=== PATIENT | female | born 1945 | race Caucasian/White ===

== ENCOUNTER 2016-12-21 03:45 | Emergency (ER) | payer MEDICARE, OTHER ==
[2016-12-21 03:53] VITALS: TEMP 97.8
[2016-12-21] MEDS ORDERED: methylPREDNISolone SOD SUCCI 125 MG/2 ML VIAL IM ONE (04:45)
[2016-12-21] MEDS ORDERED: MORPHINE SULFATE 4 MG/ML SYRINGE IM STA (04:45)
--- NOTE | 2016-12-21 05:41 | XR ---
EXAMINATION TYPE: XR lumbar spine 2 or 3V DATE OF EXAM: 12/21/2016 5:08 AM COMPARISON: 11/23/2015 HISTORY: Back pain Technique 3 views. Findings There is a slight levoscoliosis. There is degenerative disc space narrowing at L3-4. Abdomin al aorta is atheromatous. Posterior elements are intact. Sacroiliac joints are intact. Conclusion: Spondylotic changes and mild levoscoliosis. No fracture. No change.
--- NOTE | 2016-12-21 05:47 | ED ---
General Adult HPI - General Chief complaint: Extremity Injury, Lower Stated complaint: Hip/Leg Pain/Numbness Time Seen by Provider: 12/21/16 04:03 Source: patient, RN notes reviewed Mode of arrival: ambulatory Limitations: no limitations - History of Present Illness Initial comments: This patient is a 71-year-old woman who presents to be evaluated for low back pain that does go to her right leg, and has been getting worse over the past few days. The patient states that she was told she has sciatic back pain. She has had multiple flareups of the past year. She has an appointment upcoming with the [facility]. the patient indicates pain from the low back to the right buttock to the back of the thigh, and down to the toes. She denies weakness. She denies change in bladder or bowel function. She has not had saddle anesthesia. She states that last night the pain had been severe. It is difficult to characterize. She states it is better if she walks, and worse if she is sitting for a period of time. Her physician had given her muscle relaxant which she states did not give much relief. -: days(s) Location: back - Related Data Home Medications Medication Instructions Recorded Confirmed Calcium Carbonate/Vitamin D3 1 each PO QMONTH 10/30/14 12/21/16 [Calcium 600 + Vit D Tablet] Atenolol 25 mg PO DAILY 12/21/16 12/21/16 B12/Levomefolate Calcium/B-6 1 each PO DAILY 12/21/16 12/21/16 [Foltx Tablet] Calcium Carbonate [Calcium] 1,250 mg PO DAILY 12/21/16 12/21/16 Cyclobenzaprine [Flexeril] 10 mg PO HS 12/21/16 12/21/16 Ferrous Sulfate [Feosol] 325 mg PO DAILY 12/21/16 12/21/16 Ubidecarenone [Co Q-10] 200 mg PO DAILY 12/21/16 12/21/16 amLODIPine BESYLATE/BENAZEPRIL 1 cap PO DAILY 12/21/16 12/21/16 [amLODIPine BESYLATE/BENAZEPRIL 10-40 mg] Previous Rx's Medication Instructions Recorded Methocarbamol [Robaxin-750] 750 mg PO TID PRN #30 tablet 12/21/16 predniSONE 60 mg PO DAILY #30 tab 12/21/16 Allergies Allergy/AdvReac Type Severity Reaction Status Date / Time metronidazole [From Flagyl] AdvReac Unknown Verified 10/30/14 17:32 Review of Systems ROS Statement: Those systems with pertinent positive or pertinent negative responses have been documented in the HPI. ROS Other: All systems not noted in ROS Statement are negative. Constitutional: Denies: fever, chills, weakness Respiratory: Denies: cough, dyspnea Cardiovascular: Denies: chest pain, edema Gastrointestinal: Denies: abdominal pain, nausea, vomiting, diarrhea, constipation Genitourinary: Denies: dysuria, hematuria Musculoskeletal: Reports: as per HPI, back pain Skin: Denies: rash Neurological: Reports: paresthesias. Denies: headache, weakness, numbness Past Medical History Past Medical History: Hyperlipidemia, Hypertension History of Any Multi-Drug Resistant Organisms: None Reported Past Surgical History: Tubal Ligation Past Psychological History: No Psychological Hx Reported Smoking Status: Current every day smoker Past Alcohol Use History: None Reported Past Drug Use History: None Reported General Exam Limitations: no limitations General appearance: alert, in no apparent distress Head exam: Present: atraumatic, normocephalic GI/Abdominal exam: Present: soft. Absent: distended, tenderness, guarding, rebound, mass, pulsatile mass, hernia Extremities exam: Present: normal inspection, normal capillary refill. Absent: pedal edema, calf tenderness Back exam: Present: normal inspection. Absent: CVA tenderness (R), CVA tenderness (L), vertebral tenderness Neurological exam: Present: alert, reflexes normal. Absent: motor sensory deficit Skin exam: Present: warm, dry, intact, normal color. Absent: rash Course Vital Signs 12/21/16 12/21/16 03:50 06:00 Temperature 97.8 F Pulse Rate 86 66 Respiratory 18 16 Rate Blood Pressure 152/67 143/68 O2 Sat by Pulse 98 97 Oximetry Medical Decision Making - Medical Decision Making Given the patient's age lumbar spine films were obtained to rule out pathologic fracture. The patient did have some relief with medications here. Discussed appropriate further care and follow-up, as well as return parameters. Disposition Clinical Impression: Sciatic nerve pain Disposition: HOME SELF-CARE Condition: Fair Instructions: Lumbar Radiculopathy (ED) Prescriptions: Methocarbamol [Robaxin-750] 750 mg PO TID PRN #30 tablet PRN Reason: pain predniSONE 60 mg PO DAILY #30 tab Referrals: Lola Nieto MD [Primary Care Provider] - 1-2 days
[2016-12-21 06:01] VITALS: BP 143/68; PULSE 66; RESP 16
== END 2016-12-21 06:00 | disposition home or self-care (01) ==
LOC: EC 03:45
DX: M54.16 Radiculopathy, lumbar region (principal); M25.551 Pain in right hip; I10 Essential (primary) hypertension; F17.200 Nicotine dependence, unspecified, uncomplicated; Z79.899 Other long term (current) drug therapy; Z88.1 Allergy status to other antibiotic agents
CPT/HCPCS: 99283; 96372 ×2; 72100; J2270; J2930

== ENCOUNTER → 2017-01-09 | Outpatient (CLI) | payer MEDICARE, OTHER ==
--- NOTE | 2017-01-09 13:41 | MR ---
EXAMINATION TYPE: MR lumbar spine wo con DATE OF EXAM: 01/09/2017 11:52 AM COMPARISON: Plain film 21 December 2016 HISTORY: Low back pain TECHNIQUE: Multiplanar, multisequence images of the lumbar spine were acquired. L1-L2: Posterior broad-based disc bulge causes mild anterior mass effect on the thecal sac. There is some facet arthropathy which is mild. No significant central stenosis. L2-L3: Broad-based posterior disc bulge causes mild anterior mass effect on the thecal sac. No signif icant central stenosis or foraminal encroachment. L3-L4: There is a right posterior paracentral disc herniation causing anterolateral mass effect on th e thecal sac. Lateral extension encroaches on the right neural foramen. There is mild to moderate tootie tral stenosis. Facet arthropathy causes posterior lateral mass effect on the thecal sac due to hypert rophy of ligamentum flavum. L4-L5: Broad-based disc bulge is somewhat eccentric towards the left causing anterolateral mass effec t on the thecal sac. There is facet arthropathy causing lateral recess encroachment, trefoil appearan ce of the thecal sac is present. Circumferential extension of endplate disc complex encroaches somewh at on the neural foramina right greater than left. L5-S1: There is facet arthropathy with hypertrophy of ligamentum flavum causing lateral recess encroa chment, narrowing the transverse diameter of the thecal sac. Posterior extension of endplate disc com plex extension circumferentially and encroaches on the bilateral neural foraminal. There may be some mass effect on the anterior aspect of the thecal sac, proximal S1 nerve roots. Lumbar segments are intact. No paraspinal masses are identified. Conus medullaris has a normal appe arance. Levoscoliosis centered at L3 is again noted. There is retrolisthesis grade 1 L3-4. Loss of di sc height and signal is greatest at L5-S1, L3-4, L2-3, there is associated spondylosis and endplate d iscogenic marrow signal change. Lumbar vertebral bodies show preserved height. Vacuum phenomenon pres ent at L3-4, L5-S1. Infrarenal abdominal aorta measures 2.7 cm. Partially imaged left adrenal mass me asures 2.9 cm. IMPRESSION: Degenerative disc disease, facet arthropathy, scoliosis, multilevel foraminal encroachment and spinal stenosis also present. Limited evaluation, some mildly prominent portions of the infrarenal abdomina l aorta. Left adrenal mass.
== END | disposition home or self-care (01) ==
LOC: RADMRIMAIN 10:50
PROVIDERS: ATTEND Internal Medicine
DX: M48.06 Spinal stenosis, lumbar region (principal); M51.36 Other intervertebral disc degeneration, lumbar region; M46.86 Other specified inflammatory spondylopathies, lumbar region; M41.9 Scoliosis, unspecified
CPT/HCPCS: 72148

== ENCOUNTER 2017-01-13 20:24 | Emergency (ER) | payer MEDICARE, OTHER ==
[2017-01-13 20:34] VITALS: BP 146/64; PULSE 100; RESP 20; TEMP 98.9
[2017-01-13] MEDS ORDERED: ONDANSETRON ODT 4 MG TAB PO STA (21:12)
[2017-01-13] MEDS ORDERED: HYDROmorphone 1 MG/ML 1 ML SYRINGE IM STA (21:13)
--- NOTE | 2017-01-13 21:20 | ED ---
General Adult HPI - General Chief complaint: Nausea/Vomiting/Diarrhea Stated complaint: poss drug reaction Time Seen by Provider: 01/13/17 20:39 Source: patient, RN notes reviewed Mode of arrival: ambulatory Limitations: no limitations - History of Present Illness Initial comments: Patient is a 71-year-old female presents emergency room for evaluation of nausea and vomiting. Patient states she's been dealing with low back pain for the past month. Patient states she recently had an MRI at the end of last month which showed she had a pinched nerve in her right sciatic area. Patient states she was recently placed on Percocet. Patient states she was told that she is having increased pain to take 2 Percocet. Patient states she took 2 Percocet last night and began violently vomiting. Patient states she's been feeling sick to her stomach all day today. Patient states she hasn't been taking any of her Percocet because she's afraid she's going to sick again. Patient states she is having 10 out of 10 constant pain. Patient states she has previously been on tramadol, Valium, Robaxin and steroids with little relief of symptoms. Patient states she can't get a hold of her physician until Sunday. Patient states she is still feeling very nauseous. Patient denies any recent fall or trauma to her back since her MRI. Patient states the pain is similar to pain she is been having for the past month. Patient states the pain starts on her right buttocks and radiates down her right leg. Patient states she can't get comfortable from pain. Patient denies urinary or fecal incontinence. Patient denies numbness or tingling in her legs. Patient denies saddle anesthesia. Patient also states she noticed a rash forming on the right side of her face after vomiting. Patient denies new facial lotions, shampoos, detergents. Patient denies itching. Patient denies any pain from the rash area. - Related Data Home Medications Medication Instructions Recorded Confirmed Calcium Carbonate/Vitamin D3 1 each PO QMONTH 10/30/14 01/13/17 [Calcium 600 + Vit D Tablet] Atenolol 25 mg PO DAILY 12/21/16 01/13/17 B12/Levomefolate Calcium/B-6 1 each PO DAILY 12/21/16 01/13/17 [Foltx Tablet] Calcium Carbonate [Calcium] 1,250 mg PO DAILY 12/21/16 01/13/17 Cyclobenzaprine [Flexeril] 10 mg PO HS 12/21/16 01/13/17 Ferrous Sulfate [Feosol] 325 mg PO DAILY 12/21/16 01/13/17 Ubidecarenone [Co Q-10] 200 mg PO DAILY 12/21/16 01/13/17 amLODIPine BESYLATE/BENAZEPRIL 1 cap PO DAILY 12/21/16 01/13/17 [amLODIPine BESYLATE/BENAZEPRIL 10-40 mg] Ciprofloxacin HCl [Cipro] 500 mg PO Q12HR 01/13/17 01/13/17 Gabapentin [Neurontin] 300 mg PO HS 01/13/17 01/13/17 oxyCODONE-APAP 5-325MG [Percocet 1 tab PO Q6HR PRN 01/13/17 01/13/17 5-325 mg] Previous Rx's Medication Instructions Recorded Methocarbamol [Robaxin-750] 750 mg PO TID PRN #30 tablet 12/21/16 predniSONE 60 mg PO DAILY #30 tab 12/21/16 HYDROcodone/APAP 5-325MG [[place] 1 tab PO Q6HR PRN #12 tab 01/13/17 5-325] Ondansetron Odt [Zofran Odt] 4 mg PO Q8HR PRN #12 tab 01/13/17 predniSONE 50 mg PO DAILY #5 tab 01/13/17 Allergies Allergy/AdvReac Type Severity Reaction Status Date / Time metronidazole [From Flagyl] AdvReac Unknown Verified 01/13/17 20:34 Review of Systems ROS Statement: Those systems with pertinent positive or pertinent negative responses have been documented in the HPI. ROS Other: All systems not noted in ROS Statement are negative. Past Medical History Past Medical History: Hyperlipidemia, Hypertension History of Any Multi-Drug Resistant Organisms: None Reported Past Surgical History: Tubal Ligation Past Psychological History: No Psychological Hx Reported Smoking Status: Current every day smoker Past Alcohol Use History: None Reported Past Drug Use History: None Reported General Exam - General Exam Comments Initial Comments: Pacing around in exam room, uncomfortable secondary to pain. Limitations: no limitations General appearance: alert, in no apparent distress Head exam: Present: atraumatic, normocephalic, normal inspection Eye exam: Present: normal appearance ENT exam: Present: normal exam Neck exam: Present: normal inspection Respiratory exam: Absent: respiratory distress Extremities exam: Present: normal inspection Back exam: Present: normal inspection, tenderness (Tenderness on palpating over right sciatic notch) Neurological exam: Present: alert, oriented X3, CN II-XII intact, normal gait Psychiatric exam: Present: normal affect, normal mood Skin exam: Present: warm, dry, intact, normal color, petechiae (Petechia on the right side of face) Course Vital Signs 01/13/17 20:30 Temperature 98.9 F Pulse Rate 100 Respiratory 20 Rate Blood Pressure 146/64 O2 Sat by Pulse 97 Oximetry Medical Decision Making - Medical Decision Making Patient is a 71-year-old female presents to emergency room for evaluation of nausea, vomiting and back pain. Patient given Zofran feeling better. Will switch patient from Percocet to [place]. Will also place patient on prednisone. Rash on patient's face consistent with petechiae. Petechiae most likely from forceful vomiting from reaction from taking Percocet. Advised patient to follow -up with her physician on Sunday. Patient states she understands everything that was discussed with her. Return parameters discussed. Case discussed with Dr. Orozco. Disposition Clinical Impression: Low back pain, Nausea Disposition: HOME SELF-CARE Condition: Good Instructions: Acute Low Back Pain (ED) Additional Instructions: Continue icing. Discontinue taking Percocet. Take [place] every 4-6 hours for severe pain. Take prednisone once a day as directed. Take Zofran every 8 hours as needed for nausea. Please follow up with primary care provider in 1-2 days. If any new symptom arises or symptoms worsen, return to ER as soon as possible. Prescriptions: HYDROcodone/APAP 5-325MG [[place] 5-325] 1 tab PO Q6HR PRN #12 tab PRN Reason: Pain Ondansetron Odt [Zofran Odt] 4 mg PO Q8HR PRN #12 tab PRN Reason: Nausea predniSONE 50 mg PO DAILY #5 tab Referrals: Lola Nieto MD [Primary Care Provider] - 1-2 days Time of Disposition: 21:29
== END 2017-01-13 21:50 | disposition home or self-care (01) ==
LOC: EC 20:24
DX: M54.5 Low back pain (principal); R11.0 Nausea; R21 Rash and other nonspecific skin eruption; I10 Essential (primary) hypertension; E78.5 Hyperlipidemia, unspecified; F17.200 Nicotine dependence, unspecified, uncomplicated; Z79.899 Other long term (current) drug therapy
CPT/HCPCS: 99283; 96372; J1170

== ENCOUNTER 2017-01-25 12:07 | Emergency (ER) | payer MEDICARE, OTHER ==
--- NOTE | 2017-01-25 12:58 | ED ---
General Adult HPI - General Chief complaint: Urogenital Stated complaint: lt upper leg pain Time Seen by Provider: 01/25/17 12:28 Source: patient, RN notes reviewed Mode of arrival: ambulatory Limitations: no limitations - History of Present Illness Initial comments: 71-year-old female presenting for left groin and hip pain. States this is been present for several years but has been worsening over the past 3 days. She [facility] for her right low back pain and sciatica. She states she has been getting routine injections to help this pain. She denies any fall or injury. She denies any urinary or bowel incontinence. She denies any gait disturbance. She denies any fevers or chills. - Related Data Home Medications Medication Instructions Recorded Confirmed Atenolol 25 mg PO DAILY 12/21/16 01/25/17 B12/Levomefolate Calcium/B-6 1 each PO DAILY 12/21/16 01/25/17 [Foltx Tablet] Calcium Carbonate [Calcium] 1,250 mg PO DAILY 12/21/16 01/25/17 Ferrous Sulfate [Feosol] 325 mg PO DAILY 12/21/16 01/25/17 Ubidecarenone [Co Q-10] 200 mg PO DAILY 12/21/16 01/25/17 amLODIPine BESYLATE/BENAZEPRIL 1 cap PO DAILY 12/21/16 01/25/17 [amLODIPine BESYLATE/BENAZEPRIL 10-40 mg] Atorvastatin [Lipitor] 80 mg PO DIRECTED 01/25/17 01/25/17 Ergocalciferol (Vitamin D2) 50,000 unit PO Q28D 01/25/17 01/25/17 [Vitamin D2] HYDROcodone/APAP 7.5-325MG [[place] 1 tab PO TID PRN 01/25/17 01/25/17 7.5-325] Allergies Allergy/AdvReac Type Severity Reaction Status Date / Time oxycodone [From Percocet] Allergy Nausea & Verified 01/25/17 12:36 Vomiting metronidazole [From Flagyl] AdvReac Unknown Verified 01/25/17 12:36 Review of Systems ROS Statement: Those systems with pertinent positive or pertinent negative responses have been documented in the HPI. ROS Other: All systems not noted in ROS Statement are negative. Past Medical History Past Medical History: Hyperlipidemia, Hypertension, Renal Disease Additional Past Medical History / Comment(s): chronic back pain diverticulitis History of Any Multi-Drug Resistant Organisms: None Reported Past Surgical History: Tonsillectomy, Tubal Ligation Past Psychological History: No Psychological Hx Reported Smoking Status: Current every day smoker Past Alcohol Use History: None Reported Past Drug Use History: None Reported General Exam - General Exam Comments Initial Comments: General: Awake and Alert. No acute distress. Does not appear acutely ill. Eyes: LUKE, EOM intact. No nystagmus. No scleral icterus. HENT: Atraumatic, normocephalic. Mucous membranes moist. Trachea midline. Neck: The neck is supple, there is no tenderness or JVD. Cardiovascular: Regular rate and rhythm. No murmur, rub, or gallop is appreciated. Distal pulses intact. Respiratory: Lungs are clear to auscultation bilaterally. No wheezes, rales, rhonchi. No respiratory distress. Gastrointestinal: Soft, Nontender. No rebound or guarding. Non-distended. No masses or organomegaly noted. No CVA tenderness. Musculoskeletal: Tenderness over the left hip overlying the left groin. No left lateral hip tenderness There is no adenopathy or hernia in this area. There is mild right lower back tenderness which is chronic for the patient. Neurological: A&Ox3. CN II-XII grossly intact, There are no obvious motor or sensory deficits. Coordination appears grossly intact. Speech is normal. Normal gait. No saddle paresthesias. Skin: Skin is warm and dry and no rashes or lesions are noted. Psychiatric: Cooperative, appropriate mood & affect, normal judgment. Limitations: no limitations Course Vital Signs 01/25/17 01/25/17 12:13 13:38 Temperature 98.1 F 97.5 F L Pulse Rate 91 70 Respiratory 16 20 Rate Blood Pressure 155/72 157/70 O2 Sat by Pulse 98 95 Oximetry Medical Decision Making - Medical Decision Making 71-year-old female presenting for left hip pain. Denies any new injury or trauma to the area. No urinary symptoms. No history of renal stones. On examination there is no adenopathy or swelling in this area. Patient is able to ambulate without issue. She has no saddle paresthesias. There is low suspicion for cauda equina or acute cord compression at this time. Symptoms likely consistent with chronic osteoarthritic pain. Vital signs are stable. She declines any pain medications at this time. States she does follow-up with [facility] and is recommended to continue to do this and discuss her acute on chronic left hip pain. Left hip x-rays with mild degenerative changes but no acute process. Patient states pain is improved during course in ED without medications. Discussed close follow-up with PCP and orthopedic. Discussed concerning signs symptoms. Return to the ED. Patient is agreeable with plan and discharge home. Disposition Clinical Impression: Left hip pain, Chronic low back pain with right-sided sciatica Disposition: HOME SELF-CARE Condition: Stable Instructions: Chronic Back Pain (ED), Hip Pain (ED) Referrals: Lola Nieto MD [Primary Care Provider] - 1-2 days Yinka Jones DO [Doctor of Osteopathic Medicine] - 1-2 days Time of Disposition: 14:00
[2017-01-25 13:41] VITALS: BP 157/70; PULSE 70; RESP 20; TEMP 97.5
--- NOTE | 2017-01-25 13:44 | XR ---
EXAMINATION TYPE: XR Hip LT and AP Pelvis DATE OF EXAM: 01/25/2017 1:38 PM COMPARISON: CT abdomen and pelvis October 30, 2014. HISTORY: Pelvic and left hip pain. TECHNIQUE: A single AP view of the pelvis is obtained. Two views of the left hip are obtained. FINDINGS: There is no acute fracture/dislocation evident in the pelvis. The hip and sacroiliac join ts appear symmetric and unremarkable. Mild bilateral acetabular spurring is noted. The overlying soft tissue appears unremarkable. Two views of left hip show no acute fracture or dislocation. No focal lytic or sclerotic lesion seen in the proximal left femur. Some vascular calcification overlying soft tissue left groin region is s een. IMPRESSION: There is no acute fracture or dislocation in the pelvis or left hip.
== END 2017-01-25 14:09 | disposition home or self-care (01) ==
LOC: EC 12:07
DX: M25.552 Pain in left hip (principal); G89.29 Other chronic pain; M54.41 Lumbago with sciatica, right side; Z79.899 Other long term (current) drug therapy; Z88.5 Allergy status to narcotic agent; I10 Essential (primary) hypertension; E78.5 Hyperlipidemia, unspecified; F17.200 Nicotine dependence, unspecified, uncomplicated
CPT/HCPCS: 73502; 99283

== ENCOUNTER 2017-03-31 21:03 | Emergency (ER) | payer MEDICARE, OTHER ==
[2017-03-31 21:14] VITALS: RESP 18
--- NOTE | 2017-04-01 00:35 | ED ---
General Adult HPI - General Source: patient, RN notes reviewed, old records reviewed Mode of arrival: ambulatory Limitations: no limitations <Quentin Orozco - Last Filed: 04/01/17 01:06> <John Gregory - Last Filed: 04/01/17 02:00> - General Chief complaint: Abdominal Pain Stated complaint: Constapation/left flank pain Time Seen by Provider: 03/31/17 23:08 - History of Present Illness Initial comments: If complaint and history of present illness a 71-year-old female with complaint of constipation. States she has not had a bowel movement for 6 days. Patient reports that on previous occasions she had pain that was diagnosed by CAT scan as diverticulitis. The symptoms returned her family physician placed her on Cipro which she's been on for 6 days. She also reports that she's not had a bowel movement since starting the Cipro. But she is also taking Tipton for chronic back pain. The patient's tried several different ways to have bowel movements none of which were very effective. (Quentin Orozco) - Related Data Home Medications Medication Instructions Recorded Confirmed Atenolol 25 mg PO DAILY 12/21/16 01/25/17 B12/Levomefolate Calcium/B-6 1 each PO DAILY 12/21/16 01/25/17 [Foltx Tablet] Calcium Carbonate [Calcium] 1,250 mg PO DAILY 12/21/16 01/25/17 Ferrous Sulfate [Feosol] 325 mg PO DAILY 12/21/16 01/25/17 Ubidecarenone [Co Q-10] 200 mg PO DAILY 12/21/16 01/25/17 amLODIPine BESYLATE/BENAZEPRIL 1 cap PO DAILY 12/21/16 01/25/17 [amLODIPine BESYLATE/BENAZEPRIL 10-40 mg] Atorvastatin [Lipitor] 80 mg PO DIRECTED 01/25/17 01/25/17 Ergocalciferol (Vitamin D2) 50,000 unit PO Q28D 01/25/17 01/25/17 [Vitamin D2] HYDROcodone/APAP 7.5-325MG [Tipton 1 tab PO TID PRN 01/25/17 01/25/17 7.5-325] Allergies Allergy/AdvReac Type Severity Reaction Status Date / Time oxycodone [From Percocet] Allergy Nausea & Verified 03/31/17 21:13 Vomiting metronidazole [From Flagyl] AdvReac Unknown Verified 03/31/17 21:13 Review of Systems ROS Other: All systems not noted in ROS Statement are negative. <Quentin Orozco - Last Filed: 04/01/17 01:06> ROS Other: All systems not noted in ROS Statement are negative. <John Gregory - Last Filed: 04/01/17 02:00> ROS Statement: Those systems with pertinent positive or pertinent negative responses have been documented in the HPI. Review of systems no headache or visual acuity changes no chest pain or shortness of breath. Patient has chronic low back pain which is been treated with steroid shots and narcotics. Patient was advised that the Tipton will cause constipation. She is also advised to use stool softeners increase fluid intake. And use medications to help her bowel movements every other day. All systems reviewed. Past medical problems significant hyperlipidemia, hypertension, renal disease stage III of unknown cause per patient. Chronic back pain for which she takes pain medications. Surgeries include tonsillectomy and tubal ligation. Patient reports that she smokes, strongly encouraged to stop. Denies alcohol use. Family history noncontributory. Patient has ALLERGIES to metronidazole and oxycodone. (Quentin Orozco) Past Medical History Past Medical History: Hyperlipidemia, Hypertension, Renal Disease Additional Past Medical History / Comment(s): chronic back pain' diverticulitis History of Any Multi-Drug Resistant Organisms: None Reported Past Surgical History: Tonsillectomy, Tubal Ligation Past Psychological History: No Psychological Hx Reported Smoking Status: Current every day smoker Past Alcohol Use History: None Reported Past Drug Use History: None Reported <Quentin Orozco - Last Filed: 04/01/17 01:06> General Exam Limitations: no limitations <Quentin Orozco - Last Filed: 04/01/17 01:06> <John Gregory - Last Filed: 04/01/17 02:00> - General Exam Comments Initial Comments: General: The patient is awake and alert, planes constipation for 6 days. And mild left lower quadrant pain for which she's taken Cipro for diagnosis of diverticulitis. The patient's vital signs are temperature 98.0 pulse 79 respiratory rate 18 pulse ox 90% room air blood pressure 157/74 Neck: The neck is supple, there is no tenderness Cardiovascular: There is a regular rate and rhythm. No murmur, rub or gallop is appreciated. Respiratory: Lungs are clear to auscultation, respirations are non-labored, breath sounds are equal. No wheezes, stridor, rales, or rhonchi. Gastrointestinal: Soft, non-distended, non-tender abdomen without masses or organomegaly noted. There is no rebound or guarding present. No CVA tenderness. Bowel sounds are unremarkable. Patient states no bowel movement for 6 days. Back: Chronic back pain Musculoskeletal: No foot drop. Neurological: No focal or lateralizing findings. She has chronic back pain. Skin: No rashes. (Quentin Orozco) Medical Decision Making <Quentin Orozco - Last Filed: 04/01/17 01:06> <John Gregory - Last Filed: 04/01/17 02:00> - Medical Decision Making She of the abdomen shows abundant stool burden. No evidence of any free air. The patient will have an enema. She was told to complete her antibiotics for the diverticulitis that was diagnosed by her family doctor. And follow-up with family doctor. Again advised against taking so many narcotics caused constipation problems (Quentin Orozco) Disposition <Quentin Orozco - Last Filed: 04/01/17 01:06> <John Gregory - Last Filed: 04/01/17 02:00> Clinical Impression: Constipation due to pain medication, Diverticulitis Disposition: HOME SELF-CARE Condition: Fair Instructions: Constipation (ED) Referrals: Lola Nieto MD [Primary Care Provider] - 1-2 days
--- NOTE | 2017-04-01 01:16 | XR ---
EXAM: 3 views of the abdomen INDICATION: 71-year-old female with history of diverticulitis, constipated. COMPARISON: 10/30/2014. FINDINGS: Single frontal view of the abdomen demonstrates a nonobstructive, nonspecific bowel gas pattern. Moderate colonic stool burden No evidence of organomegaly, abnormal calcifications or obvious soft tissue masses. Scoliotic curvature and degenerative changes of the spine. Arterial Stations. IMPRESSION: Nonobstructive bowel gas pattern. Moderate to large stool burden.
[2017-04-01 02:12] VITALS: BP 138/75; PULSE 89; TEMP 98.2
== END 2017-04-01 02:11 | disposition home or self-care (01) ==
LOC: EC 21:03
DX: K59.09 Other constipation (principal); T40.605A Adverse effect of unspecified narcotics, initial encounter; K57.32 Diverticulitis of large intestine without perforation or abscess without bleeding; M54.5 Low back pain; G89.29 Other chronic pain; E78.5 Hyperlipidemia, unspecified; I12.9 Hypertensive chronic kidney disease with stage 1 through stage 4 chronic kidney disease, or unspecified chronic kidney disease; N18.3 Chronic kidney disease, stage 3 (moderate); F17.200 Nicotine dependence, unspecified, uncomplicated; Z88.1 Allergy status to other antibiotic agents; Z88.5 Allergy status to narcotic agent; Z79.899 Other long term (current) drug therapy
CPT/HCPCS: 74020; 99284

== ENCOUNTER → 2017-04-23 | Outpatient (CLI) | payer MEDICARE, OTHER ==
--- NOTE | 2017-04-23 14:04 | CT ---
EXAMINATION TYPE: CT abdomen wo con DATE OF EXAM: 04/23/2017 COMPARISON: 10/30/2014 INDICATION: LUQ pain DLP: 142.1 mGycm, Automated exposure control for dose reduction was used. CONTRAST: None TECHNIQUE: Axial images were obtained from above the diaphragm to the pubic rami in the axial plane a t 5 mm thick sections. Reconstructed images are reviewed on the computer in the coronal plane. FINDINGS: Limited CT sections are obtained the lung bases. The lung bases are clear. CT ABDOMEN: Liver: Normal Spleen: Normal Pancreas: Normal Adrenal glands: The left adrenal gland is enlarged measuring -3 Hounsfield units and 2.8 cm in diamet er. Angiomyolipoma could be considered. Gallbladder: Normal there may be a small calcification within the common duct or distal cystic duct. This is visualized image 23 sequence 3 and series 6 image 36. Kidneys: No masses are evident. No hydronephrosis is present. No cysts are present. Delayed images were obtained through the kidneys, which remain unremarkable. Aorta: Vascular calcification is within the aorta. Aorta does not taper as typically expected. Aneur ysmal dilatation or is not evident. Greatest AP diameter within the mid distal abdominal aorta is 2.7 cm. Inferior vena cava: Normal. Loops of bowel within the abdomen are normal. Lack of oral contrast limits evaluation of bowel lo ops. The appendix may be partially visualized. This is incompletely visualized as could be mistaken f or diverticulum. IMPRESSIONS: 1. Possible common bile duct or cystic duct stone. Dilatation is not identified. Consider additional evaluation with ultrasound. 2. Enlarged low density adrenal gland. Angiomyolipoma could be considered. Follow-up is recommended.
== END | disposition home or self-care (01) ==
LOC: RADCTMAIN 12:07
PROVIDERS: ATTEND Internal Medicine
DX: E27.8 Other specified disorders of adrenal gland (principal); R10.84 Generalized abdominal pain
CPT/HCPCS: 74150

== ENCOUNTER → 2017-05-02 | Outpatient (CLI) | payer MEDICARE, OTHER ==
--- NOTE | 2017-05-02 15:34 | US ---
EXAMINATION TYPE: US abdomen complete DATE OF EXAM: 05/02/2017 COMPARISON: CT abdomen 04/23/2017 CLINICAL HISTORY: Gallstones K81.9. LUQ pain under rib, abnormal CT showed possible cbd stone EXAM MEASUREMENTS: Liver Length: 15.2 cm Gallbladder Wall: 0.1 cm CBD: 0.3 cm Spleen: 9.9 cm Right Kidney: 7.4 x 3.9 x 4.2 cm Left Kidney: 10.1 x 4.6 x 5.5 cm Pancreas: wnl Liver: wnl Gallbladder: wnl Evidence for sonographic Ignacio's sign: no CBD: no obvious stone seen Spleen: wnl Right Kidney: smaller in size with cortical thinning Left Kidney: wnl Upper IVC: wnl Abd Aorta: increase in size at distal portion = 2.4cm LUQ area of pain appears wnl, bowel loops and gas was within pocket of concern IMPRESSION: 1. Distal abdominal aorta 2.4 cm. Slightly dilated fusiform prominence. 2. Common bile duct on the ultrasound is 0.3 cm which is normal.
== END | disposition home or self-care (01) ==
LOC: RADUSWWP 10:14
PROVIDERS: ATTEND Internal Medicine
DX: K81.9 Cholecystitis, unspecified (principal)
CPT/HCPCS: 76700

== ENCOUNTER → 2017-05-18 | Outpatient (CLI) | payer MEDICARE, OTHER ==
--- NOTE | 2017-05-21 06:27 | XR ---
EXAMINATION TYPE: XR chest 2V DATE OF EXAM: 05/18/2017 COMPARISON: Chest x-ray August 30, 2016. HISTORY: Left-sided chest pain. Chronic kidney disease stage III. TECHNIQUE: Frontal and lateral views of the chest are obtained. FINDINGS: There is no focal air space opacity, pleural effusion, or pneumothorax seen. The cardiac silhouette size is within normal limits. Atherosclerotic change is seen in aortic knob. The osseous structures are intact. IMPRESSION: No acute cardiopulmonary process. No significant change from prior.
== END | disposition home or self-care (01) ==
LOC: RADXRYALE 09:47
PROVIDERS: ATTEND Nurse Practitioner Family
DX: N18.3 Chronic kidney disease, stage 3 (moderate) (principal)
CPT/HCPCS: 71020

== ENCOUNTER → 2017-06-25 | Outpatient (CLI) | payer MEDICARE, OTHER ==
--- NOTE | 2017-06-25 15:09 | FL ---
EXAMINATION TYPE: FL barium enema w air contrast DATE OF EXAM: 06/25/2017 COMPARISON: NONE HISTORY: Change in bowel habits. TECHNIQUE: Barium and air were instilled into the colon from the rectum to the cecum. Multiple spot and overhead images are obtained. FINDINGS: Preliminary film of the abdomen demonstrates lumbar scoliosis convex to the left. Degenerative change s noted. Atheromatous change of the abdominal aorta. The colon is tortuous. I do not see evidence for annular constricting lesion or fungating mass. No p olypoid lesions are identified. Mucosal fold pattern has a normal appearance. No evidence for infla mmatory bowel disease. Moderate sigmoid diverticulosis without diverticulitis. IMPRESSION: 1. Sigmoid diverticulosis without diverticulitis.
== END | disposition home or self-care (01) ==
LOC: RADFLMAIN 11:12
PROVIDERS: ATTEND Surgery
DX: K57.30 Diverticulosis of large intestine without perforation or abscess without bleeding (principal)
CPT/HCPCS: 74280

== ENCOUNTER 2021-06-05 13:07 | Emergency (ER) | payer MEDICARE, OTHER ==
[2021-06-05 13:11] VITALS: RESP 16
[2021-06-05] MEDS ORDERED: SODIUM CHLORIDE 0.9% 1,000 ML IV STA (13:23)
--- NOTE | 2021-06-05 13:33 | ED ---
Abdominal Pain HPI - General Chief Complaint: Abdominal Pain Stated Complaint: lt sided abd pain Time Seen by Provider: 06/05/21 13:13 Source: patient Mode of arrival: ambulatory Limitations: no limitations - History of Present Illness Initial Comments: Patient is a 75-year-old female presenting to the emergency Department with complaints of left flank pain that started early this morning at approximate 5 AM. She states the pain has been intermittent, starts at the left flank and wraps around to the left side. She states right now it is a 4/10. She did not take anything for pain yet. She admits to some mild nausea earlier but none right now, no vomiting, no other abdominal pain. She does have history of chronic back pain but this feels different. She denies any fevers or chills, no hematuria or dysuria, no history of kidney stones. She has no further complaints. On arrival to the ER, her vitals are stable. - Related Data Home Medications Medication Instructions Recorded Confirmed Ferrous Sulfate [Feosol] 325 mg PO DAILY 12/21/16 06/05/21 Ubidecarenone [Co Q-10] 200 mg PO HS 12/21/16 06/05/21 amLODIPine BESYLATE/BENAZEPRIL 1 cap PO HS 12/21/16 06/05/21 [amLODIPine BESYLATE/BENAZEPRIL 10-40 mg] atenoloL [Atenolol] 25 mg PO HS 12/21/16 06/05/21 Ergocalciferol (Vitamin D2) 50,000 unit PO Q14D 01/25/17 06/05/21 [Vitamin D2] Aspirin EC [Ecotrin Low Dose] 81 mg PO DAILY 06/05/21 06/05/21 Atorvastatin Calcium [Lipitor] 40 mg PO HS 06/05/21 06/05/21 Cyanocobalamin (Vitamin B-12) 1,000 mcg PO DAILY 06/05/21 06/05/21 [Vitamin B-12] hydroCHLOROthiazide [Hydrodiuril] 25 mg PO DAILY 06/05/21 06/05/21 Previous Rx's Medication Instructions Recorded Amoxicillin/Potassium Clav 1 tab PO BID 7 Days #14 tab 06/05/21 [Augmentin 875-125 Tablet] Allergies Allergy/AdvReac Type Severity Reaction Status Date / Time oxycodone [From Percocet] Allergy Nausea & Verified 06/05/21 14:42 Vomiting metronidazole [From Flagyl] AdvReac Unknown Verified 06/05/21 14:42 Review of Systems ROS Statement: Those systems with pertinent positive or pertinent negative responses have been documented in the HPI. ROS Other: All systems not noted in ROS Statement are negative. Past Medical History Past Medical History: Hyperlipidemia, Hypertension, Renal Disease Additional Past Medical History / Comment(s): chronic back pain' diverticulitis History of Any Multi-Drug Resistant Organisms: None Reported Past Surgical History: Tonsillectomy, Tubal Ligation Past Psychological History: No Psychological Hx Reported Smoking Status: Current every day smoker Past Alcohol Use History: None Reported Past Drug Use History: None Reported General Exam - General Exam Comments Initial Comments: GENERAL: Patient is well-developed and well-nourished. Patient is nontoxic and in no acute distress. HEAD: Atraumatic, normocephalic. EYES: Pupils equal round and reactive to light, extraocular movements intact, sclera anicteric, conjunctiva are normal. Eyelids were unremarkable. ENT: Nares patent, oropharynx clear without exudates. Moist mucous membranes. NECK: Normal range of motion, supple without lymphadenopathy or JVD. LUNGS: Unlabored respirations. Breath sounds clear to auscultation bilaterally and equal. No wheezes rales or rhonchi. HEART: Regular rate and rhythm without murmurs, rubs or gallops. ABDOMEN: Soft, tenderness of the left flank, left side of the abdomen, no other areas of tenderness., normoactive bowel sounds. No guarding, no rebound. No masses appreciated. : Deferred MUSCULOSKELETAL: Normal extremities with adequate strength and normal range of motion, no pitting or edema. No clubbing or cyanosis. NEUROLOGICAL: Patient is alert and oriented x 3. SKIN: Warm, Dry, normal turgor, no rashes or lesions noted. Limitations: no limitations Course Vital Signs 06/05/21 13:09 Temperature 98.6 F Pulse Rate 63 Respiratory 16 Rate Blood Pressure 146/70 O2 Sat by Pulse 96 Oximetry Medical Decision Making - Medical Decision Making Patient is a 75-year-old female here with complaints of left flank pain that started early this morning. Her vitals are stable. Labs show a slightly, 10.5, creatinine function is stable. Urine shows no evidence of infection or hematuria. CT of the abdomen and pelvis shows some mild diverticulitis involving the mid descending colon. Patient received a liter fluids, she refuses any pain medication. I discussed these findings with her. She'll be started on Augmentin for mild acute diverticulitis. She can follow up with her primary care physician. First dose given here in the ER. She is agreeable to this plan of care. Return parameters were discussed with her and she verbalized understanding. Case discussed with Dr. Johnston. - Lab Data Result diagrams: 06/05/21 13:35 06/05/21 13:35 Lab Results 06/05/21 06/05/21 06/05/21 Range/Units 13:35 13:35 14:45 WBC 10.9 H (3.8-10.6) k/uL RBC 4.46 (3.80-5.40) m/uL Hgb 13.1 (11.4-16.0) gm/dL Hct 39.4 (34.0-46.0) % MCV 88.3 (80.0-100.0) fL MCH 29.3 (25.0-35.0) pg MCHC 33.1 (31.0-37.0) g/dL RDW 14.2 (11.5-15.5) % Plt Count 151 (150-450) k/uL MPV 9.8 Neutrophils % 75 % Lymphocytes % 16 % Monocytes % 6 % Eosinophils % 1 % Basophils % 0 % Neutrophils # 8.2 H (1.3-7.7) k/uL Lymphocytes # 1.7 (1.0-4.8) k/uL Monocytes # 0.7 (0-1.0) k/uL Eosinophils # 0.2 (0-0.7) k/uL Basophils # 0.0 (0-0.2) k/uL Sodium 141 (137-145) mmol/L Potassium 4.0 (3.5-5.1) mmol/L Chloride 105 (98-107) mmol/L Carbon Dioxide 27 (22-30) mmol/L Anion Gap 9 mmol/L BUN 21 H (7-17) mg/dL Creatinine 1.43 H (0.52-1.04) mg/dL Est GFR (CKD-EPI)AfAm 42 (>60 ml/min/1.73 sqM) Est GFR (CKD-EPI)NonAf 36 (>60 ml/min/1.73 sqM) Glucose 117 H (74-99) mg/dL Calcium 9.7 (8.4-10.2) mg/dL Total Bilirubin 0.4 (0.2-1.3) mg/dL AST 25 (14-36) U/L ALT 16 (4-34) U/L Alkaline Phosphatase 81 (38-126) U/L Total Protein 7.0 (6.3-8.2) g/dL Albumin 4.4 (3.5-5.0) g/dL Lipase 179 (23-300) U/L Urine Color Light Yellow Urine Appearance Clear (Clear) Urine pH 6.5 (5.0-8.0) Ur Specific [place] 1.008 (1.001-1.035) Urine Protein Negative (Negative) Urine Glucose (UA) Negative (Negative) Urine Ketones Negative (Negative) Urine Blood Trace H (Negative) Urine Nitrite Negative (Negative) Urine Bilirubin Negative (Negative) Urine Urobilinogen <2.0 (<2.0) mg/dL Ur Leukocyte Esterase Negative (Negative) Urine RBC 1 (0-5) /hpf Urine WBC <1 (0-5) /hpf Ur Squamous Epith Cells 1 (0-4) /hpf Disposition Clinical Impression: Diverticulitis Disposition: HOME SELF-CARE Condition: Stable Instructions (If sedation given, give patient instructions): Diverticulitis (ED) Additional Instructions: Please return to the Emergency Department if symptoms worsen or any other concerns. Take antibiotics as prescribed, finish entire course. Please follow-up with your primary care physician. Prescriptions: Amoxicillin/Potassium Clav [Augmentin 875-125 Tablet] 1 tab PO BID 7 Days #14 tab Is patient prescribed a controlled substance at d/c from ED?: No Referrals: Lola Nieto MD [Primary Care Provider] - 1-2 days Time of Disposition: 15:05
[2021-06-05 13:58] LABS: Basophils % (A) 0 %; Eosinophils # (A) 0.2 k/uL (0-0.7); Eosinophils % (A) 1 %; HCT 39.4 % (34.0-46.0); HGB 13.1 gm/dL (11.4-16.0); Lymphocytes # (A) 1.7 k/uL (1.0-4.8); Lymphocytes % (A) 16 %; MCH 29.3 pg (25.0-35.0); MCHC 33.1 g/dL (31.0-37.0); MCV 88.3 fL (80.0-100.0); Mean Platelet Volume 9.8; Monocytes # (A) 0.7 k/uL (0-1.0); Monocytes % (A) 6 %; Neutrophils # (A) 8.2 k/uL (1.3-7.7); Neutrophils % (A) 75 %; Platelet Count 151 k/uL (150-450); RBC 4.46 m/uL (3.80-5.40); RDW 14.2 % (11.5-15.5); WBC 10.9 k/uL (3.8-10.6)
[2021-06-05 14:12] LABS: Albumin 4.4 g/dL (3.5-5.0); Calcium 9.7 mg/dL (8.4-10.2); Total Bilirubin 0.4 mg/dL (0.2-1.3)
--- NOTE | 2021-06-05 14:31 | CT ---
EXAMINATION TYPE: CT abdomen pelvis wo con DATE OF EXAM: 06/05/2021 COMPARISON: 04/23/2017 and 10/30/2014. HISTORY: Lt flank pain CT DLP: 387.7 mGycm Automated exposure control for dose reduction was used. Images obtained from the diaphragm to the floor the pelvis with no contrast. Lung bases are clear. There is no pleural effusion. Heart size is normal. There is no pericardial eff usion. Liver spleen pancreas gallbladder stomach appear intact. The bile ducts are not dilated. There is no adrenal mass. Right kidney is small. This could relate to hypoplasia. No evidence of any significant hydronephrosis. Appendix is normal. Ureters are not dilated. Bladder distends smoothly. T here are some varicose superficial veins around the anterior left hip. There are multiple sigmoid diverticula. There is no diverticulitis. Uterus is anteverted. There are s mall uterine fundal calcified 1 cm fibroid. There is no free fluid in the pelvis. There is some fat stranding around the descending colon with mild wall thickening. There is no ascite s or free air. There is no bowel obstruction. Abdominal aorta is atheromatous. There is lumbar levosc oliosis. There are spondylotic changes in the mid lumbar spine. There is no compression fracture. The bony pelvis is intact. IMPRESSION: There is evidence of some diverticulitis involving the mid descending colon. This appears new compare d to old exam. No drainable fluid collection. Varicose veins at the left anterior hip region raises the possibility of chronic deep vein thrombosis in the thigh. This appears unchanged compared to old CT scan of 10/30/2014.
[2021-06-05 14:53] LABS: Appearance,Urine Clear (Clear); Bilirubin,Urine Negative (Negative); Color,Urine Light Yellow; Glucose,Urine (UA) Negative (Negative); Ketones,Urine Negative (Negative); PH, Urine 6.5 (5.0-8.0); Protein,Urine Negative (Negative); Specific Gravity,Urine 1.008 (1.001-1.035)
[2021-06-05 14:54] LABS: Blood,Urine Trace (Negative); Leukocyte Esterase,Urine Negative (Negative); Nitrite,Urine Negative (Negative); RBC,Urine 1 /hpf (0-5); Squamous Epithelial Cell,Urine 1 /hpf (0-4); Urobilinogen,Urine <2.0 mg/dL (<2.0); WBC,Urine <1 /hpf (0-5)
[2021-06-05] MEDS ORDERED: AMOXIC-POT CLAV 875-125MG 1 EACH TAB PO STA (15:02)
[2021-06-05 15:33] VITALS: BP 140/69; PULSE 66; TEMP 98
== END 2021-06-05 15:33 | disposition home or self-care (01) ==
LOC: EC 13:07
DX: K57.30 Diverticulosis of large intestine without perforation or abscess without bleeding (principal); I10 Essential (primary) hypertension; F17.200 Nicotine dependence, unspecified, uncomplicated; E78.5 Hyperlipidemia, unspecified; Z88.8 Allergy status to other drugs, medicaments and biological substances; Z88.5 Allergy status to narcotic agent; Z79.899 Other long term (current) drug therapy
CPT/HCPCS: 36415; 74176; 80053; 81001; 83690; 85025; 96360; 96361; 99284

== ENCOUNTER → 2021-07-26 | Outpatient (CLI) | payer MEDICARE, OTHER ==
--- NOTE | 2021-07-26 19:54 | US ---
EXAMINATION TYPE: US kidneys/renal and bladder DATE OF EXAM: 07/26/2021 COMPARISON: CT 06/05/2021 and 10/30/2014 CLINICAL HISTORY: 75-year-old female N18.3 Chronic kidney disease. TECHNIQUE: Multiple sonographic images of the kidneys and bladder are obtained. EXAM MEASUREMENTS: Right Kidney: 7.1 x 3.2 x 3.4 cm Left Kidney: 10.7 x 5.1 x 4.6 cm Right Kidney: Appeared atrophic Left Kidney: Appeared wnl No hydronephrosis on either side. Bladder: Underdistention of the bladder limits its evaluation. Mild bladder wall thickening. Bilateral Jets seen: Only left jet visualized Probable left adrenal gland visualized, ?mass as visualized on prior CT= 2.6 x 1.6 x 2.6 cm IMPRESSION: 1. No hydronephrosis. Atrophic right kidney. 2. Bladder wall thickening may be chronic for the patient. Correlate to exclude cystitis. 3. A 2.6 cm left adrenal gland mass. 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
== END | disposition home or self-care (01) ==
LOC: RADUSWWP 14:38
PROVIDERS: ATTEND Internal Medicine Nephrology
DX: N18.30 Chronic kidney disease, stage 3 unspecified (principal); E27.9 Disorder of adrenal gland, unspecified
CPT/HCPCS: 76770

== ENCOUNTER 2022-04-10 15:21 | Emergency (ER) | payer MEDICARE, OTHER ==
[2022-04-10 18:13] LABS: Basophils # (A) 0.1 k/uL (0-0.2); Basophils % (A) 1 %; Eosinophils # (A) 0.2 k/uL (0-0.7); Eosinophils % (A) 1 %; HCT 39.1 % (34.0-46.0); HGB 12.4 gm/dL (11.4-16.0); Lymphocytes # (A) 2.1 k/uL (1.0-4.8); Lymphocytes % (A) 18 %; MCH 28.3 pg (25.0-35.0); MCHC 31.7 g/dL (31.0-37.0); MCV 89.1 fL (80.0-100.0); Mean Platelet Volume 9.5; Monocytes # (A) 0.7 k/uL (0-1.0); Monocytes % (A) 6 %; Neutrophils # (A) 8.6 k/uL (1.3-7.7); Neutrophils % (A) 74 %; Platelet Count 139 k/uL (150-450); RBC 4.39 m/uL (3.80-5.40); RDW 14.1 % (11.5-15.5); WBC 11.6 k/uL (3.8-10.6)
[2022-04-10 18:26] LABS: Albumin 4.2 g/dL (3.5-5.0); Calcium 9.3 mg/dL (8.4-10.2); Potassium 4.3 mmol/L (3.5-5.1); Total Bilirubin 0.5 mg/dL (0.2-1.3); Total Protein 6.8 g/dL (6.3-8.2)
--- NOTE | 2022-04-10 19:33 | CT ---
EXAMINATION TYPE: CT abdomen pelvis w con DATE OF EXAM: 04/10/2022 COMPARISON: 06/05/2021 HISTORY: LLQ abdominal pain, suspect diverticulitis. Pt hx stage 3 renal disease. Labs GFR 40, C-1.[address] , [address] Dhillon still wanted CT, had physician sign contrast consent. Also gave pt 50 ml. saline with [address] DLP: 676.3 mGycm Automated exposure control for dose reduction was used. CONTRAST: Performed with IV Contrast, patient injected with 80 mL of Isovue 300. The lung bases are clear of infiltrate. Heart size is normal. No pericardial effusion. Liver spleen a nd stomach pancreas appear intact. There is mixed density left adrenal mass that measures 2.8 cm in d iameter. Right kidney is small. Left kidney shows some compensatory hypertrophy. There is normal excr etion on the delayed images. There are small cortical cysts in the lower pole right kidney. Abdominal aorta is atheromatous. There is no retroperitoneal adenopathy. Gallbladder is intact. The bile ducts are not dilated. There is small calcification in the dependent gallbladder. The bladder distends smoothly. There are small calcified uterine fibroid. Uterus is anteverted. No fr ee fluid in the pelvis. There are sigmoid multiple diverticula. There is some fat stranding and fluid in the left paracolic gutter. There are some small bowel loops with mild wall thickening in the pelv is. No evidence of a bowel obstruction. The lumbar vertebra show disc space narrowing at L3-4 and L5-S1 with vacuum disc and sclerosis. No co mpression fracture. The bony pelvis is intact. Hip joints are intact. There is a slight lumbar levosc oliosis. IMPRESSION: There is some focal diverticulitis in the proximal sigmoid colon that is not significantly different than the old CT scan. There is some wall thickening of the small bowel loops in the pelvis that could relate to some enteri tis and is a change compared to old exams Small calcified gallstone. Left adrenal mass without significant change.
--- NOTE | 2022-04-10 19:46 | ED ---
Abdominal Pain HPI - General Chief Complaint: Abdominal Pain Stated Complaint: GI/Left side Abd pain Time Seen by Provider: 04/10/22 17:30 Source: patient Mode of arrival: ambulatory Limitations: no limitations - History of Present Illness Initial Comments: This 76-year-old female presents with a complaint of abdominal pain. She relates that it is primarily in her left lateral and lower abdomen radiating into her left flank. She denies any nausea, vomiting, or fever. She denies any constipation. She has had occasional loose stool. She states that she has a history of diverticulitis and this is somewhat similar to prior episodes. She saw her primary care physician a couple of weeks ago and was diagnosed with diverticulitis. She was placed on Augmentin. She states that the symptoms seemed to improve while she is on the medicine. She stopped this a few days ago and the symptoms returned a couple of days ago. She denies any other complaints or modifying factors. - Related Data Home Medications Medication Instructions Recorded Confirmed Ferrous Sulfate [Feosol] 325 mg PO DAILY 12/21/16 04/10/22 Ubidecarenone [Co Q-10] 200 mg PO DAILY 12/21/16 04/10/22 amLODIPine BESYLATE/BENAZEPRIL 1 cap PO DAILY 12/21/16 04/10/22 [amLODIPine BESYLATE/BENAZEPRIL 10-40 mg] atenoloL 25 mg PO HS 12/21/16 04/10/22 Ergocalciferol (Vitamin D2) 50,000 unit PO Q14D 01/25/17 04/10/22 [Vitamin D2] Aspirin EC [Ecotrin Low Dose] 81 mg PO DAILY 06/05/21 04/10/22 Atorvastatin Calcium [Lipitor] 40 mg PO HS 06/05/21 04/10/22 Cyanocobalamin (Vitamin B-12) 1,000 mcg PO DAILY 06/05/21 04/10/22 [Vitamin B-12] hydroCHLOROthiazide [Hydrodiuril] 25 mg PO MOTH@2100 06/05/21 04/10/22 Allergies Allergy/AdvReac Type Severity Reaction Status Date / Time oxycodone [From Percocet] Allergy Nausea & Verified 04/10/22 18:31 Vomiting metronidazole [From Flagyl] AdvReac Unknown Verified 04/10/22 18:31 Review of Systems ROS Statement: Those systems with pertinent positive or pertinent negative responses have been documented in the HPI. ROS Other: All systems not noted in ROS Statement are negative. Past Medical History Past Medical History: Hyperlipidemia, Hypertension, Renal Disease Additional Past Medical History / Comment(s): chronic back pain' diverticulitis History of Any Multi-Drug Resistant Organisms: None Reported Past Surgical History: Tonsillectomy, Tubal Ligation Past Psychological History: No Psychological Hx Reported Smoking Status: Current every day smoker Past Alcohol Use History: None Reported Past Drug Use History: None Reported General Exam - General Exam Comments Initial Comments: GENERAL: The patient is well nourished and well hydrated. VITAL SIGNS: Heart rate, blood pressure, respiratory rate reviewed as recorded in nurse's notes. EYES: Pupils are round and reactive. Extraocular movements are intact. No conjunctival / lid redness or swelling. ENT: No external evidence of injury, swelling, or ecchymosis. Airway is patent. Throat is clear. NECK: Nontender. No swelling or evidence of injury. No subcutaneous emphysema. Trachea is midline. No thyroid mass. HEART: Regular rate and rhythm. Good peripheral pulses. LUNGS/CHEST: Breath sounds clear and equal bilaterally. No rales, rhonchi, or wheezes. No ecchymosis, subcutaneous emphysema, or tenderness. ABDOMEN: Abdomen is soft and there is some tenderness noted in the left lower quadrant and lateral abdomen and slightly to the left flank. No palpable masses or organomegaly. No peritoneal signs. No abdominal wall swelling or ecchymosis. EXTREMITIES: No extremity tenderness. Normal muscle tone and function. No thoracolumbar tenderness. NEUROLOGIC: Sensation is grossly intact. Cranial nerve exam reveals face is symmetrical, tongue is midline, speech is clear. SKIN: No abrasions or ecchymosis is noted. No induration or masses noted. PSYCHIATRIC: Alert and oriented. Appropriate behavior and judgment. Limitations: no limitations Course Vital Signs 04/10/22 17:27 Temperature 98.1 F Pulse Rate 86 Respiratory 16 Rate Blood Pressure 135/76 O2 Sat by Pulse 98 Oximetry Medical Decision Making - Medical Decision Making The patient was seen and examined. All diagnostics are reviewed. IV is established and laboratory shows a slight leukocytosis. There is mild renal insufficiency and this is consistent with patient's history of stage III kidney disease. She states that she does follow up with a tax analyst in this regard. She had a computed tomography scan of the abdomen and pelvis and this shows evidence of diverticulitis which is uncomplicated. It is felt as though she stable for outpatient treatment. She relates that she has a when necessary prescription filled of Augmentin for 10 days at home in case this recurs as pres cribed by her primary care. She is instructed to start taking this medication. It is felt as though she should have close follow-up with her primary care as well and return if any problems occur. Her pain is minimal overall she relates that she would be fine taking Tylenol if needed. - Lab Data Result diagrams: 04/10/22 18:03 04/10/22 18:03 Lab Results 04/10/22 04/10/22 Range/Units 18:03 18:03 WBC 11.6 H (3.8-10.6) k/uL RBC 4.39 (3.80-5.40) m/uL Hgb 12.4 (11.4-16.0) gm/dL Hct 39.1 (34.0-46.0) % MCV 89.1 (80.0-100.0) fL MCH 28.3 (25.0-35.0) pg MCHC 31.7 (31.0-37.0) g/dL RDW 14.1 (11.5-15.5) % Plt Count 139 L (150-450) k/uL MPV 9.5 Neutrophils % 74 % Lymphocytes % 18 % Monocytes % 6 % Eosinophils % 1 % Basophils % 1 % Neutrophils # 8.6 H (1.3-7.7) k/uL Lymphocytes # 2.1 (1.0-4.8) k/uL Monocytes # 0.7 (0-1.0) k/uL Eosinophils # 0.2 (0-0.7) k/uL Basophils # 0.1 (0-0.2) k/uL Sodium 137 (137-145) mmol/L Potassium 4.3 (3.5-5.1) mmol/L Chloride 104 (98-107) mmol/L Carbon Dioxide 27 (22-30) mmol/L Anion Gap 6 mmol/L BUN 20 H (7-17) mg/dL Creatinine 1.31 H (0.52-1.04) mg/dL Est GFR (CKD-EPI)AfAm 46 (>60 ml/min/1.73 sqM) Est GFR (CKD-EPI)NonAf 40 (>60 ml/min/1.73 sqM) Glucose 104 H (74-99) mg/dL Calcium 9.3 (8.4-10.2) mg/dL Total Bilirubin 0.5 (0.2-1.3) mg/dL AST 24 (14-36) U/L ALT 26 (4-34) U/L Alkaline Phosphatase 90 (38-126) U/L Total Protein 6.8 (6.3-8.2) g/dL Albumin 4.2 (3.5-5.0) g/dL Lipase 147 (23-300) U/L Disposition Clinical Impression: Diverticulitis, Abdominal pain Disposition: HOME SELF-CARE Condition: Good Instructions (If sedation given, give patient instructions): Abdominal Pain (ED), Diverticulitis (ED) Is patient prescribed a controlled substance at d/c from ED?: No Referrals: Lola Nieto MD [Primary Care Provider] - 04/14/22 Time of Disposition: 19:46
[2022-04-10 20:32] VITALS: BP 127/63; PULSE 66; RESP 18; TEMP 99
== END 2022-04-10 20:32 | disposition home or self-care (01) ==
LOC: EC 15:21
DX: K57.32 Diverticulitis of large intestine without perforation or abscess without bleeding (principal); I12.9 Hypertensive chronic kidney disease with stage 1 through stage 4 chronic kidney disease, or unspecified chronic kidney disease; N18.30 Chronic kidney disease, stage 3 unspecified; E78.5 Hyperlipidemia, unspecified; D72.829 Elevated white blood cell count, unspecified; F17.200 Nicotine dependence, unspecified, uncomplicated; Z79.82 Long term (current) use of aspirin; Z79.899 Other long term (current) drug therapy; Z88.1 Allergy status to other antibiotic agents; Z88.5 Allergy status to narcotic agent
CPT/HCPCS: 36415; 74177; 80053; 83690; 85025; 99284

== ENCOUNTER → 2022-05-23 | Outpatient (CLI) | payer MEDICARE, OTHER ==
--- NOTE | 2022-05-23 12:51 | US ---
EXAMINATION TYPE: US transvaginal DATE OF EXAM: 05/23/2022 COMPARISON: CT CLINICAL HISTORY: N93.9 abn uterine and vaginal bleeding. Pt states vaginal bleeding x 1 month TECHNIQUE: Transvaginal (TV). Transvaginal sonographic images of the pelvis were acquired. Date of LMP: 20+ years ago EXAM MEASUREMENTS: Uterus: 6.7 x 3.6 x 4.6 cm Endometrial Stripe: 0.5, but thickened with debris cm Right Ovary: 1.7 x 1.1 x 1.7 cm Left Ovary: 2.0 x 1.3 x 1.6 cm 1. Uterus: Anteverted Two probable fibroids 1)-anterior fundus= 1.6 x 1.2 x 2.0 cm 2)- posterior fundus and calcified= 0.8 x 0.8 x 0.8 cm 2. Endometrium: 0.5 cm thickness with debris within canal= 2.1 x 1.4 x 2.3 cm 3. Right Ovary: wnl 4. Left Ovary: wnl 5. Bilateral Adnexa: wnl 6. Posterior cul-de-sac: wnl IMPRESSION: 1. Leiomyomatous change of the uterus. 2. Thickening and debris endometrium.
== END | disposition home or self-care (01) ==
LOC: RADUSWWP 11:59
PROVIDERS: ATTEND Internal Medicine
DX: N93.9 Abnormal uterine and vaginal bleeding, unspecified (principal)
CPT/HCPCS: 76830

== ENCOUNTER → 2022-09-21 | Outpatient (CLI) | payer MEDICARE, OTHER ==
[2022-09-21 18:21] LABS: Basophils # (A) 0.04 X 10*3/uL (0.00-0.10); Basophils % (A) 0.5 %; Eosinophils # (A) 0.07 X 10*3/uL (0.04-0.35); Eosinophils % (A) 0.9 %; HCT 40.5 % (37.2-46.3); HGB 12.5 g/dL (12.0-15.0); Immature Grans, Automated 0.6 %; Lymphocytes # (A) 1.34 X 10*3/uL (0.90-5.00); Lymphocytes % (A) 17.4 %; MCH 27.4 pg (27.0-32.0); MCHC 30.9 g/dL (32.0-37.0); MCV 88.6 fL (80.0-97.0); Mean Platelet Volume 12.7 fL (9.5-12.2); Monocytes # (A) 0.51 X 10*3/uL (0.20-1.00); Monocytes % (A) 6.6 %; NRBC Per 100 WBC 0 /100 WBCS (0.0-0.0); Neutrophils # (A) 5.71 X 10*3/uL (1.80-7.70); Platelet Count 146 X 10*3/uL (140-440); RBC 4.57 X 10*6/uL (4.10-5.20); RDW 14.1 % (11.5-14.5); WBC 7.72 X 10*3/uL (4.50-10.00)
== END | disposition home or self-care (01) ==
LOC: LABPAT 09:51
PROVIDERS: ATTEND Obstetrics & Gynecology
DX: Z01.812 Encounter for preprocedural laboratory examination (principal); Z01.818 Encounter for other preprocedural examination; N95.0 Postmenopausal bleeding
CPT/HCPCS: 85025; 93005

== ENCOUNTER 2022-09-26 06:09 | Day surgery (SDC) | payer MEDICARE, OTHER ==
[2022-09-22 11:10] VITALS: BMI 21.9
[~2022-09-26 06:09] MED LIST: DEXAMETHASONE SOD PHOSPHATE 4 MG/ML 1 ML VIAL IV ONE; LACTATED RINGERS 1,000 ML IV SCH; LIDOCAINE 1% (10MG/ML) FOR IV START INTRADERMA PRN; MIDAZOLAM 2 MG/2 ML VIAL IV PRN; ONDANSETRON 4 MG/2 ML VIAL IVP ONE; Pre Op ABX Message 1 EACH MISC MISCELLANE ONE
[2022-09-26] MEDS ORDERED: HYDROmorphone 0.5 MG/0.5 ML SYRINGE IVP PRN (07:00)
[2022-09-26 07:15] VITALS: RESP 16
[2022-09-26] MEDS ORDERED: MIDAZOLAM 2 MG/2 ML VIAL ONE (07:20)
[2022-09-26] MEDS ORDERED: fentaNYL (PF) 50 MCG/ML 2 ML AMP ONE (07:20)
[2022-09-26] MEDS ORDERED: PROPOFOL 10 MG/ML 20 ML VIAL IV ONE (07:20)
[2022-09-26] MEDS ORDERED: LIDOCAINE 2% INJ 20 MG/ML (2 ML VIAL) ONE (07:20)
[2022-09-26] MEDS ORDERED: ACETAMINOPHEN IV (For NPO) 1,000 MG/100 ML VIAL IVPB ONE (07:58)
[2022-09-26 08:07] VITALS: TEMP 97.6
--- NOTE | 2022-09-26 08:13 | P.OP ---
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 There is a grade 4 cystocele noted vaginally, along with a grade 3-4 uterine prolapse. No other abnormal appearing endometrial tissue, fibroids, polyps. Description of Procedure: Patient is brought to the operating suite where general anesthetic is administered without difficulty. She's placed in the dorsal lithotomy position. The appropriate timeout is performed to assure proper patient and procedural identification after prepping of the cervix, vagina, perineal bodies. The bladder is drained for approximately 75 mL of clear yellow urine. There is a grade 4 cystocele noted along with a grade 3-4 uterine prolapse. Weighted speculum was placed into the vagina. Anterior lip of the cervix is grasped with an Allis clamp. Endocervical curettings are obtained and sent to pathology. Uterus then sounds to a depth of 7.5 cm. The cervix is gently and systematically dilated using Hanks dilators with little resistance. The hysteroscope was placed in sterile saline is infused. In inspecting the cavity, there is a fistula noted in the right upper uterine fundus. Picture documentation is provided. The remainder of the cavity appears atrophic, no obvious polyps, fibroids, septa, or other defects. The hysteroscope was removed. The cavity is then very gently curettaged for a scant specimen of tissue. Bleeding is minimal. All instrumentation is removed. All counts are correct. Patient is brought back to recovery room in very good condition with stable vital signs including blood pressure 100/50, pulse 48. I did explain the situation to the family, further surgery is indicated involving the general surgery with an expertise in: Repair. Patient will follow-up with me in the office in 2 weeks for further discussion.
[2022-09-26 09:17] VITALS: BP 143/78; PULSE 72
== END 2022-09-26 09:35 | disposition home or self-care (01) ==
LOC: OR 06:09
PROVIDERS: ATTEND Obstetrics & Gynecology
DX: N95.0 Postmenopausal bleeding (principal); N81.4 Uterovaginal prolapse, unspecified; I10 Essential (primary) hypertension; E78.5 Hyperlipidemia, unspecified; F17.200 Nicotine dependence, unspecified, uncomplicated; K75.9 Inflammatory liver disease, unspecified; Z82.49 Family history of ischemic heart disease and other diseases of the circulatory system; Z79.82 Long term (current) use of aspirin; Z79.899 Other long term (current) drug therapy
CPT/HCPCS: 58558; 88305; J2250; J1100; J2405; J3010; J0131; J2704; J2001

== ENCOUNTER 2023-02-20 05:55 | Day surgery (SDC) | payer MEDICARE, OTHER ==
[~2023-02-20 05:55] MED LIST changes: +ALPRAZolam 0.25 MG TAB PO PRN; +ALPRAZolam 0.5 MG TAB PO PRN; -DEXAMETHASONE SOD PHOSPHATE 4 MG/ML 1 ML VIAL IV ONE; -LACTATED RINGERS 1,000 ML IV SCH; -LIDOCAINE 1% (10MG/ML) FOR IV START INTRADERMA PRN; -MIDAZOLAM 2 MG/2 ML VIAL IV PRN; +NITROGLYCERIN SL TABS 0.4 MG TAB SUBLINGUAL PRN; -ONDANSETRON 4 MG/2 ML VIAL IVP ONE; -Pre Op ABX Message 1 EACH MISC MISCELLANE ONE; +SODIUM CHLORIDE 0.9% 1,000 ML in EMPTY BAG 1 BAG IV SCH
[2023-02-20 06:16] VITALS: RESP 18; TEMP 97.7
[2023-02-20 06:31] LABS: Basophils % (A) 0 %; Eosinophils # (A) 0.2 k/uL (0-0.7); Eosinophils % (A) 2 %; HCT 39.6 % (34.0-46.0); HGB 13.3 gm/dL (11.4-16.0); Lymphocytes # (A) 1.8 k/uL (1.0-4.8); Lymphocytes % (A) 21 %; MCH 29.2 pg (25.0-35.0); MCHC 33.7 g/dL (31.0-37.0); MCV 86.5 fL (80.0-100.0); Mean Platelet Volume 8.9; Monocytes # (A) 0.5 k/uL (0-1.0); Monocytes % (A) 6 %; Neutrophils # (A) 5.8 k/uL (1.3-7.7); Neutrophils % (A) 69 %; Platelet Count 148 k/uL (150-450); RBC 4.57 m/uL (3.80-5.40); RDW 14.3 % (11.5-15.5); WBC 8.4 k/uL (3.8-10.6)
[2023-02-20 06:38] LABS: Calcium 9.4 mg/dL (8.4-10.2); Potassium 4.4 mmol/L (3.5-5.1)
[2023-02-20] MEDS ORDERED: HEPARIN SODIUM,PORCINE 2,500 UNIT in SODIUM CHLORIDE 0.9% 250 ML IRRIGATION PRN (07:00)
[2023-02-20] MEDS ORDERED: ATORVASTATIN 80 MG TAB PO ONE (07:00)
[2023-02-20] MEDS ORDERED: HEPARIN SODIUM,PORCINE 10,000 UNIT in SODIUM CHLORIDE 0.9% 1,000 ML IRRIGATION PRN (07:00)
[2023-02-20] MEDS ORDERED: ASPIRIN 325 MG TAB PO ONE (07:00)
[2023-02-20] MEDS ORDERED: fentaNYL (PF) 50 MCG/ML 2 ML AMP ONE (07:26)
[2023-02-20] MEDS ORDERED: HEPARIN SODIUM 1,000 UN/ML (10ML VL) ONE (07:26)
[2023-02-20] MEDS ORDERED: MIDAZOLAM 2 MG/2 ML VIAL IVP ONE (07:47)
[2023-02-20] MEDS ORDERED: fentaNYL (PF) 50 MCG/ML 2 ML AMP IVP ONE (07:47)
[2023-02-20] MEDS ORDERED: LIDOCAINE 1% INJ 10MG/ML (5 ML VIAL-PF) SQ ONE (07:47)
[2023-02-20] MEDS ORDERED: VERAPAMIL SYRINGE (5 MG/10 ML) INTRAARTER ONE (07:48)
[2023-02-20] MEDS ORDERED: HEPARIN SODIUM 1,000 UN/ML (10ML VL) IVP ONE (07:53)
[2023-02-20] MEDS ORDERED: IOPAMIDOL-370 100ML BTL INJ ONE (08:12)
--- NOTE | 2023-02-20 08:31 | P.CARDCATH ---
Description of Procedure: PROCEDURES PERFORMED: Left heart catheterization, bilateral coronary angiography, right carotid angiography INDICATION: Abnormal stress test, preoperative evaluation, asymptomatic right carotid artery stenosis CONSENT:I have discussed the risks, benefits and alternative therapies for the above-mentioned procedure and for both sedation/analgesia as well as necessary blood product administration, if indicated, as they pertain to this patient. The patient has indicated understanding and acceptance of the risks and procedures discussed. PROCEDURE: After the risks, benefits and alternatives of the above mentioned procedure explained in detail with the patient, informed consent was obtained. Patient was taken to the catheterization lab and prepped and draped in usual fashion. 1% lidocaine was used to anesthetize the right radial artery. A 6- Armenian sheath was placed in the right radial artery using modified Seldinger technique. Left coronary angiography was performed with a 5-Armenian JL 3.5 catheter and right coronary angiography was performed with a 5-Armenian JR5 catheter in various views. A 5-Armenian FR5 catheter was inserted into the left ventricle and pressure measurements were obtained. There was dampening and ventricularization noted with engagement of the left main with a 5-Armenian FL 3.5. The FR5 catheter was advanced into the right common carotid and right carotid angiography was performed. The right radial sheath was removed and a TR band was placed with hemostasis achieved. The patient tolerated the procedure well. Patient was transported back to the post catheterization holding area in stable condition. Conscious Sedation: Patient was monitored under the direct supervision of myself for conscious sedation using Versed and fentanyl for a total duration of 28 minutes HEMODYNAMICS: Aorta: 132/72 LV: 131/5, LVEDP 17 SELECTIVE CORONARY ARTERIOGRAPHY: LEFT MAIN: The left main is a large caliber vessel which bifurcates into the LAD and circumflex. There is a proximal eccentric napkin ringing 70% left main stenosis. LEFT ANTERIOR DESCENDING CORONARY ARTERY: LAD is a large caliber vessel which wraps around to the apex. There are mild luminal irregularities with 20-30% mid LAD stenosis. There are [id number] collaterals. LEFT CIRCUMFLEX CORONARY ARTERY: Left circumflex is a moderate caliber vessel with a proximal 60-70% stenosis and otherwise mild luminal irregularities. RIGHT CORONARY ARTERY: The right coronary artery is a large caliber vessel which gives off a PDA and PLV branch and is the dominant vessel. There is 100% proximal RCA stenosis. FINAL IMPRESSION: 1. CAD as described above including 70% left main, 20-30% mid LAD, 60-70% proximal circumflex and 100% proximal RCA stenosis. 2. Dampening and ventricularization of left main with engagement with 5-Armenian catheter 3. Elevated left sided filling pressures 4. Right internal carotid 80% stenosis at the level of the carotid bulb PLAN: 1. Aggressive risk factor modification per most recent ACC/AHA guidelines. 2. Surgical evaluation for CABG. If not a good surgical candidate left main lesion would be amenable to stenting.
--- NOTE | 2023-02-20 09:02 | IR ---
EXAMINATION TYPE: IR angio aortic arch DATE OF EXAM: 02/20/2023 COMPARISON: NONE HISTORY: Fluoroscopy time. Fluoroscopy was provided to the referring clinician.
[2023-02-20 10:20] LABS: Appearance,Urine Clear (Clear); Bilirubin,Urine Negative (Negative); Blood,Urine Negative (Negative); Color,Urine Colorless; Glucose,Urine (UA) Negative (Negative); Ketones,Urine Negative (Negative); Leukocyte Esterase,Urine Negative (Negative); Nitrite,Urine Negative (Negative); Protein,Urine Negative (Negative); Specific Gravity,Urine 1.017 (1.001-1.035); Urobilinogen,Urine <2.0 mg/dL (<2.0)
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
--- NOTE | 2023-02-20 11:29 | XR ---
EXAMINATION TYPE: XR chest 2V DATE OF EXAM: 02/20/2023 HISTORY: Shortness of breath. COMPARISON: 05/18/2017 TECHNIQUE: Single view of the chest is submitted. FINDINGS: Demonstrated are scattered senescent parenchymal change. There is no evidence for focal infiltrate. The heart is stable. Hilar and mediastinal structures are within normal limits. Degenerative changes are seen of the dorsal spine. IMPRESSION: 1. Chronic changes without evidence for acute pulmonary disease.
[2023-02-20 11:40] LABS: INR 0.9 (<1.2); Partial Thromboplastin Time 25.7 sec (22.0-30.0); Prothrombin Time 9.9 sec (9.0-12.0)
--- NOTE | 2023-02-20 11:41 | US ---
EXAMINATION TYPE: US carotid duplex BILAT DATE OF EXAM: 02/20/2023 COMPARISON: NONE CLINICAL HISTORY: Pre-Op Cardiac Surgery. PreOP TECHNIQUE: Carotid duplex ultrasound examination. Indirect Doppler criteria was utilized. FINDINGS: EXAM MEASUREMENTS: RIGHT: Peak Systolic Velocity (PSV) cm/sec ----- Right CCA: 72.4 ----- Right ICA: 90.8 ----- Right ECA: 367.4 ICA/CCA ratio: 1.3 RIGHT: End Diastole cm/sec ----- Right CCA: 9.8 ----- Right ICA: 13.2 ----- Right ECA: 22.3 LEFT: Peak Systolic Velocity (PSV) cm/sec ----- Left CCA: 84.0 ----- Left ICA: 238.9 ----- Left ECA: 137.5 ICA/CCA ratio: 2.8 LEFT: End Diastole cm/sec ----- Left CCA: 11.5 ----- Left ICA: 28.8 ----- Left ECA: 0.0 VERTEBRALS (direction of flow): Right Vertebral: Antegrade Left Vertebral: Antegrade Rhythm: Normal QUARRYMAN NOTES: Plaque visualized in bilateral CCA with extensive in bulbs. Elevated left CCA marvin ocities and bilateral ECA velocity. Left significant stenosis. IMPRESSION: 1. Estimated 50-69% stenosis left ICA. Extensive plaque noted. Criteria for Assigning % of Stenosis / Diameter reduction (Estimation based on the indirect measurements of the internal carotid artery velocities (ICA PSV). 1. Normal (no stenosis)=ICA PSV < 125 cm/s: ratio < 2.0: ICA EDV<40 cm/s. 2. Less than 50% stenosis=ICA PSV < 125 cm/s: ratio < 2.0: ICA EDV<40 cm/s. 3. 50 to 69% stenosis=ICA PSV of 125 to 230 cm/s: ration 2.0 ? 4.0: ICA EDV 40-100 cm/s. 4. Greater than 70% stenosis to near occlusion= ICA PSV > 230 cm/s: ratio > 4.0: ICA EDV > 100 cm/s. 5. Near occlusion= ICA PSV velocities may be low or undetectable: variable ratio and ICA EDV. 6. Total occlusion=unable to detect flow.
[2023-02-20 11:45] LABS: ALT 22 U/L (4-34); AST 23 U/L (14-36); African American GFR (CKD) 50 (>60 ml/min/1.73 sqM); Albumin 3.9 g/dL (3.5-5.0); Alkaline Phosphatase 67 U/L (38-126); Anion Gap 5 mmol/L; Blood Urea Nitrogen 20 mg/dL (7-17); Carbon Dioxide 28 mmol/L (22-30); Chloride 106 mmol/L (98-107); Glucose 95 mg/dL (74-99); Magnesium 1.9 mg/dL (1.6-2.3); Non-African American GFR(CKD) 43 (>60 ml/min/1.73 sqM); Potassium 4.3 mmol/L (3.5-5.1); Sodium 139 mmol/L (137-145); Total Bilirubin 0.5 mg/dL (0.2-1.3); Total Protein 6.6 g/dL (6.3-8.2)
[2023-02-20 14:08] VITALS: BP 151/65; PULSE 65
[2023-02-20 15:55] LABS: Chol/HDL Ratio 3.04 Ratio; LDL Cholesterol,Calculated 95.3 mg/dL (0.0-131.0)
--- NOTE | 2023-02-20 17:57 | CA ---
Transthoracic Echo Report Name: Lisseth Mak Age: 77 Gender: F : 1945 Exam Date: 02/20/2023 12:58 Exam Location: [facility] Ht (in): 64 Wt (lb): 134 Ordering Physician: Braydon Mcnair Attending/Referring Phys: Xu [employer] Jackie Davidson RDCS Procedure CPT: Indications: hx mitral valve prolapse Cardiac Hx: Technical Quality: Fair Contrast 1: Total Dose (mL): Contrast 2: Total Dose (mL): MEASUREMENTS (Male / Female) Normal Values 2D ECHO LV Diastolic Diameter PLAX 4.0 cm 4.2 - 5.9 / 3.9 - 5.3 cm LV Systolic Diameter PLAX 2.6 cm IVS Diastolic Thickness 1.2 cm 0.6 - 1.0 / 0.6 - 0.9 cm LVPW Diastolic Thickness 1.0 cm 0.6 - 1.0 / 0.6 - 0.9 cm LV Relative Wall Thickness 0.6 RV Internal Dim ED PLAX 2.5 cm LA Volume 67.6 cm??? 18 - 58 / 22 - 52 cm??? M-MODE Aortic Root Diameter MM 3.1 cm LA Systolic Diameter MM 4.0 cm LA Ao Ratio MM 1.3 AV Cusp Separation MM 1.8 cm DOPPLER AV Peak Velocity 124.4 cm/s AV Peak Gradient 6.2 mmHg AV Mean Velocity 88.3 cm/s AV Mean Gradient 3.5 mmHg AV Velocity Time Integral 28.6 cm LVOT Peak Velocity 95.8 cm/s LVOT Peak Gradient 3.7 mmHg LVOT Velocity Time Integral 23.6 cm MV Area PHT 4.3 cm??? MR Peak Velocity 645.3 cm/s MR Peak Gradient 166.6 mmHg Mitral E Point Velocity 87.1 cm/s Mitral A Point Velocity 105.0 cm/s Mitral E to A Ratio 0.8 MV Deceleration Time 175.6 ms MV E' Velocity 5.5 cm/s Mitral E to MV E' Ratio 16.0 TR Peak Velocity 207.9 cm/s TR Peak Gradient 17.3 mmHg Right Ventricular Systolic Press 22.3 mmHg FINDINGS Left Ventricle Mildly increased left ventricular wall thickness. Left ventricular cavity size normal. No obvious regional wall motion abnormalities. Left ventricular ejection fraction is estimated at 55 %. Right Ventricle Normal right ventricular size and function. Right ventricular systolic pressure within normal limits. Right Atrium Normal right atrial size. Left Atrium Moderately increased left atrial volume. Mildly increased left atrial area. Interatrial septal aneurysm. Mitral Valve . Mild thickening/calcification of the anterior mitral valve leaflet. Mitral annular calcification. Moderate mitral regurgitation. Posteriorly directed mitral regurgitation jet. Aortic Valve Trileaflet aortic valve. No aortic valve stenosis or regurgitation. Tricuspid Valve Structurally normal tricuspid valve. Mild tricuspid regurgitation. Pulmonic Valve Structurally normal pulmonic valve. Trace to mild pulmonic regurgitation. Pericardium No pericardial effusion. Aorta Normal size aortic root and proximal ascending aorta. CONCLUSIONS LVH with preserved systolic function Thickened posterior pericardium Moderate mitral regurgitation Previewed by: Dr. Scot Lee MD (Electronically Signed) Final Date: 20 February 2023 17:56
--- NOTE | 2023-02-23 08:41 | US ---
EXAMINATION TYPE: US vein mapping BIL DATE OF EXAM: 02/20/2023 11:15 AM COMPARISON: NONE CLINICAL HISTORY: PreOp Cardiac Surgery. PREOP SIDE PERFORMED: Bilateral TECHNIQUE: Lower extremity saphenous vein is examined and measured utilizing real time linear array sonography. Patient History: Smoker: Unknown Heart Disease: Yes Previous DVT: No Vascular Surgery: No Discoloration: No Hypertension: Yes Diabetes: No Paralysis: No Varicosities: Yes Edema: No DUPLEX FINDINGS: Greater Saphenous: Color flow seen Lesser Saphenous: Color flow seen Measurements in mm: Right Greater Saphenous: Groin: 5.1 x 5.2 mm High Thigh: 2.5 x 2.5 mm Mid Thigh: 2.5 x 2.0 mm Above Knee: 2.6 x 2.2 mm Knee: 2.5 x 2.2 mm Below Knee: 2.3 x 1.7 mm Mid Calf: 2.4 x 1.6 mm At Ankle: 1.7 x 1.5 mm Left Greater Saphenous: Groin: 5.3 x 4.7 mm High Thigh: 2.5 x 2.9 mm Mid Thigh: 1.9 x 1.7 mm Above Knee: 1.7 x 1.4 mm Knee: 2.1 x 1.4 mm Below Knee: 1.7 x 1.5 mm Mid Calf: 1.7 x 1.6 mm At Ankle: 2.1 x 1.4 mm No thrombosis of the bilateral greater saphenous veins. IMPRESSION: 1. Bilateral GSV measurements listed above. 2. Performing surgeon to determine viability as conduit.
== END 2023-02-20 14:35 | disposition home or self-care (01) ==
LOC: CATHCVL 05:55
PROVIDERS: ATTEND Internal Medicine
DX: I65.21 Occlusion and stenosis of right carotid artery (principal); I08.1 Rheumatic disorders of both mitral and tricuspid valves; I25.3 Aneurysm of heart; I25.10 Atherosclerotic heart disease of native coronary artery without angina pectoris; I12.9 Hypertensive chronic kidney disease with stage 1 through stage 4 chronic kidney disease, or unspecified chronic kidney disease; N18.30 Chronic kidney disease, stage 3 unspecified; E78.5 Hyperlipidemia, unspecified; F17.210 Nicotine dependence, cigarettes, uncomplicated; E78.00 Pure hypercholesterolemia, unspecified; Z87.19 Personal history of other diseases of the digestive system; Z82.49 Family history of ischemic heart disease and other diseases of the circulatory system; Z79.82 Long term (current) use of aspirin; Z79.899 Other long term (current) drug therapy; Z88.5 Allergy status to narcotic agent; Z88.6 Allergy status to analgesic agent; Z88.8 Allergy status to other drugs, medicaments and biological substances
CPT/HCPCS: 36222; 93458; 93306; 99152; 99153; 80061; 80053; 80048; 84443; 83735; 85025; 85610; 85730; 81003; 87070; 83036; 71046; 93931; 93970; 93880; 93922; C1769 ×2; C1894; J2250; J2001; J3010; J1644; Q9967; 80074; 86850; 86900; 86901; 86920

== ENCOUNTER 2023-02-22 10:20 | Day surgery (SDC) | payer MEDICARE, OTHER ==
[2023-02-22] MEDS ORDERED: SODIUM CHLORIDE 0.9% 500 ML 500 ML IV ONE (10:38)
[2023-02-22] MEDS ORDERED: fentaNYL (PF) 50 MCG/ML 2 ML AMP ONE (11:10)
[2023-02-22] MEDS ORDERED: BENZOCAINE SPRAY 1 CAN TOPICAL ONE (11:12)
[2023-02-22] MEDS ORDERED: fentaNYL (PF) 50 MCG/1 ML VIAL IV ONE ×3 (11:12)
[2023-02-22] MEDS ORDERED: MIDAZOLAM 2 MG/2 ML VIAL IV ONE ×3 (11:12)
[2023-02-22 12:14] VITALS: RESP 16
[2023-02-22 13:00] VITALS: BP 147/73; PULSE 60
--- NOTE | 2023-02-22 20:46 | P.TEE ---
Description of Procedure(s): Procedure performed: Transesophageal Echocardiogram with color flow doppler, pulsed wave doppler and continuous wave doppler, moderate conscious sedation Moderate conscious sedation: Moderate conscious sedation was supplied with direct supervision of myself using Versed and Fentanyl. Complications: none Indications: CABG eval, mitral regurgitation History: Patient is pleasant 77-year-old female who underwent diagnostic heart catheterization was found to have left main disease as well as 100% RCA stenosis. She was recommended to undergo MILENA to further assess degree of mitral regurgitation. PROCEDURE: After the risks, benefits and alternatives of the above mentioned procedure was explained in detail with the patient, informed consent was obtained. Patient was brought to the lab in a fasting state. Patient was given IV Versed and Fentanyl for sedation. The throat was sprayed with Hurricane to anesthetize the throat. A lubricated Omni probe was then introduced into the esophagus and stomach and multiple views were obtained. 2D echo with color flow doppler, pulsed wave doppler and continuous wave doppler was utilized. Agitated saline bubbles were injected to assess for any intra-atrial shunt. The probe was then removed. Patient tolerated the procedure well. Patient was transferred to the post procedure area in stable and satisfactory condition. FINDINGS: 1. The aortic valve is tricuspid and functioning normally with mild aortic sclerosis without significant aortic stenosis. 2. The mitral valve appears be normal with moderate posteriorly directed mitral regurgitation which appears related to tethering of the posterior leaflet. Vena contracta 0.6cm, PISA radius 0.6 at [place]quist 47. Systolic blunting however no systolic flow reversal of pulmonary veins. Significant Coanda effect along the posterior wall. 3. Tricuspid valve appears to be normal with trace tricuspid regurgitation. 4. The interatrial septum is intact. No evidence of PFO. 5. Left atrial appendage is free of clot. 6. Left ventricular ejection fraction 50-55% with mild inferior hypokinesis
== END 2023-02-22 12:55 | disposition home or self-care (01) ==
LOC: CATHCVL 10:20
PROVIDERS: ATTEND Internal Medicine
DX: I25.10 Atherosclerotic heart disease of native coronary artery without angina pectoris (principal); I08.3 Combined rheumatic disorders of mitral, aortic and tricuspid valves
CPT/HCPCS: 93312; 93320; 93325; J2250; J3010

== ENCOUNTER 2023-02-28 05:31 | Inpatient (IN) | payer MEDICARE, OTHER ==
[2023-02-20 16:20] LABS: Hepatitis A Antibody IgM Nonreactive (Nonreactive); Hepatitis B Core IgM Nonreactive (Nonreactive); Hepatitis B Surface Antigen Nonreactive (Nonreactive); Hepatitis C IgG Antibody Nonreactive (Nonreactive)
[~2023-02-28 05:31] MED LIST changes: +ALBUMIN HUMAN 25% 50 ML IV ONE; +ALBUMIN HUMAN 5% 500 ML IVPB ONE; -ALPRAZolam 0.25 MG TAB PO PRN; -ALPRAZolam 0.5 MG TAB PO PRN; +ASPIRIN 325 MG TAB PO ONE; +ATORVASTATIN 10 MG TAB PO ONE; +CALCIUM CHLORIDE 100 MG/ML 10 ML SYRINGE IV ONE; +CARDIOPLEGIC SOLN (K+ 16 MEQ/L 1,000 ML with SODIUM BICARB (1 MEQ/ML) 20 ML, LIDOCAINE ... PERFUSION ONE; +CHLORHEXIDINE GLUCONATE 15 ML CUP MUCOUS MEM ONE; +CLEVIDIPINE BUTYRATE 25 MG in EMPTY BAG 1 BAG IV ONE; +DILTIAZEM 125 MG in SODIUM CHLORIDE 0.9% 100 ML IV ONE; +HEPARIN SODIUM 1,000 UN/ML (10ML VL) IV ONE; +HEPARIN SODIUM,PORCINE 5,000 UNIT in SODIUM CHLORIDE 0.9% 500 ML 500 ML IV ONE; +INSULIN REGULAR 100 UNIT in SODIUM CHLORIDE 0.9% 100 ML IV ONE; +LACTATED RINGERS 1,000 ML IV ONE; +MAGNESIUM SULFATE 16.24 MEQ in EMPTY SYRINGE 1 SYR IV ONE; +MANNITOL 25% 12.5 GM/50 ML VIAL IV ONE; +METOPROLOL TARTRATE 12.5 MG TAB PO ONE; +NITROGLYCERIN SL TABS 0.4 MG TAB SUBLINGUAL ONE; -NITROGLYCERIN SL TABS 0.4 MG TAB SUBLINGUAL PRN; +NITROGLYCERIN-D5W PMX 25 MG/250 ML BTL IV ONE; +NITROGLYCERIN-D5W PMX 50 MG in DEXTROSE/WATER 1 250ML.BAG IV ONE; +NOREPINEPHRINE 4 MG in SODIUM CHLORIDE 0.9% 250 ML IV ONE; +PAPAVERINE 360 MG in SODIUM CHLORIDE 0.9% 90 ML IV ONE; +PHENYLEPHRINE 10 MG/ML VIAL IV ONE; +PHENYLEPHRINE 40 MG in SODIUM CHLORIDE 0.9% 250 ML IV ONE; +PROTAMINE SULFATE 10 MG/ML 25 ML VIAL IV ONE; +PROTAMINE SULFATE 250 MG in EMPTY BAG 1 BAG IV ONE; +SODIUM BICARB 8.4% 50 ML SYR (1 MEQ/ML) IV ONE; +SODIUM CHLORIDE 0.9% 1,000 ML IV ONE; -SODIUM CHLORIDE 0.9% 1,000 ML in EMPTY BAG 1 BAG IV SCH; +TRANEXAMIC ACID 2,000 MG in SODIUM CHLORIDE 0.9% 80 ML IV ONE; +ceFAZolin 1,000 MG in SODIUM CHLORIDE 0.9% IRRIGATIO 1,000 ML IRRIGATION ONE; +propofoL 1,000 MG/100 ML VIAL IV ONE
[2023-02-28] MEDS ORDERED: LACTATED RINGERS 1,000 ML IV ONE (05:41)
[2023-02-28] MEDS ORDERED: MIDAZOLAM HCL 10 MG/10 ML VIAL ONE (07:25)
[2023-02-28] MEDS ORDERED: VECURONIUM 10 MG VIAL IV ONE (07:25)
[2023-02-28] MEDS ORDERED: NITROGLYCERIN-D5W PMX 25 MG/250 ML BTL IV ONE (07:25)
[2023-02-28] MEDS ORDERED: ALBUMIN HUMAN 5% (25gm) 500 ML VIAL IVPB ONE (07:25)
[2023-02-28] MEDS ORDERED: fentaNYL (PF) 50 MCG/ML 50 ML VIAL ONE (07:25)
[2023-02-28] MEDS ORDERED: ELECTROLYTE-R (PH 7.4) 1,000 ML IV.SOLN IV ONE (07:25)
[2023-02-28] MEDS ORDERED: PROPOFOL 10 MG/ML 20 ML VIAL IV ONE (07:25)
[2023-02-28] MEDS ORDERED: PROTAMINE SULFATE 10 MG/ML 25 ML VIAL IV ONE (07:25)
[2023-02-28] MEDS ORDERED: CALCIUM CHLORIDE 100 MG/ML 10 ML SYRINGE ONE (07:25)
[2023-02-28] MEDS ORDERED: HEPARIN SODIUM,PORCINE 10,000 UNIT/ML 1 ML VIAL ONE (07:25)
[2023-02-28] MEDS ORDERED: LIDOCAINE 1% INJ 10MG/ML (20 ML MDV) ONE (07:25)
[2023-02-28] MEDS ORDERED: TRANEXAMIC ACID IN NACL,ISO-OS 1,000 MG/100 ML BAG ONE (07:25)
[2023-02-28] MEDS ORDERED: MAGNESIUM SULFATE 4 MEQ/ML 10ML VIAL ONE (07:25)
[2023-02-28 08:25] LABS: ABG Glucose Whole Blood 96 mg/dL (75-99); ABG HCO3 26 mmol/L (21-25); ABG Ionized Calcium 4.9 mg/dL (4.5-5.3); ABG Lactic Acid Whole Blood 1.2 mmol/L (0.5-1.6); ABG PCO2 46 mmHg (35-45); ABG PH 7.35 (7.35-7.45); ABG Potassium Whole Blood 4.2 mmol/L (3.4-4.5); ABG Sodium Whole Blood 141 mmol/L (135-146); ABG TCO2 27 mmol/L (19-24); Allen Test Performed? Yes
[2023-02-28 09:38] LABS: ABG Glucose Whole Blood 127 mg/dL (75-99); ABG HCO3 25 mmol/L (21-25); ABG Ionized Calcium 4.8 mg/dL (4.5-5.3); ABG Lactic Acid Whole Blood 0.9 mmol/L (0.5-1.6); ABG Oxygen Saturation 99.8 % (94-97); ABG PCO2 43 mmHg (35-45); ABG PH 7.38 (7.35-7.45); ABG PO2 305 mmHg (83-108); ABG Potassium Whole Blood 4.2 mmol/L (3.4-4.5); ABG Sodium Whole Blood 140 mmol/L (135-146); ABG TCO2 26 mmol/L (19-24)
--- NOTE | 2023-02-28 09:48 | P.ANPRN ---
Procedure Note - Anesthesia - MILENA Intraop Pre Bypass MILENA Intraop - Anesthesia Indication: Cabg, MVR Date of Procedure: 02/28/23 Pre-operative Diagnosis: MVP, CAD Post-operative Diagnosis: Same Surgeon: Jay Cordon Left Ventricle: mild LVH Ejection Fraction: Normal Regional Wall Motion Abnormalities: None Left Ventricle Hypertrophy: Yes (mild) Right Ventricle: wnl R. Ventricle Function: Normal Anatomy: Trileaflet Aortic Stenosis: None Aortic Regurgitation: Trace Mitral Valve: Severe eccentric regurgitation. Appears to have a billowing A2 leaflet. Mitral Stenosis: None Mitral Regurgitation: Severe (Eccentric regurgutation - posterior wall) Tricuspid Stenosis: None Tricuspid Regurgitation: Trace Pulmonic Stenosis: None Pulmonic Regurgitation: None R. Atrial Dilation: No R. Atrial PFO: No L. Atrial Dilation: No Aortic Dissection: No Aortic Calcification: None Plural Effusion: None
[2023-02-28 10:15] LABS: ABG Glucose Whole Blood 107 mg/dL (75-99); ABG HCO3 24 mmol/L (21-25); ABG Ionized Calcium 4.3 mg/dL (4.5-5.3); ABG Lactic Acid Whole Blood 1.3 mmol/L (0.5-1.6); ABG PCO2 33 mmHg (35-45); ABG PH 7.47 (7.35-7.45); ABG Potassium Whole Blood 4.6 mmol/L (3.4-4.5); ABG Sodium Whole Blood 138 mmol/L (135-146); ABG TCO2 25 mmol/L (19-24)
[2023-02-28 10:38] LABS: ABG Glucose Whole Blood 109 mg/dL (75-99); ABG HCO3 25 mmol/L (21-25); ABG Ionized Calcium 4.4 mg/dL (4.5-5.3); ABG Lactic Acid Whole Blood 1.3 mmol/L (0.5-1.6); ABG PCO2 31 mmHg (35-45); ABG PH 7.51 (7.35-7.45); ABG Potassium Whole Blood 4.5 mmol/L (3.4-4.5); ABG Sodium Whole Blood 139 mmol/L (135-146); ABG TCO2 26 mmol/L (19-24)
[2023-02-28 11:04] LABS: ABG Glucose Whole Blood 123 mg/dL (75-99); ABG HCO3 25 mmol/L (21-25); ABG Ionized Calcium 4.4 mg/dL (4.5-5.3); ABG Lactic Acid Whole Blood 1.1 mmol/L (0.5-1.6); ABG PCO2 55 mmHg (35-45); ABG PH 7.27 (7.35-7.45); ABG Potassium Whole Blood 4.5 mmol/L (3.4-4.5); ABG Sodium Whole Blood 141 mmol/L (135-146); ABG TCO2 27 mmol/L (19-24)
[2023-02-28 11:28] LABS: ABG Glucose Whole Blood 127 mg/dL (75-99); ABG HCO3 23 mmol/L (21-25); ABG Ionized Calcium 4.7 mg/dL (4.5-5.3); ABG PCO2 34 mmHg (35-45); ABG PH 7.43 (7.35-7.45); ABG Potassium Whole Blood 4.8 mmol/L (3.4-4.5); ABG Sodium Whole Blood 138 mmol/L (135-146); ABG TCO2 24 mmol/L (19-24)
[2023-02-28 12:14] LABS: ABG Base Excess 0.4 mmol/L; ABG Hematocrit 32 % (34.0-46.0); ABG PO2 >420 mmHg (83-108)
[2023-02-28 12:16] LABS: ABG Base Excess 0.2 mmol/L; ABG Hematocrit 33 % (34.0-46.0)
[2023-02-28 12:17] LABS: ABG Base Excess 0.9 mmol/L; ABG Hematocrit 25 % (34.0-46.0); ABG PO2 >420 mmHg (83-108)
[2023-02-28 12:18] LABS: ABG Base Excess 1.8 mmol/L; ABG Hematocrit 25 % (34.0-46.0); ABG PO2 >420 mmHg (83-108)
[2023-02-28 12:21] LABS: ABG Base Excess 1.7 mmol/L; ABG Hematocrit 26 % (34.0-46.0); ABG PO2 >420 mmHg (83-108)
[2023-02-28 12:23] LABS: ABG PO2 >420 mmHg (83-108)
[2023-02-28 12:23] LABS: ABG Glucose Whole Blood 125 mg/dL (75-99); ABG HCO3 22 mmol/L (21-25); ABG Ionized Calcium 4.7 mg/dL (4.5-5.3); ABG Oxygen Saturation 99.6 % (94-97); ABG PCO2 37 mmHg (35-45); ABG PH 7.39 (7.35-7.45); ABG PO2 255 mmHg (83-108); ABG Sodium Whole Blood 140 mmol/L (135-146); ABG TCO2 23 mmol/L (19-24)
[2023-02-28 12:24] LABS: ABG Base Excess 1.5 mmol/L; ABG Hematocrit 23 % (34.0-46.0); ABG Lactic Acid Whole Blood 2.4 mmol/L (0.5-1.6)
[2023-02-28 12:25] LABS: ABG Base Excess 2.8 mmol/L; ABG Hematocrit 28 % (34.0-46.0); ABG Lactic Acid Whole Blood 3.1 mmol/L (0.5-1.6)
[2023-02-28] MEDS ORDERED: Magnesium Replacement Protocol 1 EACH MISC MISCELLANE PRN (12:48)
[2023-02-28] MEDS ORDERED: hydrALAZINE HCL 20 MG/ML 1 ML VIAL IVP PRN (12:48)
[2023-02-28] MEDS ORDERED: Potassium Replacement Protocol 1 EACH MISC MISCELLANE PRN (12:48)
[2023-02-28] MEDS ORDERED: CLEVIDIPINE BUTYRATE 25 MG in EMPTY BAG 1 BAG IV SCH (12:48)
[2023-02-28] MEDS ORDERED: IPRATROPIUM-ALBUTEROL 3 ML NEB INHALATION PRN (12:48)
[2023-02-28] MEDS ORDERED: DEXMEDETOMIDINE/0.9% NACL(PMX) 400 MCG in EMPTY BAG 1 BAG IV SCH (12:48)
[2023-02-28] MEDS ORDERED: DEXTROSE 50% SYRINGE 50 ML IVP PRN ×2 (12:48)
[2023-02-28] MEDS ORDERED: AMIODARONE 450 MG in DEXTROSE 5% IN WATER 250 ML IV PRN ×2 (12:48)
[2023-02-28] MEDS ORDERED: BENZOCAINE/MENTHOL LOZENG 1 EACH LOZENGE MUCOUS MEM PRN (12:48)
[2023-02-28] MEDS ORDERED: AMIODARONE 360 MG in DEXTROSE 5% IN WATER 200 ML IV PRN ×2 (12:48)
[2023-02-28] MEDS ORDERED: NITROGLYCERIN-D5W PMX 50 MG in DEXTROSE/WATER 1 250ML.BAG IV SCH (12:48)
[2023-02-28 13:11] LABS: Glucose,Whole Blood 116 mg/dL (70-110)
[2023-02-28] MEDS: ALBUMIN HUMAN 5% 250 ML in EMPTY BAG 1 BAG IVPB PRN ×4 (13:16→20:23)
[2023-02-28 13:29] LABS: Ionized Calcium 5.1 mg/dL (4.5-5.3)
[2023-02-28 13:31] LABS: INR 1.2 (<1.2); Partial Thromboplastin Time 30.4 sec (22.0-30.0); Prothrombin Time 12.5 sec (9.0-12.0)
--- NOTE | 2023-02-28 13:39 | XR ---
EXAMINATION TYPE: XR chest 1V portable DATE OF EXAM: 02/28/2023 COMPARISON: 02/20/2023 HISTORY: Postoperative cardiac surgery TECHNIQUE: Single frontal view of the chest is obtained. FINDINGS: There is a right IJ approach Marion-Juan catheter with tip in the main pulmonary artery, an endotrachea l tube terminating approximately 4 cm from the jing, an orogastric tube which extends past the diap hragm to terminates outside the field of view, multiple median sternotomy wires, a cardiac annuloplas ty ring, a left atrial appendage clip, a mediastinal drain, cardiac monitoring/support wires, and a l eft chest tube. The heart size is normal. The cardiomediastinal silhouette is within normal limits. There is mild pul monary vascular distention per there is no focal consolidation, significant pleural effusion, or pneu mothorax. IMPRESSION: Mild pulmonary vascular congestion without acute cardiopulmonary process identified.
[2023-02-28 13:40] LABS: HCT 28.3 % (34.0-46.0); MCH 29.4 pg (25.0-35.0); MCHC 33.7 g/dL (31.0-37.0); MCV 87.2 fL (80.0-100.0); Mean Platelet Volume 9.5; RBC 3.25 m/uL (3.80-5.40); RDW 14.3 % (11.5-15.5); WBC 11.5 k/uL (3.8-10.6)
[2023-02-28 13:41] LABS: Albumin 2.6 g/dL (3.5-5.0); Calcium 8.1 mg/dL (8.4-10.2); HGB 9.6 gm/dL (11.4-16.0); Magnesium 4.3 mg/dL (1.6-2.3); Potassium 4.3 mmol/L (3.5-5.1); Total Bilirubin 0.4 mg/dL (0.2-1.3); Total Protein 4.2 g/dL (6.3-8.2)
[2023-02-28] MEDS ORDERED: DILTIAZEM 125 MG in SODIUM CHLORIDE 0.9% 100 ML IV SCH (14:00)
[2023-02-28] MEDS ORDERED: INSULIN REGULAR 100 UNIT in SODIUM CHLORIDE 0.9% 100 ML IV SCH (14:00)
[2023-02-28] MEDS: LACTATED RINGERS 1,000 ML IV SCH (14:01)
[2023-02-28 14:08] LABS: Glucose,Whole Blood 129 mg/dL (70-110)
[2023-02-28 14:09] LABS: Platelet Count 65 k/uL (150-450)
[2023-02-28 14:12] LABS: Band Neutrophils % 4 %; Eosinophils # (M) 0.12 k/uL (0-0.7); Lymphocytes # (M) 0.92 k/uL (1.0-4.8); Metamyelocytes # (M) 0.12 k/uL (0); Metamyelocytes % 1 %; Monocytes # (M) 0.35 k/uL (0-1.0); Myelocytes # (M) 0.12 k/uL (0); Myelocytes % 1 %; Neutrophils % (M) 85 %; Nucleated Red Blood Cells 0 /100 WBC (0-0); Total Cells Counted 200
[2023-02-28 15:12] LABS: Glucose,Whole Blood 145 mg/dL (70-110)
[2023-02-28] MEDS ORDERED: IPRATROPIUM-ALBUTEROL 3 ML NEB INHALATION SCH (16:00)
[2023-02-28 16:03] LABS: Glucose,Whole Blood 161 mg/dL (70-110)
[2023-02-28] MEDS: HEPARIN SODIUM,PORCINE/PF 5,000 UNIT/0.5 ML SYRINGE SQ SCH ×2 (16:10→23:29)
[2023-02-28 16:13] LABS: Basophils % (A) 0 %; Eosinophils % (A) 0 %; HCT 27.1 % (34.0-46.0); Lymphocytes # (A) 0.9 k/uL (1.0-4.8); Lymphocytes % (A) 7 %; MCH 29.2 pg (25.0-35.0); MCHC 33.3 g/dL (31.0-37.0); MCV 87.9 fL (80.0-100.0); Mean Platelet Volume 10.4; Monocytes # (A) 0.7 k/uL (0-1.0); Monocytes % (A) 5 %; Neutrophils # (A) 12.1 k/uL (1.3-7.7); Neutrophils % (A) 87 %; RBC 3.08 m/uL (3.80-5.40); RDW 14.3 % (11.5-15.5); WBC 13.8 k/uL (3.8-10.6)
[2023-02-28 16:17] LABS: Platelet Count 78 k/uL (150-450)
[2023-02-28 16:55] LABS: Glucose,Whole Blood 155 mg/dL (70-110)
[2023-02-28] MEDS: ACETAMINOPHEN IV (For NPO) 1,000 MG in EMPTY BAG 1 BAG IVPB SCH ×2 (17:04→23:01)
[2023-02-28 17:55] LABS: Glucose,Whole Blood 145 mg/dL (70-110)
[2023-02-28 18:22] LABS: ABG Base Excess -3.4 mmol/L; ABG HCO3 23 mmol/L (21-25); ABG PCO2 42 mmHg (35-45); ABG PH 7.33 (7.35-7.45); ABG PO2 117 mmHg (83-108); ABG TCO2 24 mmol/L (19-24)
[2023-02-28 18:23] LABS: Allen Test Performed? no
[2023-02-28 18:59] LABS: Glucose,Whole Blood 150 mg/dL (70-110)
[2023-02-28] MEDS: ONDANSETRON 4 MG/2 ML VIAL IVP PRN (19:10)
[2023-02-28 19:22] LABS: Basophils % (A) 0 %; Eosinophils % (A) 0 %; HCT 25.2 % (34.0-46.0); HGB 8.4 gm/dL (11.4-16.0); Lymphocytes # (A) 0.7 k/uL (1.0-4.8); Lymphocytes % (A) 5 %; MCH 29.1 pg (25.0-35.0); MCHC 33.2 g/dL (31.0-37.0); MCV 87.7 fL (80.0-100.0); Mean Platelet Volume 10.1; Monocytes # (A) 0.6 k/uL (0-1.0); Monocytes % (A) 4 %; Neutrophils # (A) 12.2 k/uL (1.3-7.7); Neutrophils % (A) 90 %; RBC 2.88 m/uL (3.80-5.40); RDW 14.5 % (11.5-15.5); WBC 13.6 k/uL (3.8-10.6)
[2023-02-28 19:23] LABS: Platelet Count 86 k/uL (150-450)
[2023-02-28 20:08] LABS: Glucose,Whole Blood 165 mg/dL (70-110)
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
[2023-02-28 21:05] LABS: Glucose,Whole Blood 147 mg/dL (70-110)
[2023-02-28] MEDS: METOCLOPRAMIDE 5 MG/ML 2 ML VIAL IVP PRN (21:18)
[2023-02-28] MEDS: ATORVASTATIN 40 MG TAB PO SCH (21:30)
[2023-02-28] MEDS: IPRATROPIUM-ALBUTEROL 3 ML NEB INHALATION SCH (21:55)
[2023-02-28 21:58] LABS: Glucose,Whole Blood 130 mg/dL (70-110)
[2023-02-28 23:08] LABS: Glucose,Whole Blood 131 mg/dL (70-110)
[2023-03-01 00:08] LABS: Glucose,Whole Blood 125 mg/dL (70-110)
[2023-03-01] MEDS: HYDROcodone/APAP 5-325MG 1 EACH TAB PO PRN (00:23)
[2023-03-01 01:06] LABS: Glucose,Whole Blood 115 mg/dL (70-110)
[2023-03-01 02:13] LABS: Glucose,Whole Blood 109 mg/dL (70-110)
[2023-03-01 04:13] LABS: Glucose,Whole Blood 147 mg/dL (70-110)
[2023-03-01] MEDS: HYDROcodone/APAP 10-325MG 1 EACH TAB PO PRN ×4 (04:26→21:40)
[2023-03-01 04:40] LABS: Ionized Calcium 4.9 mg/dL (4.5-5.3)
[2023-03-01 04:46] LABS: Basophils % (A) 0 %; Eosinophils % (A) 0 %; HCT 21.7 % (34.0-46.0); HGB 7.2 gm/dL (11.4-16.0); Lymphocytes # (A) 0.6 k/uL (1.0-4.8); Lymphocytes % (A) 6 %; MCH 28.6 pg (25.0-35.0); MCV 86.7 fL (80.0-100.0); Mean Platelet Volume 11.2; Monocytes # (A) 0.5 k/uL (0-1.0); Monocytes % (A) 4 %; Neutrophils % (A) 90 %; RDW 14.7 % (11.5-15.5); WBC 11.2 k/uL (3.8-10.6)
[2023-03-01 04:47] LABS: Platelet Count 78 k/uL (150-450)
[2023-03-01 04:50] LABS: Albumin 3.1 g/dL (3.5-5.0); Calcium 7.9 mg/dL (8.4-10.2); Magnesium 2.8 mg/dL (1.6-2.3); Potassium 4.6 mmol/L (3.5-5.1); Total Bilirubin 0.4 mg/dL (0.2-1.3); Total Protein 4.6 g/dL (6.3-8.2)
[2023-03-01] MEDS: ALBUMIN HUMAN 5% 250 ML in EMPTY BAG 1 BAG IVPB PRN (05:55)
[2023-03-01 06:00] LABS: Glucose,Whole Blood 150 mg/dL (70-110)
[2023-03-01 06:57] LABS: Glucose,Whole Blood 115 mg/dL (70-110)
--- NOTE | 2023-03-01 07:12 | XR ---
EXAMINATION TYPE: XR chest 1V portable DATE OF EXAM: 03/01/2023 4:55 AM COMPARISON: Chest radiographs from 02/28/2023 TECHNIQUE: XR chest 1V portable Portable AP radiograph of the chest. CLINICAL INDICATION:Female, 77 years old with history of Post Operative Cardiac Surgery; FINDINGS: Lungs/Pleura: There is no evidence of pleural effusion, focal consolidation, or pneumothorax. Pulmonary vascularity: Mild pulmonary vascular congestion. Heart/mediastinum: Cardiomediastinal silhouette is enlarged and stable. Angioplasty ring and left at rial appendage, predominantly treated. Musculoskeletal: No acute osseous pathology. Midline sternotomy wires are noted and stable. Other findings: None Lines/Tubes: Endotracheal tube has been removed. Nasogastric tube has been removed. Stable right IJ approach [place]-Juan catheter with tip in the main pulmonary artery. Stable mediastinal drain position. Stable left chest tube. IMPRESSION: 1. Interval removal of NG and endotracheal tubes with remaining stable support tubes. 2. Postsurgical changes with continued mild pulmonary vascular congestion.
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
[2023-03-01] MEDS: IPRATROPIUM-ALBUTEROL 3 ML NEB INHALATION SCH ×4 (07:40→21:48)
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
[2023-03-01] MEDS: HEPARIN SODIUM,PORCINE/PF 5,000 UNIT/0.5 ML SYRINGE SQ SCH ×2 (08:17→14:48)
[2023-03-01] MEDS: ASPIRIN 81 MG PO SCH (08:17)
[2023-03-01] MEDS: CLOPIDOGREL 75 MG TAB PO SCH (08:17)
[2023-03-01] MEDS: FERROUS SULFATE 325 MG TAB PO SCH (08:17)
[2023-03-01] MEDS: CYANOCOBALAMIN 500 MCG TAB PO SCH (08:17)
--- NOTE | 2023-03-01 08:23 | P.OP ---
Date of Procedure: 02/28/23 Preoperative Diagnosis: 1. Triple vessel coronary artery disease 2. Mitral valve prolapse with severe mitral regurgitation 3. HTN 4. HLD 5. CKD 6. Diverticulitis Postoperative Diagnosis: Same Procedure(s) Performed: 1. Coronary artery bypass grafting x 3. Left internal thoracic artery to left anterior descending artery, saphenous vein from aorta to posterior descending artery, radial artery to obtuse marginal artery. 2. Mitral valve repair with #24 Physio II annuloplasty ring 3. Endoscopic left radial and right greater sapheneous vein harvest 4. Epi-aortic and trans-esophageal echo 5. 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 Given her hx of moderate MR, MILENA was done which showed severe MR with a central and posteriorly directed jets with some anterior leaflet prolapse. All risks, benefits and alternatives including her STS risk of morbidity and mortality were discussed with the patient and surgery was recommended. Operative Findings: Some anterior leaflet prolapse, post MILENA showed no MR LAD 1.5mm - decent target, NGUYỄN 1.75mm good conduit OM 2.0mm - good target, radial 1.75mm good conduit PDA 1.75mm - good target, SV 2.0mm good conduit Description of Procedure: The patient underwent central line, swan-leo and right radial arterial line placement in the pre-operative suite by anesthesia. She was brought back to the operating room and placed in the supine position. General anesthesia was induced and she was prepped and draped from the chin to the ankles in the usual standard fashion. Antibiotics were given. A right common femoral arterial sheath was placed and transduced. A midline incision was made in the chest and carried down to the bone using electrocautery. A median sternotomy was performed and hemostasis on the bone was achieved with electrocautery only. Simultaneously two other assistants harvested the left radial and right greater saphenous veins endoscopically. The left and right pleura were incised and the left internal thoracic artery was harvested in a pedicle fashion, transected distally with great flow and placed in a papaverine soaked sponge. A left sided chest tube was placed. The pericardium was incised in a reverse T fashion and stay sutures were placed. Epi-aortic ultrasound was performed which did not reveal any mobile atheroma in the ascending aorta. The patient was systemically heparinized and cannulated for cardiopulmonary bypass with arterial cannulation in the ascending aorta, and bicaval venous cannulation in the superior vena cava and right atrial appendage. Antegrade and retrograde catheters were placed in the ascending aorta and indirectly in the coronary sinus. The grafts was examined and prepared. Once ACT > 480, cardiopulmonary bypass was instituted and a #35mm AtriClip was placed on the left atrial appendage. The aorta was cross-clamped and 1L antegrade and 500cc retrograde crystalloid cardioplegia was administered with good arrest. The inferior wall was exposed and an arteriorotomy was made on the PDA which was a good target. An end to side anastomosis with the saphenous vein was constructed using a running 7-0 prolene. Next, the obtuse marginal artery was exposed and arteriotomy created. This vessel was 2.0mm and a good target. An end to side anastomosis with the radial artery was fashioned using a running 7-0 prolene. Next, the LAD was opened in the mid to distal 1/3 and an end to side anastomosis between the DENA and LAD was created using a running 8-0 prolene. The DENA pedicle was tacked using 6-0 silk x 2. Next, a left atriotomy was created by exposing the waterson's groove. The zeny retractor was placed and the mitral valve was tested. There appeared to be some anterior leaflet prolapse with malcoaptation. The decision was made to perform annuloplasty repair. 2-0 ticron sutures were placed in the mitral annulus. These were passed through the cuff of a #24 Physio II annuloplasty ring. The ring was seated and the sutures tied down. Repeat leak test was negative. The right atrium was inadvertently opened with the atriotomy and both were closed using a 4-0 prolene x 2. The LV was de-aired prior to tieing this suture down. Lastly, the radial artery and saphenous vein was fastened to the ascending aorta using a running 6-0 prolene. The cross-clamp was removed and the heart was re-perfused. atrial and ventricular wires were placed on the RA and inferior RV. The patient was paced for sinus bradycardia and subsequently weaned from cardiopulmonary bypass. Protamine was given and the patient was decannulated. The aortic site was over-sewen using a plegeted prolene suture. Protamine was given for heparin reversal and hemostasis was secured which was excellent. A 36F chest tube was placed in the mediastinum and 19F jacqueline in the right pleura. The pericardium was partially closed and chest irrigated. The sternum was re- approximated with 8 steel wires and the subcutaneous tissues of the chest, arm and leg were closed in layers and glue was applied to the skin. Completion MILENA revealed good EF of 50-55%, with no evidence of mitral regurgitation. The patient was transported to the ICU in critical but stable condition without the need for ionotropes or blood transfusion.
[2023-03-01 08:58] LABS: Glucose,Whole Blood 186 mg/dL (70-110)
[2023-03-01] MEDS ORDERED: MAGNESIUM HYDROXIDE 2,400 MG/10 ML CUP PO PRN (09:00)
[2023-03-01] MEDS ORDERED: PANTOPRAZOLE 40 MG/10 ML VIAL IVP SCH (09:00)
[2023-03-01] MEDS ORDERED: bisacodyL 10 MG SUPP RECTAL PRN (09:00)
[2023-03-01] MEDS ORDERED: METOPROLOL TARTRATE 12.5 MG TAB PO SCH (09:00)
[2023-03-01] MEDS ORDERED: ASPIRIN 325 MG TAB PO SCH (09:00)
[2023-03-01] MEDS: LACTATED RINGERS 1,000 ML IV SCH ×2 (09:00→10:28)
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
--- NOTE | 2023-03-01 09:21 | P.PN ---
Subjective Progress Note Date: 03/01/23 Principal diagnosis: Triple-vessel coronary artery disease, mitral valve prolapse with severe mitral regurgitation. Previous medical history of hypertension, hyperlipidemia, chron ic kidney disease stage III, current tobacco dependence, peripheral arterial disease, left internal carotid stenosis 50-79% per Doppler, right internal carotid stenosis 80% during cardiac cath, diverticulitis, family history of premature coronary artery disease in her father. Preoperative thrombocytopenia POD #1 coronary artery bypass graft 3 with the left internal mammary artery to the left anterior descending artery, reverse saphenous vein graft from the aorta to the posterior descending artery, radial artery to the obtuse marginal artery, mitral valve repair with a #24 physio 2 annuloplasty ring, endoscopic left radial and right greater saphenous vein harvest, left atrial appendage ligation with 35 mm AtriClip, epi-aortic ultrasound and intraoperative transesophageal echocardiogram performed by anesthesia Postoperative acute blood loss anemia and thrombocytopenia, expected given h emodilution and cardiopulmonary bypass pump as well as preoperative thrombocytopenia The patient was seen and examined this morning sitting up in a recliner in the cardiac stepdown unit in no acute distress. She was successfully extubated yesterday 18:28. Remains AV paced on telemetry, underlying rhythm sinus bradycardia in the low 40s. Blood pressure stable although diastolic a bit low. Patient's main complaint is of back pain which she said is chronic for her which is exacerbated by the bed in the ICU. Right internal jugular [place]ord[place], right radial arterial line, mediastinal/left/right pleural chest tubes all remain. Labs, chest x-ray reviewed. No other new concerns. Objective - Vital Signs Vital signs: Vital Signs Temp 99.1 F 03/01/23 04:00 Pulse 80 03/01/23 07:55 Resp 20 03/01/23 07:00 BP 160/69 02/28/23 06:02 Pulse Ox 96 03/01/23 07:00 FiO2 40 02/28/23 18:15 Intake & Output 02/28/23 03/01/23 03/01/23 18:59 06:59 18:59 Intake Total 2617.367 1597.605 67.989 Output Total 1201 1359 20 Balance -149.585 567.605 47.989 Weight 64.1 kg Intake: IV 248 978 59 Albumin Human 5% 250 ml 250 In Empty Bag 1 bag @ 250 mls/hr IVPB Q1HR PRN Rx#: [id number] CO/CI 150 270 Lactated Ringers 1,000 ml 350 50 @ 50 mls/hr IV .Q20H TOMMY Rx#:[id number] pressure bag 45 108 9 Intake, IV Titration 803.415 458.605 8.989 Amount Albumin Human 5% 250 ml 250 In Empty Bag 1 bag @ 250 mls/hr IVPB Q1HR PRN Rx#: [id number] Albumin Human 5% 500 ml @ 500 Per Protocol IVPB ONCE ONE Rx#:[id number] Clevidipine Butyrate 25 8.167 mg In Empty Bag 1 bag @ 1 MG/HR 2 mls/hr IV .Q24H TOMMY Rx#:[id number] Insulin Regular 100 unit 2.062 27.480 8.989 In Sodium Chloride 0.9% 100 ml @ Per Protocol IV .Q0M TOMMY Rx#:[id number] Lactated Ringers 1,000 ml 250 150 @ 50 mls/hr IV .Q20H TOMMY Rx#:[id number] Nitroglycerin-D5w Pmx 50 4.850 31.125 mg In Dextrose/Water 1 250ml.bag @ 5 MCG/MIN 1.5 mls/hr IV .Q24H TOMMY Rx#: [id number] propofoL 1,000 mg In 38.336 Empty Bag 1 bag @ Titrate IV .Q0M TOMMY Rx#: [id number] Oral 490 Output: Chest Tube Drainage 271 859 20 Chest Tube Bilateral 91 719 10 Chest Tube Mediastinal 180 140 10 Urine 580 500 0 Estimated Blood Loss 350 Other: Voiding Method Indwelling Catheter Indwelling Catheter ABP, PAP, CO, CI - Last Documented Arterial Blood Pressure 134/40 Pulmonary Artery Pressure 24/6 Cardiac Output 4.6 Cardiac Index 2.8 - Exam CONSTITUTIONAL: Appears comfortable, cooperative, no acute distress RESPIRATORY: Lungs sounds diminished bilaterally. Respirations even, nonlabored. Currently on room 4 L nasal cannula with oxygen saturation 96%. Able to achieve 1000 mL on incentive spirometry. Strong cough. CARDIOVASCULAR: S1, S2 present. Regular rate and rhythm, AV paced on telemetry with underlying rhythm sinus bradycardia in the low 40s. Sternum stable. Palpable peripheral pulses bilaterally. No edema present. No calf pain or tenderness noted. Heart hugger in place with patient demonstrating appropriate use. Antiembolism stockings, SCDs present. GASTROINTESTINAL: Abdomen soft, nontender, nondistended. Hypoactive bowel sounds present 4 quadrants. Tolerating clear liquids. Positive belching, denies flatus GENITOURINARY: Vann present draining clear, yellow urine. Output overnight 25-45 mL per hour INTEGUMENTARY: Skin is warm and dry with evidence of good perfusion. Anterior chest incision well approximated and covered with dry intact dressing. Left radial artery and right lower extremity EVH site well approximated without redness or drainage. NEUROLOGIC: Cranial nerves II through XII intact MUSKULOSKELETAL: Able to move all extremities, strength equal bilaterally PSYCHIATRIC: Alert and oriented to person place and time, appropriate affect, intact judgment and insight INVASIVE LINES AND TUBES: Mediastinal/left/right pleural chest tubes present and connected to wall suction, no air leaks present. Mediastinal tube with 70 mL serosanguineous drainage overnight, 320 mL since surgery. Left/right pleural chest tubes with 340 mL serosanguineous drainage overnight, 820 mL since surgery. A/V epicardial pacemaker wires present, connected to generator, DDD mode with rate 80 bpm. Right internal jugular [place]ord[place], right radial arterial line present. Last CO/CI 4.6/2.8, PA 28/13, CVP 7. - Allied health notes Allied health notes reviewed: nursing - Labs CBC & Chem 7: 03/01/23 04:12 03/01/23 04:12 Labs: Abnormal Lab Results - Last 24 Hours (Table) 02/20/23 02/28/23 02/28/23 Range/Units 10:43 08:27 09:39 WBC (3.8-10.6) k/uL RBC (3.80-5.40) m/uL Hgb (11.4-16.0) gm/dL Hct (34.0-46.0) % Plt Count (150-450) k/uL Neutrophils # (1.3-7.7) k/uL Neutrophils # (Manual) (1.3-7.7) k/uL Lymphocytes # (1.0-4.8) k/uL Lymphocytes # (Manual) (1.0-4.8) k/uL Metamyelocytes # (Man) (0) k/uL Myelocytes # (Manual) (0) k/uL PT (9.0-12.0) sec INR (<1.2) APTT (22.0-30.0) sec ABG pH (7.35-7.45) ABG pCO2 46 H (35-45) mmHg ABG pO2 >420 H 305 H (83-108) mmHg ABG HCO3 26 H (21-25) mmol/L ABG Total CO2 27 H 26 H (19-24) mmol/L ABG O2 Saturation 100.0 H 99.8 H (94-97) % ABG Hematocrit 32 L 33 L (34.0-46.0) % ABG Potassium (3.4-4.5) mmol/L ABG Ionized Calcium (4.5-5.3) mg/dL ABG Glucose 127 H (75-99) mg/dL ABG Lactic Acid (0.5-1.6) mmol/L Hemoglobin 10.6 L 10.8 L (11.4-16.0) gm/dL Sodium (137-145) mmol/L Chloride (98-107) mmol/L Carbon Dioxide (22-30) mmol/L Creatinine (0.52-1.04) mg/dL Glucose (74-99) mg/dL POC Glucose (mg/dL) (70-110) mg/dL Calcium (8.4-10.2) mg/dL Magnesium (1.6-2.3) mg/dL AST (14-36) U/L Alkaline Phosphatase (38-126) U/L Total Protein (6.3-8.2) g/dL Albumin (3.5-5.0) g/dL Arterial Blood Potassium (3.4-4.5) mmol/L Arterial Blood Glucose 127 H (75-99) mg/dL Crossmatch See Detail 02/28/23 02/28/23 02/28/23 Range/Units 10:16 10:39 11:06 WBC (3.8-10.6) k/uL RBC (3.80-5.40) m/uL Hgb (11.4-16.0) gm/dL Hct (34.0-46.0) % Plt Count (150-450) k/uL Neutrophils # (1.3-7.7) k/uL Neutrophils # (Manual) (1.3-7.7) k/uL Lymphocytes # (1.0-4.8) k/uL Lymphocytes # (Manual) (1.0-4.8) k/uL Metamyelocytes # (Man) (0) k/uL Myelocytes # (Manual) (0) k/uL PT (9.0-12.0) sec INR (<1.2) APTT (22.0-30.0) sec ABG pH 7.47 H 7.51 H 7.27 L (7.35-7.45) ABG pCO2 33 L 31 L 55 H (35-45) mmHg ABG pO2 >420 H >420 H >420 H (83-108) mmHg ABG HCO3 (21-25) mmol/L ABG Total CO2 25 H 26 H 27 H (19-24) mmol/L ABG O2 Saturation 100.0 H 100.0 H 100.0 H (94-97) % ABG Hematocrit 25 L 25 L 26 L (34.0-46.0) % ABG Potassium 4.6 H (3.4-4.5) mmol/L ABG Ionized Calcium 4.3 L 4.4 L 4.4 L (4.5-5.3) mg/dL ABG Glucose 107 H 109 H 123 H (75-99) mg/dL ABG Lactic Acid (0.5-1.6) mmol/L Hemoglobin 8.0 L 8.2 L 8.3 L (11.4-16.0) gm/dL Sodium (137-145) mmol/L Chloride (98-107) mmol/L Carbon Dioxide (22-30) mmol/L Creatinine (0.52-1.04) mg/dL Glucose (74-99) mg/dL POC Glucose (mg/dL) (70-110) mg/dL Calcium (8.4-10.2) mg/dL Magnesium (1.6-2.3) mg/dL AST (14-36) U/L Alkaline Phosphatase (38-126) U/L Total Protein (6.3-8.2) g/dL Albumin (3.5-5.0) g/dL Arterial Blood Potassium 4.6 H (3.4-4.5) mmol/L Arterial Blood Glucose 107 H 109 H 123 H (75-99) mg/dL Crossmatch 02/28/23 02/28/23 02/28/23 Range/Units 11:30 12:25 13:10 WBC (3.8-10.6) k/uL RBC (3.80-5.40) m/uL Hgb (11.4-16.0) gm/dL Hct (34.0-46.0) % Plt Count (150-450) k/uL Neutrophils # (1.3-7.7) k/uL Neutrophils # (Manual) (1.3-7.7) k/uL Lymphocytes # (1.0-4.8) k/uL Lymphocytes # (Manual) (1.0-4.8) k/uL Metamyelocytes # (Man) (0) k/uL Myelocytes # (Manual) (0) k/uL PT (9.0-12.0) sec INR (<1.2) APTT (22.0-30.0) sec ABG pH (7.35-7.45) ABG pCO2 34 L (35-45) mmHg ABG pO2 >420 H 255 H (83-108) mmHg ABG HCO3 (21-25) mmol/L ABG Total CO2 (19-24) mmol/L ABG O2 Saturation 100.0 H 99.6 H (94-97) % ABG Hematocrit 23 L 28 L (34.0-46.0) % ABG Potassium 4.8 H (3.4-4.5) mmol/L ABG Ionized Calcium (4.5-5.3) mg/dL ABG Glucose 127 H 125 H (75-99) mg/dL ABG Lactic Acid 2.4 H* 3.1 H* (0.5-1.6) mmol/L Hemoglobin 7.7 L 9.2 L (11.4-16.0) gm/dL Sodium (137-145) mmol/L Chloride (98-107) mmol/L Carbon Dioxide (22-30) mmol/L Creatinine (0.52-1.04) mg/dL Glucose (74-99) mg/dL POC Glucose (mg/dL) 116 H (70-110) mg/dL Calcium (8.4-10.2) mg/dL Magnesium (1.6-2.3) mg/dL AST (14-36) U/L Alkaline Phosphatase (38-126) U/L Total Protein (6.3-8.2) g/dL Albumin (3.5-5.0) g/dL Arterial Blood Potassium 4.8 H (3.4-4.5) mmol/L Arterial Blood Glucose 127 H 125 H (75-99) mg/dL Crossmatch 02/28/23 02/28/23 02/28/23 Range/Units 13:10 13:10 13:10 WBC 11.5 H (3.8-10.6) k/uL RBC 3.25 L (3.80-5.40) m/uL Hgb 9.6 L D (11.4-16.0) gm/dL Hct 28.3 L (34.0-46.0) % Plt Count 65 L D (150-450) k/uL Neutrophils # (1.3-7.7) k/uL Neutrophils # (Manual) 10.20 H (1.3-7.7) k/uL Lymphocytes # (1.0-4.8) k/uL Lymphocytes # (Manual) 0.92 L (1.0-4.8) k/uL Metamyelocytes # (Man) 0.12 H (0) k/uL Myelocytes # (Manual) 0.12 H (0) k/uL PT 12.5 H (9.0-12.0) sec INR 1.2 H (<1.2) APTT 30.4 H (22.0-30.0) sec ABG pH (7.35-7.45) ABG pCO2 (35-45) mmHg ABG pO2 (83-108) mmHg ABG HCO3 (21-25) mmol/L ABG Total CO2 (19-24) mmol/L ABG O2 Saturation (94-97) % ABG Hematocrit (34.0-46.0) % ABG Potassium (3.4-4.5) mmol/L ABG Ionized Calcium (4.5-5.3) mg/dL ABG Glucose (75-99) mg/dL ABG Lactic Acid (0.5-1.6) mmol/L Hemoglobin (11.4-16.0) gm/dL Sodium (137-145) mmol/L Chloride 110 H (98-107) mmol/L Carbon Dioxide (22-30) mmol/L Creatinine (0.52-1.04) mg/dL Glucose 109 H (74-99) mg/dL POC Glucose (mg/dL) (70-110) mg/dL Calcium 8.1 L (8.4-10.2) mg/dL Magnesium 4.3 H (1.6-2.3) mg/dL AST 42 H (14-36) U/L Alkaline Phosphatase 33 L (38-126) U/L Total Protein 4.2 L (6.3-8.2) g/dL Albumin 2.6 L (3.5-5.0) g/dL Arterial Blood Potassium (3.4-4.5) mmol/L Arterial Blood Glucose (75-99) mg/dL Crossmatch 02/28/23 02/28/23 02/28/23 Range/Units 14:06 15:10 16:01 WBC 13.8 H (3.8-10.6) k/uL RBC 3.08 L (3.80-5.40) m/uL Hgb 9.0 L (11.4-16.0) gm/dL Hct 27.1 L (34.0-46.0) % Plt Count 78 L (150-450) k/uL Neutrophils # 12.1 H (1.3-7.7) k/uL Neutrophils # (Manual) (1.3-7.7) k/uL Lymphocytes # 0.9 L (1.0-4.8) k/uL Lymphocytes # (Manual) (1.0-4.8) k/uL Metamyelocytes # (Man) (0) k/uL Myelocytes # (Manual) (0) k/uL PT (9.0-12.0) sec INR (<1.2) APTT (22.0-30.0) sec ABG pH (7.35-7.45) ABG pCO2 (35-45) mmHg ABG pO2 (83-108) mmHg ABG HCO3 (21-25) mmol/L ABG Total CO2 (19-24) mmol/L ABG O2 Saturation (94-97) % ABG Hematocrit (34.0-46.0) % ABG Potassium (3.4-4.5) mmol/L ABG Ionized Calcium (4.5-5.3) mg/dL ABG Glucose (75-99) mg/dL ABG Lactic Acid (0.5-1.6) mmol/L Hemoglobin (11.4-16.0) gm/dL Sodium (137-145) mmol/L Chloride (98-107) mmol/L Carbon Dioxide (22-30) mmol/L Creatinine (0.52-1.04) mg/dL Glucose (74-99) mg/dL POC Glucose (mg/dL) 129 H 145 H (70-110) mg/dL Calcium (8.4-10.2) mg/dL Magnesium (1.6-2.3) mg/dL AST (14-36) U/L Alkaline Phosphatase (38-126) U/L Total Protein (6.3-8.2) g/dL Albumin (3.5-5.0) g/dL Arterial Blood Potassium (3.4-4.5) mmol/L Arterial Blood Glucose (75-99) mg/dL Crossmatch 02/28/23 02/28/23 02/28/23 Range/Units 16:02 16:54 17:53 WBC (3.8-10.6) k/uL RBC (3.80-5.40) m/uL Hgb (11.4-16.0) gm/dL Hct (34.0-46.0) % Plt Count (150-450) k/uL Neutrophils # (1.3-7.7) k/uL Neutrophils # (Manual) (1.3-7.7) k/uL Lymphocytes # (1.0-4.8) k/uL Lymphocytes # (Manual) (1.0-4.8) k/uL Metamyelocytes # (Man) (0) k/uL Myelocytes # (Manual) (0) k/uL PT (9.0-12.0) sec INR (<1.2) APTT (22.0-30.0) sec ABG pH (7.35-7.45) ABG pCO2 (35-45) mmHg ABG pO2 (83-108) mmHg ABG HCO3 (21-25) mmol/L ABG Total CO2 (19-24) mmol/L ABG O2 Saturation (94-97) % ABG Hematocrit (34.0-46.0) % ABG Potassium (3.4-4.5) mmol/L ABG Ionized Calcium (4.5-5.3) mg/dL ABG Glucose (75-99) mg/dL ABG Lactic Acid (0.5-1.6) mmol/L Hemoglobin (11.4-16.0) gm/dL Sodium (137-145) mmol/L Chloride (98-107) mmol/L Carbon Dioxide (22-30) mmol/L Creatinine (0.52-1.04) mg/dL Glucose (74-99) mg/dL POC Glucose (mg/dL) 161 H 155 H 145 H (70-110) mg/dL Calcium (8.4-10.2) mg/dL Magnesium (1.6-2.3) mg/dL AST (14-36) U/L Alkaline Phosphatase (38-126) U/L Total Protein (6.3-8.2) g/dL Albumin (3.5-5.0) g/dL Arterial Blood Potassium (3.4-4.5) mmol/L Arterial Blood Glucose (75-99) mg/dL Crossmatch 02/28/23 02/28/23 02/28/23 Range/Units 18:18 18:57 19:00 WBC 13.6 H (3.8-10.6) k/uL RBC 2.88 L (3.80-5.40) m/uL Hgb 8.4 L (11.4-16.0) gm/dL Hct 25.2 L (34.0-46.0) % Plt Count 86 L (150-450) k/uL Neutrophils # 12.2 H (1.3-7.7) k/uL Neutrophils # (Manual) (1.3-7.7) k/uL Lymphocytes # 0.7 L (1.0-4.8) k/uL Lymphocytes # (Manual) (1.0-4.8) k/uL Metamyelocytes # (Man) (0) k/uL Myelocytes # (Manual) (0) k/uL PT (9.0-12.0) sec INR (<1.2) APTT (22.0-30.0) sec ABG pH 7.33 L (7.35-7.45) ABG pCO2 (35-45) mmHg ABG pO2 117 H (83-108) mmHg ABG HCO3 (21-25) mmol/L ABG Total CO2 (19-24) mmol/L ABG O2 Saturation 99.0 H (94-97) % ABG Hematocrit (34.0-46.0) % ABG Potassium (3.4-4.5) mmol/L ABG Ionized Calcium (4.5-5.3) mg/dL ABG Glucose (75-99) mg/dL ABG Lactic Acid (0.5-1.6) mmol/L Hemoglobin (11.4-16.0) gm/dL Sodium (137-145) mmol/L Chloride (98-107) mmol/L Carbon Dioxide (22-30) mmol/L Creatinine (0.52-1.04) mg/dL Glucose (74-99) mg/dL POC Glucose (mg/dL) 150 H (70-110) mg/dL Calcium (8.4-10.2) mg/dL Magnesium (1.6-2.3) mg/dL AST (14-36) U/L Alkaline Phosphatase (38-126) U/L Total Protein (6.3-8.2) g/dL Albumin (3.5-5.0) g/dL Arterial Blood Potassium (3.4-4.5) mmol/L Arterial Blood Glucose (75-99) mg/dL Crossmatch 02/28/23 02/28/23 02/28/23 Range/Units 20:06 21:04 21:57 WBC (3.8-10.6) k/uL RBC (3.80-5.40) m/uL Hgb (11.4-16.0) gm/dL Hct (34.0-46.0) % Plt Count (150-450) k/uL Neutrophils # (1.3-7.7) k/uL Neutrophils # (Manual) (1.3-7.7) k/uL Lymphocytes # (1.0-4.8) k/uL Lymphocytes # (Manual) (1.0-4.8) k/uL Metamyelocytes # (Man) (0) k/uL Myelocytes # (Manual) (0) k/uL PT (9.0-12.0) sec INR (<1.2) APTT (22.0-30.0) sec ABG pH (7.35-7.45) ABG pCO2 (35-45) mmHg ABG pO2 (83-108) mmHg ABG HCO3 (21-25) mmol/L ABG Total CO2 (19-24) mmol/L ABG O2 Saturation (94-97) % ABG Hematocrit (34.0-46.0) % ABG Potassium (3.4-4.5) mmol/L ABG Ionized Calcium (4.5-5.3) mg/dL ABG Glucose (75-99) mg/dL ABG Lactic Acid (0.5-1.6) mmol/L Hemoglobin (11.4-16.0) gm/dL Sodium (137-145) mmol/L Chloride (98-107) mmol/L Carbon Dioxide (22-30) mmol/L Creatinine (0.52-1.04) mg/dL Glucose (74-99) mg/dL POC Glucose (mg/dL) 165 H 147 H 130 H (70-110) mg/dL Calcium (8.4-10.2) mg/dL Magnesium (1.6-2.3) mg/dL AST (14-36) U/L Alkaline Phosphatase (38-126) U/L Total Protein (6.3-8.2) g/dL Albumin (3.5-5.0) g/dL Arterial Blood Potassium (3.4-4.5) mmol/L Arterial Blood Glucose (75-99) mg/dL Crossmatch 02/28/23 03/01/23 03/01/23 Range/Units 23:06 00:06 01:04 WBC (3.8-10.6) k/uL RBC (3.80-5.40) m/uL Hgb (11.4-16.0) gm/dL Hct (34.0-46.0) % Plt Count (150-450) k/uL Neutrophils # (1.3-7.7) k/uL Neutrophils # (Manual) (1.3-7.7) k/uL Lymphocytes # (1.0-4.8) k/uL Lymphocytes # (Manual) (1.0-4.8) k/uL Metamyelocytes # (Man) (0) k/uL Myelocytes # (Manual) (0) k/uL PT (9.0-12.0) sec INR (<1.2) APTT (22.0-30.0) sec ABG pH (7.35-7.45) ABG pCO2 (35-45) mmHg ABG pO2 (83-108) mmHg ABG HCO3 (21-25) mmol/L ABG Total CO2 (19-24) mmol/L ABG O2 Saturation (94-97) % ABG Hematocrit (34.0-46.0) % ABG Potassium (3.4-4.5) mmol/L ABG Ionized Calcium (4.5-5.3) mg/dL ABG Glucose (75-99) mg/dL ABG Lactic Acid (0.5-1.6) mmol/L Hemoglobin (11.4-16.0) gm/dL Sodium (137-145) mmol/L Chloride (98-107) mmol/L Carbon Dioxide (22-30) mmol/L Creatinine (0.52-1.04) mg/dL Glucose (74-99) mg/dL POC Glucose (mg/dL) 131 H 125 H 115 H (70-110) mg/dL Calcium (8.4-10.2) mg/dL Magnesium (1.6-2.3) mg/dL AST (14-36) U/L Alkaline Phosphatase (38-126) U/L Total Protein (6.3-8.2) g/dL Albumin (3.5-5.0) g/dL Arterial Blood Potassium (3.4-4.5) mmol/L Arterial Blood Glucose (75-99) mg/dL Crossmatch 03/01/23 03/01/23 03/01/23 Range/Units 04:12 04:12 04:12 WBC 11.2 H (3.8-10.6) k/uL RBC 2.50 L (3.80-5.40) m/uL Hgb 7.2 L (11.4-16.0) gm/dL Hct 21.7 L (34.0-46.0) % Plt Count 78 L (150-450) k/uL Neutrophils # 10.0 H (1.3-7.7) k/uL Neutrophils # (Manual) (1.3-7.7) k/uL Lymphocytes # 0.6 L (1.0-4.8) k/uL Lymphocytes # (Manual) (1.0-4.8) k/uL Metamyelocytes # (Man) (0) k/uL Myelocytes # (Manual) (0) k/uL PT (9.0-12.0) sec INR (<1.2) APTT (22.0-30.0) sec ABG pH (7.35-7.45) ABG pCO2 (35-45) mmHg ABG pO2 (83-108) mmHg ABG HCO3 (21-25) mmol/L ABG Total CO2 (19-24) mmol/L ABG O2 Saturation (94-97) % ABG Hematocrit (34.0-46.0) % ABG Potassium (3.4-4.5) mmol/L ABG Ionized Calcium (4.5-5.3) mg/dL ABG Glucose (75-99) mg/dL ABG Lactic Acid (0.5-1.6) mmol/L Hemoglobin (11.4-16.0) gm/dL Sodium 134 L (137-145) mmol/L Chloride 108 H (98-107) mmol/L Carbon Dioxide 20 L (22-30) mmol/L Creatinine 1.14 H (0.52-1.04) mg/dL Glucose 122 H (74-99) mg/dL POC Glucose (mg/dL) 147 H (70-110) mg/dL Calcium 7.9 L (8.4-10.2) mg/dL Magnesium 2.8 H (1.6-2.3) mg/dL AST 48 H (14-36) U/L Alkaline Phosphatase 35 L (38-126) U/L Total Protein 4.6 L (6.3-8.2) g/dL Albumin 3.1 L (3.5-5.0) g/dL Arterial Blood Potassium (3.4-4.5) mmol/L Arterial Blood Glucose (75-99) mg/dL Crossmatch 03/01/23 03/01/23 Range/Units 05:59 06:56 WBC (3.8-10.6) k/uL RBC (3.80-5.40) m/uL Hgb (11.4-16.0) gm/dL Hct (34.0-46.0) % Plt Count (150-450) k/uL Neutrophils # (1.3-7.7) k/uL Neutrophils # (Manual) (1.3-7.7) k/uL Lymphocytes # (1.0-4.8) k/uL Lymphocytes # (Manual) (1.0-4.8) k/uL Metamyelocytes # (Man) (0) k/uL Myelocytes # (Manual) (0) k/uL PT (9.0-12.0) sec INR (<1.2) APTT (22.0-30.0) sec ABG pH (7.35-7.45) ABG pCO2 (35-45) mmHg ABG pO2 (83-108) mmHg ABG HCO3 (21-25) mmol/L ABG Total CO2 (19-24) mmol/L ABG O2 Saturation (94-97) % ABG Hematocrit (34.0-46.0) % ABG Potassium (3.4-4.5) mmol/L ABG Ionized Calcium (4.5-5.3) mg/dL ABG Glucose (75-99) mg/dL ABG Lactic Acid (0.5-1.6) mmol/L Hemoglobin (11.4-16.0) gm/dL Sodium (137-145) mmol/L Chloride (98-107) mmol/L Carbon Dioxide (22-30) mmol/L Creatinine (0.52-1.04) mg/dL Glucose (74-99) mg/dL POC Glucose (mg/dL) 150 H 115 H (70-110) mg/dL Calcium (8.4-10.2) mg/dL Magnesium (1.6-2.3) mg/dL AST (14-36) U/L Alkaline Phosphatase (38-126) U/L Total Protein (6.3-8.2) g/dL Albumin (3.5-5.0) g/dL Arterial Blood Potassium (3.4-4.5) mmol/L Arterial Blood Glucose (75-99) mg/dL Crossmatch - Imaging and Cardiology Chest x-ray: report reviewed, image reviewed Assessment and Plan Assessment: Triple-vessel coronary artery disease, status post three-vessel CABG Mitral valve prolapse with severe mitral regurgitation status post mitral valve repair History of hypertension Hyperlipidemia, treated, cholesterol 190, LDL 95, triglycerides 161 Chronic kidney disease stage III, baseline creatinine 1.2-1.6, baseline GFR in the 40s Current tobacco dependence, preoperative FEV1 83% of predicted Peripheral arterial disease, preoperative NAIMA on the left 0.99 Left internal carotid stenosis 50-79% per Doppler, right internal carotid stenosis 80% during cardiac cath Diverticulitis Chronic back pain Family history of premature coronary artery disease in her father Preoperative thrombocytopenia Postoperative acute blood loss anemia and thrombocytopenia, expected Plan: Continue to maximize medical management with low-dose aspirin, Plavix, statin. Will hold beta devon due to underlying sinus bradycardia and current pacing. Discontinue IV nitro. Will add afterload reduction when able Wean O2 as tolerated. Encourage incentive spirometry use 10 times every hour while awake. Bronchodilators per pulmonology Increase activity as tolerated. PT/OT/cardiac rehab consulted Will monitor daily labs and x-rays. Electrolyte replacement per protocol. No blood transfusion today. Continue iron per home dose GI/DVT prophylaxis. Hold subcu heparin for platelet count less than 100,000 Pain control with current medication regimen Insulin management per internal medicine. Patient is not diabetic, preoperative hemoglobin A1c 5.4% Continue to pace, change to atrially pacing at 80 bpm Will discontinue [place], connect [place] to continuous CVP monitoring Continue chest tubes for another 24 hours, monitor output Continue Vann catheter for another 24 hours for strict accurate intake and output Daily weights Further recommendations to follow based on patient's progress
[2023-03-01 10:23] LABS: Glucose,Whole Blood 136 mg/dL (70-110)
[2023-03-01] MEDS ORDERED: ALBUMIN HUMAN 5% 250 ML in EMPTY BAG 1 BAG IVPB ONE (10:30)
[2023-03-01] MEDS: LIDOCAINE 5% PATCH TOPICAL SCH (11:00)
--- NOTE | 2023-03-01 11:03 | P.PN ---
Subjective Progress Note Date: 03/01/23 Principal diagnosis: Postop open heart This 77-year-old female patient who underwent three-vessel bypass surgery. 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 The patient also has history of hypertension, hyperlipidemia, asymptomatic right carotid artery s tenosis in the order of 8-99%, chronic stage III kidney disease, and history of chronic smoking. The patient was having episodes of shortness of breath and further cardiac catheterization showed severe triple vessel coronary artery disease. Based on that, the patient was referred for bypass surgery. 2-D echocardiogram showed an ejection fraction of 55% preoperatively with a moderate degree of mitral valve regurgitation. A subsequent was also done that showed normal functioning of the aortic valve with some sclerosis without stenosis. No other acute abnormalities seen. The patient at this point in time is in the intensive care unit. She is intubated on a mechanical ventilator. She is on propofol running at 20 mcg/kg/m. She is on assist control mode with a rate of 40 with a tidal volume of 400 and FiO2 of 40% with a PEEP of 5. The initial blood gases at that time to the ICU for the patient of 7.39 with a pCO2 of 37 and pO2 of 255. Chest x-ray showed adequate expansion of both lungs. Orotracheal tube is in a good location. The patient is a mediastinal and left lower chest tube and output is minimal in the order of 200 mL without evidence of any air leak. The patient's cardiac rhythm is pacer this point in time at the rate of 80. The patient is currently on no pressors. Cardiac index was initially low at 1.8 and improved with volume and the most recent cardiac index is 2.. Pressures are 39/16. The patient has adequate urine output. The bloodwork to the [place] 13.6 with a hemoglobin of 8.4 and a platelet count of 86. The sodium is at 13 with a potassium level of 4.3, BUN is a 50 with a creatinine of 0.9 and a patient's GFR that 56 which is typically better than her baseline. Note that the patient underwent three-vessel bypass surgery with NGUYỄN to LAD, radial artery to circumflex and SVG to PDA. The patient underwent a left radial artery harvesting. I'm seeing this patient in follow-up today 03/01/2023 in follow-up in intensive care unit post CABG with 3 vessel bypass graft yesterday with a NGUYỄN to the LAD, saphenous vein graft to the PDA, left radial artery to the OM. She also had a mitral valve repair with a #24 Physio II annuloplasty ring, left atrial appendage ligation. Patient was extubated yesterday evening without complications. She is currently resting comfortably in the recliner, on 4 L nasal cannula, in no acute distress. Patient's heart rhythm is currently atrial paced at 80 bpm, blood pressure normotensive, pulmonary artery pressures 27/8, his recent CO/CI was 4.2 and 2.6 respectively. Patient's urine output is low th is morning around 10 mL an hours, and she is going to receive some more albumin. Patient currently has lactated Ringer's infusing at 50 ML's per hour. No vasopressors. Insulin infusing at 2 units per hour. She does have a mediastinal and left pleural chest tubes. There is no air leak noted. There has been about 320 ML's of serosanguineous output of the mediastinal and 900 ML's of serosanguineous output out of the left pleural chest tubes. Chest x-ray from this morning shows no evidence of pneumothorax, pleural effusion or focal consolidation. There was a right IJ [place]-Juan catheter within the main pulmonary artery and postsurgical changes. CBC this morning shows a WBC count of 11.2, hemoglobin 7.2, hematocrit 21.7, platelets 78,000. Patient's BMP from this morning shows a sodium 134, potassium 4.6, chloride 108, serum CO2 20, BUN 17, creatinine 1.14, glucose 122. Vital signs are stable. Pain is fairly well controlled currently. She has been using her incentive spirometer is about 750. Patient has been increasing activity as tolerated. Objective - Vital Signs Vital signs: Vital Signs Temp 99.1 F 03/01/23 08:00 Pulse 79 03/01/23 09:00 Resp 20 03/01/23 09:00 BP 160/69 02/28/23 06:02 Pulse Ox 92 L 03/01/23 09:00 FiO2 40 02/28/23 18:15 Intake & Output 02/28/23 03/01/23 03/01/23 18:59 06:59 18:59 Intake Total 2036.006 9985.605 391.712 Output Total 1201 1359 125 Balance -149.585 567.605 266.712 Weight 64.1 kg Intake: IV 248 978 207 Albumin Human 5% 250 ml 250 In Empty Bag 1 bag @ 250 mls/hr IVPB Q1HR PRN Rx#: [id number] CO/CI 150 270 30 Lactated Ringers 1,000 ml 350 150 @ 50 mls/hr IV .Q20H [facility] Rx#:[id number] pressure bag 45 108 27 Intake, IV Titration 803.415 458.605 64.712 Amount Albumin Human 5% 250 ml 250 In Empty Bag 1 bag @ 250 mls/hr IVPB Q1HR PRN Rx#: [id number] Albumin Human 5% 500 ml @ 500 Per Protocol IVPB ONCE ONE Rx#:[id number] Clevidipine Butyrate 25 8.167 mg In Empty Bag 1 bag @ 1 MG/HR 2 mls/hr IV .Q24H [facility] Rx#:[id number] Insulin Regular 100 unit 2.062 27.480 14.712 In Sodium Chloride 0.9% 100 ml @ Per Protocol IV .Q0M [facility] Rx#:[id number] Lactated Ringers 1,000 ml 250 150 @ 50 mls/hr IV .Q20H [facility] Rx#:[id number] Nitroglycerin-D5w Pmx 50 4.850 31.125 mg In Dextrose/Water 1 250ml.bag @ 5 MCG/MIN 1.5 mls/hr IV .Q24H [facility] Rx#: [id number] ceFAZolin 2 gm In Sodium 50 Chloride 0.9% 50 ml @ 100 mls/hr IVPB Q8HR [facility] Rx# :[id number] propofoL 1,000 mg In 38.336 Empty Bag 1 bag @ Titrate IV .Q0M [facility] Rx#: [id number] Oral 490 120 Output: Chest Tube Drainage 271 859 50 Chest Tube Bilateral 91 719 40 Chest Tube Mediastinal 180 140 10 Urine 580 500 75 Estimated Blood Loss 350 Other: Voiding Method Indwelling Catheter Indwelling Catheter ABP, PAP, CO, CI - Last Documented Arterial Blood Pressure 128/35 Pulmonary Artery Pressure 29/12 Cardiac Output 4.9 Cardiac Index 3.0 - Exam GENERAL EXAM: Alert, 67-year-old white female , comfortable in no apparent distress. HEAD: Normocephalic and atraumatic EYES: Normal reaction of pupils, equal size. NOSE: Clear with pink turbinates. THROAT: No erythema or exudates. NECK: No masses, no JVD. CHEST: No chest wall deformity. Postoperative midsternal incision is clean, dry, intact LUNGS: Equal air entry with bibasilar crackles. No wheeze, rhonchi or dullness. On 4 L nasal cannula. No conversational dyspnea or accessory muscle use.. CVS: S1 and S2 normal with no audible murmur, regular rhythm. There is a pericardial friction rub ABDOMEN: No hepatosplenomegaly, active bowel sounds, no guarding or rigidity. SPINE: No scoliosis or deformity SKIN: No rashes CENTRAL NERVOUS SYSTEM: No focal deficits, tone is normal in all 4 extremities. EXTREMITIES: There is mild nonpitting. No clubbing, or cyanosis. Peripheral pulses are intact. - Labs CBC & Chem 7: 03/01/23 04:12 03/01/23 04:12 Labs: Abnormal Lab Results - Last 24 Hours (Table) 02/20/23 02/28/23 02/28/23 Range/Units 10:43 08:27 09:39 WBC (3.8-10.6) k/uL RBC (3.80-5.40) m/uL Hgb (11.4-16.0) gm/dL Hct (34.0-46.0) % Plt Count (150-450) k/uL Neutrophils # (1.3-7.7) k/uL Neutrophils # (Manual) (1.3-7.7) k/uL Lymphocytes # (1.0-4.8) k/uL Lymphocytes # (Manual) (1.0-4.8) k/uL Metamyelocytes # (Man) (0) k/uL Myelocytes # (Manual) (0) k/uL PT (9.0-12.0) sec INR (<1.2) APTT (22.0-30.0) sec ABG pH (7.35-7.45) ABG pCO2 46 H (35-45) mmHg ABG pO2 >420 H 305 H (83-108) mmHg ABG HCO3 26 H (21-25) mmol/L ABG Total CO2 27 H 26 H (19-24) mmol/L ABG O2 Saturation 100.0 H 99.8 H (94-97) % ABG Hematocrit 32 L 33 L (34.0-46.0) % ABG Potassium (3.4-4.5) mmol/L ABG Ionized Calcium (4.5-5.3) mg/dL ABG Glucose 127 H (75-99) mg/dL ABG Lactic Acid (0.5-1.6) mmol/L Hemoglobin 10.6 L 10.8 L (11.4-16.0) gm/dL Sodium (137-145) mmol/L Chloride (98-107) mmol/L Carbon Dioxide (22-30) mmol/L Creatinine (0.52-1.04) mg/dL Glucose (74-99) mg/dL POC Glucose (mg/dL) (70-110) mg/dL Calcium (8.4-10.2) mg/dL Magnesium (1.6-2.3) mg/dL AST (14-36) U/L Alkaline Phosphatase (38-126) U/L Total Protein (6.3-8.2) g/dL Albumin (3.5-5.0) g/dL Arterial Blood Potassium (3.4-4.5) mmol/L Arterial Blood Glucose 127 H (75-99) mg/dL Crossmatch See Detail 02/28/23 02/28/23 02/28/23 Range/Units 10:16 10:39 11:06 WBC (3.8-10.6) k/uL RBC (3.80-5.40) m/uL Hgb (11.4-16.0) gm/dL Hct (34.0-46.0) % Plt Count (150-450) k/uL Neutrophils # (1.3-7.7) k/uL Neutrophils # (Manual) (1.3-7.7) k/uL Lymphocytes # (1.0-4.8) k/uL Lymphocytes # (Manual) (1.0-4.8) k/uL Metamyelocytes # (Man) (0) k/uL Myelocytes # (Manual) (0) k/uL PT (9.0-12.0) sec INR (<1.2) APTT (22.0-30.0) sec ABG pH 7.47 H 7.51 H 7.27 L (7.35-7.45) ABG pCO2 33 L 31 L 55 H (35-45) mmHg ABG pO2 >420 H >420 H >420 H (83-108) mmHg ABG HCO3 (21-25) mmol/L ABG Total CO2 25 H 26 H 27 H (19-24) mmol/L ABG O2 Saturation 100.0 H 100.0 H 100.0 H (94-97) % ABG Hematocrit 25 L 25 L 26 L (34.0-46.0) % ABG Potassium 4.6 H (3.4-4.5) mmol/L ABG Ionized Calcium 4.3 L 4.4 L 4.4 L (4.5-5.3) mg/dL ABG Glucose 107 H 109 H 123 H (75-99) mg/dL ABG Lactic Acid (0.5-1.6) mmol/L Hemoglobin 8.0 L 8.2 L 8.3 L (11.4-16.0) gm/dL Sodium (137-145) mmol/L Chloride (98-107) mmol/L Carbon Dioxide (22-30) mmol/L Creatinine (0.52-1.04) mg/dL Glucose (74-99) mg/dL POC Glucose (mg/dL) (70-110) mg/dL Calcium (8.4-10.2) mg/dL Magnesium (1.6-2.3) mg/dL AST (14-36) U/L Alkaline Phosphatase (38-126) U/L Total Protein (6.3-8.2) g/dL Albumin (3.5-5.0) g/dL Arterial Blood Potassium 4.6 H (3.4-4.5) mmol/L Arterial Blood Glucose 107 H 109 H 123 H (75-99) mg/dL Crossmatch 02/28/23 02/28/23 02/28/23 Range/Units 11:30 12:25 13:10 WBC (3.8-10.6) k/uL RBC (3.80-5.40) m/uL Hgb (11.4-16.0) gm/dL Hct (34.0-46.0) % Plt Count (150-450) k/uL Neutrophils # (1.3-7.7) k/uL Neutrophils # (Manual) (1.3-7.7) k/uL Lymphocytes # (1.0-4.8) k/uL Lymphocytes # (Manual) (1.0-4.8) k/uL Metamyelocytes # (Man) (0) k/uL Myelocytes # (Manual) (0) k/uL PT (9.0-12.0) sec INR (<1.2) APTT (22.0-30.0) sec ABG pH (7.35-7.45) ABG pCO2 34 L (35-45) mmHg ABG pO2 >420 H 255 H (83-108) mmHg ABG HCO3 (21-25) mmol/L ABG Total CO2 (19-24) mmol/L ABG O2 Saturation 100.0 H 99.6 H (94-97) % ABG Hematocrit 23 L 28 L (34.0-46.0) % ABG Potassium 4.8 H (3.4-4.5) mmol/L ABG Ionized Calcium (4.5-5.3) mg/dL ABG Glucose 127 H 125 H (75-99) mg/dL ABG Lactic Acid 2.4 H* 3.1 H* (0.5-1.6) mmol/L Hemoglobin 7.7 L 9.2 L (11.4-16.0) gm/dL Sodium (137-145) mmol/L Chloride (98-107) mmol/L Carbon Dioxide (22-30) mmol/L Creatinine (0.52-1.04) mg/dL Glucose (74-99) mg/dL POC Glucose (mg/dL) 116 H (70-110) mg/dL Calcium (8.4-10.2) mg/dL Magnesium (1.6-2.3) mg/dL AST (14-36) U/L Alkaline Phosphatase (38-126) U/L Total Protein (6.3-8.2) g/dL Albumin (3.5-5.0) g/dL Arterial Blood Potassium 4.8 H (3.4-4.5) mmol/L Arterial Blood Glucose 127 H 125 H (75-99) mg/dL Crossmatch 02/28/23 02/28/23 02/28/23 Range/Units 13:10 13:10 13:10 WBC 11.5 H (3.8-10.6) k/uL RBC 3.25 L (3.80-5.40) m/uL Hgb 9.6 L D (11.4-16.0) gm/dL Hct 28.3 L (34.0-46.0) % Plt Count 65 L D (150-450) k/uL Neutrophils # (1.3-7.7) k/uL Neutrophils # (Manual) 10.20 H (1.3-7.7) k/uL Lymphocytes # (1.0-4.8) k/uL Lymphocytes # (Manual) 0.92 L (1.0-4.8) k/uL Metamyelocytes # (Man) 0.12 H (0) k/uL Myelocytes # (Manual) 0.12 H (0) k/uL PT 12.5 H (9.0-12.0) sec INR 1.2 H (<1.2) APTT 30.4 H (22.0-30.0) sec ABG pH (7.35-7.45) ABG pCO2 (35-45) mmHg ABG pO2 (83-108) mmHg ABG HCO3 (21-25) mmol/L ABG Total CO2 (19-24) mmol/L ABG O2 Saturation (94-97) % ABG Hematocrit (34.0-46.0) % ABG Potassium (3.4-4.5) mmol/L ABG Ionized Calcium (4.5-5.3) mg/dL ABG Glucose (75-99) mg/dL ABG Lactic Acid (0.5-1.6) mmol/L Hemoglobin (11.4-16.0) gm/dL Sodium (137-145) mmol/L Chloride 110 H (98-107) mmol/L Carbon Dioxide (22-30) mmol/L Creatinine (0.52-1.04) mg/dL Glucose 109 H (74-99) mg/dL POC Glucose (mg/dL) (70-110) mg/dL Calcium 8.1 L (8.4-10.2) mg/dL Magnesium 4.3 H (1.6-2.3) mg/dL AST 42 H (14-36) U/L Alkaline Phosphatase 33 L (38-126) U/L Total Protein 4.2 L (6.3-8.2) g/dL Albumin 2.6 L (3.5-5.0) g/dL Arterial Blood Potassium (3.4-4.5) mmol/L Arterial Blood Glucose (75-99) mg/dL Crossmatch 02/28/23 02/28/23 02/28/23 Range/Units 14:06 15:10 16:01 WBC 13.8 H (3.8-10.6) k/uL RBC 3.08 L (3.80-5.40) m/uL Hgb 9.0 L (11.4-16.0) gm/dL Hct 27.1 L (34.0-46.0) % Plt Count 78 L (150-450) k/uL Neutrophils # 12.1 H (1.3-7.7) k/uL Neutrophils # (Manual) (1.3-7.7) k/uL Lymphocytes # 0.9 L (1.0-4.8) k/uL Lymphocytes # (Manual) (1.0-4.8) k/uL Metamyelocytes # (Man) (0) k/uL Myelocytes # (Manual) (0) k/uL PT (9.0-12.0) sec INR (<1.2) APTT (22.0-30.0) sec ABG pH (7.35-7.45) ABG pCO2 (35-45) mmHg ABG pO2 (83-108) mmHg ABG HCO3 (21-25) mmol/L ABG Total CO2 (19-24) mmol/L ABG O2 Saturation (94-97) % ABG Hematocrit (34.0-46.0) % ABG Potassium (3.4-4.5) mmol/L ABG Ionized Calcium (4.5-5.3) mg/dL ABG Glucose (75-99) mg/dL ABG Lactic Acid (0.5-1.6) mmol/L Hemoglobin (11.4-16.0) gm/dL Sodium (137-145) mmol/L Chloride (98-107) mmol/L Carbon Dioxide (22-30) mmol/L Creatinine (0.52-1.04) mg/dL Glucose (74-99) mg/dL POC Glucose (mg/dL) 129 H 145 H (70-110) mg/dL Calcium (8.4-10.2) mg/dL Magnesium (1.6-2.3) mg/dL AST (14-36) U/L Alkaline Phosphatase (38-126) U/L Total Protein (6.3-8.2) g/dL Albumin (3.5-5.0) g/dL Arterial Blood Potassium (3.4-4.5) mmol/L Arterial Blood Glucose (75-99) mg/dL Crossmatch 02/28/23 02/28/23 02/28/23 Range/Units 16:02 16:54 17:53 WBC (3.8-10.6) k/uL RBC (3.80-5.40) m/uL Hgb (11.4-16.0) gm/dL Hct (34.0-46.0) % Plt Count (150-450) k/uL Neutrophils # (1.3-7.7) k/uL Neutrophils # (Manual) (1.3-7.7) k/uL Lymphocytes # (1.0-4.8) k/uL Lymphocytes # (Manual) (1.0-4.8) k/uL Metamyelocytes # (Man) (0) k/uL Myelocytes # (Manual) (0) k/uL PT (9.0-12.0) sec INR (<1.2) APTT (22.0-30.0) sec ABG pH (7.35-7.45) ABG pCO2 (35-45) mmHg ABG pO2 (83-108) mmHg ABG HCO3 (21-25) mmol/L ABG Total CO2 (19-24) mmol/L ABG O2 Saturation (94-97) % ABG Hematocrit (34.0-46.0) % ABG Potassium (3.4-4.5) mmol/L ABG Ionized Calcium (4.5-5.3) mg/dL ABG Glucose (75-99) mg/dL ABG Lactic Acid (0.5-1.6) mmol/L Hemoglobin (11.4-16.0) gm/dL Sodium (137-145) mmol/L Chloride (98-107) mmol/L Carbon Dioxide (22-30) mmol/L Creatinine (0.52-1.04) mg/dL Glucose (74-99) mg/dL POC Glucose (mg/dL) 161 H 155 H 145 H (70-110) mg/dL Calcium (8.4-10.2) mg/dL Magnesium (1.6-2.3) mg/dL AST (14-36) U/L Alkaline Phosphatase (38-126) U/L Total Protein (6.3-8.2) g/dL Albumin (3.5-5.0) g/dL Arterial Blood Potassium (3.4-4.5) mmol/L Arterial Blood Glucose (75-99) mg/dL Crossmatch 02/28/23 02/28/23 02/28/23 Range/Units 18:18 18:57 19:00 WBC 13.6 H (3.8-10.6) k/uL RBC 2.88 L (3.80-5.40) m/uL Hgb 8.4 L (11.4-16.0) gm/dL Hct 25.2 L (34.0-46.0) % Plt Count 86 L (150-450) k/uL Neutrophils # 12.2 H (1.3-7.7) k/uL Neutrophils # (Manual) (1.3-7.7) k/uL Lymphocytes # 0.7 L (1.0-4.8) k/uL Lymphocytes # (Manual) (1.0-4.8) k/uL Metamyelocytes # (Man) (0) k/uL Myelocytes # (Manual) (0) k/uL PT (9.0-12.0) sec INR (<1.2) APTT (22.0-30.0) sec ABG pH 7.33 L (7.35-7.45) ABG pCO2 (35-45) mmHg ABG pO2 117 H (83-108) mmHg ABG HCO3 (21-25) mmol/L ABG Total CO2 (19-24) mmol/L ABG O2 Saturation 99.0 H (94-97) % ABG Hematocrit (34.0-46.0) % ABG Potassium (3.4-4.5) mmol/L ABG Ionized Calcium (4.5-5.3) mg/dL ABG Glucose (75-99) mg/dL ABG Lactic Acid (0.5-1.6) mmol/L Hemoglobin (11.4-16.0) gm/dL Sodium (137-145) mmol/L Chloride (98-107) mmol/L Carbon Dioxide (22-30) mmol/L Creatinine (0.52-1.04) mg/dL Glucose (74-99) mg/dL POC Glucose (mg/dL) 150 H (70-110) mg/dL Calcium (8.4-10.2) mg/dL Magnesium (1.6-2.3) mg/dL AST (14-36) U/L Alkaline Phosphatase (38-126) U/L Total Protein (6.3-8.2) g/dL Albumin (3.5-5.0) g/dL Arterial Blood Potassium (3.4-4.5) mmol/L Arterial Blood Glucose (75-99) mg/dL Crossmatch 02/28/23 02/28/23 02/28/23 Range/Units 20:06 21:04 21:57 WBC (3.8-10.6) k/uL RBC (3.80-5.40) m/uL Hgb (11.4-16.0) gm/dL Hct (34.0-46.0) % Plt Count (150-450) k/uL Neutrophils # (1.3-7.7) k/uL Neutrophils # (Manual) (1.3-7.7) k/uL Lymphocytes # (1.0-4.8) k/uL Lymphocytes # (Manual) (1.0-4.8) k/uL Metamyelocytes # (Man) (0) k/uL Myelocytes # (Manual) (0) k/uL PT (9.0-12.0) sec INR (<1.2) APTT (22.0-30.0) sec ABG pH (7.35-7.45) ABG pCO2 (35-45) mmHg ABG pO2 (83-108) mmHg ABG HCO3 (21-25) mmol/L ABG Total CO2 (19-24) mmol/L ABG O2 Saturation (94-97) % ABG Hematocrit (34.0-46.0) % ABG Potassium (3.4-4.5) mmol/L ABG Ionized Calcium (4.5-5.3) mg/dL ABG Glucose (75-99) mg/dL ABG Lactic Acid (0.5-1.6) mmol/L Hemoglobin (11.4-16.0) gm/dL Sodium (137-145) mmol/L Chloride (98-107) mmol/L Carbon Dioxide (22-30) mmol/L Creatinine (0.52-1.04) mg/dL Glucose (74-99) mg/dL POC Glucose (mg/dL) 165 H 147 H 130 H (70-110) mg/dL Calcium (8.4-10.2) mg/dL Magnesium (1.6-2.3) mg/dL AST (14-36) U/L Alkaline Phosphatase (38-126) U/L Total Protein (6.3-8.2) g/dL Albumin (3.5-5.0) g/dL Arterial Blood Potassium (3.4-4.5) mmol/L Arterial Blood Glucose (75-99) mg/dL Crossmatch 02/28/23 03/01/23 03/01/23 Range/Units 23:06 00:06 01:04 WBC (3.8-10.6) k/uL RBC (3.80-5.40) m/uL Hgb (11.4-16.0) gm/dL Hct (34.0-46.0) % Plt Count (150-450) k/uL Neutrophils # (1.3-7.7) k/uL Neutrophils # (Manual) (1.3-7.7) k/uL Lymphocytes # (1.0-4.8) k/uL Lymphocytes # (Manual) (1.0-4.8) k/uL Metamyelocytes # (Man) (0) k/uL Myelocytes # (Manual) (0) k/uL PT (9.0-12.0) sec INR (<1.2) APTT (22.0-30.0) sec ABG pH (7.35-7.45) ABG pCO2 (35-45) mmHg ABG pO2 (83-108) mmHg ABG HCO3 (21-25) mmol/L ABG Total CO2 (19-24) mmol/L ABG O2 Saturation (94-97) % ABG Hematocrit (34.0-46.0) % ABG Potassium (3.4-4.5) mmol/L ABG Ionized Calcium (4.5-5.3) mg/dL ABG Glucose (75-99) mg/dL ABG Lactic Acid (0.5-1.6) mmol/L Hemoglobin (11.4-16.0) gm/dL Sodium (137-145) mmol/L Chloride (98-107) mmol/L Carbon Dioxide (22-30) mmol/L Creatinine (0.52-1.04) mg/dL Glucose (74-99) mg/dL POC Glucose (mg/dL) 131 H 125 H 115 H (70-110) mg/dL Calcium (8.4-10.2) mg/dL Magnesium (1.6-2.3) mg/dL AST (14-36) U/L Alkaline Phosphatase (38-126) U/L Total Protein (6.3-8.2) g/dL Albumin (3.5-5.0) g/dL Arterial Blood Potassium (3.4-4.5) mmol/L Arterial Blood Glucose (75-99) mg/dL Crossmatch 03/01/23 03/01/23 03/01/23 Range/Units 04:12 04:12 04:12 WBC 11.2 H (3.8-10.6) k/uL RBC 2.50 L (3.80-5.40) m/uL Hgb 7.2 L (11.4-16.0) gm/dL Hct 21.7 L (34.0-46.0) % Plt Count 78 L (150-450) k/uL Neutrophils # 10.0 H (1.3-7.7) k/uL Neutrophils # (Manual) (1.3-7.7) k/uL Lymphocytes # 0.6 L (1.0-4.8) k/uL Lymphocytes # (Manual) (1.0-4.8) k/uL Metamyelocytes # (Man) (0) k/uL Myelocytes # (Manual) (0) k/uL PT (9.0-12.0) sec INR (<1.2) APTT (22.0-30.0) sec ABG pH (7.35-7.45) ABG pCO2 (35-45) mmHg ABG pO2 (83-108) mmHg ABG HCO3 (21-25) mmol/L ABG Total CO2 (19-24) mmol/L ABG O2 Saturation (94-97) % ABG Hematocrit (34.0-46.0) % ABG Potassium (3.4-4.5) mmol/L ABG Ionized Calcium (4.5-5.3) mg/dL ABG Glucose (75-99) mg/dL ABG Lactic Acid (0.5-1.6) mmol/L Hemoglobin (11.4-16.0) gm/dL Sodium 134 L (137-145) mmol/L Chloride 108 H (98-107) mmol/L Carbon Dioxide 20 L (22-30) mmol/L Creatinine 1.14 H (0.52-1.04) mg/dL Glucose 122 H (74-99) mg/dL POC Glucose (mg/dL) 147 H (70-110) mg/dL Calcium 7.9 L (8.4-10.2) mg/dL Magnesium 2.8 H (1.6-2.3) mg/dL AST 48 H (14-36) U/L Alkaline Phosphatase 35 L (38-126) U/L Total Protein 4.6 L (6.3-8.2) g/dL Albumin 3.1 L (3.5-5.0) g/dL Arterial Blood Potassium (3.4-4.5) mmol/L Arterial Blood Glucose (75-99) mg/dL Crossmatch 03/01/23 03/01/23 03/01/23 Range/Units 05:59 06:56 08:56 WBC (3.8-10.6) k/uL RBC (3.80-5.40) m/uL Hgb (11.4-16.0) gm/dL Hct (34.0-46.0) % Plt Count (150-450) k/uL Neutrophils # (1.3-7.7) k/uL Neutrophils # (Manual) (1.3-7.7) k/uL Lymphocytes # (1.0-4.8) k/uL Lymphocytes # (Manual) (1.0-4.8) k/uL Metamyelocytes # (Man) (0) k/uL Myelocytes # (Manual) (0) k/uL PT (9.0-12.0) sec INR (<1.2) APTT (22.0-30.0) sec ABG pH (7.35-7.45) ABG pCO2 (35-45) mmHg ABG pO2 (83-108) mmHg ABG HCO3 (21-25) mmol/L ABG Total CO2 (19-24) mmol/L ABG O2 Saturation (94-97) % ABG Hematocrit (34.0-46.0) % ABG Potassium (3.4-4.5) mmol/L ABG Ionized Calcium (4.5-5.3) mg/dL ABG Glucose (75-99) mg/dL ABG Lactic Acid (0.5-1.6) mmol/L Hemoglobin (11.4-16.0) gm/dL Sodium (137-145) mmol/L Chloride (98-107) mmol/L Carbon Dioxide (22-30) mmol/L Creatinine (0.52-1.04) mg/dL Glucose (74-99) mg/dL POC Glucose (mg/dL) 150 H 115 H 186 H (70-110) mg/dL Calcium (8.4-10.2) mg/dL Magnesium (1.6-2.3) mg/dL AST (14-36) U/L Alkaline Phosphatase (38-126) U/L Total Protein (6.3-8.2) g/dL Albumin (3.5-5.0) g/dL Arterial Blood Potassium (3.4-4.5) mmol/L Arterial Blood Glucose (75-99) mg/dL Crossmatch 03/01/23 Range/Units 10:21 WBC (3.8-10.6) k/uL RBC (3.80-5.40) m/uL Hgb (11.4-16.0) gm/dL Hct (34.0-46.0) % Plt Count (150-450) k/uL Neutrophils # (1.3-7.7) k/uL Neutrophils # (Manual) (1.3-7.7) k/uL Lymphocytes # (1.0-4.8) k/uL Lymphocytes # (Manual) (1.0-4.8) k/uL Metamyelocytes # (Man) (0) k/uL Myelocytes # (Manual) (0) k/uL PT (9.0-12.0) sec INR (<1.2) APTT (22.0-30.0) sec ABG pH (7.35-7.45) ABG pCO2 (35-45) mmHg ABG pO2 (83-108) mmHg ABG HCO3 (21-25) mmol/L ABG Total CO2 (19-24) mmol/L ABG O2 Saturation (94-97) % ABG Hematocrit (34.0-46.0) % ABG Potassium (3.4-4.5) mmol/L ABG Ionized Calcium (4.5-5.3) mg/dL ABG Glucose (75-99) mg/dL ABG Lactic Acid (0.5-1.6) mmol/L Hemoglobin (11.4-16.0) gm/dL Sodium (137-145) mmol/L Chloride (98-107) mmol/L Carbon Dioxide (22-30) mmol/L Creatinine (0.52-1.04) mg/dL Glucose (74-99) mg/dL POC Glucose (mg/dL) 136 H (70-110) mg/dL Calcium (8.4-10.2) mg/dL Magnesium (1.6-2.3) mg/dL AST (14-36) U/L Alkaline Phosphatase (38-126) U/L Total Protein (6.3-8.2) g/dL Albumin (3.5-5.0) g/dL Arterial Blood Potassium (3.4-4.5) mmol/L Arterial Blood Glucose (75-99) mg/dL Crossmatch Assessment and Plan Assessment: Postop day #1 for a CABG x 3 vessel bypass graft yesterday with a NGUYỄN to the LAD, saphenous vein graft to the PDA, left radial artery to the OM. She also had a mitral valve repair with a #24 Physio II annuloplasty ring, left atrial appendage ligation. Patient was extubated yesterday evening without complications. Atrial paced at 80 beats per minute. CO/CIs are adequate morning 4.2 and 2.6 respectively Acute hypoxic respiratory failure secondary to above, currently on 4 L nasal cannula Thrombocytopenia -post bypass Acute anemia, anticipated outcome of cardiac surgery, chest tube output is minimal Chronic stage III kidney disease, stable , GFR 47 Hypertension Hyperlipidemia Right internal carotid artery stenosis, asymptomatic Chronic back pain Plan Patients medication, labs, chest x-ray reviewed Patient was extubated without complication and is currently on nasal cannula at 4 L/m Atrial paced at 80 bpm CO/CI are adequate Minimal chest tube output No air leak or pneumothorax noted on chest x-ray Urine output is currently low and is going to receive albumin Monitor blood glucose and insulin infusion per protocol Encourage incentive spirometer Increase activity as tolerated Protonix for GI prophylaxis We will continue to follow I have personally seen and examined the patient, performed the documentation and the assessment and plan as written. Number of minutes spent on the visit:30 This is a joint evaluation that was done along with the nurse practitioner. The patient was extubated yesterday without any major difficulties pH is currently postop day #1. Chest tubes are in place. Output is minimal. Adequate cardiac output and the next few chest x-ray shows adequate expansion of both lungs was postsurgical changes and atelectasis in the lung bases. Her blood work is showing a hemoglobin of 7.2, platelet count of 78, electrolytes are essentially within normal limits. Creatinine is at 1.1. The patient is using the incentive spirometer. Currently still 4 L of Oxymizer nasal cannula. Will monitor the output from the chest tube. The [place] catheter may be removed at the later stage. The patient is still paced at the rate of 80. Her underlying rhythm is sinus bradycardia. This is a critical care evaluation and the patient will be kept in ICU. This evaluation was done in more than 30 minutes. Time with Patient: Greater than 30
[2023-03-01] MEDS: ONDANSETRON 4 MG/2 ML VIAL IVP PRN (11:48)
[2023-03-01 12:04] LABS: Glucose,Whole Blood 118 mg/dL (70-110)
[2023-03-01] MEDS ORDERED: guaiFENesin-DM 600/30MG 1 EACH TAB.ER.12H PO PRN (12:53)
[2023-03-01] MEDS: METOCLOPRAMIDE 5 MG/ML 2 ML VIAL IVP PRN (12:55)
[2023-03-01 13:28] LABS: Glucose,Whole Blood 132 mg/dL (70-110)
[2023-03-01 14:02] VITALS: BMI 24.3
[2023-03-01 15:01] LABS: Glucose,Whole Blood 125 mg/dL (70-110)
[2023-03-01 16:31] LABS: Glucose,Whole Blood 110 mg/dL (70-110)
[2023-03-01 17:54] LABS: Glucose,Whole Blood 164 mg/dL (70-110)
[2023-03-01 21:24] LABS: Glucose,Whole Blood 105 mg/dL (70-110)
[2023-03-01] MEDS: SENNOSIDES-DOCUSATE SODIUM 1 EACH TAB PO SCH (21:41)
[2023-03-01] MEDS: ATORVASTATIN 40 MG TAB PO SCH (21:41)
[2023-03-02 00:05] LABS: Glucose,Whole Blood 140 mg/dL (70-110)
[2023-03-02 01:52] LABS: Glucose,Whole Blood 126 mg/dL (70-110)
[2023-03-02] MEDS: HYDROcodone/APAP 10-325MG 1 EACH TAB PO PRN ×3 (04:40→18:00)
[2023-03-02] MEDS: METOCLOPRAMIDE 5 MG/ML 2 ML VIAL IVP PRN (04:40)
[2023-03-02 04:48] LABS: Glucose,Whole Blood 123 mg/dL (70-110)
[2023-03-02 05:15] LABS: Basophils % (A) 0 %; Eosinophils % (A) 0 %; Lymphocytes # (A) 1.2 k/uL (1.0-4.8); Lymphocytes % (A) 6 %; MCH 29.7 pg (25.0-35.0); MCHC 33.9 g/dL (31.0-37.0); MCV 87.8 fL (80.0-100.0); Mean Platelet Volume 10.5; Monocytes # (A) 1.2 k/uL (0-1.0); Monocytes % (A) 6 %; Neutrophils # (A) 16.4 k/uL (1.3-7.7); Neutrophils % (A) 86 %; RDW 14.8 % (11.5-15.5)
[2023-03-02 05:19] LABS: Ionized Calcium 5.2 mg/dL (4.5-5.3)
[2023-03-02 05:26] LABS: Albumin 3.4 g/dL (3.5-5.0)
[2023-03-02 05:55] LABS: Total Bilirubin 0.5 mg/dL (0.2-1.3); Total Protein 5.2 g/dL (6.3-8.2)
[2023-03-02 05:57] LABS: Potassium 4.7 mmol/L (3.5-5.1)
[2023-03-02 05:59] LABS: HGB 6.5 gm/dL (11.4-16.0); Platelet Count 98 k/uL (150-450)
[2023-03-02 06:00] LABS: HCT 19.3 % (34.0-46.0)
[2023-03-02] MEDS: DEXTROSE 5% IN WATER 100 ML with AMIODARONE 150 MG IV PRN ×2 (06:15→06:55)
[2023-03-02] MEDS: PANTOPRAZOLE 40 MG TABLET PO SCH (06:52)
--- NOTE | 2023-03-02 06:52 | XR ---
EXAMINATION TYPE: XR chest 1V DATE OF EXAM: 03/02/2023 CLINICAL HISTORY: Postopen cardiac surgery. TECHNIQUE: Single AP portable upright view of the chest is obtained. COMPARISON: Chest x-ray from one day earlier and older studies. FINDINGS: Interval removal of right internal jugular [place]-Juan catheter, cordis sheath remains prese nt. Mediastinal drainage catheter along with left basilar chest tube redemonstrated. Overlying sterna l wires and mediastinal clips again seen. Persistent cardiomegaly with patchy bibasilar opacities and mild central vascular congestion redemons trated. No pneumothorax seen bilaterally. Osseous structures are intact. IMPRESSION: Cardiomegaly with patchy bibasilar atelectasis and mild central vascular congestion redem onstrated. No pneumothorax seen with left-sided chest tube in place. No significant change from one d ay earlier.
--- NOTE | 2023-03-02 08:13 | P.PN ---
Subjective Progress Note Date: 03/02/23 PROGRESS NOTE The patient is a 77-year-old female, followed by Dr. Lin who underwent CABG yesterday with NGUYỄN to the LAD, SVG to the right and radial artery to the circumflex. She is extubated, sitting up in the chair. Complaining of back discomfort which is chronic. She has an underlying sinus mechanism and is receiving atrial pacing. She is on no vasopressors. Preoperatively her MILENA showed moderate MR with ejection fraction of 50-55%. The patient has a known history of asymptomatic carotid disease. She has a known history of chronic kidney disease. She presented initially with symptoms of progressive dyspnea, she has a history of chronic smoking of over a pack a day. Her cardiac ca theterization showed 70% left main disease 60-70% proximal circumflex and 100% total occlusion of the proximal RCA. She had an 80% right internal carotid artery stenosis. Her coronary risk factors are positive for hypertension, chronic tobacco use, hyperlipidemia March 02: The patient is sitting up in the chair, she feels tired. She denies any dizziness or palpitations. She is mildly nauseated. She has respirophasic chest pain. She had an episode of atrial fibrillation earlier but is back in sinus mechanism at this time. Hemodynamically she is stable. Her urinary output is good. There is no evidence of ventricular ectopic activity. Chest x- ray with no evidence of pneumothorax and no significant changes. Medications: Aspirin, Plavix 75 mg daily, Lipitor 40 mg daily. PHYSICAL EXAMINATION: Blood pressure 106/50 heart rate 70 LUNGS: Mild decrease in the breath sounds at the bases HEART: Regular rate and rhythm, S1, S2. No S3. systolic ejection murmur ABDOMEN: Soft, nontender, no organomegaly EXTREMETIES: No edema LAB: Hemoglobin 6.5, BUN 26, creatinine 1.26. IMPRESSION: 1. Status post CABG 2. Asymptomatic carotid disease 3. History of hypertension 4. History of hyperlipidemia 5. Paroxysmal atrial fibrillation 6. Worsening renal functions PLAN: 1. Continue present therapy 2. Follow renal functions 3. If further episodes of atrial fibrillation, initiate oral amiodarone and may require anticoagulation 4. Increase physical activity 5. Depending on her progress further recommendations will be made Objective - Vital Signs Vital signs: Vital Signs Temp 98.2 F 03/02/23 04:00 Pulse 117 H 03/02/23 07:00 Resp 23 03/02/23 07:00 BP 160/69 02/28/23 06:02 Pulse Ox 93 L 03/02/23 07:00 FiO2 40 02/28/23 18:15 Intake & Output 03/01/23 03/02/23 03/02/23 18:59 06:59 18:59 Intake Total 1216.529 818.901 26 Output Total 685 560 10 Balance 531.529 258.901 16 Weight 64.1 kg 66 kg Intake: IV 550 312 26 CO/CI 40 Lactated Ringers 1,000 ml 420 240 20 @ 20 mls/hr IV .Q24H [facility] Rx#:[id number] pressure bag 90 72 6 Intake, IV Titration 326.529 16.901 Amount Albumin Human 5% 250 ml 250 In Empty Bag 1 bag @ 250 mls/hr IVPB ONCE ONE Rx#: [id number] Insulin Regular 100 unit 26.529 16.901 In Sodium Chloride 0.9% 100 ml @ Per Protocol IV .Q0M [facility] Rx#:[id number] ceFAZolin 2 gm In Sodium 50 Chloride 0.9% 50 ml @ 100 mls/hr IVPB Q8HR [facility] Rx# :[id number] Oral 340 490 Output: Chest Tube Drainage 380 230 Chest Tube Bilateral 340 180 Chest Tube Mediastinal 40 50 Urine 305 330 10 Other: Voiding Method Indwelling Catheter Indwelling Catheter ABP, PAP, CO, CI - Last Documented Arterial Blood Pressure 91/39 Pulmonary Artery Pressure 24/7 Cardiac Output 4 Cardiac Index 2.6 - Labs CBC & Chem 7: 03/02/23 04:45 03/02/23 04:45 Labs: Abnormal Lab Results - Last 24 Hours (Table) 03/01/23 03/01/23 03/01/23 Range/Units 08:56 10:21 12:00 WBC (3.8-10.6) k/uL RBC (3.80-5.40) m/uL Hgb (11.4-16.0) gm/dL Hct (34.0-46.0) % Plt Count (150-450) k/uL Neutrophils # (1.3-7.7) k/uL Monocytes # (0-1.0) k/uL Sodium (137-145) mmol/L BUN (7-17) mg/dL Creatinine (0.52-1.04) mg/dL Glucose (74-99) mg/dL POC Glucose (mg/dL) 186 H 136 H 118 H (70-110) mg/dL AST (14-36) U/L Alkaline Phosphatase (38-126) U/L Total Protein (6.3-8.2) g/dL Albumin (3.5-5.0) g/dL 03/01/23 03/01/23 03/01/23 Range/Units 13:26 14:59 17:52 WBC (3.8-10.6) k/uL RBC (3.80-5.40) m/uL Hgb (11.4-16.0) gm/dL Hct (34.0-46.0) % Plt Count (150-450) k/uL Neutrophils # (1.3-7.7) k/uL Monocytes # (0-1.0) k/uL Sodium (137-145) mmol/L BUN (7-17) mg/dL Creatinine (0.52-1.04) mg/dL Glucose (74-99) mg/dL POC Glucose (mg/dL) 132 H 125 H 164 H (70-110) mg/dL AST (14-36) U/L Alkaline Phosphatase (38-126) U/L Total Protein (6.3-8.2) g/dL Albumin (3.5-5.0) g/dL 03/02/23 03/02/23 03/02/23 Range/Units 00:04 01:50 04:45 WBC 19.0 H (3.8-10.6) k/uL RBC 2.20 L (3.80-5.40) m/uL Hgb 6.5 L* (11.4-16.0) gm/dL Hct 19.3 L* (34.0-46.0) % Plt Count 98 L (150-450) k/uL Neutrophils # 16.4 H (1.3-7.7) k/uL Monocytes # 1.2 H (0-1.0) k/uL Sodium (137-145) mmol/L BUN (7-17) mg/dL Creatinine (0.52-1.04) mg/dL Glucose (74-99) mg/dL POC Glucose (mg/dL) 140 H 126 H (70-110) mg/dL AST (14-36) U/L Alkaline Phosphatase (38-126) U/L Total Protein (6.3-8.2) g/dL Albumin (3.5-5.0) g/dL 03/02/23 03/02/23 Range/Units 04:45 04:47 WBC (3.8-10.6) k/uL RBC (3.80-5.40) m/uL Hgb (11.4-16.0) gm/dL Hct (34.0-46.0) % Plt Count (150-450) k/uL Neutrophils # (1.3-7.7) k/uL Monocytes # (0-1.0) k/uL Sodium 135 L (137-145) mmol/L BUN 26 H (7-17) mg/dL Creatinine 1.26 H (0.52-1.04) mg/dL Glucose 102 H (74-99) mg/dL POC Glucose (mg/dL) 123 H (70-110) mg/dL AST 45 H (14-36) U/L Alkaline Phosphatase 37 L (38-126) U/L Total Protein 5.2 L (6.3-8.2) g/dL Albumin 3.4 L (3.5-5.0) g/dL
[2023-03-02 08:53] LABS: Glucose,Whole Blood 155 mg/dL (70-110)
[2023-03-02] MEDS: FERROUS SULFATE 325 MG TAB PO SCH (08:53)
[2023-03-02] MEDS: HEPARIN SODIUM,PORCINE/PF 5,000 UNIT/0.5 ML SYRINGE SQ SCH ×3 (08:53→17:08)
[2023-03-02] MEDS: CYANOCOBALAMIN 500 MCG TAB PO SCH (08:53)
[2023-03-02] MEDS: CLOPIDOGREL 75 MG TAB PO SCH (08:53)
[2023-03-02] MEDS: ASPIRIN 81 MG PO SCH (08:53)
[2023-03-02] MEDS: LIDOCAINE 5% PATCH TOPICAL SCH (08:53)
[2023-03-02] MEDS: IPRATROPIUM-ALBUTEROL 3 ML NEB INHALATION SCH ×4 (09:06→20:37)
[2023-03-02 10:17] LABS: Glucose,Whole Blood 152 mg/dL (70-110)
--- NOTE | 2023-03-02 12:05 | P.PN ---
Subjective Progress Note Date: 03/02/23 This 77-year-old female patient who underwent three-vessel bypass surgery. 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 The patient also has history of hypertension, hyperlipidemia, asymptomatic right carotid artery stenosis in the order of 8-99%, chronic stage III kidney disease, and history of chronic smoking. The patient was having episodes of shortness of breath and further cardiac catheterization showed severe triple vessel coronary artery disease. Based on that, the patient was referred for bypass surgery. 2-D echocardiogram showed an ejection fraction of 55% preoperatively with a moderate degree of mitral valve regurgitation. A subsequent was also done that showed normal functioning of the aortic valve with some sclerosis without stenosis. No other acute abnormalities seen. The patient at this point in time is in the intensive care unit. She is intubated on a mechanical ventilator. She is on propofol running at 20 mcg/kg/m. She is on assist control mode with a rate of 40 with a tidal volume of 400 and FiO2 of 40% with a PEEP of 5. The initial blood gases at that time to the ICU for the patient of 7.39 with a pCO2 of 37 and pO2 of 255. Chest x-ray showed adequate expansion of both lungs. Orotracheal tube is in a good location. The patient is a mediastinal and left lower chest tube and output is minimal in the order of 200 mL without evidence of any air leak. The patient's cardiac rhythm is pacer this point in time at the rate of 80. The patient is currently on no pressors. Cardiac index was initially low at 1.8 and improved with volume and the most recent cardiac index is 2.. Pressures are 39/16. The patient has adequate urine output. The bloodwork to the [place] 13.6 with a hemoglobin of 8.4 and a platelet count of 86. The sodium is at 13 with a potassium level of 4.3, BUN is a 50 with a creatinine of 0.9 and a patient's GFR that 56 which is typically better than her baseline. Note that the patient underwent three-vessel bypass surgery with NGUYỄN to LAD, radial artery to circumflex and SVG to PDA. The patient underwent a left radial artery harvesting. I'm seeing this patient in follow-up today 03/01/2023 in follow-up in intensive care unit post CABG with 3 vessel bypass graft yesterday with a NGUYỄN to the LAD, saphenous vein graft to the PDA, left radial artery to the OM. She also had a mitral valve repair with a #24 Physio II annuloplasty ring, left atrial appendage ligation. Patient was extubated yesterday evening without complications. She is currently resting comfortably in the recliner, on 4 L nasal cannula, in no acute distress. Patient's heart rhythm is currently atrial paced at 80 bpm, blood pressure normotensive, pulmonary artery pressures 27/8, his recent CO/CI was 4.2 and 2.6 respectively. Patient's urine output is low this morning around 10 mL an hours, and she is going to receive some more albumin. Patient currently has lactated Ringer's infusing at 50 ML's per hour. No vasopressors. Insulin infusing at 2 units per hour. She does have a mediastinal and left pleural chest tubes. There is no air leak noted. There has been about 320 ML's of serosanguineous output of the mediastinal and 900 ML's of serosanguineous output out of the left pleural chest tubes. Chest x-ray from this morning shows no evidence of pneumothorax, pleural effusion or focal consolidation. There was a right IJ [place]-Juan catheter within the main pulmonary artery and postsurgical changes. CBC this morning shows a WBC count of 11.2, hemoglobin 7.2, hematocrit 21.7, platelets 78,000. Patient's BMP from this morning shows a sodium 134, potassium 4.6, chloride 108, serum CO2 20, BUN 17, creatinine 1.14, glucose 122. Vital signs are stable. Pain is fairly well controlled currently. She has been using her incentive spirometer is about 750. Patient has been increasing activity as tolerated. 03/02/2023, the patient is postop day #2. Doing well. He remains extubated. Currently on oxygen at 3 66 L/m nasal cannula. No significant respiratory distress for now. The patient's chest x-ray from today shows cardiomegaly and some atelectatic changes in lung bases along with some mild pulmonary vascular congestion. The mediastinal chest tube was removed today in the pleural chest tubes are splinted at this point in time to echo to evaluate the output. Earlier this morning, the patient went into atrial fibrillation and the patient received 2 boluses of amiodarone. She converted back into normal sinus rhythm and she is hemodynamically stable at this point in time. She is using the in [employer] You In[employer] spirometer. Her current cardiac rhythm is sinus and she is not being paced at this point in time. The white cell cause of 19. Hemoglobin dropped down to 6.5 and a platelet count of 98. BUN is at 6 with a creatinine of 1.2 and a sodium level is at 135. Pain is under adequate control. No other significant issues for now. Objective - Vital Signs Vital signs: Vital Signs Temp 98.2 F 03/02/23 08:00 Pulse 72 03/02/23 11:30 Resp 13 03/02/23 11:30 BP 154/52 03/02/23 11:30 Pulse Ox 95 03/02/23 11:30 FiO2 40 02/28/23 18:15 Intake & Output 03/01/23 03/02/23 03/02/23 18:59 06:59 18:59 Intake Total 1216.529 818.901 281.986 Output Total 685 560 210 Balance 531.529 258.901 71.986 Weight 64.1 kg 66 kg Intake: IV 550 312 130 CO/CI 40 Lactated Ringers 1,000 ml 420 240 100 @ 20 mls/hr IV .Q24H [facility] Rx#:[id number] pressure bag 90 72 30 Intake, IV Titration 326.529 16.901 1.986 Amount Albumin Human 5% 250 ml 250 In Empty Bag 1 bag @ 250 mls/hr IVPB ONCE ONE Rx#: [id number] Insulin Regular 100 unit 26.529 16.901 1.986 In Sodium Chloride 0.9% 100 ml @ Per Protocol IV .Q0M [facility] Rx#:[id number] ceFAZolin 2 gm In Sodium 50 Chloride 0.9% 50 ml @ 100 mls/hr IVPB Q8HR [facility] Rx# :[id number] Oral 340 490 150 Output: Chest Tube Drainage 380 230 140 Chest Tube Bilateral 340 180 140 Chest Tube Mediastinal 40 50 0 Urine 305 330 70 Other: Voiding Method Indwelling Catheter Indwelling Catheter Indwelling Catheter ABP, PAP, CO, CI - Last Documented Arterial Blood Pressure 133/38 Pulmonary Artery Pressure 24/7 Cardiac Output 4.2 Cardiac Index 2.6 - Exam GENERAL EXAM: Alert, 67-year-old white female , comfortable in no apparent distress. HEAD: Normocephalic and atraumatic EYES: Normal reaction of pupils, equal size. NOSE: Clear with pink turbinates. THROAT: No erythema or exudates. NECK: No masses, no JVD. CHEST: No chest wall deformity. Postoperative midsternal incision is clean, dry, intact LUNGS: Equal air entry with bibasilar crackles. No wheeze, rhonchi or dullness. 6 L of oxygen by nasal cannula. He does tell chest tube is removed. The patient has a right and a left-sided chest tube and the tubes are currently split CVS: S1 and S2 normal with no audible murmur, regular rhythm. There is a pericardial friction rub ABDOMEN: No hepatosplenomegaly, active bowel sounds, no guarding or rigidity. SPINE: No scoliosis or deformity SKIN: No rashes CENTRAL NERVOUS SYSTEM: No focal deficits, tone is normal in all 4 extremities. EXTREMITIES: There is mild nonpitting. No clubbing, or cyanosis. Peripheral pulses are intact. - Labs CBC & Chem 7: 03/02/23 04:45 03/02/23 04:45 Labs: Abnormal Lab Results - Last 24 Hours (Table) 03/01/23 03/01/23 03/01/23 Range/Units 12:00 13:26 14:59 WBC (3.8-10.6) k/uL RBC (3.80-5.40) m/uL Hgb (11.4-16.0) gm/dL Hct (34.0-46.0) % Plt Count (150-450) k/uL Neutrophils # (1.3-7.7) k/uL Monocytes # (0-1.0) k/uL Sodium (137-145) mmol/L BUN (7-17) mg/dL Creatinine (0.52-1.04) mg/dL Glucose (74-99) mg/dL POC Glucose (mg/dL) 118 H 132 H 125 H (70-110) mg/dL AST (14-36) U/L Alkaline Phosphatase (38-126) U/L Total Protein (6.3-8.2) g/dL Albumin (3.5-5.0) g/dL 03/01/23 03/02/23 03/02/23 Range/Units 17:52 00:04 01:50 WBC (3.8-10.6) k/uL RBC (3.80-5.40) m/uL Hgb (11.4-16.0) gm/dL Hct (34.0-46.0) % Plt Count (150-450) k/uL Neutrophils # (1.3-7.7) k/uL Monocytes # (0-1.0) k/uL Sodium (137-145) mmol/L BUN (7-17) mg/dL Creatinine (0.52-1.04) mg/dL Glucose (74-99) mg/dL POC Glucose (mg/dL) 164 H 140 H 126 H (70-110) mg/dL AST (14-36) U/L Alkaline Phosphatase (38-126) U/L Total Protein (6.3-8.2) g/dL Albumin (3.5-5.0) g/dL 03/02/23 03/02/23 03/02/23 Range/Units 04:45 04:45 04:47 WBC 19.0 H (3.8-10.6) k/uL RBC 2.20 L (3.80-5.40) m/uL Hgb 6.5 L* (11.4-16.0) gm/dL Hct 19.3 L* (34.0-46.0) % Plt Count 98 L (150-450) k/uL Neutrophils # 16.4 H (1.3-7.7) k/uL Monocytes # 1.2 H (0-1.0) k/uL Sodium 135 L (137-145) mmol/L BUN 26 H (7-17) mg/dL Creatinine 1.26 H (0.52-1.04) mg/dL Glucose 102 H (74-99) mg/dL POC Glucose (mg/dL) 123 H (70-110) mg/dL AST 45 H (14-36) U/L Alkaline Phosphatase 37 L (38-126) U/L Total Protein 5.2 L (6.3-8.2) g/dL Albumin 3.4 L (3.5-5.0) g/dL 03/02/23 03/02/23 Range/Units 08:51 10:16 WBC (3.8-10.6) k/uL RBC (3.80-5.40) m/uL Hgb (11.4-16.0) gm/dL Hct (34.0-46.0) % Plt Count (150-450) k/uL Neutrophils # (1.3-7.7) k/uL Monocytes # (0-1.0) k/uL Sodium (137-145) mmol/L BUN (7-17) mg/dL Creatinine (0.52-1.04) mg/dL Glucose (74-99) mg/dL POC Glucose (mg/dL) 155 H 152 H (70-110) mg/dL AST (14-36) U/L Alkaline Phosphatase (38-126) U/L Total Protein (6.3-8.2) g/dL Albumin (3.5-5.0) g/dL Assessment and Plan Assessment: Postop day #2 for a CABG x 3 vessel bypass graft yesterday with a NGUYỄN to the LAD, saphenous vein graft to the PDA, left radial artery to the OM. She also had a mitral valve repair with a #24 Physio II annuloplasty ring, left atrial appendage ligation. Patient was extubated yesterday evening without complications. Cardiac rhythm is improved and the patient is maintaining his own sinus rhythm. She required some initial pacing postop and currently she is off the pacemaker. The is still in place. Mediastinal chest tube is removed. Acute hypoxic respiratory failure secondary to above, currently on 6 L nasal cannula Paroxysmal A. fib, current rhythm is sinus, treated with amiodarone Postoperative anemia with a hemoglobin of 6.5, anticipated outcome of surgery. No evidence of any active bleeding Thrombocytopenia -post bypass Acute anemia, anticipated outcome of cardiac surgery, chest tube output is minimal Chronic stage III kidney disease, stable , GFR 47 Hypertension Hyperlipidemia Right internal carotid artery stenosis, asymptomatic Chronic back pain Plan The chest tubes have been split Monitor the output from the chest tube and remove the mediastinal chest tube Continue incentive spirometer Ambulation No beta blockers for now No amiodarone for now No anticoagulants for now Monitor hemoglobin and transfusion upon the discretion of the cardiac surgeon Wean down FiO2 as tolerated currently on 6 L Encourage incentive spirometer Increase activity as tolerated Protonix for GI prophylaxis We will continue to follow
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
[2023-03-02 13:18] LABS: Glucose,Whole Blood 147 mg/dL (70-110)
[2023-03-02] MEDS: LACTATED RINGERS 1,000 ML IV SCH (13:19)
[2023-03-02] MEDS ORDERED: FUROSEMIDE 10 MG/ML 2 ML VIAL IV ONE (13:36)
--- NOTE | 2023-03-02 13:36 | P.PN ---
Subjective Progress Note Date: 03/02/23 Principal diagnosis: Triple-vessel coronary artery disease, mitral valve prolapse with severe mitral regurgitation. Past medical history of hypertension, hyperlipidemia, chronic k idney disease stage III, current tobacco dependence, peripheral arterial disease, left internal carotid stenosis 50-79% per Doppler, right internal carotid stenosis 80% during cardiac cath, diverticulitis, family history of premature coronary artery disease in her father. Preoperative thrombocytopenia. POD #2 coronary artery bypass graft 3 with the left internal mammary artery to the left anterior descending coronary artery, reverse saphenous vein graft from the aorta to the posterior descending coronary artery, radial artery to the obtuse marginal coronary artery, mitral valve repair with a #24 physio 2 annuloplasty ring, endoscopic left radial and right greater saphenous vein harvest, left atrial appendage ligation with 35 mm AtriClip, epi-aortic ultrasound and intraoperative transesophageal echocardiogram performed by anesthesia. Postoperative acute blood loss anemia and thrombocytopenia, expected given hemodilution and cardiopulmonary bypass pump as well as preoperative thrombo cytopenia. Paroxysmal atrial fibrillation, a known common occurrence after cardiac surgery not a complication. The patient was seen and examined in follow-up this morning 03/02/2023 at her bedside in the intensive care unit. Currently the patient is sitting up to the bedside chair and is in no acute apparent distress. She remains alert, and oriented 3. She remains hemodynamically stable and is currently on no inotropic pressor support. Her bedside nurse reports the patient had an episode of paroxysmal atrial fibrillation with RVR this morning, was given amiodarone 150 mg IV bolus 2. Currently her bedside telemetry is showing normal sinus rhythm heart rate 68 BPM. Oxygen saturation are 94% on 6 L nasal cannula and she is achieving 750 mL on her incentive spirometry with encouragement. Denies any complaints of pain or shortness of breath at this time. Right internal jugular Cordis remains in place to continuous CVP monitoring, current CVP pressure 8 mmHg. Mediastinal and pleural chest tubes remain in place to low continuous wall suction. No air leak is present. Draining thin serosanguineous drainage. Laboratory results, and chest x-ray was reviewed. She has been afeb rile the last 24 hours. The patient has been up ambulating in the intensive care unit hallway with standby assistance from nursing staff. Objective - Vital Signs Vital signs: Vital Signs Temp 98.2 F 03/02/23 08:00 Pulse 70 03/02/23 09:17 Resp 17 03/02/23 09:00 BP 129/55 03/02/23 09:00 Pulse Ox 96 03/02/23 09:00 FiO2 40 02/28/23 18:15 Intake & Output 03/01/23 03/02/23 03/02/23 18:59 06:59 18:59 Intake Total 1216.529 818.901 229.986 Output Total 685 560 70 Balance 531.529 258.901 159.986 Weight 64.1 kg 66 kg Intake: IV 550 312 78 CO/CI 40 Lactated Ringers 1,000 ml 420 240 60 @ 20 mls/hr IV .Q24H [facility] Rx#:[id number] pressure bag 90 72 18 Intake, IV Titration 326.529 16.901 1.986 Amount Albumin Human 5% 250 ml 250 In Empty Bag 1 bag @ 250 mls/hr IVPB ONCE ONE Rx#: [id number] Insulin Regular 100 unit 26.529 16.901 1.986 In Sodium Chloride 0.9% 100 ml @ Per Protocol IV .Q0M [facility] Rx#:[id number] ceFAZolin 2 gm In Sodium 50 Chloride 0.9% 50 ml @ 100 mls/hr IVPB Q8HR [facility] Rx# :[id number] Oral 340 490 150 Output: Chest Tube Drainage 380 230 60 Chest Tube Bilateral 340 180 60 Chest Tube Mediastinal 40 50 0 Urine 305 330 10 Other: Voiding Method Indwelling Catheter Indwelling Catheter Indwelling Catheter ABP, PAP, CO, CI - Last Documented Arterial Blood Pressure 146/38 Pulmonary Artery Pressure 24/7 Cardiac Output 4 Cardiac Index 2.6 - Exam CONSTITUTIONAL: Appears comfortable, cooperative, no acute distress RESPIRATORY: Lungs sounds diminished bilaterally. Respirations are symmetrical, nonlabored. Currently on room 6 L nasal cannula with oxygen saturation 94%. Able to achieve 750 mL on incentive spirometry. Strong cough. CARDIOVASCULAR: S1, S2 present. Regular rate and rhythm, normal sinus rhythm on telemetry, heart rate 68 BPM. Sternum stable. Palpable peripheral pulses bilaterally. No edema present. No calf pain or tenderness noted. Heart hugger in place with patient demonstrating appropriate use. Antiembolism stockings, SCDs present. GASTROINTESTINAL: Abdomen soft, nontender, nondistended. Active bowel sounds present 4 quadrants. Tolerating clear liquids. Passing flatus GENITOURINARY: Vann present draining clear, yellow urine. Output overnight 205 mL of urine output in the last 8 hours. INTEGUMENTARY: Skin is warm and dry with no clubbing or cyanosis present. Midline sternal chest incision well approximated and covered with dry intact dressing. Left radial artery and right lower extremity EVH site well approximated without redness or drainage. NEUROLOGIC: Cranial nerves II through XII intact. No focal deficits. MUSKULOSKELETAL: Able to move all extremities, strength equal bilaterally. PSYCHIATRIC: Alert and oriented to person place and time, appropriate affect, intact judgment and insight INVASIVE LINES AND TUBES: Mediastinal/left/right pleural chest tubes present and connected to wall suction, no air leaks present. Mediastinal tube with 40 mL serosanguineous drainage overnight, 80 mL in the last 24 hours. Left/right pleural chest tubes with 150 mL serosanguineous drainage overnight, 550 mL output in the last 24 hours. A/V epicardial pacemaker wires present, connected to back up to bedside pacemaker generator, VVI mode with rate 50 bpm. Right internal jugular Cordis, right radial arterial line present. Current CVP 8 mmHg. - Allied health notes Allied health notes reviewed: nursing - Labs CBC & Chem 7: 03/02/23 04:45 03/02/23 04:45 Labs: Abnormal Lab Results - Last 24 Hours (Table) 03/01/23 03/01/23 03/01/23 Range/Units 10:21 12:00 13:26 WBC (3.8-10.6) k/uL RBC (3.80-5.40) m/uL Hgb (11.4-16.0) gm/dL Hct (34.0-46.0) % Plt Count (150-450) k/uL Neutrophils # (1.3-7.7) k/uL Monocytes # (0-1.0) k/uL Sodium (137-145) mmol/L BUN (7-17) mg/dL Creatinine (0.52-1.04) mg/dL Glucose (74-99) mg/dL POC Glucose (mg/dL) 136 H 118 H 132 H (70-110) mg/dL AST (14-36) U/L Alkaline Phosphatase (38-126) U/L Total Protein (6.3-8.2) g/dL Albumin (3.5-5.0) g/dL 03/01/23 03/01/23 03/02/23 Range/Units 14:59 17:52 00:04 WBC (3.8-10.6) k/uL RBC (3.80-5.40) m/uL Hgb (11.4-16.0) gm/dL Hct (34.0-46.0) % Plt Count (150-450) k/uL Neutrophils # (1.3-7.7) k/uL Monocytes # (0-1.0) k/uL Sodium (137-145) mmol/L BUN (7-17) mg/dL Creatinine (0.52-1.04) mg/dL Glucose (74-99) mg/dL POC Glucose (mg/dL) 125 H 164 H 140 H (70-110) mg/dL AST (14-36) U/L Alkaline Phosphatase (38-126) U/L Total Protein (6.3-8.2) g/dL Albumin (3.5-5.0) g/dL 03/02/23 03/02/23 03/02/23 Range/Units 01:50 04:45 04:45 WBC 19.0 H (3.8-10.6) k/uL RBC 2.20 L (3.80-5.40) m/uL Hgb 6.5 L* (11.4-16.0) gm/dL Hct 19.3 L* (34.0-46.0) % Plt Count 98 L (150-450) k/uL Neutrophils # 16.4 H (1.3-7.7) k/uL Monocytes # 1.2 H (0-1.0) k/uL Sodium 135 L (137-145) mmol/L BUN 26 H (7-17) mg/dL Creatinine 1.26 H (0.52-1.04) mg/dL Glucose 102 H (74-99) mg/dL POC Glucose (mg/dL) 126 H (70-110) mg/dL AST 45 H (14-36) U/L Alkaline Phosphatase 37 L (38-126) U/L Total Protein 5.2 L (6.3-8.2) g/dL Albumin 3.4 L (3.5-5.0) g/dL 03/02/23 03/02/23 Range/Units 04:47 08:51 WBC (3.8-10.6) k/uL RBC (3.80-5.40) m/uL Hgb (11.4-16.0) gm/dL Hct (34.0-46.0) % Plt Count (150-450) k/uL Neutrophils # (1.3-7.7) k/uL Monocytes # (0-1.0) k/uL Sodium (137-145) mmol/L BUN (7-17) mg/dL Creatinine (0.52-1.04) mg/dL Glucose (74-99) mg/dL POC Glucose (mg/dL) 123 H 155 H (70-110) mg/dL AST (14-36) U/L Alkaline Phosphatase (38-126) U/L Total Protein (6.3-8.2) g/dL Albumin (3.5-5.0) g/dL - Imaging and Cardiology Chest x-ray: report reviewed, image reviewed Assessment and Plan Assessment: Triple-vessel coronary artery disease, status post three-vessel CABG Mitral valve prolapse with severe mitral regurgitation status post mitral valve repair History of hypertension Hyperlipidemia, treated, cholesterol 190, LDL 95, triglycerides 161 Chronic kidney disease stage III, baseline creatinine 1.2-1.6, baseline GFR in the 40s Chronic ongoing tobacco dependence, preoperative FEV1 83% of predicted Peripheral arterial disease, preoperative NAIMA on the left 0.99 Left internal carotid stenosis 50-79% per Doppler, right internal carotid stenosis 80% during cardiac cath Diverticulitis Chronic back pain Family history of premature coronary artery disease in her father Preoperative thrombocytopenia Postoperative acute blood loss anemia and thrombocytopenia, expected Paroxysmal atrial fibrillation, a known common occurrence after cardiac surgery, currently in normal sinus rhythm Plan: Continue to maximize medical management with low-dose aspirin, Plavix, and statin. Start metoprolol tartrate 12.5 mg by mouth twice a day with hold parameters. Will add afterload reduction when able. Wean O2 as tolerated. Encourage incentive spirometry use 10 times every hour while awake. Bronchodilators per pulmonology. Increase activity as tolerated. PT/OT/cardiac rehab following. Will monitor daily labs and chest x-rays. Electrolyte replacement per protocol. Continue iron per home dose. GI/DVT prophylaxis. Pain control with current medication regimen. Insulin management per internal medicine. Patient is not diabetic, preoperative hemoglobin A1c 5.4%. Continue atrial and ventricular epicardial pacemaker wires, keep pacemaker g enerator at bedside, currently on VVI backup 50 BPM. Removal of right IJ Cordis. Remove mediastinal chest tube, keep right and left pleural chest tubes in place to low continuous wall suction -20 cm H2O. We will splinter pleural chest tubes today. Continue Vann catheter for another 24 hours for strict accurate intake and output. Daily weights. Transfuse 1 unit of PRBCs for hemoglobin of 6.5. Lasix 20 mg IV 1 after the transfusion of PRBCs. Recommendations follow based on patient's clinical course. Time with Patient: Greater than 30
[2023-03-02] MEDS: METOPROLOL TARTRATE 12.5 MG TAB PO SCH ×2 (15:15→21:58)
[2023-03-02] MEDS: FOLIC ACID 1 MG TAB PO SCH (15:15)
[2023-03-02 15:35] LABS: Glucose,Whole Blood 152 mg/dL (70-110)
[2023-03-02 17:08] LABS: Glucose,Whole Blood 122 mg/dL (70-110)
[2023-03-02] MEDS: INSULIN ASPART (NovoLOG) 100 UNIT/ML VIAL SQ SCH ×2 (17:26→20:26)
[2023-03-02 20:22] LABS: Glucose,Whole Blood 187 mg/dL (70-110)
[2023-03-02] MEDS: SENNOSIDES-DOCUSATE SODIUM 1 EACH TAB PO SCH (20:25)
[2023-03-02] MEDS: ATORVASTATIN 40 MG TAB PO SCH (20:26)
[2023-03-03] MEDS: HEPARIN SODIUM,PORCINE/PF 5,000 UNIT/0.5 ML SYRINGE SQ SCH ×3 (00:23→16:34)
[2023-03-03] MEDS: HYDROcodone/APAP 5-325MG 1 EACH TAB PO PRN ×4 (02:22→17:10)
[2023-03-03 05:37] LABS: Basophils % (A) 0 %; Eosinophils % (A) 0 %; HCT 22.5 % (34.0-46.0); HGB 7.6 gm/dL (11.4-16.0); Lymphocytes # (A) 1.3 k/uL (1.0-4.8); Lymphocytes % (A) 8 %; MCH 29.8 pg (25.0-35.0); MCV 87.7 fL (80.0-100.0); Mean Platelet Volume 10.5; Monocytes # (A) 1.1 k/uL (0-1.0); Monocytes % (A) 7 %; Neutrophils # (A) 13.3 k/uL (1.3-7.7); Neutrophils % (A) 84 %; RBC 2.57 m/uL (3.80-5.40); RDW 14.9 % (11.5-15.5)
[2023-03-03 05:41] LABS: Platelet Count 95 k/uL (150-450)
[2023-03-03 05:45] LABS: Calcium 8.7 mg/dL (8.4-10.2); Potassium 4.3 mmol/L (3.5-5.1); Total Bilirubin 0.7 mg/dL (0.2-1.3); Total Protein 4.9 g/dL (6.3-8.2)
--- NOTE | 2023-03-03 06:27 | XR ---
EXAMINATION TYPE: XR chest 1V portable DATE OF EXAM: 03/03/2023 HISTORY: post op cardiac surgery COMPARISON: 03/02/2023 TECHNIQUE: Single view of the chest is submitted. FINDINGS: There is right IJ sheath noted with a left-sided chest tube in place, cardiac valvular prosthesis and left atrial clip. Mediastinal drain has been removed. Post operative changes of CABG. No sizeable pneumothorax. Scattered Pleural-parenchymal opacities may reflect atelectasis. The heart is enlarged. IMPRESSION: 1. Surgery postoperative changes as noted.
[2023-03-03 06:49] LABS: Glucose,Whole Blood 136 mg/dL (70-110)
[2023-03-03] MEDS: INSULIN ASPART (NovoLOG) 100 UNIT/ML VIAL SQ SCH ×4 (06:53→20:36)
[2023-03-03] MEDS: PANTOPRAZOLE 40 MG TABLET PO SCH (06:54)
[2023-03-03] MEDS: IPRATROPIUM-ALBUTEROL 3 ML NEB INHALATION SCH ×4 (07:47→20:24)
[2023-03-03] MEDS: METOPROLOL TARTRATE 25 MG TAB PO SCH ×2 (08:19→20:35)
[2023-03-03] MEDS: FOLIC ACID 1 MG TAB PO SCH (08:19)
[2023-03-03] MEDS: ASPIRIN 81 MG PO SCH (08:19)
[2023-03-03] MEDS: FERROUS SULFATE 325 MG TAB PO SCH (08:19)
[2023-03-03] MEDS: CLOPIDOGREL 75 MG TAB PO SCH (08:19)
[2023-03-03] MEDS: CYANOCOBALAMIN 500 MCG TAB PO SCH (08:19)
[2023-03-03] MEDS: LIDOCAINE 5% PATCH TOPICAL SCH (08:20)
--- NOTE | 2023-03-03 09:15 | P.PN ---
Subjective Progress Note Date: 03/03/23 PROGRESS NOTE The patient is a 77-year-old female, followed by Dr. Lin who underwent CABG yesterday with NGUYỄN to the LAD, SVG to the right and radial artery to the circumflex. She is extubated, sitting up in the chair. Complaining of back discomfort which is chronic. She has an underlying sinus mechanism and is receiving atrial pacing. She is on no vasopressors. Preoperatively her MILENA showed moderate MR with ejection fraction of 50-55%. The patient has a known history of asymptomatic carotid disease. She has a known history of chronic kidney disease. She presented initially with symptoms of progressive dyspnea, she has a history of chronic smoking of over a pack a day. Her cardiac ca theterization showed 70% left main disease 60-70% proximal circumflex and 100% total occlusion of the proximal RCA. She had an 80% right internal carotid artery stenosis. Her coronary risk factors are positive for hypertension, chronic tobacco use, hyperlipidemia March 02: The patient is sitting up in the chair, she feels tired. She denies any dizziness or palpitations. She is mildly nauseated. She has respirophasic chest pain. She had an episode of atrial fibrillation earlier but is back in sinus mechanism at this time. Hemodynamically she is stable. Her urinary output is good. There is no evidence of ventricular ectopic activity. Chest x- ray with no evidence of pneumothorax and no significant changes. March 03: The patient is sitting up in the chair, feels well. Her breathing is stable. She continues to be in sinus mechanism. She denies any dizziness or palpitations. She denies any nausea or vomiting. She has ambulated. Medications: Aspirin, Plavix 75 mg daily, Lipitor 40 mg daily. Metoprolol 25 mg twice a day PHYSICAL EXAMINATION: Blood pressure 140/40 heart rate 80 LUNGS: Mild decrease in the breath sounds at the bases HEART: Regular rate and rhythm, S1, S2. No S3. systolic ejection murmur ABDOMEN: Soft, nontender, no organomegaly EXTREMETIES: No edema LAB: Hemoglobin 7.6, BUN 34, creatinine 1.33. IMPRESSION: 1. Status post CABG 2. Asymptomatic carotid disease 3. History of hypertension 4. History of hyperlipidemia 5. Paroxysmal atrial fibrillation, maintaining sinus mechanism 6. Worsening renal functions PLAN: 1. Continue present therapy 2. Follow renal functions 3. Increase physical activity 4. Depending on her progress further recommendations will be made. Objective - Vital Signs Vital signs: Vital Signs Temp 98.6 F 03/03/23 04:00 Pulse 84 03/03/23 08:04 Resp 17 03/03/23 06:30 BP 127/59 03/02/23 22:30 Pulse Ox 95 03/03/23 07:48 FiO2 40 02/28/23 18:15 Intake & Output 03/02/23 03/03/23 03/03/23 18:59 06:59 18:59 Intake Total 1446.308 302 52 Output Total 680 1205 90 Balance 766.308 -903 -38 Weight 66.4 kg Intake: IV 312 302 52 Lactated Ringers 1,000 ml 240 230 40 @ 20 mls/hr IV .Q24H [facility] Rx#:[id number] pressure bag 72 72 12 Intake, IV Titration 14.308 Amount Insulin Regular 100 unit 14.308 In Sodium Chloride 0.9% 100 ml @ Per Protocol IV .Q0M [facility] Rx#:[id number] Oral 500 Blood Product 620 Rc As-1 Unit 310 [id number] Output: Chest Tube Drainage 365 490 40 Chest Tube Bilateral 140 Chest Tube Left 45 200 30 Chest Tube Mediastinal 0 Chest Tube Right 180 290 10 Urine 315 715 50 Other: Voiding Method Indwelling Catheter Indwelling Catheter Indwelling Catheter ABP, PAP, CO, CI - Last Documented Arterial Blood Pressure 141/44 Pulmonary Artery Pressure 24/7 Cardiac Output 4.2 Cardiac Index 2.6 - Labs CBC & Chem 7: 03/03/23 05:05 03/03/23 05:05 Labs: Abnormal Lab Results - Last 24 Hours (Table) 02/20/23 03/02/23 03/02/23 Range/Units 10:43 10:16 13:16 WBC (3.8-10.6) k/uL RBC (3.80-5.40) m/uL Hgb (11.4-16.0) gm/dL Hct (34.0-46.0) % Plt Count (150-450) k/uL Neutrophils # (1.3-7.7) k/uL Monocytes # (0-1.0) k/uL Sodium (137-145) mmol/L BUN (7-17) mg/dL Creatinine (0.52-1.04) mg/dL Glucose (74-99) mg/dL POC Glucose (mg/dL) 152 H 147 H (70-110) mg/dL AST (14-36) U/L Total Protein (6.3-8.2) g/dL Albumin (3.5-5.0) g/dL Crossmatch See Detail 03/02/23 03/02/23 03/02/23 Range/Units 15:34 17:06 20:20 WBC (3.8-10.6) k/uL RBC (3.80-5.40) m/uL Hgb (11.4-16.0) gm/dL Hct (34.0-46.0) % Plt Count (150-450) k/uL Neutrophils # (1.3-7.7) k/uL Monocytes # (0-1.0) k/uL Sodium (137-145) mmol/L BUN (7-17) mg/dL Creatinine (0.52-1.04) mg/dL Glucose (74-99) mg/dL POC Glucose (mg/dL) 152 H 122 H 187 H (70-110) mg/dL AST (14-36) U/L Total Protein (6.3-8.2) g/dL Albumin (3.5-5.0) g/dL Crossmatch 03/03/23 03/03/23 03/03/23 Range/Units 05:05 05:05 06:47 WBC 16.0 H (3.8-10.6) k/uL RBC 2.57 L (3.80-5.40) m/uL Hgb 7.6 L (11.4-16.0) gm/dL Hct 22.5 L (34.0-46.0) % Plt Count 95 L (150-450) k/uL Neutrophils # 13.3 H (1.3-7.7) k/uL Monocytes # 1.1 H (0-1.0) k/uL Sodium 133 L (137-145) mmol/L BUN 34 H (7-17) mg/dL Creatinine 1.33 H (0.52-1.04) mg/dL Glucose 109 H (74-99) mg/dL POC Glucose (mg/dL) 136 H (70-110) mg/dL AST 40 H (14-36) U/L Total Protein 4.9 L (6.3-8.2) g/dL Albumin 3.0 L (3.5-5.0) g/dL Crossmatch
[2023-03-03] MEDS ORDERED: FUROSEMIDE 10 MG/ML 2 ML VIAL IV ONE (10:00)
--- NOTE | 2023-03-03 10:14 | P.PN ---
Subjective Progress Note Date: 03/03/23 Principal diagnosis: Triple-vessel coronary artery disease, mitral valve prolapse with severe mitral regurgitation. Past medical history of hypertension, hyperlipidemia, chronic k idney disease stage III, current tobacco dependence, peripheral arterial disease, left internal carotid stenosis 50-79% per Doppler, right internal carotid stenosis 80% during cardiac cath, diverticulitis, family history of premature coronary artery disease in her father. Preoperative thrombocytopenia. POD #3 coronary artery bypass graft 3 with the left internal mammary artery to the left anterior descending coronary artery, reverse saphenous vein graft from the aorta to the posterior descending coronary artery, radial artery to the obtuse marginal coronary artery, mitral valve repair with a #24 physio 2 annuloplasty ring, endoscopic left radial and right greater saphenous vein harvest, left atrial appendage ligation with 35 mm AtriClip, epi-aortic ultrasound and intraoperative transesophageal echocardiogram performed by anesthesia. Postoperative acute blood loss anemia and thrombocytopenia, expected given hemodilution and cardiopulmonary bypass pump as well as preoperative thrombo cytopenia. Paroxysmal atrial fibrillation, a known common occurrence after cardiac surgery not a complication. The patient was seen and examined today 03/03/2023 at her bedside in the intensive care unit. She is sitting up to the bedside chair, is awake, alert, oriented 3 and is in no acute apparent distress. She is tolerating her breakfast, denies any nausea or vomiting. She denies any complaints of shortness of breath or pain at this time. Oxygen saturations are 97% on 4 L nasal cannula and she is achieving 750 mL on her incentive spirometry. Bedside telemetry showing normal sinus rhythm heart rate 82 BPM, no further episodes of atrial fibrillation reported. One unit of packed red blood cells was transfused yesterday for hemoglobin of 6.5. She remains hemodynamically stable and is currently on no inotropic or pressor support. Left and right pleural chest tubes remain in place to low continuous wall suction -20 cm H2O. No air leak is present. Right pleural chest tube drained 170 mL output in the last 8 hours and 450 mL output in the last 24 hours. Left pleural chest tube drained 150 mL output in the last 8 hours and 250 mL output in the last 24 hours. Right IJ cordis remains in place with continuous CVP monitoring, current CVP pressure 10 mmHg. Chest x-ray and laboratory results reviewed. Atrial and ventricular epicardial pacemaker wires remain in place and connected to backup bedside pacemaker generator on a VVI 50 BPM. Objective - Vital Signs Vital signs: Vital Signs Temp 98.6 F 03/03/23 04:00 Pulse 84 03/03/23 08:04 Resp 17 03/03/23 06:30 BP 127/59 03/02/23 22:30 Pulse Ox 95 03/03/23 07:48 FiO2 40 02/28/23 18:15 Intake & Output 03/02/23 03/03/23 03/03/23 18:59 06:59 18:59 Intake Total 1446.308 302 26 Output Total 680 1205 45 Balance 766.308 -903 -19 Weight 66.4 kg Intake: IV 312 302 26 Lactated Ringers 1,000 ml 240 230 20 @ 20 mls/hr IV .Q24H [facility] Rx#:[id number] pressure bag 72 72 6 Intake, IV Titration 14.308 Amount Insulin Regular 100 unit 14.308 In Sodium Chloride 0.9% 100 ml @ Per Protocol IV .Q0M [facility] Rx#:[id number] Oral 500 Blood Product 620 Rc As-1 Unit 310 [id number] Output: Chest Tube Drainage 365 490 20 Chest Tube Bilateral 140 Chest Tube Left 45 200 10 Chest Tube Mediastinal 0 Chest Tube Right 180 290 10 Urine 315 715 25 Other: Voiding Method Indwelling Catheter Indwelling Catheter ABP, PAP, CO, CI - Last Documented Arterial Blood Pressure 141/44 Pulmonary Artery Pressure 24/7 Cardiac Output 4.2 Cardiac Index 2.6 - Exam CONSTITUTIONAL: Appears comfortable, cooperative, no acute distress. RESPIRATORY: Lungs sounds diminished to her bases bilaterally. Respirations are symmetrical, nonlabored. Currently on room 4 L nasal cannula with oxygen saturation 97%. Able to achieve 750 mL on incentive spirometry. Strong cough. CARDIOVASCULAR: S1, S2 present. Regular rate and rhythm, normal sinus rhythm on telemetry, heart rate 82 BPM. Sternum stable. Palpable peripheral pulses bilaterally. No edema present. No calf pain or tenderness noted. Heart hugger in place with patient demonstrating appropriate use. Antiembolism stockings, SCDs present. GASTROINTESTINAL: Abdomen soft, nontender, nondistended. Active bowel sounds present 4 quadrants. Tolerating diet. Passing flatus. GENITOURINARY: Vann present draining clear, yellow urine. Output overnight 325 mL of urine output in the last 8 hours. INTEGUMENTARY: Skin is warm and dry with no clubbing or cyanosis present. Midline sternal chest incision well approximated and covered with dry intact dressing. Left radial artery and right lower extremity EVH site well approximated without redness or drainage. NEUROLOGIC: Cranial nerves II through XII intact. No focal deficits. MUSKULOSKELETAL: Able to move all extremities, strength equal bilaterally. PSYCHIATRIC: Alert and oriented to person place and time, appropriate affect, intact judgment and insight INVASIVE LINES AND TUBES: Left/right pleural chest tubes present and connected to wall suction, no air leaks present. Left pleural chest tube with 115 mL serosanguineous drainage overnight, 250 mL output in the last 24 hours. Right pleural chest tube with 170 mL serosanguineous drainage overnight, 450 mL output in the last 24 hours. A/V epicardial pacemaker wires present, connected to back up to bedside pacemaker generator, VVI mode with rate 50 bpm. Right internal jugular Cordis, right radial arterial line present. Current CVP 10 mmHg. - Allied health notes Allied health notes reviewed: nursing - Labs CBC & Chem 7: 03/03/23 05:05 03/03/23 05:05 Labs: Abnormal Lab Results - Last 24 Hours (Table) 02/20/23 03/02/23 03/02/23 Range/Units 10:43 08:51 10:16 WBC (3.8-10.6) k/uL RBC (3.80-5.40) m/uL Hgb (11.4-16.0) gm/dL Hct (34.0-46.0) % Plt Count (150-450) k/uL Neutrophils # (1.3-7.7) k/uL Monocytes # (0-1.0) k/uL Sodium (137-145) mmol/L BUN (7-17) mg/dL Creatinine (0.52-1.04) mg/dL Glucose (74-99) mg/dL POC Glucose (mg/dL) 155 H 152 H (70-110) mg/dL AST (14-36) U/L Total Protein (6.3-8.2) g/dL Albumin (3.5-5.0) g/dL Crossmatch See Detail 03/02/23 03/02/23 03/02/23 Range/Units 13:16 15:34 17:06 WBC (3.8-10.6) k/uL RBC (3.80-5.40) m/uL Hgb (11.4-16.0) gm/dL Hct (34.0-46.0) % Plt Count (150-450) k/uL Neutrophils # (1.3-7.7) k/uL Monocytes # (0-1.0) k/uL Sodium (137-145) mmol/L BUN (7-17) mg/dL Creatinine (0.52-1.04) mg/dL Glucose (74-99) mg/dL POC Glucose (mg/dL) 147 H 152 H 122 H (70-110) mg/dL AST (14-36) U/L Total Protein (6.3-8.2) g/dL Albumin (3.5-5.0) g/dL Crossmatch 03/02/23 03/03/23 03/03/23 Range/Units 20:20 05:05 05:05 WBC 16.0 H (3.8-10.6) k/uL RBC 2.57 L (3.80-5.40) m/uL Hgb 7.6 L (11.4-16.0) gm/dL Hct 22.5 L (34.0-46.0) % Plt Count 95 L (150-450) k/uL Neutrophils # 13.3 H (1.3-7.7) k/uL Monocytes # 1.1 H (0-1.0) k/uL Sodium 133 L (137-145) mmol/L BUN 34 H (7-17) mg/dL Creatinine 1.33 H (0.52-1.04) mg/dL Glucose 109 H (74-99) mg/dL POC Glucose (mg/dL) 187 H (70-110) mg/dL AST 40 H (14-36) U/L Total Protein 4.9 L (6.3-8.2) g/dL Albumin 3.0 L (3.5-5.0) g/dL Crossmatch 03/03/23 Range/Units 06:47 WBC (3.8-10.6) k/uL RBC (3.80-5.40) m/uL Hgb (11.4-16.0) gm/dL Hct (34.0-46.0) % Plt Count (150-450) k/uL Neutrophils # (1.3-7.7) k/uL Monocytes # (0-1.0) k/uL Sodium (137-145) mmol/L BUN (7-17) mg/dL Creatinine (0.52-1.04) mg/dL Glucose (74-99) mg/dL POC Glucose (mg/dL) 136 H (70-110) mg/dL AST (14-36) U/L Total Protein (6.3-8.2) g/dL Albumin (3.5-5.0) g/dL Crossmatch - Imaging and Cardiology Chest x-ray: report reviewed, image reviewed Assessment and Plan Assessment: Triple-vessel coronary artery disease, status post three-vessel CABG Mitral valve prolapse with severe mitral regurgitation status post mitral valve repair History of hypertension Hyperlipidemia, treated, cholesterol 190, LDL 95, triglycerides 161 Chronic kidney disease stage III, baseline creatinine 1.2-1.6, baseline GFR in the 40s Chronic ongoing tobacco dependence, preoperative FEV1 83% of predicted Peripheral arterial disease, preoperative NAIMA on the left 0.99 Left internal carotid stenosis 50-79% per Doppler, right internal carotid stenosis 80% during cardiac cath Diverticulitis Chronic back pain Family history of premature coronary artery disease in her father Preoperative thrombocytopenia Postoperative acute blood loss anemia and thrombocytopenia, expected, transfused 1 unit of packed red blood cells Paroxysmal atrial fibrillation, a known common occurrence after cardiac surgery, currently in normal sinus rhythm Plan: Continue to maximize medical management with low-dose aspirin, Plavix, and statin. Increase metoprolol tartrate 25 mg by mouth twice a day with hold parameters. Will add afterload reduction when able. Wean O2 as tolerated. Encourage incentive spirometry use 10 times every hour while awake. Bronchodilators per pulmonology. Increase activity as tolerated. PT/OT/cardiac rehab following. Will monitor daily labs and chest x-rays. Electrolyte replacement per protocol. Continue iron per home dose. GI/DVT prophylaxis. Pain control with current medication regimen. Insulin management per internal medicine. Patient is not diabetic, preoperative hemoglobin A1c 5.4%. Continue atrial and ventricular epicardial pacemaker wires, keep pacemaker generator at bedside, currently on VVI backup 50 BPM. Remove right IJ Cordis. Remove left pleural chest tube, keep right pleural chest tubes in place to low continuous wall suction -20 cm H2O. Remove Vann catheter, continue to record strict accurate intake and output. Daily weights. Remove right radial arterial line. Lasix 20 mg IV 1 now. More recommendations to follow based on patient's clinical course. Time with Patient: Greater than 30
--- NOTE | 2023-03-03 10:33 | P.PN ---
Subjective This 77-year-old female patient who underwent three-vessel bypass surgery. 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 The patient also has history of hypertension, hyperlipidemia, asymptomatic right carotid artery stenosis in the order of 8-99%, chronic stage III kidney disease, and history of chronic smoking. The patient was having episodes of shortness of breath and further cardiac catheterization showed severe triple vessel coronary artery disease. Based on that, the patient was referred for bypass surgery. 2-D echocardiogram showed an ejection fraction of 55% preoperatively with a moderate degree of mitral valve regurgitation. A subsequent was also done that showed normal functioning of the aortic valve with some sclerosis without stenosis. No other acute abnormalities seen. The patient at this point in time is in the intensive care unit. She is intubated on a mechanical ventilator. She is on propofol running at 20 mcg/kg/m. She is on assist control mode with a rate of 40 with a tidal volume of 400 and FiO2 of 40% with a PEEP of 5. The initial blood gases at that time to the ICU for the patient of 7.39 with a pCO2 of 37 and pO2 of 255. Chest x-ray showed adequate expansion of both lungs. Orotracheal tube is in a good location. The patient is a mediastinal and left lower chest tube and output is minimal in the order of 200 mL without evidence of any air leak. The patient's cardiac rhythm is pacer this point in time at the rate of 80. The patient is currently on no pressors. Cardiac index was initially low at 1.8 and improved with volume and the most recent cardiac index is 2.. Pressures are 39/16. The patient has adequate urine output. The bloodwork to the Phyllis 13.6 with a hemoglobin of 8.4 and a platelet count of 86. The sodium is at 13 with a potassium level of 4.3, BUN is a 50 with a creatinine of 0.9 and a patient's GFR that 56 which is typically better than her baseline. Note that the patient underwent three-vessel bypass surgery with NGUYỄN to LAD, radial artery to circumflex and SVG to PDA. The patient underwent a left radial artery harvesting. I'm seeing this patient in follow-up today 03/01/2023 in follow-up in intensive care unit post CABG with 3 vessel bypass graft yesterday with a NGUYỄN to the LAD, saphenous vein graft to the PDA, left radial artery to the OM. She also had a mitral valve repair with a #24 Physio II annuloplasty ring, left atrial appendage ligation. Patient was extubated yesterday evening without complications. She is currently resting comfortably in the recliner, on 4 L nasal cannula, in no acute distress. Patient's heart rhythm is currently atrial paced at 80 bpm, blood pressure normotensive, pulmonary artery pressures 27/8, his recent CO/CI was 4.2 and 2.6 respectively. Patient's urine output is low this morning around 10 mL an hours, and she is going to receive some more albumin. Patient currently has lactated Ringer's infusing at 50 ML's per hour. No vasopressors. Insulin infusing at 2 units per hour. She does have a mediastinal and left pleural chest tubes. There is no air leak noted. There has been about 320 ML's of serosanguineous output of the mediastinal and 900 ML's of serosanguineous output out of the left pleural chest tubes. Chest x-ray from this morning shows no evidence of pneumothorax, pleural effusion or focal consolidation. There was a right IJ Willard-Juan catheter within the main pulmonary artery and postsurgical changes. CBC this morning shows a WBC count of 11.2, hemoglobin 7.2, hematocrit 21.7, platelets 78,000. Patient's BMP from this morning shows a sodium 134, potassium 4.6, chloride 108, serum CO2 20, BUN 17, creatinine 1.14, glucose 122. Vital signs are stable. Pain is fairly well controlled currently. She has been using her incentive spirometer is about 750. Patient has been increasing activity as tolerated. 03/02/2023, the patient is postop day #2. Doing well. He remains extubated. Currently on oxygen at 3 66 L/m nasal cannula. No significant respiratory distress for now. The patient's chest x-ray from today shows cardiomegaly and some atelectatic changes in lung bases along with some mild pulmonary vascular congestion. The mediastinal chest tube was removed today in the pleural chest tubes are splinted at this point in time to echo to evaluate the output. Earlier this morning, the patient went into atrial fibrillation and the patient received 2 boluses of amiodarone. She converted back into normal sinus rhythm and she is hemodynamically stable at this point in time. She is using the incentive spirometer. Her current cardiac rhythm is sinus and she is not being paced at this point in time. The white cell cause of 19. Hemoglobin dropped down to 6.5 and a platelet count of 98. BUN is at 6 with a creatinine of 1.2 and a sodium level is at 135. Pain is under adequate control. No other significant issues for now. 03/03/2023, the patient is postoperative day #3. On today's evaluation, she is sitting up on a recliner inches, comfortable. She was doing also daily ambulation's. She is currently on oxygen at 4 L nasal cannula. Her chest x-ray shows some cardiomegaly. Chest tubes weren't adequate locations. Based on that, the left pleural chest tube was removed. Currently she has only a right pleural chest tube which is still draining and this will be kept for another 24 hours. Otherwise, the patient has no specific complaints. Her cardiac rhythm is sinus and she is not requiring any pacing. The white cell count at 60 with a hemoglobin of 7.5 and she did receive a unit of packed RBC yesterday. Platelet counts of 95. BUN is at 34 with a creatinine of 1.3 and a sodium level is at 133. She remains on aspirin. She remains on Plavix. She is also on metoprolol 25 mg by mouth twice a day and this was started. Iglesia for pain control. Using the incentive spirometer. High-dose statins. Objective - Vital Signs Vital signs: Vital Signs Temp 98.1 F 03/03/23 08:00 Pulse 84 03/03/23 10:00 Resp 27 H 03/03/23 10:00 BP 133/61 03/03/23 10:00 Pulse Ox 94 L 03/03/23 10:00 FiO2 40 02/28/23 18:15 Intake & Output 03/02/23 03/03/23 03/03/23 18:59 06:59 18:59 Intake Total 1446.308 302 104 Output Total 680 1205 205 Balance 766.308 -903 -101 Weight 66.4 kg Intake: IV 312 302 104 Lactated Ringers 1,000 ml 240 230 80 @ 20 mls/hr IV .Q24H [facility] Rx#:[id number] pressure bag 72 72 24 Intake, IV Titration 14.308 Amount Insulin Regular 100 unit 14.308 In Sodium Chloride 0.9% 100 ml @ Per Protocol IV .Q0M [facility] Rx#:[id number] Oral 500 Blood Product 620 Rc As-1 Unit 310 [id number] Output: Chest Tube Drainage 365 490 90 Chest Tube Bilateral 140 Chest Tube Left 45 200 40 Chest Tube Mediastinal 0 Chest Tube Right 180 290 50 Urine 315 715 115 Other: Voiding Method Indwelling Catheter Indwelling Catheter Indwelling Catheter ABP, PAP, CO, CI - Last Documented Arterial Blood Pressure 141/44 Pulmonary Artery Pressure 24/7 Cardiac Output 4.2 Cardiac Index 2.6 - Exam GENERAL EXAM: Alert, 67-year-old white female , comfortable in no apparent distress. 4 L O2 nasal cannula HEAD: Normocephalic and atraumatic EYES: Normal reaction of pupils, equal size. NOSE: Clear with pink turbinates. THROAT: No erythema or exudates. NECK: No masses, no JVD. CHEST: No chest wall deformity. Postoperative midsternal incision is clean, dry, intact LUNGS: Equal air entry with bibasilar crackles. No wheeze, rhonchi or dullness. 6 L of oxygen by nasal cannula. He does tell chest tube is removed. Left-sided chest tube was removed. The patient has a Kirby catheter on the right. CVS: S1 and S2 normal with no audible murmur, regular rhythm. There is a pericardial friction rub ABDOMEN: No hepatosplenomegaly, active bowel sounds, no guarding or rigidity. SPINE: No scoliosis or deformity SKIN: No rashes CENTRAL NERVOUS SYSTEM: No focal deficits, tone is normal in all 4 extremities. EXTREMITIES: There is mild nonpitting. No clubbing, or cyanosis. Peripheral pulses are intact. - Labs CBC & Chem 7: 03/03/23 05:05 03/03/23 05:05 Labs: Abnormal Lab Results - Last 24 Hours (Table) 02/20/23 03/02/23 03/02/23 Range/Units 10:43 13:16 15:34 WBC (3.8-10.6) k/uL RBC (3.80-5.40) m/uL Hgb (11.4-16.0) gm/dL Hct (34.0-46.0) % Plt Count (150-450) k/uL Neutrophils # (1.3-7.7) k/uL Monocytes # (0-1.0) k/uL Sodium (137-145) mmol/L BUN (7-17) mg/dL Creatinine (0.52-1.04) mg/dL Glucose (74-99) mg/dL POC Glucose (mg/dL) 147 H 152 H (70-110) mg/dL AST (14-36) U/L Total Protein (6.3-8.2) g/dL Albumin (3.5-5.0) g/dL Crossmatch See Detail 03/02/23 03/02/23 03/03/23 Range/Units 17:06 20:20 05:05 WBC 16.0 H (3.8-10.6) k/uL RBC 2.57 L (3.80-5.40) m/uL Hgb 7.6 L (11.4-16.0) gm/dL Hct 22.5 L (34.0-46.0) % Plt Count 95 L (150-450) k/uL Neutrophils # 13.3 H (1.3-7.7) k/uL Monocytes # 1.1 H (0-1.0) k/uL Sodium (137-145) mmol/L BUN (7-17) mg/dL Creatinine (0.52-1.04) mg/dL Glucose (74-99) mg/dL POC Glucose (mg/dL) 122 H 187 H (70-110) mg/dL AST (14-36) U/L Total Protein (6.3-8.2) g/dL Albumin (3.5-5.0) g/dL Crossmatch 03/03/23 03/03/23 Range/Units 05:05 06:47 WBC (3.8-10.6) k/uL RBC (3.80-5.40) m/uL Hgb (11.4-16.0) gm/dL Hct (34.0-46.0) % Plt Count (150-450) k/uL Neutrophils # (1.3-7.7) k/uL Monocytes # (0-1.0) k/uL Sodium 133 L (137-145) mmol/L BUN 34 H (7-17) mg/dL Creatinine 1.33 H (0.52-1.04) mg/dL Glucose 109 H (74-99) mg/dL POC Glucose (mg/dL) 136 H (70-110) mg/dL AST 40 H (14-36) U/L Total Protein 4.9 L (6.3-8.2) g/dL Albumin 3.0 L (3.5-5.0) g/dL Crossmatch Assessment and Plan Assessment: Postop day #3 for a CABG x 3 vessel bypass graft yesterday with a NGUYỄN to the LAD, saphenous vein graft to the PDA, left radial artery to the OM. She also had a mitral valve repair with a #24 Physio II annuloplasty ring, left atrial appendage ligation. Acute hypoxic respiratory failure secondary to above, currently on 3 L nasal cannula Post thoracotomy and a patient's left-sided chest was removed and the patient has a small Kirby catheter on the right Paroxysmal A. fib, current rhythm is sinus, treated with amiodarone, current rhythm is sinus and the patient was started on metoprolol Postoperative anemia with a hemoglobin of 6.5, anticipated outcome of surgery. No evidence of any active bleeding, given a unit of packed RBC and the patient's hemoglobin is up to 7.6 Thrombocytopenia -post bypass Acute anemia, anticipated outcome of cardiac surgery, chest tube output is minimal Chronic stage III kidney disease, stable , GFR 47 Hypertension Hyperlipidemia Right internal carotid artery stenosis, asymptomatic Chronic back pain Plan Left-sided chest tube was removed Monitor the output from the chest tube on the right Continue incentive spirometer Ambulation Metoprolol was started No pacing for now No anticoagulants for now Monitor hemoglobin and transfusion upon the discretion of the cardiac surgeon Wean down FiO2 as tolerated currently on 3 L Continue ambulation Encourage incentive spirometer Increase activity as tolerated Protonix for GI prophylaxis We will continue to follow Plan: Symptomatic multivessel coronary artery disease with triple-vessel involvement and the patient underwent coronary artery bypass surgery 3 with NGUYỄN to LAD, radial to circumflex and SVG to PDA. Patient is postop day #0. Hemodynamically stable. Cardiac index was low, improved with volume, currently on no pressors. Paced cardiac rhythm at the rate of 80 Postthoracotomy, currently intubated on mechanical ventilator. Chest x-ray and blood gases were noted. Postthoracotomy chest tube involving the mediastinum and the left pleural Thrombocytopenia -post bypass Acute anemia, anticipated outcome of cardiac surgery, no bleeding Chronic stage III kidney disease, current GFR is 56 Hypertension Hyperlipidemia Right internal carotid artery stenosis, asymptomatic Chronic back pain Plan Chest x-ray in the blood gases were noted and the FiO2 has been weaned down Were noted FiO2 has been weaned down Keep pacing at the rate of 80 Hemodynamic management, Willard-Juan catheter is in place Monitor output from the chest tube Insulin drip for BS control and she is at a rate of 4.5 Unit/hr Gradually wean off the patient's sedation and assess patient's weaning parameters and readiness to wean, extubation is anticipated within the next 6 hours We'll continue to follow
[2023-03-03 11:34] LABS: Glucose,Whole Blood 134 mg/dL (70-110)
[2023-03-03 16:30] LABS: Glucose,Whole Blood 162 mg/dL (70-110)
[2023-03-03] MEDS: BENZOCAINE/MENTHOL LOZENG 1 EACH LOZENGE MUCOUS MEM PRN ×2 (17:56→23:13)
[2023-03-03 19:54] LABS: Glucose,Whole Blood 151 mg/dL (70-110)
[2023-03-03] MEDS: SENNOSIDES-DOCUSATE SODIUM 1 EACH TAB PO SCH (20:35)
[2023-03-03] MEDS: ATORVASTATIN 40 MG TAB PO SCH (20:35)
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
[2023-03-03 23:27] LABS: Appearance,Urine Clear (Clear); Bacteria,Urine Few /hpf; Bilirubin,Urine Negative (Negative); Blood,Urine Moderate (Negative); Color,Urine Yellow; Glucose,Urine (UA) Negative (Negative); Hyaline Casts,Urine 1 /lpf (0-2); Ketones,Urine Negative (Negative); Leukocyte Esterase,Urine Moderate (Negative); Nitrite,Urine Negative (Negative); PH, Urine 5.5 (5.0-8.0); Protein,Urine 1+ (Negative); RBC,Urine 19 /hpf (0-5); Specific Gravity,Urine 1.017 (1.001-1.035); Squamous Epithelial Cell,Urine 4 /hpf (0-4); Urobilinogen,Urine <2.0 mg/dL (<2.0); WBC,Urine 12 /hpf (0-5)
[2023-03-04] MEDS: HEPARIN SODIUM,PORCINE/PF 5,000 UNIT/0.5 ML SYRINGE SQ SCH ×4 (00:13→23:12)
[2023-03-04 04:27] LABS: Basophils % (A) 0 %; Eosinophils # (A) 0.1 k/uL (0-0.7); Eosinophils % (A) 1 %; HCT 24.8 % (34.0-46.0); HGB 8.2 gm/dL (11.4-16.0); Lymphocytes # (A) 1.1 k/uL (1.0-4.8); Lymphocytes % (A) 9 %; MCH 29.1 pg (25.0-35.0); MCHC 33.1 g/dL (31.0-37.0); MCV 88.1 fL (80.0-100.0); Mean Platelet Volume 9.8; Monocytes # (A) 0.7 k/uL (0-1.0); Monocytes % (A) 6 %; Neutrophils # (A) 10.5 k/uL (1.3-7.7); Neutrophils % (A) 84 %; Platelet Count 126 k/uL (150-450); RBC 2.81 m/uL (3.80-5.40); WBC 12.6 k/uL (3.8-10.6)
[2023-03-04 04:40] LABS: Albumin 3.1 g/dL (3.5-5.0); Calcium 8.5 mg/dL (8.4-10.2); Potassium 3.8 mmol/L (3.5-5.1); Total Bilirubin 0.8 mg/dL (0.2-1.3); Total Protein 5.2 g/dL (6.3-8.2)
[2023-03-04] MEDS: INSULIN ASPART (NovoLOG) 100 UNIT/ML VIAL SQ SCH ×4 (06:45→20:06)
[2023-03-04 06:46] LABS: Glucose,Whole Blood 115 mg/dL (70-110)
[2023-03-04] MEDS: HYDROcodone/APAP 10-325MG 1 EACH TAB PO PRN (06:50)
[2023-03-04] MEDS: PANTOPRAZOLE 40 MG TABLET PO SCH (06:50)
[2023-03-04] MEDS ORDERED: POTASSIUM CHLORIDE ER 20 MEQ TAB.ER PO SCH ×2 (07:00→22:00)
--- NOTE | 2023-03-04 07:12 | XR ---
EXAMINATION TYPE: XR chest 1V portable DATE OF EXAM: 03/04/2023 HISTORY: Post op cardiac surgery COMPARISON: 03/03/2023 TECHNIQUE: Single view of the chest is submitted. FINDINGS: Left-sided chest tube has been removed. No evidence for sizable pneumothorax. Sternotomy wires, cardi ac valvular prosthesis and left atrial clip noted. Discoid atelectasis right lung base. Pleural paren chymal density left lower lobe. The heart is stable. Hilar and mediastinal structures are within normal limits. Degenerative changes are seen of the dorsal spine. IMPRESSION: 1. Left-sided chest tube has been removed. No evidence for sizable pneumothorax.
[2023-03-04] MEDS: ASPIRIN 81 MG PO SCH (08:00)
[2023-03-04] MEDS: FERROUS SULFATE 325 MG TAB PO SCH (08:00)
[2023-03-04] MEDS: FOLIC ACID 1 MG TAB PO SCH (08:00)
[2023-03-04] MEDS: CYANOCOBALAMIN 500 MCG TAB PO SCH (08:00)
[2023-03-04] MEDS: METOPROLOL TARTRATE 25 MG TAB PO SCH (08:00)
[2023-03-04] MEDS: CLOPIDOGREL 75 MG TAB PO SCH (08:00)
[2023-03-04] MEDS: LIDOCAINE 5% PATCH TOPICAL SCH (08:01)
--- NOTE | 2023-03-04 08:38 | P.PN ---
Subjective Progress Note Date: 03/04/23 PROGRESS NOTE The patient is a 77-year-old female, followed by Dr. Lin who underwent CABG yesterday with NGUYỄN to the LAD, SVG to the right and radial artery to the circumflex. She is extubated, sitting up in the chair. Complaining of back discomfort which is chronic. She has an underlying sinus mechanism and is receiving atrial pacing. She is on no vasopressors. Preoperatively her MILENA showed moderate MR with ejection fraction of 50-55%. The patient has a known history of asymptomatic carotid disease. She has a known history of chronic kidney disease. She presented initially with symptoms of progressive dyspnea, she has a history of chronic smoking of over a pack a day. Her cardiac ca theterization showed 70% left main disease 60-70% proximal circumflex and 100% total occlusion of the proximal RCA. She had an 80% right internal carotid artery stenosis. Her coronary risk factors are positive for hypertension, chronic tobacco use, hyperlipidemia March 02: The patient is sitting up in the chair, she feels tired. She denies any dizziness or palpitations. She is mildly nauseated. She has respirophasic chest pain. She had an episode of atrial fibrillation earlier but is back in sinus mechanism at this time. Hemodynamically she is stable. Her urinary output is good. There is no evidence of ventricular ectopic activity. Chest x- ray with no evidence of pneumothorax and no significant changes. March 03: The patient is sitting up in the chair, feels well. Her breathing is stable. She continues to be in sinus mechanism. She denies any dizziness or palpitations. She denies any nausea or vomiting. She has ambulated. March 04: The patient feels better today, sitting up in the chair, ambulated. She felt tired afterward. She continues to be in sinus mechanism. She has no nausea and her appetite is good. She continues to have a chest tube. She denies any palpi tations. Medications: Aspirin, Plavix 75 mg daily, Lipitor 40 mg daily. Metoprolol 50 mg twice a day PHYSICAL EXAMINATION: Blood pressure 135/60 heart rate 87 LUNGS: Mild decrease in the breath sounds at the bases HEART: Regular rate and rhythm, S1, S2. No S3. systolic ejection murmur ABDOMEN: Soft, nontender, no organomegaly EXTREMETIES: No edema LAB: Hemoglobin 8.2, BUN 29, creatinine 1.35. IMPRESSION: 1. Status post CABG, stable 2. Asymptomatic carotid disease 3. History of hypertension 4. History of hyperlipidemia 5. Paroxysmal atrial fibrillation, maintaining sinus mechanism 6. Worsening renal functions PLAN: 1. Continue present therapy 2. Follow renal functions 3. Increase physical activity 4. Depending on her progress further recommendations will be made. Objective - Vital Signs Vital signs: Vital Signs Temp 98.5 F 03/04/23 06:00 Pulse 87 03/04/23 08:00 Resp 19 03/04/23 08:00 BP 135/64 03/04/23 08:00 Pulse Ox 92 L 03/04/23 08:00 FiO2 40 02/28/23 18:15 Intake & Output 03/03/23 03/04/23 03/04/23 18:59 06:59 18:59 Intake Total 560 150 Output Total 1135 630 80 Balance -575 -778 70 Weight 65.1 kg Intake: IV 260 Lactated Ringers 1,000 ml 200 @ 20 mls/hr IV .Q24H [facility] Rx#:[id number] pressure bag 60 Oral 300 150 Output: Chest Tube Drainage 180 180 80 Chest Tube Left 40 Chest Tube Right 140 180 80 Urine 955 450 0 Other: Voiding Method Indwelling Catheter External Catheter External Catheter # Voids 1 ABP, PAP, CO, CI - Last Documented Arterial Blood Pressure 141/44 Pulmonary Artery Pressure 24/7 Cardiac Output 4.2 Cardiac Index 2.6 - Labs CBC & Chem 7: 03/04/23 04:14 03/04/23 04:14 Labs: Abnormal Lab Results - Last 24 Hours (Table) 03/03/23 03/03/23 03/03/23 Range/Units 11:33 16:28 19:52 WBC (3.8-10.6) k/uL RBC (3.80-5.40) m/uL Hgb (11.4-16.0) gm/dL Hct (34.0-46.0) % Plt Count (150-450) k/uL Neutrophils # (1.3-7.7) k/uL Sodium (137-145) mmol/L BUN (7-17) mg/dL Creatinine (0.52-1.04) mg/dL Glucose (74-99) mg/dL POC Glucose (mg/dL) 134 H 162 H 151 H (70-110) mg/dL AST (14-36) U/L Total Protein (6.3-8.2) g/dL Albumin (3.5-5.0) g/dL Urine Protein (Negative) Urine Blood (Negative) Ur Leukocyte Esterase (Negative) Urine RBC (0-5) /hpf Urine WBC (0-5) /hpf Urine Bacteria (None) /hpf 03/03/23 03/04/23 03/04/23 Range/Units 22:49 04:14 04:14 WBC 12.6 H (3.8-10.6) k/uL RBC 2.81 L (3.80-5.40) m/uL Hgb 8.2 L (11.4-16.0) gm/dL Hct 24.8 L (34.0-46.0) % Plt Count 126 L (150-450) k/uL Neutrophils # 10.5 H (1.3-7.7) k/uL Sodium 134 L (137-145) mmol/L BUN 29 H (7-17) mg/dL Creatinine 1.35 H (0.52-1.04) mg/dL Glucose 103 H (74-99) mg/dL POC Glucose (mg/dL) (70-110) mg/dL AST 52 H (14-36) U/L Total Protein 5.2 L (6.3-8.2) g/dL Albumin 3.1 L (3.5-5.0) g/dL Urine Protein 1+ H (Negative) Urine Blood Moderate H (Negative) Ur Leukocyte Esterase Moderate H (Negative) Urine RBC 19 H (0-5) /hpf Urine WBC 12 H (0-5) /hpf Urine Bacteria Few H (None) /hpf 03/04/23 Range/Units 06:44 WBC (3.8-10.6) k/uL RBC (3.80-5.40) m/uL Hgb (11.4-16.0) gm/dL Hct (34.0-46.0) % Plt Count (150-450) k/uL Neutrophils # (1.3-7.7) k/uL Sodium (137-145) mmol/L BUN (7-17) mg/dL Creatinine (0.52-1.04) mg/dL Glucose (74-99) mg/dL POC Glucose (mg/dL) 115 H (70-110) mg/dL AST (14-36) U/L Total Protein (6.3-8.2) g/dL Albumin (3.5-5.0) g/dL Urine Protein (Negative) Urine Blood (Negative) Ur Leukocyte Esterase (Negative) Urine RBC (0-5) /hpf Urine WBC (0-5) /hpf Urine Bacteria (None) /hpf
[2023-03-04] MEDS ORDERED: POTASSIUM CHLORIDE ER 10 MEQ TAB.ER.PRT PO STA (08:42)
[2023-03-04] MEDS ORDERED: FUROSEMIDE 10 MG/ML 2 ML VIAL IV ONE (08:42)
--- NOTE | 2023-03-04 08:59 | P.PN ---
Subjective Progress Note Date: 03/04/23 Principal diagnosis: Triple-vessel coronary artery disease, mitral valve prolapse with severe mitral regurgitation. Past medical history of hypertension, hyperlipidemia, chronic k idney disease stage III, current tobacco dependence, peripheral arterial disease, left internal carotid stenosis 50-79% per Doppler, right internal carotid stenosis 80% during cardiac cath, diverticulitis, family history of premature coronary artery disease in her father. Preoperative thrombocytopenia. POD #4 coronary artery bypass graft 3 with the left internal mammary artery to the left anterior descending coronary artery, reverse saphenous vein graft from the aorta to the posterior descending coronary artery, radial artery to the obtuse marginal coronary artery, mitral valve repair with a #24 physio 2 annuloplasty ring, endoscopic left radial and right greater saphenous vein harvest, left atrial appendage ligation with 35 mm AtriClip, epi-aortic ultrasound and intraoperative transesophageal echocardiogram performed by anesthesia. Postoperative acute blood loss anemia and thrombocytopenia, expected given hemodilution and cardiopulmonary bypass pump as well as preoperative thrombo cytopenia. Paroxysmal atrial fibrillation, a known common occurrence after cardiac surgery not a complication. The patient was seen and examined in follow-up today 03/04/2023 at her bedside in the intensive care unit. Currently the patient is sitting up to bedside chair, is awake, alert, oriented 3 and is in no acute distress. Denies any complaints of shortness of breath or pain at this time. She remains hemodynamically stable and is currently on no inotropic pressure support. Oxygen saturations are 94% on 2 L nasal cannula and she is achieving 750 mL on her incentive spirometry with encouragement. Right pleural chest tube remains in place to low continuous wall suction -20 cm H2O. No air leak is present. Draining thin serosanguineous drainage with 120 mL of thin serosanguineous drainage in the last 8 hours and 350 mL of output in the last 24 hours. Bedside telemetry showing normal sinus rhythm heart rate 87 BPM. Chest x-ray and laboratory results reviewed. The patient reports she has been up ambulating in the intensive care unit in [facility] with standby assistance from nursing staff and has been tolerating well. Objective - Vital Signs Vital signs: Vital Signs Temp 98.5 F 03/04/23 06:00 Pulse 87 03/04/23 08:00 Resp 19 03/04/23 08:00 BP 135/64 03/04/23 08:00 Pulse Ox 92 L 03/04/23 08:00 FiO2 40 02/28/23 18:15 Intake & Output 03/03/23 03/04/23 03/04/23 18:59 06:59 18:59 Intake Total 560 150 Output Total 1135 630 80 Balance -575 -630 70 Weight 65.1 kg Intake: IV 260 Lactated Ringers 1,000 ml 200 @ 20 mls/hr IV .Q24H [facility] Rx#:[id number] pressure bag 60 Oral 300 150 Output: Chest Tube Drainage 180 180 80 Chest Tube Left 40 Chest Tube Right 140 180 80 Urine 955 450 0 Other: Voiding Method Indwelling Catheter External Catheter External Catheter # Voids 1 ABP, PAP, CO, CI - Last Documented Arterial Blood Pressure 141/44 Pulmonary Artery Pressure 24/7 Cardiac Output 4.2 Cardiac Index 2.6 - Exam CONSTITUTIONAL: Appears comfortable, cooperative, no acute distress. RESPIRATORY: Lungs sounds diminished to her bases bilaterally. Respirations are symmetrical, nonlabored. Currently on room 2 L nasal cannula with oxygen saturation 94%. Able to achieve 750 mL on incentive spirometry. Strong cough. CARDIOVASCULAR: S1, S2 present. Regular rate and rhythm, normal sinus rhythm on telemetry, heart rate 83 BPM. Sternum stable. Palpable peripheral pulses bilaterally. No edema present. No calf pain or tenderness noted. Heart hugger in place with patient demonstrating appropriate use. Antiembolism stockings, SCDs present. GASTROINTESTINAL: Abdomen soft, nontender, nondistended. Active bowel sounds present 4 quadrants. Tolerating diet. Passing flatus. GENITOURINARY: Continues to void. Urine output 450 mL in the last 8 hours. INTEGUMENTARY: Skin is warm and dry with no clubbing or cyanosis present. Midline sternal chest incision well approximated and covered with dry intact dressing. Left radial artery and right lower extremity EVH site well approximated without redness or drainage. Ecchymosis to her right thigh, soft and nontender. NEUROLOGIC: Cranial nerves II through XII intact. No focal deficits. MUSKULOSKELETAL: Able to move all extremities, strength equal bilaterally. PSYCHIATRIC: Alert and oriented to person place and time, appropriate affect, i ntact judgment and insight INVASIVE LINES AND TUBES: Right pleural chest tube present and connected to wall suction, no air leak present. Right pleural chest tube with 120 mL serosanguineous drainage overnight, 350 mL output in the last 24 hours. A/V epicardial pacemaker wires present, connected to back up to bedside pacemaker generator, VVI mode with rate 50 bpm. - Allied health notes Allied health notes reviewed: nursing - Labs CBC & Chem 7: 03/04/23 04:14 03/04/23 04:14 Labs: Abnormal Lab Results - Last 24 Hours (Table) 03/03/23 03/03/23 03/03/23 Range/Units 11:33 16:28 19:52 WBC (3.8-10.6) k/uL RBC (3.80-5.40) m/uL Hgb (11.4-16.0) gm/dL Hct (34.0-46.0) % Plt Count (150-450) k/uL Neutrophils # (1.3-7.7) k/uL Sodium (137-145) mmol/L BUN (7-17) mg/dL Creatinine (0.52-1.04) mg/dL Glucose (74-99) mg/dL POC Glucose (mg/dL) 134 H 162 H 151 H (70-110) mg/dL AST (14-36) U/L Total Protein (6.3-8.2) g/dL Albumin (3.5-5.0) g/dL Urine Protein (Negative) Urine Blood (Negative) Ur Leukocyte Esterase (Negative) Urine RBC (0-5) /hpf Urine WBC (0-5) /hpf Urine Bacteria (None) /hpf 03/03/23 03/04/23 03/04/23 Range/Units 22:49 04:14 04:14 WBC 12.6 H (3.8-10.6) k/uL RBC 2.81 L (3.80-5.40) m/uL Hgb 8.2 L (11.4-16.0) gm/dL Hct 24.8 L (34.0-46.0) % Plt Count 126 L (150-450) k/uL Neutrophils # 10.5 H (1.3-7.7) k/uL Sodium 134 L (137-145) mmol/L BUN 29 H (7-17) mg/dL Creatinine 1.35 H (0.52-1.04) mg/dL Glucose 103 H (74-99) mg/dL POC Glucose (mg/dL) (70-110) mg/dL AST 52 H (14-36) U/L Total Protein 5.2 L (6.3-8.2) g/dL Albumin 3.1 L (3.5-5.0) g/dL Urine Protein 1+ H (Negative) Urine Blood Moderate H (Negative) Ur Leukocyte Esterase Moderate H (Negative) Urine RBC 19 H (0-5) /hpf Urine WBC 12 H (0-5) /hpf Urine Bacteria Few H (None) /hpf 03/04/23 Range/Units 06:44 WBC (3.8-10.6) k/uL RBC (3.80-5.40) m/uL Hgb (11.4-16.0) gm/dL Hct (34.0-46.0) % Plt Count (150-450) k/uL Neutrophils # (1.3-7.7) k/uL Sodium (137-145) mmol/L BUN (7-17) mg/dL Creatinine (0.52-1.04) mg/dL Glucose (74-99) mg/dL POC Glucose (mg/dL) 115 H (70-110) mg/dL AST (14-36) U/L Total Protein (6.3-8.2) g/dL Albumin (3.5-5.0) g/dL Urine Protein (Negative) Urine Blood (Negative) Ur Leukocyte Esterase (Negative) Urine RBC (0-5) /hpf Urine WBC (0-5) /hpf Urine Bacteria (None) /hpf - Imaging and Cardiology Chest x-ray: report reviewed, image reviewed Assessment and Plan Assessment: Triple-vessel coronary artery disease, status post three-vessel CABG Mitral valve prolapse with severe mitral regurgitation status post mitral valve repair History of hypertension Hyperlipidemia, treated, cholesterol 190, LDL 95, triglycerides 161 Chronic kidney disease stage III, baseline creatinine 1.2-1.6, baseline GFR in the 40s Chronic ongoing tobacco dependence, preoperative FEV1 83% of predicted Peripheral arterial disease, preoperative NAIMA on the left 0.99 Left internal carotid stenosis 50-79% per Doppler, right internal carotid stenosis 80% during cardiac cath Diverticulitis Chronic back pain Family history of premature coronary artery disease in her father Preoperative thrombocytopenia Postoperative acute blood loss anemia and thrombocytopenia, expected, transfused 1 unit of packed red blood cells Paroxysmal atrial fibrillation, a known common occurrence after cardiac surgery, currently in normal sinus rhythm Plan: Continue to maximize medical management with low-dose aspirin, Plavix, and statin. Increase metoprolol tartrate 50 mg by mouth twice a day with hold parameters. Will add afterload reduction when able. Wean O2 as tolerated. Encourage incentive spirometry use 10 times every hour while awake. Bronchodilators per pulmonology. Increase activity as tolerated. PT/OT/cardiac rehab following. Will monitor daily labs and chest x-rays. Electrolyte replacement per protocol. Continue iron per home dose. GI/DVT prophylaxis. Pain control with current medication regimen. Insulin management per internal medicine. Patient is not diabetic, preoperative hemoglobin A1c 5.4%. Continue atrial and ventricular epicardial pacemaker wires, keep pacemaker g enerator at bedside, currently on VVI backup 50 BPM. Lasix 20 mg IV 1 now. Remove right pleural chest tube Continue to record strict accurate intake and output. Daily weights. More recommendations to follow based on patient's clinical course. Time with Patient: Greater than 30
[2023-03-04] MEDS ORDERED: METOPROLOL TARTRATE 25 MG TAB PO ONE (09:00)
[2023-03-04] MEDS: IPRATROPIUM-ALBUTEROL 3 ML NEB INHALATION SCH ×4 (09:23→22:10)
--- NOTE | 2023-03-04 10:59 | P.PN ---
Subjective Progress Note Date: 03/04/23 This 77-year-old female patient who underwent three-vessel bypass surgery. 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 The patient also has history of hypertension, hyperlipidemia, asymptomatic right carotid artery stenosis in the order of 8-99%, chronic stage III kidney disease, and history of chronic smoking. The patient was having episodes of shortness of breath and further cardiac catheterization showed severe triple vessel coronary artery disease. Based on that, the patient was referred for bypass surgery. 2-D echocardiogram showed an ejection fraction of 55% preoperatively with a moderate degree of mitral valve regurgitation. A subsequent was also done that showed normal functioning of the aortic valve with some sclerosis without stenosis. No other acute abnormalities seen. The patient at this point in time is in the intensive care unit. She is intubated on a mechanical ventilator. She is on propofol running at 20 mcg/kg/m. She is on assist control mode with a rate of 40 with a tidal volume of 400 and FiO2 of 40% with a PEEP of 5. The initial blood gases at that time to the ICU for the patient of 7.39 with a pCO2 of 37 and pO2 of 255. Chest x-ray showed adequate expansion of both lungs. Orotracheal tube is in a good location. The patient is a mediastinal and left lower chest tube and output is minimal in the order of 200 mL without evidence of any air leak. The patient's cardiac rhythm is pacer this point in time at the rate of 80. The patient is currently on no pressors. Cardiac index was initially low at 1.8 and improved with volume and the most recent cardiac index is 2.. Pressures are 39/16. The patient has adequate urine output. The bloodwork to the Sanders 13.6 with a hemoglobin of 8.4 and a platelet count of 86. The sodium is at 13 with a potassium level of 4.3, BUN is a 50 with a creatinine of 0.9 and a patient's GFR that 56 which is typically better than her baseline. Note that the patient underwent three-vessel bypass surgery with NGUYỄN to LAD, radial artery to circumflex and SVG to PDA. The patient underwent a left radial artery harvesting. I'm seeing this patient in follow-up today 03/01/2023 in follow-up in intensive care unit post CABG with 3 vessel bypass graft yesterday with a NGUYỄN to the LAD, saphenous vein graft to the PDA, left radial artery to the OM. She also had a mitral valve repair with a #24 Physio II annuloplasty ring, left atrial appendage ligation. Patient was extubated yesterday evening without complications. She is currently resting comfortably in the recliner, on 4 L nasal cannula, in no acute distress. Patient's heart rhythm is currently atrial paced at 80 bpm, blood pressure normotensive, pulmonary artery pressures 27/8, his recent CO/CI was 4.2 and 2.6 respectively. Patient's urine output is low this morning around 10 mL an hours, and she is going to receive some more albumin. Patient currently has lactated Ringer's infusing at 50 ML's per hour. No vasopressors. Insulin infusing at 2 units per hour. She does have a mediastinal and left pleural chest tubes. There is no air leak noted. There has been about 320 ML's of serosanguineous output of the mediastinal and 900 ML's of serosanguineous output out of the left pleural chest tubes. Chest x-ray from this morning shows no evidence of pneumothorax, pleural effusion or focal consolidation. There was a right IJ Midland-Juan catheter within the main pulmonary artery and postsurgical changes. CBC this morning shows a WBC count of 11.2, hemoglobin 7.2, hematocrit 21.7, platelets 78,000. Patient's BMP from this morning shows a sodium 134, potassium 4.6, chloride 108, serum CO2 20, BUN 17, creatinine 1.14, glucose 122. Vital signs are stable. Pain is fairly well controlled currently. She has been using her incentive spirometer is about 750. Patient has been increasing activity as tolerated. 03/02/2023, the patient is postop day #2. Doing well. He remains extubated. Currently on oxygen at 3 66 L/m nasal cannula. No significant respiratory distress for now. The patient's chest x-ray from today shows cardiomegaly and some atelectatic changes in lung bases along with some mild pulmonary vascular congestion. The mediastinal chest tube was removed today in the pleural chest tubes are splinted at this point in time to echo to evaluate the output. Earlier this morning, the patient went into atrial fibrillation and the patient received 2 boluses of amiodarone. She converted back into normal sinus rhythm and she is hemodynamically stable at this point in time. She is using the in centive spirometer. Her current cardiac rhythm is sinus and she is not being paced at this point in time. The white cell cause of 19. Hemoglobin dropped down to 6.5 and a platelet count of 98. BUN is at 6 with a creatinine of 1.2 and a sodium level is at 135. Pain is under adequate control. No other significant issues for now. 03/03/2023, the patient is postoperative day #3. On today's evaluation, she is sitting up on a recliner inches, comfortable. She was doing also daily ambulation's. She is currently on oxygen at 4 L nasal cannula. Her chest x-ray shows some cardiomegaly. Chest tubes weren't adequate locations. Based on that, the left pleural chest tube was removed. Currently she has only a right pleural chest tube which is still draining and this will be kept for another 24 hours. Otherwise, the patient has no specific complaints. Her cardiac rhythm is sinus and she is not requiring any pacing. The white cell count at 60 with a hemoglobin of 7.5 and she did receive a unit of packed RBC yesterday. Platelet counts of 95. BUN is at 34 with a creatinine of 1.3 and a sodium level is at 133. She remains on aspirin. She remains on Plavix. She is also on metoprolol 25 mg by mouth twice a day and this was started. Falun for pain control. Using the incentive spirometer. High-dose statins. 03/04/2023, the patient is postoperative day #4. On today's evaluation, the patient a repeat chest x-ray that showed some atelectatic changes bilaterally. It is consistent with postsurgical changes and the patient's chest tube was removed from the right. She is doing well. She is pulse ox of 95% on 2 L of oxygen by nasal cannula. Pain is under adequate control. Using the incentive spirometer. White cell count of 12.6 with a hemoglobin of 8.2. The BUN is 29 with a creatinine of 1.3 and a sodium level is at 134. No other significant events otherwise for now. Cardiac rhythm is sinus and the patient was also started on beta blockers. Her condition is stable for now.Her blood work from today shows a dull discomfort 12.6 with a hemoglobin of 8.2 and a platelet count of 126. Sodium is 1134, potassium levels at 3.8, B is 29 with a creatinine of 1.35. Objective - Vital Signs Vital signs: Vital Signs Temp 98.5 F 03/04/23 06:00 Pulse 90 03/04/23 10:00 Resp 22 03/04/23 10:00 BP 127/71 03/04/23 10:00 Pulse Ox 94 L 03/04/23 10:00 FiO2 40 02/28/23 18:15 Intake & Output 03/03/23 03/04/23 03/04/23 18:59 06:59 18:59 Intake Total 560 150 Output Total 1135 630 80 Balance -575 -630 70 Weight 65.1 kg Intake: IV 260 Lactated Ringers 1,000 ml 200 @ 20 mls/hr IV .Q24H [facility] Rx#:[id number] pressure bag 60 Oral 300 150 Output: Chest Tube Drainage 180 180 80 Chest Tube Left 40 Chest Tube Right 140 180 80 Urine 955 450 0 Other: Voiding Method Indwelling Catheter External Catheter External Catheter # Voids 1 ABP, PAP, CO, CI - Last Documented Arterial Blood Pressure 141/44 Pulmonary Artery Pressure 24/7 Cardiac Output 4.2 Cardiac Index 2.6 - Exam GENERAL EXAM: Alert, 67-year-old white female , comfortable in no apparent distress. 2 L O2 nasal cannula HEAD: Normocephalic and atraumatic EYES: Normal reaction of pupils, equal size. NOSE: Clear with pink turbinates. THROAT: No erythema or exudates. NECK: No masses, no JVD. CHEST: No chest wall deformity. Postoperative midsternal incision is clean, dry, intact LUNGS: Equal air entry with bibasilar crackles. No wheeze, rhonchi or dullness. 2 L of oxygen nasal cannula and patient's the right-sided chest tube was also removed CVS: S1 and S2 normal with no audible murmur, regular rhythm. There is a pericardial friction rub ABDOMEN: No hepatosplenomegaly, active bowel sounds, no guarding or rigidity. SPINE: No scoliosis or deformity SKIN: No rashes CENTRAL NERVOUS SYSTEM: No focal deficits, tone is normal in all 4 extremities. EXTREMITIES: There is mild nonpitting. No clubbing, or cyanosis. Peripheral pulses are intact. - Labs CBC & Chem 7: 03/04/23 04:14 04/23/23 04:14 Labs: Abnormal Lab Results - Last 24 Hours (Table) 03/03/23 03/03/23 03/03/23 Range/Units 11:33 16:28 19:52 WBC (3.8-10.6) k/uL RBC (3.80-5.40) m/uL Hgb (11.4-16.0) gm/dL Hct (34.0-46.0) % Plt Count (150-450) k/uL Neutrophils # (1.3-7.7) k/uL Sodium (137-145) mmol/L BUN (7-17) mg/dL Creatinine (0.52-1.04) mg/dL Glucose (74-99) mg/dL POC Glucose (mg/dL) 134 H 162 H 151 H (70-110) mg/dL AST (14-36) U/L Total Protein (6.3-8.2) g/dL Albumin (3.5-5.0) g/dL Urine Protein (Negative) Urine Blood (Negative) Ur Leukocyte Esterase (Negative) Urine RBC (0-5) /hpf Urine WBC (0-5) /hpf Urine Bacteria (None) /hpf 03/03/23 03/04/23 03/04/23 Range/Units 22:49 04:14 04:14 WBC 12.6 H (3.8-10.6) k/uL RBC 2.81 L (3.80-5.40) m/uL Hgb 8.2 L (11.4-16.0) gm/dL Hct 24.8 L (34.0-46.0) % Plt Count 126 L (150-450) k/uL Neutrophils # 10.5 H (1.3-7.7) k/uL Sodium 134 L (137-145) mmol/L BUN 29 H (7-17) mg/dL Creatinine 1.35 H (0.52-1.04) mg/dL Glucose 103 H (74-99) mg/dL POC Glucose (mg/dL) (70-110) mg/dL AST 52 H (14-36) U/L Total Protein 5.2 L (6.3-8.2) g/dL Albumin 3.1 L (3.5-5.0) g/dL Urine Protein 1+ H (Negative) Urine Blood Moderate H (Negative) Ur Leukocyte Esterase Moderate H (Negative) Urine RBC 19 H (0-5) /hpf Urine WBC 12 H (0-5) /hpf Urine Bacteria Few H (None) /hpf 03/04/23 Range/Units 06:44 WBC (3.8-10.6) k/uL RBC (3.80-5.40) m/uL Hgb (11.4-16.0) gm/dL Hct (34.0-46.0) % Plt Count (150-450) k/uL Neutrophils # (1.3-7.7) k/uL Sodium (137-145) mmol/L BUN (7-17) mg/dL Creatinine (0.52-1.04) mg/dL Glucose (74-99) mg/dL POC Glucose (mg/dL) 115 H (70-110) mg/dL AST (14-36) U/L Total Protein (6.3-8.2) g/dL Albumin (3.5-5.0) g/dL Urine Protein (Negative) Urine Blood (Negative) Ur Leukocyte Esterase (Negative) Urine RBC (0-5) /hpf Urine WBC (0-5) /hpf Urine Bacteria (None) /hpf Microbiology - Last 24 Hours (Table) 03/03/23 22:49 Urine Culture - Preliminary Urine,Voided Assessment and Plan Assessment: Postop day #4 for a CABG x 3 vessel bypass graft yesterday with a NGUYỄN to the LAD, saphenous vein graft to the PDA, left radial artery to the OM. She also had a mitral valve repair with a #24 Physio II annuloplasty ring, left atrial appendage ligation. Acute hypoxic respiratory failure secondary to above, currently on 2 L nasal cannula Post thoracotomy, chest his abdomen removed bilaterally and the mediastinal Paroxysmal A. fib, current rhythm is sinus, treated with amiodarone, current rhythm is sinus and the patient was started on metoprolol Postoperative anemia with a hemoglobin of 6.5, anticipated outcome of surgery. No evidence of any active bleeding, given a unit of packed RBC and the patient's hemoglobin is up to 8.2 Thrombocytopenia -post bypass Acute anemia, anticipated outcome of cardiac surgery, chest tube output is minimal Chronic stage III kidney disease, stable , GFR 47 Hypertension Hyperlipidemia Right internal carotid artery stenosis, asymptomatic Chronic back pain Plan Left-sided chest tube was removed yesterday and the right-sided chest tube was removed today Continue incentive spirometer Ambulation Metoprolol was started and the patient is currently on 50 mg by mouth twice a day No pacing for now No anticoagulants for now Monitor hemoglobin and transfusion upon the discretion of the cardiac surgeon Wean down FiO2 as tolerated currently on 2L Continue ambulation Encourage incentive spirometer Given a dose of Lasix for now 20 mg IV Increase activity as tolerated Protonix for GI prophylaxis We will continue to follow
[2023-03-04 11:07] LABS: Glucose,Whole Blood 163 mg/dL (70-110)
[2023-03-04] MEDS: HYDROcodone/APAP 5-325MG 1 EACH TAB PO PRN (13:00)
[2023-03-04 16:36] LABS: Glucose,Whole Blood 109 mg/dL (70-110)
[2023-03-04] MEDS: DEXTROSE 5% IN WATER 100 ML with AMIODARONE 150 MG IV PRN ×2 (16:43→18:55)
[2023-03-04] MEDS: ATORVASTATIN 40 MG TAB PO SCH (20:03)
[2023-03-04] MEDS: SENNOSIDES-DOCUSATE SODIUM 1 EACH TAB PO SCH (20:03)
[2023-03-04 20:07] LABS: Glucose,Whole Blood 139 mg/dL (70-110)
[2023-03-04 20:21] LABS: Magnesium 2.1 mg/dL (1.6-2.3); Potassium 3.8 mmol/L (3.5-5.1)
[2023-03-04] MEDS: METOPROLOL TARTRATE 50 MG TAB PO SCH (21:47)
[2023-03-05] MEDS: ACETAMINOPHEN TAB 325 MG TAB PO PRN ×4 (02:58→20:09)
[2023-03-05 04:55] LABS: Basophils % (A) 0 %; Eosinophils # (A) 0.2 k/uL (0-0.7); Eosinophils % (A) 2 %; HCT 23.2 % (34.0-46.0); HGB 7.7 gm/dL (11.4-16.0); Lymphocytes # (A) 1.2 k/uL (1.0-4.8); Lymphocytes % (A) 11 %; MCH 29.6 pg (25.0-35.0); MCHC 33.1 g/dL (31.0-37.0); MCV 89.5 fL (80.0-100.0); Mean Platelet Volume 9.1; Monocytes # (A) 0.7 k/uL (0-1.0); Monocytes % (A) 7 %; Neutrophils # (A) 8.5 k/uL (1.3-7.7); Neutrophils % (A) 78 %; Platelet Count 152 k/uL (150-450); RBC 2.59 m/uL (3.80-5.40); RDW 15.3 % (11.5-15.5); WBC 10.8 k/uL (3.8-10.6)
[2023-03-05 04:59] LABS: Albumin 2.7 g/dL (3.5-5.0); Potassium 4.6 mmol/L (3.5-5.1); Total Bilirubin 0.9 mg/dL (0.2-1.3); Total Protein 4.8 g/dL (6.3-8.2)
[2023-03-05 06:13] LABS: Glucose,Whole Blood 135 mg/dL (70-110)
[2023-03-05] MEDS: INSULIN ASPART (NovoLOG) 100 UNIT/ML VIAL SQ SCH ×3 (06:57→18:13)
[2023-03-05] MEDS: PANTOPRAZOLE 40 MG TABLET PO SCH (06:59)
--- NOTE | 2023-03-05 08:05 | XR ---
EXAMINATION TYPE: XR chest 1V portable DATE OF EXAM: 03/05/2023 6:07 AM COMPARISON: Chest radiographs from 03/04/2023 TECHNIQUE: XR chest 1V portable Frontal view of the chest. CLINICAL INDICATION:Female, 77 years old with history of Post op Cardiac surgery; FINDINGS: Lungs/Pleura: No evidence of focal consolidation or pneumothorax. Blunting of the costophrenic angles is present. Pulmonary vascularity: Pulmonary vascular congestion. Heart/mediastinum: Cardiomediastinal silhouette is enlarged and stable. Atherosclerotic calcificatio ns are seen in the aorta. Left atrial appendage occlusion device is present. The liver. Changes. Musculoskeletal: No acute osseous pathology. Midline sternotomy wires are noted. IMPRESSION: Stable exam with cardiomegaly and trace bilateral pleural effusions and mild pulmonary vascular conge stion.
[2023-03-05] MEDS ORDERED: FUROSEMIDE 10 MG/ML 2 ML VIAL IV ONE (08:15)
[2023-03-05] MEDS ORDERED: POTASSIUM CHLORIDE ER 10 MEQ TAB.ER.PRT PO STA (08:17)
--- NOTE | 2023-03-05 08:20 | P.PN ---
Subjective Progress Note Date: 03/05/23 Principal diagnosis: Triple-vessel coronary artery disease, mitral valve prolapse with severe mitral regurgitation. Past medical history of hypertension, hyperlipidemia, chronic k idney disease stage III, current tobacco dependence, peripheral arterial disease, left internal carotid stenosis 50-79% per Doppler, right internal carotid stenosis 80% during cardiac cath, diverticulitis, family history of premature coronary artery disease in her father. Preoperative thrombocytopenia. POD #5 coronary artery bypass graft 3 with the left internal mammary artery to the left anterior descending coronary artery, reverse saphenous vein graft from the aorta to the posterior descending coronary artery, radial artery to the obtuse marginal coronary artery, mitral valve repair with a #24 physio 2 annuloplasty ring, endoscopic left radial and right greater saphenous vein harvest, left atrial appendage ligation with 35 mm AtriClip, epi-aortic ultrasound and intraoperative transesophageal echocardiogram performed by anesthesia. Postoperative acute blood loss anemia and thrombocytopenia, expected given hemodilution and cardiopulmonary bypass pump as well as preoperative thrombo cytopenia. Paroxysmal atrial fibrillation, a known common occurrence after cardiac surgery not a complication. The patient was seen and examined in follow-up today 03/05/2023 at her bedside in the intensive care unit. Currently she is sitting up to the bedside chair, is awake, alert, oriented 3 and is in no acute apparent distress. Denies any complaints of shortness of breath at this time although is complaining of some back pain which is chronic in nature. She does have a Lidoderm patch in place which she reports has been helping. Oxygen saturation are 94% on 2 L nasal cannula and she is achieving 750 mL on her incentive spirometry with encouragement. Bedside telemetry is showing normal sinus rhythm heart rate 83 BPM, she did have an episode of atrial fibrillation last evening and was started on amiodarone drip per protocol. She remained hemodynamically stable and is currently on no inotropic or pressor support. Atrial ventricular epicardial pacemaker wires remained in place and are connected to backup bedside pacemaker generator in a VVI 50. Right pleural chest tube was removed yesterday without incident. Chest x-ray and laboratory results were reviewed. Objective - Vital Signs Vital signs: Vital Signs Temp 98.9 F 03/05/23 00:00 Pulse 80 03/05/23 07:00 Resp 26 H 03/05/23 07:00 BP 139/65 03/05/23 07:00 Pulse Ox 91 L 03/05/23 07:00 FiO2 40 02/28/23 18:15 Intake & Output 03/04/23 03/05/23 03/05/23 18:59 06:59 18:59 Intake Total 650 Output Total 730 450 0 Balance -80 -450 0 Weight 64.3 kg Intake: Oral 650 Output: Chest Tube Drainage 80 Chest Tube Right 80 Urine 650 450 0 Other: Voiding Method Bedside Commode Bedside Commode External Catheter External Catheter # Voids 1 1 ABP, PAP, CO, CI - Last Documented Arterial Blood Pressure 141/44 Pulmonary Artery Pressure 24/7 Cardiac Output 4.2 Cardiac Index 2.6 - Exam CONSTITUTIONAL: Appears comfortable, cooperative, no acute distress. RESPIRATORY: Lungs sounds diminished to her bases bilaterally. Respirations are symmetrical, nonlabored. Currently on room 2 L nasal cannula with oxygen saturation 94%. Able to achieve 750 mL on incentive spirometry. Strong cough. CARDIOVASCULAR: S1, S2 present. Regular rate and rhythm, normal sinus rhythm on telemetry, heart rate 83 BPM. Sternum stable. Palpable peripheral pulses bilaterally. No edema present. No calf pain or tenderness noted. Heart hugger in place with patient demonstrating appropriate use. Antiembolism stockings, SCDs present. GASTROINTESTINAL: Abdomen soft, nontender, nondistended. Active bowel sounds present 4 quadrants. Tolerating diet. Passing flatus. GENITOURINARY: Continues to void. Urine output 450 mL in the last 8 hours. INTEGUMENTARY: Skin is warm and dry with no clubbing or cyanosis present. Midline sternal chest incision well approximated and covered with dry intact dressing. Left radial artery and right lower extremity EVH site well approximated without redness or drainage. Ecchymosis to her right thigh, soft and nontender. NEUROLOGIC: Cranial nerves II through XII intact. No focal deficits. MUSKULOSKELETAL: Able to move all extremities, strength equal bilaterally. PSYCHIATRIC: Alert and oriented to person place and time, appropriate affect, intact judgment and insight INVASIVE LINES AND TUBES: A/V epicardial pacemaker wires present, connected to back up to bedside pacemaker generator, VVI mode with rate 50 bpm. - Allied health notes Allied health notes reviewed: nursing - Labs CBC & Chem 7: 03/05/23 04:34 03/05/23 04:34 Labs: Abnormal Lab Results - Last 24 Hours (Table) 03/04/23 03/04/23 03/04/23 Range/Units 11:05 19:46 20:06 WBC (3.8-10.6) k/uL RBC (3.80-5.40) m/uL Hgb (11.4-16.0) gm/dL Hct (34.0-46.0) % Neutrophils # (1.3-7.7) k/uL Sodium 132 L (137-145) mmol/L BUN (7-17) mg/dL Creatinine (0.52-1.04) mg/dL Glucose (74-99) mg/dL POC Glucose (mg/dL) 163 H 139 H (70-110) mg/dL Calcium (8.4-10.2) mg/dL AST (14-36) U/L ALT (4-34) U/L Total Protein (6.3-8.2) g/dL Albumin (3.5-5.0) g/dL 03/05/23 03/05/23 03/05/23 Range/Units 04:34 04:34 06:11 WBC 10.8 H (3.8-10.6) k/uL RBC 2.59 L (3.80-5.40) m/uL Hgb 7.7 L (11.4-16.0) gm/dL Hct 23.2 L (34.0-46.0) % Neutrophils # 8.5 H (1.3-7.7) k/uL Sodium 131 L (137-145) mmol/L BUN 28 H (7-17) mg/dL Creatinine 1.15 H (0.52-1.04) mg/dL Glucose 109 H (74-99) mg/dL POC Glucose (mg/dL) 135 H (70-110) mg/dL Calcium 8.0 L (8.4-10.2) mg/dL AST 110 H (14-36) U/L ALT 72 H (4-34) U/L Total Protein 4.8 L (6.3-8.2) g/dL Albumin 2.7 L (3.5-5.0) g/dL Microbiology - Last 24 Hours (Table) 03/03/23 22:49 Urine Culture - Preliminary Urine,Voided - Imaging and Cardiology Chest x-ray: report reviewed, image reviewed Assessment and Plan Assessment: Triple-vessel coronary artery disease, status post three-vessel CABG Mitral valve prolapse with severe mitral regurgitation status post mitral valve repair History of hypertension Hyperlipidemia, treated, cholesterol 190, LDL 95, triglycerides 161 Chronic kidney disease stage III, baseline creatinine 1.2-1.6, baseline GFR in the 40s Chronic ongoing tobacco dependence, preoperative FEV1 83% of predicted Peripheral arterial disease, preoperative NAIMA on the left 0.99 Left internal carotid stenosis 50-79% per Doppler, right internal carotid stenosis 80% during cardiac cath Diverticulitis Chronic back pain Family history of premature coronary artery disease in her father Preoperative thrombocytopenia Postoperative acute blood loss anemia and thrombocytopenia, expected, transfused 1 unit of packed red blood cells Paroxysmal atrial fibrillation, a known common occurrence after cardiac surgery, currently in normal sinus rhythm Plan: Continue to maximize medical management with low-dose aspirin, Plavix, and statin. Increase metoprolol tartrate as tolerated. Will add afterload reduction when able. Wean O2 as tolerated. Encourage incentive spirometry use 10 times every hour while awake. Bronchodilators per pulmonology. Increase activity as tolerated. PT/OT/cardiac rehab following. Will monitor daily labs and chest x-rays. Electrolyte replacement per protocol. Continue iron per home dose. GI/DVT prophylaxis. Pain control with current medication regimen. Daykin discontinued since chest tubes have been removed. Lidoderm patch has been added by internal medicine for back pain. Insulin management per internal medicine. Patient is not diabetic, preoperative hemoglobin A1c 5.4%. Continue atrial and ventricular epicardial pacemaker wires, ground epicardial pacemaker wires Lasix 20 mg IV 1 now, potassium chloride 10 mEq by mouth 1 now. On discharge the patient is requesting to go to [facility] for rehab. Continue to record strict accurate intake and output. Daily weights. Amiodarone 200 mg by mouth twice a day started for atrial fibrillation prophyla xis. More recommendations to follow based on patient's clinical course. Time with Patient: Greater than 30
--- NOTE | 2023-03-05 08:47 | P.PN ---
Subjective PROGRESS NOTE The patient is a 77-year-old female, followed by Dr. Lin who underwent CABG yesterday with NGUYỄN to the LAD, SVG to the right and radial artery to the circumflex. She is extubated, sitting up in the chair. Complaining of back di scomfort which is chronic. She has an underlying sinus mechanism and is receiving atrial pacing. She is on no vasopressors. Preoperatively her MILENA showed moderate MR with ejection fraction of 50-55%. The patient has a known history of asymptomatic carotid disease. She has a known history of chronic kidney disease. She presented initially with symptoms of progressive dyspnea, she has a history of chronic smoking of over a pack a day. Her cardiac catheterization showed 70% left main disease 60-70% proximal circumflex and 100% total occlusion of the proximal RCA. She had an 80% right internal carotid artery stenosis. Her coronary risk factors are positive for hypertension, chronic tobacco use, hyperlipidemia March 02: The patient is sitting up in the chair, she feels tired. She denies any dizziness or palpitations. She is mildly nauseated. She has respirophasic chest pain. She had an episode of atrial fibrillation earlier but is back in sinus mechanism at this time. Hemodynamically she is stable. Her urinary output is good. There is no evidence of ventricular ectopic activity. Chest x- ray with no evidence of pneumothorax and no significant changes. March 03: The patient is sitting up in the chair, feels well. Her breathing is stable. She continues to be in sinus mechanism. She denies any dizziness or palpitations. She denies any nausea or vomiting. She has ambulated. March 04: The patient feels better today, sitting up in the chair, ambulated. She felt tired afterward. She continues to be in sinus mechanism. She has no nausea and her appetite is good. She continues to have a chest tube. She denies any palpitations. 03/05 Patient seen and examined. Patient had episode of A. fib with RVR was started on amiodarone. She does have mildly increased AST, ALT 110 range. She is back in sinus rhythm. She was somewhat symptomatic during the episode however currently feeling back to her baseline. She denies any chest pain or pressure other than positional. No significant shortness breath. PHYSICAL EXAMINATION: Vitals reviewed LUNGS: Mild decrease in the breath sounds at the bases HEART: Regular rate and rhythm, S1, S2. No S3. systolic ejection murmur ABDOMEN: Soft, nontender, no organomegaly EXTREMETIES: No edema IMPRESSION: 1. Status post CABG, stable 2. Asymptomatic carotid disease 3. History of hypertension 4. History of hyperlipidemia 5. Paroxysmal atrial fibrillation, maintaining sinus mechanism 6. Worsening renal functions 7. Mild increased liver enzymes PLAN: 1. Continue present therapy 2. Follow renal functions 3. Increase physical activity 4. Continue with oral Amio 400 bid and monitor AST/ALT Objective - Vital Signs Vital signs: Vital Signs Temp 98.9 F 03/05/23 00:00 Pulse 80 03/05/23 07:00 Resp 26 H 03/05/23 07:00 BP 139/65 03/05/23 07:00 Pulse Ox 91 L 03/05/23 07:00 FiO2 40 02/28/23 18:15 Intake & Output 03/04/23 03/05/23 03/05/23 18:59 06:59 18:59 Intake Total 650 Output Total 730 450 0 Balance -80 -450 0 Weight 64.3 kg Intake: Oral 650 Output: Chest Tube Drainage 80 Chest Tube Right 80 Urine 650 450 0 Other: Voiding Method Bedside Commode Bedside Commode External Catheter External Catheter # Voids 1 1 ABP, PAP, CO, CI - Last Documented Arterial Blood Pressure 141/44 Pulmonary Artery Pressure 24/7 Cardiac Output 4.2 Cardiac Index 2.6 - Labs CBC & Chem 7: 03/05/23 04:34 03/05/23 04:34 Labs: Abnormal Lab Results - Last 24 Hours (Table) 03/04/23 03/04/23 03/04/23 Range/Units 11:05 19:46 20:06 WBC (3.8-10.6) k/uL RBC (3.80-5.40) m/uL Hgb (11.4-16.0) gm/dL Hct (34.0-46.0) % Neutrophils # (1.3-7.7) k/uL Sodium 132 L (137-145) mmol/L BUN (7-17) mg/dL Creatinine (0.52-1.04) mg/dL Glucose (74-99) mg/dL POC Glucose (mg/dL) 163 H 139 H (70-110) mg/dL Calcium (8.4-10.2) mg/dL AST (14-36) U/L ALT (4-34) U/L Total Protein (6.3-8.2) g/dL Albumin (3.5-5.0) g/dL 03/05/23 03/05/23 03/05/23 Range/Units 04:34 04:34 06:11 WBC 10.8 H (3.8-10.6) k/uL RBC 2.59 L (3.80-5.40) m/uL Hgb 7.7 L (11.4-16.0) gm/dL Hct 23.2 L (34.0-46.0) % Neutrophils # 8.5 H (1.3-7.7) k/uL Sodium 131 L (137-145) mmol/L BUN 28 H (7-17) mg/dL Creatinine 1.15 H (0.52-1.04) mg/dL Glucose 109 H (74-99) mg/dL POC Glucose (mg/dL) 135 H (70-110) mg/dL Calcium 8.0 L (8.4-10.2) mg/dL AST 110 H (14-36) U/L ALT 72 H (4-34) U/L Total Protein 4.8 L (6.3-8.2) g/dL Albumin 2.7 L (3.5-5.0) g/dL Microbiology - Last 24 Hours (Table) 03/03/23 22:49 Urine Culture - Preliminary Urine,Voided
[2023-03-05] MEDS: LIDOCAINE 5% PATCH TOPICAL SCH (08:52)
[2023-03-05] MEDS: HEPARIN SODIUM,PORCINE/PF 5,000 UNIT/0.5 ML SYRINGE SQ SCH ×2 (08:52→16:08)
[2023-03-05] MEDS: CYANOCOBALAMIN 500 MCG TAB PO SCH (08:53)
[2023-03-05] MEDS: CLOPIDOGREL 75 MG TAB PO SCH (08:53)
[2023-03-05] MEDS: AMIODARONE 200 MG TAB PO SCH ×2 (08:53→20:09)
[2023-03-05] MEDS: METOPROLOL TARTRATE 50 MG TAB PO SCH ×2 (08:53→20:09)
[2023-03-05] MEDS: FOLIC ACID 1 MG TAB PO SCH (08:53)
[2023-03-05] MEDS: ASPIRIN 81 MG PO SCH (08:53)
[2023-03-05] MEDS: FERROUS SULFATE 325 MG TAB PO SCH (08:53)
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
[2023-03-05] MEDS: IPRATROPIUM-ALBUTEROL 3 ML NEB INHALATION SCH ×4 (09:12→22:38)
[2023-03-05] MEDS ORDERED: SODIUM CHLORIDE 0.65% NASAL SPRAY 44 ML BTL NASAL PRN (09:35)
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
[2023-03-05 11:53] LABS: Glucose,Whole Blood 209 mg/dL (70-110)
--- NOTE | 2023-03-05 14:11 | P.PN ---
Subjective Progress Note Date: 03/05/23 Principal diagnosis: Status post CABG and mitral valve repair postoperative day #5 03/03/2023, the patient is postoperative day #3. On today's evaluation, she is sitting up on a recliner inches, comfortable. She was doing also daily ambulation's. She is currently on oxygen at 4 L nasal cannula. Her chest x-ray shows some cardiomegaly. Chest tubes weren't adequate locations. Based on that, the left pleural chest tube was removed. Currently she has only a right pleural chest tube which is still draining and this will be kept for another 24 hours. Otherwise, the patient has no specific complaints. Her cardiac rhythm is sinus and she is not requiring any pacing. The white cell count at 60 with a hemoglobin of 7.5 and she did receive a unit of packed RBC yesterday. Platelet counts of 95. BUN is at 34 with a creatinine of 1.3 and a sodium level is at 133. She remains on aspirin. She remains on Plavix. She is also on metoprolol 25 mg by mouth twice a day and this was started. [place] for pain control. Using the incentive spirometer. High-dose statins. 03/04/2023, the patient is postoperative day #4. On today's evaluation, the patient a repeat chest x-ray that showed some atelectatic changes bilaterally. It is consistent with postsurgical changes and the patient's chest tube was removed from the right. She is doing well. She is pulse ox of 95% on 2 L of oxygen by nasal cannula. Pain is under adequate control. Using the incentive spirometer. White cell count of 12.6 with a hemoglobin of 8.2. The BUN is 29 with a creatinine of 1.3 and a sodium level is at 134. No other significant events otherwise for now. Cardiac rhythm is sinus and the patient was also started on beta blockers. Her condition is stable for now.Her blood work from today shows a dull discomfort 12.6 with a hemoglobin of 8.2 and a platelet count of 126. Sodium is 1134, potassium levels at 3.8, B is 29 with a creatinine of 1.35. Reevaluated today on 03/05/2023, patient is now postoperative day #5. Patient is doing well except she went into atrial fibrillation with RVR last night, patient is now on amiodarone drip at 0.5 mg/m. Her rate seems to be better controlled. Chest x-ray is reassuring, minimal atelectasis, and trace of bilateral pleural effusions. Patient is still on 2 L nasal cannula not in any distress. Patient is being evaluated by Dr. Mccallum for possible rehab placement. Her CBC is normal except for hemoglobin of 7.7 and a left psoas are normal BUN is 28 creatinine 1.15 Objective - Vital Signs Vital signs: Vital Signs Temp 98.1 F 03/05/23 12:00 Pulse 81 03/05/23 13:25 Resp 20 03/05/23 13:00 BP 112/72 03/05/23 13:00 Pulse Ox 94 L 03/05/23 13:00 FiO2 2 03/05/23 12:00 Intake & Output 03/04/23 03/05/23 03/05/23 18:59 06:59 18:59 Intake Total 650 450 Output Total 917 445 0353 Balance -80 -450 -1250 Weight 64.3 kg Intake: Oral 650 450 Output: Chest Tube Drainage 80 Chest Tube Right 80 Urine 141 686 7332 Other: Voiding Method Bedside Commode Bedside Commode Bedside Commode External Catheter External Catheter # Voids 1 1 # Bowel Movements 1 ABP, PAP, CO, CI - Last Documented Arterial Blood Pressure 141/44 Pulmonary Artery Pressure 24/7 Cardiac Output 4.2 Cardiac Index 2.6 - Exam Physical Exam: Revealed a 77-year-old female in no distress on 2 L nasal cannula Head: Atraumatic normocephalic. HEENT:[Neck is supple.] [No neck masses.] [No thyromegaly.] [No JVD.] Chest: [Diminished breath sounds at the bases no crackles or rhonchi or wheezes Cardiac Exam: Irregular irregular rhythm. [Normal S1 and S2, no S3 gallop, 2/6 systolic murmur thought the precordium Abdomen: [Soft, nontender, no megaly, no rebound, no guarding, normal bowel sounds.] Extremities: [No clubbing, no edema, no cyanosis.] Neurological Exam: [No focal neurologic deficit.] Alert and oriented 3 focal deficit. Psychiatric: Normal mood affect and normal mental status examination. Skin: No rashes. - Labs CBC & Chem 7: 03/05/23 04:34 03/05/23 04:34 Labs: Abnormal Lab Results - Last 24 Hours (Table) 03/04/23 03/04/23 03/05/23 Range/Units 19:46 20:06 04:34 WBC 10.8 H (3.8-10.6) k/uL RBC 2.59 L (3.80-5.40) m/uL Hgb 7.7 L (11.4-16.0) gm/dL Hct 23.2 L (34.0-46.0) % Neutrophils # 8.5 H (1.3-7.7) k/uL Sodium 132 L (137-145) mmol/L BUN (7-17) mg/dL Creatinine (0.52-1.04) mg/dL Glucose (74-99) mg/dL POC Glucose (mg/dL) 139 H (70-110) mg/dL Calcium (8.4-10.2) mg/dL AST (14-36) U/L ALT (4-34) U/L Total Protein (6.3-8.2) g/dL Albumin (3.5-5.0) g/dL 03/05/23 03/05/23 03/05/23 Range/Units 04:34 06:11 11:51 WBC (3.8-10.6) k/uL RBC (3.80-5.40) m/uL Hgb (11.4-16.0) gm/dL Hct (34.0-46.0) % Neutrophils # (1.3-7.7) k/uL Sodium 131 L (137-145) mmol/L BUN 28 H (7-17) mg/dL Creatinine 1.15 H (0.52-1.04) mg/dL Glucose 109 H (74-99) mg/dL POC Glucose (mg/dL) 135 H 209 H (70-110) mg/dL Calcium 8.0 L (8.4-10.2) mg/dL AST 110 H (14-36) U/L ALT 72 H (4-34) U/L Total Protein 4.8 L (6.3-8.2) g/dL Albumin 2.7 L (3.5-5.0) g/dL Microbiology - Last 24 Hours (Table) 03/03/23 22:49 Urine Culture - Preliminary Urine,Voided Gram Neg Bacilli Assessment and Plan Assessment: Impression: Postop day #5 for a CABG x 3 vessel bypass graft yesterday with a NGUYỄN to the LAD, saphenous vein graft to the PDA, left radial artery to the OM. She also had a mitral valve repair with a #24 Physio II annuloplasty ring, left atrial appendage ligation. Small bilateral pleural effusions, and by basilar atelectasis, expected. Acute blood loss anemia, expected after CABG Chronic kidney disease stage III GFR of 47 Benign essential hypertension Chronic back pain Postoperative atrial fibrillation, expected Recommendation: Continue incentive spirometry Continue amiodarone and transition to oral Continue beta blockers Continue aspirin statins and Plavix Ambulate and consider rehab placement Continue to titrate oxygen accordingly Incentive spirometry. Continue Protonix and GI prophylaxis Continue intermittent diuresis. We will continue to follow. Time with Patient: Less than 30
[2023-03-05 16:32] LABS: Glucose,Whole Blood 117 mg/dL (70-110)
--- NOTE | 2023-03-05 17:13 | P.PN ---
Subjective Progress Note Date: 03/05/23 Patient is evaluated today she is postoperative day #5 3 vessel coronary bypass. Patient remains in the intensive care unit. Has been up ambulating. Requiring 2 L of oxygen via nasal cannula and does report feeling short of breath when ambulating. Chest xray today showing cardiomegaly and trace bilateral pleural effusion with some mild pulmonary vascular congestion. Patient received a one- time dose of IV Lasix today. Indwelling catheter has been removed patient has had 2.3 L of urine output the last 24 hours. She required amiodarone infusion overnight which is currently off and patient is now on oral amiodarone and currently converted to normal sinus rhythm. Urine culture is showing gram-negative bacilli. 10.8, hemoglobin 7.7, sodium 131, potassium is 4.6, BUN 20, creatinine 1.15, blood glucose control to 130s. She has a mildly elevated LFTs. Review of Systems Constitutional: Denied any fatigue denied any fever. Cardio vascular: denied any chest pain, palpitations Gastrointestinal: denied any nausea, vomiting, diarrhea, passing gas, no BM yet. Pulmonary: Reports shortness of breath when up ambulating, no cough Neurologic denied any new focal deficits All inpatient medications were reviewed and appropriate changes in these medications as dictated in the interval history and assessment and plan. PHYSICAL EXAMINATION: GENERAL: The patient is alert and oriented x3, not in any acute distress. Well developed, well nourished. HEENT: Pupils are round and equally reacting to light. EOMI. No scleral icterus. No conjunctival pallor. Normocephalic, atraumatic. No pharyngeal erythema. No thyromegaly. CARDIOVASCULAR: S1 and S2 present. No murmurs, rubs, or gallops. PULMONARY: Chest is clear to auscultation, no wheezing or crackles. ABDOMEN: Soft, nontender, nondistended, normoactive bowel sounds. No palpable organomegaly. MUSCULOSKELETAL: No joint swelling or deformity. EXTREMITIES: No cyanosis, clubbing, or pedal edema. NEUROLOGICAL: Gross neurological examination did not reveal any focal deficits. SKIN: No rashes. Assessment and Plan Assessment Triple-vessel Coronary artery disease status post coronary artery bypass grafting . Paroxysmal atrial fibrillation, converted to normal sinus rhythm on oral amiodarone Bicytopenia with anemia and thrombocytopenia, stable and improving Acute kidney injury, improving Likely an asymptomatic bacteriuria with her culture showing gram-negative bacilli. Patient is not complaining of any urinary symptoms and she is not having any urinary retention. She has no fever and her leukocytosis is likely postoperative. Acute hypoxic respiratory failure post extubation Hypertension Hyperlipidemia Chronic kidney disease stage III Mitral valve prolapse Chronic back pain History of diverticulitis History of right internal carotid artery stenosis GI prophylaxis DVT prophylaxis as per primary Full Code Plan Patient given IV lasix x 1 today per primary services Wean oxygen as tolerated and encourage incentive spirometer Epicardial pacemaker wires have been grounded today Urine culture pending final likely will not need antibiotic therapy Continue blood glucose monitoring ACHS and sliding scale and small dose of l evemir has been added The impression and plan of care has been dictated by Kiki Salazar, Nurse Practitioner as directed. Dr. Jose MD I have performed a history and physical examination and medical decision making of this patient, discussed the same with the dictator, and agree with the dictators assessment and plan as written, documented as a scribe. Based on total visit time, I have performed more than 50% of this visit. Objective - Vital Signs Vital signs: Vital Signs Temp 98.4 F 03/05/23 08:00 Pulse 80 03/05/23 09:24 Resp 23 03/05/23 09:00 BP 119/66 03/05/23 09:00 Pulse Ox 95 03/05/23 09:00 FiO2 40 02/28/23 18:15 Intake & Output 03/04/23 03/05/23 03/05/23 18:59 06:59 18:59 Intake Total 650 250 Output Total 730 450 500 Balance -80 -450 -250 Weight 64.3 kg Intake: Oral 650 250 Output: Chest Tube Drainage 80 Chest Tube Right 80 Urine 650 450 500 Other: Voiding Method Bedside Commode Bedside Commode Bedside Commode External Catheter External Catheter # Voids 1 1 ABP, PAP, CO, CI - Last Documented Arterial Blood Pressure 141/44 Pulmonary Artery Pressure 24/7 Cardiac Output 4.2 Cardiac Index 2.6 - Labs CBC & Chem 7: 03/05/23 04:34 03/05/23 04:34 Labs: Abnormal Lab Results - Last 24 Hours (Table) 03/04/23 03/04/23 03/04/23 Range/Units 11:05 19:46 20:06 WBC (3.8-10.6) k/uL RBC (3.80-5.40) m/uL Hgb (11.4-16.0) gm/dL Hct (34.0-46.0) % Neutrophils # (1.3-7.7) k/uL Sodium 132 L (137-145) mmol/L BUN (7-17) mg/dL Creatinine (0.52-1.04) mg/dL Glucose (74-99) mg/dL POC Glucose (mg/dL) 163 H 139 H (70-110) mg/dL Calcium (8.4-10.2) mg/dL AST (14-36) U/L ALT (4-34) U/L Total Protein (6.3-8.2) g/dL Albumin (3.5-5.0) g/dL 03/05/23 03/05/23 03/05/23 Range/Units 04:34 04:34 06:11 WBC 10.8 H (3.8-10.6) k/uL RBC 2.59 L (3.80-5.40) m/uL Hgb 7.7 L (11.4-16.0) gm/dL Hct 23.2 L (34.0-46.0) % Neutrophils # 8.5 H (1.3-7.7) k/uL Sodium 131 L (137-145) mmol/L BUN 28 H (7-17) mg/dL Creatinine 1.15 H (0.52-1.04) mg/dL Glucose 109 H (74-99) mg/dL POC Glucose (mg/dL) 135 H (70-110) mg/dL Calcium 8.0 L (8.4-10.2) mg/dL AST 110 H (14-36) U/L ALT 72 H (4-34) U/L Total Protein 4.8 L (6.3-8.2) g/dL Albumin 2.7 L (3.5-5.0) g/dL Microbiology - Last 24 Hours (Table) 03/03/23 22:49 Urine Culture - Preliminary Urine,Voided Assessment and Plan Time with Patient: Less than 30
[2023-03-05] MEDS: SENNOSIDES-DOCUSATE SODIUM 1 EACH TAB PO SCH (20:09)
[2023-03-05] MEDS: ATORVASTATIN 40 MG TAB PO SCH (20:10)
[2023-03-05] MEDS: INSULIN DETEMIR (LEVEMIR) 100 UNIT/ML SYR SQ SCH (20:12)
[2023-03-05 20:15] LABS: Glucose,Whole Blood 113 mg/dL (70-110)
[2023-03-06] MEDS: INSULIN DETEMIR (LEVEMIR) 100 UNIT/ML SYR SQ SCH (00:45)
[2023-03-06] MEDS: INSULIN ASPART (NovoLOG) 100 UNIT/ML VIAL SQ SCH ×2 (00:45→06:35)
[2023-03-06] MEDS: ACETAMINOPHEN TAB 325 MG TAB PO PRN ×2 (01:35→05:43)
[2023-03-06] MEDS: HEPARIN SODIUM,PORCINE/PF 5,000 UNIT/0.5 ML SYRINGE SQ SCH ×2 (01:35→09:44)
[2023-03-06 02:09] VITALS: RESP 20
[2023-03-06] MEDS: PANTOPRAZOLE 40 MG TABLET PO SCH (05:43)
[2023-03-06 06:02] LABS: Glucose,Whole Blood 209 mg/dL (70-110)
--- NOTE | 2023-03-06 08:12 | XR ---
EXAMINATION TYPE: XR chest 2V DATE OF EXAM: 03/06/2023 COMPARISON: 03/05/2023 HISTORY: 77-year-old female postop cardiac surgery TECHNIQUE: PA and lateral views FINDINGS: Median sternotomy wires are present with post-CABG clips as well as annuloplasty ring. Heart remains borderline in size. Diffuse interstitial density persists along with mild patchy bibasilar opacities and trace pleural effusions. Overall appearance is unchanged. No appreciable pneumothorax. Overlying external artifacts. IMPRESSION: Similar mild pulmonary vascular congestion. Similar trace pleural effusions with mild patchy bibasila r atelectasis versus patchy pulmonary edema/infiltrate.
[2023-03-06] MEDS: IPRATROPIUM-ALBUTEROL 3 ML NEB INHALATION SCH ×2 (08:29→11:41)
[2023-03-06] MEDS ORDERED: LOSARTAN 25 MG TAB PO SCH ×2 (09:00→12:00)
--- NOTE | 2023-03-06 09:15 | P.PN ---
Subjective Progress Note Date: 03/06/23 Principal diagnosis: Triple-vessel coronary artery disease, mitral valve prolapse with severe mitral regurgitation. Previous medical history of hypertension, hyperlipidemia, chron ic kidney disease stage III, current tobacco dependence, peripheral arterial disease, left internal carotid stenosis 50-79% per Doppler, right internal carotid stenosis 80% during cardiac cath, diverticulitis, family history of premature coronary artery disease in her father. Preoperative thrombocytopenia POD #6 coronary artery bypass graft 3 with the left internal mammary artery to the left anterior descending artery, reverse saphenous vein graft from the aorta to the posterior descending artery, radial artery to the obtuse marginal artery, mitral valve repair with a #24 physio 2 annuloplasty ring, endoscopic left radial and right greater saphenous vein harvest, left atrial appendage ligation with 35 mm AtriClip, epi-aortic ultrasound and intraoperative transesophageal echocardiogram performed by anesthesia Postoperative acute blood loss anemia and thrombocytopenia, expected given h emodilution and cardiopulmonary bypass pump as well as preoperative thrombocytopenia Paroxysmal atrial fibrillation, known common occurrence after open heart surgery, not a complication The patient was seen and examined this morning sitting up in a recliner on the cardiac stepdown unit in no acute distress. Remains in sinus rhythm, hemodynamically stable. Continues on 2 L nasal cannula with oxygen saturation in the high 90s, able to achieve 1000 mL on incentive spirometry. She has been up and ambulatory in the hallway. All lines and tubes have been discontinued. Received first postoperative shower yesterday. Labs pending, chest x-ray reviewed. Anticipate discharge to [facility] this afternoon. No other new concerns. Objective - Vital Signs Vital signs: Vital Signs Temp 97.6 F 03/06/23 04:00 Pulse 87 03/06/23 08:30 Resp 20 03/06/23 04:00 BP 147/65 03/06/23 04:00 Pulse Ox 93 L 03/06/23 08:30 FiO2 2 03/05/23 12:00 Intake & Output 03/05/23 03/06/23 03/06/23 18:59 06:59 18:59 Intake Total 650 1080 Output Total 1900 Balance -1250 1080 Weight 55.7 kg Intake: Oral 650 1080 Output: Urine 1900 Other: Voiding Method Bedside Commode Toilet # Voids 1 # Bowel Movements 1 ABP, PAP, CO, CI - Last Documented Arterial Blood Pressure 141/44 Pulmonary Artery Pressure 24/7 Cardiac Output 4.2 Cardiac Index 2.6 - Exam CONSTITUTIONAL: Appears comfortable, cooperative, no acute distress RESPIRATORY: Lungs sounds diminished bilaterally. Respirations even, nonlab ored. Currently on room 2 L nasal cannula with oxygen saturation 98%. Able to achieve 1000 mL on incentive spirometry. Strong cough. CARDIOVASCULAR: S1, S2 present. Regular rate and rhythm, sinus rhythm on telemetry. Sternum stable. Palpable peripheral pulses bilaterally. No edema present. No calf pain or tenderness noted. Heart hugger in place with patient demonstrating appropriate use. Antiembolism stockings, SCDs present. GASTROINTESTINAL: Abdomen soft, nontender, nondistended. Active bowel sounds present 4 quadrants. Tolerating diet. Positive bowel movement 03/05/23 GENITOURINARY: Continues to void. Output 1900 mL in the last 24 hours INTEGUMENTARY: Skin is warm and dry with evidence of good perfusion. Anterior chest incision well approximated. Left radial artery and right lower extremity EVH site well approximated without redness or drainage. NEUROLOGIC: Cranial nerves II through XII intact MUSKULOSKELETAL: Able to move all extremities, strength equal bilaterally PSYCHIATRIC: Alert and oriented to person place and time, appropriate affect, intact judgment and insight - Allied health notes Allied health notes reviewed: nursing - Labs CBC & Chem 7: 03/05/23 04:34 03/05/23 04:34 Labs: Abnormal Lab Results - Last 24 Hours (Table) 03/05/23 03/05/23 03/05/23 Range/Units 11:51 16:30 20:13 POC Glucose (mg/dL) 209 H 117 H 113 H (70-110) mg/dL 03/06/23 Range/Units 06:00 POC Glucose (mg/dL) 209 H (70-110) mg/dL Microbiology - Last 24 Hours (Table) 03/03/23 22:49 Urine Culture - Preliminary Urine,Voided Gram Neg Bacilli - Imaging and Cardiology Chest x-ray: report reviewed, image reviewed Assessment and Plan Assessment: Triple-vessel coronary artery disease, status post three-vessel CABG Mitral valve prolapse with severe mitral regurgitation status post mitral valve repair History of hypertension Hyperlipidemia, treated, cholesterol 190, LDL 95, triglycerides 161 Chronic kidney disease stage III, baseline creatinine 1.2-1.6, baseline GFR in the 40s Current tobacco dependence, preoperative FEV1 83% of predicted Peripheral arterial disease, preoperative NAIMA on the left 0.99 Left internal carotid stenosis 50-79% per Doppler, right internal carotid stenosis 80% during cardiac cath Diverticulitis Chronic back pain Family history of premature coronary artery disease in her father Preoperative thrombocytopenia Postoperative acute blood loss anemia and thrombocytopenia, expected Postoperative atrial fibrillation, currently in sinus rhythm Plan: Continue to maximize medical management with low-dose aspirin, Plavix, statin, beta devon. Low dose ARB added for afterload reduction Continue amiodarone for afib prophylaxis, no need for anticoagulation Wean O2 as tolerated. Encourage incentive spirometry use 10 times every hour while awake. Bronchodilators per pulmonology Increase activity as tolerated. PT/OT/cardiac rehab following Will monitor daily labs and x-rays. Electrolyte replacement per protocol. Continue iron per home dose GI/DVT prophylaxis Pain control with current medication regimen Insulin management per internal medicine. Patient is not diabetic, preoperative hemoglobin A1c 5.4% Strict accurate intake and output Daily weights Discharge planning in progress, anticipate discharge to [facility] this afternoon Further recommendations to follow based on patient's progress
[2023-03-06 09:43] LABS: HCT 25.5 % (34.0-46.0); HGB 8.2 gm/dL (11.4-16.0); MCH 28.3 pg (25.0-35.0); MCHC 32.3 g/dL (31.0-37.0); MCV 87.7 fL (80.0-100.0); Platelet Count 203 k/uL (150-450); RDW 15.8 % (11.5-15.5); WBC 12.8 k/uL (3.8-10.6)
[2023-03-06] MEDS: FOLIC ACID 1 MG TAB PO SCH (09:44)
[2023-03-06] MEDS: CYANOCOBALAMIN 500 MCG TAB PO SCH (09:44)
[2023-03-06] MEDS: ASPIRIN 81 MG PO SCH (09:44)
[2023-03-06] MEDS: AMIODARONE 200 MG TAB PO SCH (09:44)
[2023-03-06] MEDS: FERROUS SULFATE 325 MG TAB PO SCH (09:44)
[2023-03-06] MEDS: CLOPIDOGREL 75 MG TAB PO SCH (09:44)
[2023-03-06] MEDS: METOPROLOL TARTRATE 50 MG TAB PO SCH (09:44)
[2023-03-06] MEDS: LIDOCAINE 5% PATCH TOPICAL SCH (09:45)
[2023-03-06] MEDS ORDERED: SULFAMETHOX-TMP 800-160MG 1 EACH TAB PO SCH (10:00)
[2023-03-06 10:11] LABS: Calcium 8.4 mg/dL (8.4-10.2); Potassium 4.3 mmol/L (3.5-5.1); Total Protein 5.3 g/dL (6.3-8.2)
[2023-03-06] MEDS ORDERED: LEVOFLOXACIN 500 MG TAB PO SCH (11:00)
--- NOTE | 2023-03-06 11:23 | P.DS ---
Providers Date of admission: 02/28/23 05:31 Expected date of discharge: 03/06/23 Attending physician: Jay Cordon Consults: 02/28/23 12:48 Consult Physician Routine Consulting Provider: Coco Briscoe Consult Reason/Comments: Licensed Practical Vocational Nurse Consult: post cardiac surgery Do you want consulting provider notified?: Yes Consult Physician Routine Consulting Provider: Hanna Herrera Consult Reason/Comments: Calciner Operator Helper Consult: post cardiac surgery Do you want consulting provider notified?: Yes Consult Physician Routine Consulting Provider: Parveen Garcia Consult Reason/Comments: med mgmt; [place] patient Do you want consulting provider notified?: Yes 03/05/23 09:46 Consult Physician Routine Consulting Provider: Lee Michael Consult Reason/Comments: Evaluation for inpatient rehab Do you want consulting provider notified?: Yes Primary care physician: Lola Nieto [facility] Course: FINAL DIAGNOSIS: 1. Triple-vessel coronary artery disease 2. Mitral valve prolapse with severe mitral regurgitation 3. Hypertension 4. Hyperlipidemia, treated, cholesterol 190, LDL 95, triglycerides 161 5. Chronic kidney disease stage III, baseline creatinine 1.2-1.6, baseline GFR in the 40s 6. Current tobacco dependence, preoperative FEV1 83% of predicted 7. Peripheral arterial disease, preoperative NAIMA on the left 0.99 8. Left internal carotid stenosis 50-79% per doppler, right internal carotid stenosis 80% during cardiac cath 9. Diverticulitis 10. Chronic back pain 11. Family history of premature coronary artery disease in her father 12. Preoperative thrombocytopenia 13. Postoperative acute blood loss anemia and thrombocytopenia, expected 14. Postoperative paroxysmal atrial fibrillation, currently in sinus rhythm 15. Enterobacter cloacae UTI, unexpected PRINCIPAL PROCEDURE: 1. Coronary artery bypass graft x 3 with NGUYỄN to LAD, reverse saphenous vein graft from the aorta to the PDA, radial artery to the OM 2. Mitral valve repair with a #24 Physio 2 annuloplasty ring 3. Endoscopic left radial and right greater saphenous vein harvest 4. Left atrial appendage ligation with a 35 mm AtriClip 5. Epi-aortic ultrasound 6. Intraoperative transesophageal echocardiogram performed by anesthesia HISTORY OF PRESENT ILLNESS: This is a 77 year old female patient who follows with Dr. Nieto for primary care and Dr. Lin for cardiology. She had been experiencing increased exertional dyspnea and tiredness. Due to her symptoms and need for cardiac clearance for surgery related to her diverticulitis, she was recommended to undergo heart cathterization which revealed triple-vessel CAD with left main stenosis 70%, proximal circumflex 60%, proximal right with 100% stenosis, and 20-30% mid LAD disease. Transthoracic echo revealed preserved left ventricular function with EF 55%, moderate posteriorly directed mitral regurgitation, and mild tricuspid regurgitation. Consultation was placed to Dr. Cordon from cardiothoracic surgery. She was recommended to undergo transesophageal echocardiogram to further evaluate her mitral valve. MILENA confirmed posteriorly directed moderate mitral regurgitation. The patient was recommended to undergo coronary artery bypass grafting along with mitral valve repair. The usual perioperative course was discussed in detail with the patient, all risks and benefits were explained, all questions were answered, and consent was obtained to proceed with surgery. The patient was scheduled for surgery at the earliest possible date. HOSPITAL COURSE: The patient was brought to the hospital on 02/28/23, taken to the preoperative area, prepared in the usual fashion, and subsequently taken to the operating room where Dr. Cordon performed 3 vessel CABG along with mitral valve repair. Upon completion of surgery the patient was transferred to the cardiovascular intensive care unit where she was recovered and monitored hemodynamically. She was extubated, all lines, tubes, and drips were discontinued when appropriate. Her postoperative course was complex with atrial fibrillation successfully treated with amiodarone, as well as acute blood loss anemia requiring blood transfusion, and UTI requiring antibiotics. She was eventually considered stable and she was transferred to 3 S. cardiac stepdown unit for further monitoring and rehabilitation. Her oxygen was titrated down, she continued to work with physical and occupational therapy, she was tolerating oral diet, her pain was controlled, and she was ready to be discharged to [facility] on postoperative day #6. She received written and verbal instruction regarding her medications, activity restrictions, signs and symptoms requiring physician notification, and follow-up appointments. Patient Condition at Discharge: Stable Plan - Discharge Summary Discharge Rx Participant: No New Discharge Prescriptions: New bisacodyL [Dulcolax] 10 mg RECTAL DAILY PRN suppositor PRN Reason: Constipation Insulin Detemir (Levemir) [Levemir] 6 unit SQ HS each Metoprolol Tartrate [Lopressor] 50 mg PO BID tab Acetaminophen Tab [Tylenol] 650 mg PO Q4HR PRN tab PRN Reason: Fever and/ or Mild Pain Amiodarone [Cordarone] 200 mg PO BID 14 Days tab Losartan [Cozaar] 12.5 mg PO DAILY@1200 tab Sodium Chloride 0.65% Nasal [Deep Sea (Saline)] 2 spray NASAL QID PRN ml PRN Reason: Dry Nasal Passages Ipratropium-Albuterol Nebulize [Duoneb 0.5 mg-3 mg/3 ml Soln] 3 ml INHALATION RT-Q2H PRN each PRN Reason: Shortness Of Breath Or Wheezing Folic Acid 1 mg PO DAILY tab Levofloxacin [Levaquin] 500 mg PO Q24H 7 Days tab Lidocaine 5% Patch [Lidoderm 5% Patch] 1 patch TOPICAL DAILY patch Magnesium Hydroxide [Milk of Magnesia Concentrate] 2,400 mg PO BID PRN ml PRN Reason: Constipation INSULIN ASPART (NovoLOG) [NovoLOG (formulary)] 2 unit SQ AC-TID each INSULIN ASPART (NovoLOG) [NovoLOG (formulary)] 0 unit SQ ACHS each Clopidogrel [Plavix] 75 mg PO DAILY tab Pantoprazole [Protonix] 40 mg PO AC-BRKFST 30 Days tab Sennosides-Docusate Sodium [Senokot-S] 2 each PO HS PRN tab PRN Reason: Constipation Continue Ferrous Sulfate [Iron (65 MG Elemental)] 325 mg PO DAILY Ergocalciferol (Vitamin D2) [Vitamin D2] 50,000 unit PO Q14D Atorvastatin Calcium [Lipitor] 40 mg PO HS Aspirin EC [Ecotrin Low Dose] 81 mg PO DAILY Cyanocobalamin (Vitamin B-12) [Vitamin B-12] 1,000 mcg PO DAILY Discontinued atenoloL 25 mg PO HS amLODIPine BESYLATE/BENAZEPRIL [amLODIPine BESYLATE/BENAZEPRIL 10-40 mg] 1 cap PO DAILY Discharge Medication List Ferrous Sulfate [Iron (65 MG Elemental)] 325 mg PO DAILY 12/21/16 [History] Ergocalciferol (Vitamin D2) [Vitamin D2] 50,000 unit PO Q14D 01/25/17 [History] Aspirin EC [Ecotrin Low Dose] 81 mg PO DAILY 06/05/21 [History] Atorvastatin Calcium [Lipitor] 40 mg PO HS 06/05/21 [History] Cyanocobalamin (Vitamin B-12) [Vitamin B-12] 1,000 mcg PO DAILY 06/05/21 [History] Acetaminophen Tab [Tylenol] 650 mg PO Q4HR PRN tab 03/06/23 [Rx] Amiodarone [Cordarone] 200 mg PO BID 14 Days tab 03/06/23 [Rx] Clopidogrel [Plavix] 75 mg PO DAILY tab 03/06/23 [Rx] Folic Acid 1 mg PO DAILY tab 03/06/23 [Rx] INSULIN ASPART (NovoLOG) [NovoLOG (formulary)] 0 unit SQ ACHS each 03/06/23 [Rx] INSULIN ASPART (NovoLOG) [NovoLOG (formulary)] 2 unit SQ AC-TID each 03/06/23 [Rx] Insulin Detemir (Levemir) [Levemir] 6 unit SQ HS each 03/06/23 [Rx] Ipratropium-Albuterol Nebulize [Duoneb 0.5 mg-3 mg/3 ml Soln] 3 ml INHALATION RT-Q2H PRN each 03/06/23 [Rx] Levofloxacin [Levaquin] 500 mg PO Q24H 7 Days tab 03/06/23 [Rx] Lidocaine 5% Patch [Lidoderm 5% Patch] 1 patch TOPICAL DAILY patch 03/06/23 [Rx] Losartan [Cozaar] 12.5 mg PO DAILY@1200 tab 03/06/23 [Rx] Magnesium Hydroxide [Milk of Magnesia Concentrate] 2,400 mg PO BID PRN ml 0 03/06/23 [Rx] Metoprolol Tartrate [Lopressor] 50 mg PO BID tab 03/06/23 [Rx] Pantoprazole [Protonix] 40 mg PO AC-BRKFST 30 Days tab 03/06/23 [Rx] Sennosides-Docusate Sodium [Senokot-S] 2 each PO HS PRN tab 03/06/23 [Rx] Sodium Chloride 0.65% Nasal [Deep Sea (Saline)] 2 spray NASAL QID PRN ml 03/06/23 [Rx] bisacodyL [Dulcolax] 10 mg RECTAL DAILY PRN suppositor 03/06/23 [Rx] Follow up Appointment(s)/Referral(s): [facility]Cardiac [NON-STAFF] - 4 Weeks (You will receive a phone call in approximately 4-6 weeks for evaluation for cardiac rehab) Josh Lin DO [STAFF PHYSICIAN] - 03/28/23 4:15 pm (At the [place] office) Jay Cordon MD [STAFF PHYSICIAN] - 04/12/23 1:00 pm Lola Nieto MD [Primary Care Provider] - 1 Week (Please make follow up appointm ent upon discharge from [facility]) Coco Briscoe MD [STAFF PHYSICIAN] - 04/05/23 10:30 am Ambulatory/Diagnostic Orders: Complete Blood Count w/diff [LAB.AMB] Time Frame: 3 Days, Location: None Selected Comprehensive Metabolic Panel [LAB.AMB] Time Frame: 3 Days, Location: None Selected Activity/Diet/Wound Care/Special Instructions: DISCHARGE INSTRUCTIONS: 1. No driving for 4 weeks, or until physician gives their ok. 2. The patient should sleep in their own bed, no medical bed needed. 3. Stairs are not an issue. If the bedroom is upstairs, it is advised that the patient go up at night and down in the morning for the first week. Go slowly, using handrail and take 1 step at a time. 4. ACE hose are to be worn for 30 days post surgery or until physician discontinues. 5. Heart hugger is to be worn 100% of the time until physician discontinues.(except when showering) 6. No lifting, pushing, or pulling more than 10 pounds for 12 weeks. The physician will advise of any restriction changes. 7. The patient is expected to continue the prescribed walking program. 8. Continue pain control per as needed orders. 9. Continue with incentive spirometry and splinting/heart hugger until otherwise directed by the physician. 10. Must shower daily using liquid antibacterial soap 11. Routine sternal incision care. No powders, lotions, ointments on incisions. No dressings are necessary on incisions unless they are draining. Dermabond tape is to remain on sternal incision until surgeon follow-up. 12. Please call surgeon/METALLOGRAPHER for temp greater than 101 F or purulent drainage from incisions. 13. You should weigh yourself daily, record and bring log with you to follow up appointments. 14. A Red armband has been placed on the patient. It should be worn for 30 days post discharge from surgery and will be removed by the cardiac surgeons. If an ER visit is necessary, please make sure the number on the Red armband is called before going to ER. DO NOT SEND PATIENT BACK TO ER WITHOUT DISCUSSING WITH CARDIOTHORACIC SURGERY FIRST 16. You have been referred to and are expected to begin Cardiac Rehab in approximately 4-6 weeks. LABORATORY: CBC, CMP TO BE DRAWN ON THE THIRD DAY AT [facility], (RAN STAT) FAX RESULTS TO [phone]. HOME HEALTH SERVICES AFTER DISCHARGE FROM [facility] TO PROVIDE: RN SKILLED HOME CARE SERVICES FOR POST-OP SURGICAL PATIENTS WITH THE FOLLOWING: Coronary Artery Bypass Surgery (CABG), Mitral Valve Replacement/Repair ( MVR), Aortic Valve Replacement/Repair (AVR) RN TO CONTINUE EDUCATION FROM ``ROAD TO A HEALTH HEART PATIENT EDUCATION MANUAL (GIVEN TO PATIENT IN THE HOSPITAL) MEDICATION RECONCILIATION WITH EDUCATION NEEDED ON FIRST HOME VISIT EMPHASIZE IMPORTANCE OF WEARING BREAST SUPPORT/HEART HUGGER ENCOURAGE USE OF INCENTIVE SPIROMETER 10 X EVERY HOUR WHILE AWAKE ENCOURAGE UTILIZATION OF LOWER EXTREMITY COMPRESSION STOCKINGS/ACE HOSE and ELEVATE LEGS ABOVE LEVEL OF HEART WHILE AT REST. ENCOURAGE AMBULATION 3-5x/day INCREASING TOLERATES, WHILE AVOIDING EXTREMES IN TEMPERATURE FREQUENCY: RN TO OPEN THE PATIENT WITHIN 24 HOURS OF DISCHARGE FROM [facility] WITH TELEHEALTH INSTALLED AT [facility], RN TO VISIT 2-3 X A WEEK FOR 4 WEEKS ESTABLISHED BY PATIENT NEEDS. TELEHEALTH PARAMETERS: WEIGHT: NOTIFY MD OF WEIGHT GAIN OF 2 LBS IN 24 HOURS OR 5 LBS IN ONE WEEK HR: NOTIFY MD OF HR <55 BPM OR HR>100 BPM BP: NOTIFY MD IF BP <90/55 OR BP>140/100 O2 SAT: NOTIFY MD IF PO2<93% ON ROOM AIR SEND TELEHEALTH REPORT TO MACHINE TOOL DESIGNER AND CARDIOVASCULAR SURGEON THE FIRST WEEK OF CARE AND THEN BI-WEEKLY. PLEASE ADDITIONALLY COMMUNICATE ANY ABNORMALS AND NEW FINDINGS TO THE SURGEONS OFFICE. Discharge Disposition: TRANSFER TO SNF/ECF
[2023-03-06 11:48] LABS: Glucose,Whole Blood 114 mg/dL (70-110)
[2023-03-06 12:14] VITALS: BP 134/62; PULSE 93; TEMP 98.8
[2023-03-06] MEDS ORDERED: INSULIN ASPART (NovoLOG) 100 UNIT/ML VIAL SQ SCH (12:30)
--- NOTE | 2023-03-06 13:24 | P.PN ---
Subjective Progress Note Date: 03/06/23 PROGRESS NOTE The patient is a 77-year-old female, followed by Dr. iLn who underwent CABG yesterday with NGUYỄN to the LAD, SVG to the right and radial artery to the circumflex. She is extubated, sitting up in the chair. Complaining of back discomfort which is chronic. She has an underlying sinus mechanism and is receiving atrial pacing. She is on no vasopressors. Preoperatively her MILENA showed moderate MR with ejection fraction of 50-55%. The patient has a known history of asymptomatic carotid disease. She has a known history of chronic kidney disease. She presented initially with symptoms of progressive dyspnea, she has a history of chronic smoking of over a pack a day. Her cardiac ca theterization showed 70% left main disease 60-70% proximal circumflex and 100% total occlusion of the proximal RCA. She had an 80% right internal carotid artery stenosis. Her coronary risk factors are positive for hypertension, chronic tobacco use, hyperlipidemia March 02: The patient is sitting up in the chair, she feels tired. She denies any dizziness or palpitations. She is mildly nauseated. She has respirophasic chest pain. She had an episode of atrial fibrillation earlier but is back in sinus mechanism at this time. Hemodynamically she is stable. Her urinary output is good. There is no evidence of ventricular ectopic activity. Chest x- ray with no evidence of pneumothorax and no significant changes. March 03: The patient is sitting up in the chair, feels well. Her breathing is stable. She continues to be in sinus mechanism. She denies any dizziness or palpitations. She denies any nausea or vomiting. She has ambulated. March 04: The patient feels better today, sitting up in the chair, ambulated. She felt tired afterward. She continues to be in sinus mechanism. She has no nausea and her appetite is good. She continues to have a chest tube. She denies any palpi tations. 03/05 Patient seen and examined. Patient had episode of A. fib with RVR was started on amiodarone. She does have mildly increased AST, ALT 110 range. She is back in sinus rhythm. She was somewhat symptomatic during the episode however currently feeling back to her baseline. She denies any chest pain or pressure other than positional. No significant shortness breath. 03/06 She is doing well, OOB in chair. Denies any chest pain. Short of breath with activity. Hgb 8.2, creat 1.39. PHYSICAL EXAMINATION: Vitals reviewed LUNGS: Mild decrease in the breath sounds at the bases HEART: Regular rate and rhythm, S1, S2. No S3. systolic ejection murmur ABDOMEN: Soft, nontender, no organomegaly EXTREMETIES: No edema IMPRESSION: 1. Status post CABG, stable 2. Asymptomatic carotid disease 3. History of hypertension 4. History of hyperlipidemia 5. Paroxysmal atrial fibrillation, maintaining sinus mechanism 6. Worsening renal functions 7. Mild increased liver enzymes PLAN: She is doing well, in sinus rhythm presently. Rehab placement is pending. Continue amiodarone. Continue current regimen. Objective - Vital Signs Vital signs: Vital Signs Temp 98.8 F 03/06/23 12:00 Pulse 93 03/06/23 12:00 Resp 20 03/06/23 12:00 BP 134/62 03/06/23 12:00 Pulse Ox 94 L 03/06/23 12:00 FiO2 2 03/05/23 12:00 Intake & Output 03/05/23 03/06/23 03/06/23 18:59 06:59 18:59 Intake Total 650 1080 240 Output Total 1900 Balance -1250 1080 240 Weight 55.7 kg Intake: Oral 650 1080 240 Output: Urine 1900 Other: Voiding Method Bedside Commode Toilet # Voids 1 1 # Bowel Movements 1 ABP, PAP, CO, CI - Last Documented Arterial Blood Pressure 141/44 Pulmonary Artery Pressure 24/7 Cardiac Output 4.2 Cardiac Index 2.6 - Labs CBC & Chem 7: 03/06/23 08:52 03/06/23 08:52 Labs: Abnormal Lab Results - Last 24 Hours (Table) 03/05/23 03/05/23 03/06/23 Range/Units 16:30 20:13 06:00 WBC (3.8-10.6) k/uL RBC (3.80-5.40) m/uL Hgb (11.4-16.0) gm/dL Hct (34.0-46.0) % RDW (11.5-15.5) % Sodium (137-145) mmol/L Carbon Dioxide (22-30) mmol/L BUN (7-17) mg/dL Creatinine (0.52-1.04) mg/dL POC Glucose (mg/dL) 117 H 113 H 209 H (70-110) mg/dL AST (14-36) U/L ALT (4-34) U/L Total Protein (6.3-8.2) g/dL Albumin (3.5-5.0) g/dL 03/06/23 03/06/23 03/06/23 Range/Units 08:52 08:52 11:46 WBC 12.8 H (3.8-10.6) k/uL RBC 2.90 L (3.80-5.40) m/uL Hgb 8.2 L (11.4-16.0) gm/dL Hct 25.5 L (34.0-46.0) % RDW 15.8 H (11.5-15.5) % Sodium 134 L (137-145) mmol/L Carbon Dioxide 31 H (22-30) mmol/L BUN 23 H (7-17) mg/dL Creatinine 1.39 H (0.52-1.04) mg/dL POC Glucose (mg/dL) 114 H (70-110) mg/dL AST 72 H (14-36) U/L ALT 81 H (4-34) U/L Total Protein 5.3 L (6.3-8.2) g/dL Albumin 3.0 L (3.5-5.0) g/dL Microbiology - Last 24 Hours (Table) 03/03/23 22:49 Urine Culture - Preliminary Urine,Voided Enterobacter cloacae
--- NOTE | 2023-03-06 13:57 | P.PN ---
Subjective Progress Note Date: 03/06/23 03/03/2023, the patient is postoperative day #3. On today's evaluation, she is sitting up on a recliner inches, comfortable. She was doing also daily ambulation's. She is currently on oxygen at 4 L nasal cannula. Her chest x-ray shows some cardiomegaly. Chest tubes weren't adequate locations. Based on that, the left pleural chest tube was removed. Currently she has only a right pleural chest tube which is still draining and this will be kept for another 24 hours. Otherwise, the patient has no specific complaints. Her cardiac rhythm is sinus and she is not requiring any pacing. The white cell count at 60 with a hemoglobin of 7.5 and she did receive a unit of packed RBC yesterday. Platelet counts of 95. BUN is at 34 with a creatinine of 1.3 and a sodium level is at 133. She remains on aspirin. She remains on Plavix. She is also on metoprolol 25 mg by mouth twice a day and this was started. Mitchell for pain control. Using the incentive spirometer. High-dose statins. 03/04/2023, the patient is postoperative day #4. On today's evaluation, the patient a repeat chest x-ray that showed some atelectatic changes bilaterally. It is consistent with postsurgical changes and the patient's chest tube was removed from the right. She is doing well. She is pulse ox of 95% on 2 L of oxygen by nasal cannula. Pain is under adequate control. Using the incentive spirometer. White cell count of 12.6 with a hemoglobin of 8.2. The BUN is 29 with a creatinine of 1.3 and a sodium level is at 134. No other significant events otherwise for now. Cardiac rhythm is sinus and the patient was also started on beta blockers. Her condition is stable for now.Her blood work from today shows a dull discomfort 12.6 with a hemoglobin of 8.2 and a platelet count of 126. Sodium is 1134, potassium levels at 3.8, B is 29 with a creatinine of 1.35. Reevaluated today on 03/05/2023, patient is now postoperative day #5. Patient is doing well except she went into atrial fibrillation with RVR last night, patient is now on amiodarone drip at 0.5 mg/m. Her rate seems to be better controlled. Chest x-ray is reassuring, minimal atelectasis, and trace of bilateral pleural effusions. Patient is still on 2 L nasal cannula not in any distress. Patient is being evaluated by Dr. Mccallum for possible rehab placement. Her CBC is normal except for hemoglobin of 7.7 and a left psoas are normal BUN is 28 creatinine 1.15 The patient is seen today 03/06/2023 in follow-up on the selective care unit. Postoperative day #6. She is currently sitting up in a chair at the bedside. Awake and alert in no acute distress. She is maintaining good O2 saturations in the 90s on room air. She is currently remaining in normal sinus rhythm. Chest x-ray reveals mild pulmonary vascular congestion. Trace pleural effusions. Basilar atelectasis. Continues to work well with the incentive spirometer. She is status post 1 unit of packed red blood cells this admission. Current hemoglobin 8.2. White count 12.8. Sodium 134. Potassium 4.3. Bicarb 31. BUN 23. Creatinine 1.39. Glucose 114. Coronavirus by PCR not detected. Urine culture was positive for Enterobacter cloacae. Antibiotics in the form of Levaquin. She is continued on DuoNeb inhalations. Heparin for DVT prophylaxis. Objective - Vital Signs Vital signs: Vital Signs Temp 98.8 F 03/06/23 12:00 Pulse 93 03/06/23 12:00 Resp 20 03/06/23 12:00 BP 134/62 03/06/23 12:00 Pulse Ox 94 L 03/06/23 12:00 FiO2 2 03/05/23 12:00 Intake & Output 03/05/23 03/06/23 03/06/23 18:59 06:59 18:59 Intake Total 650 1080 240 Output Total 1900 Balance -1250 1080 240 Weight 55.7 kg Intake: Oral 650 1080 240 Output: Urine 1900 Other: Voiding Method Bedside Commode Toilet # Voids 1 1 # Bowel Movements 1 ABP, PAP, CO, CI - Last Documented Arterial Blood Pressure 141/44 Pulmonary Artery Pressure 24/7 Cardiac Output 4.2 Cardiac Index 2.6 - Exam GENERAL EXAM: Alert, very pleasant 77-year-old female, up in a chair at the bedside, on room air, comfortable in no apparent distress. HEAD: Normocephalic. EYES: Normal reaction of pupils, equal size. NOSE: Clear with pink turbinates. THROAT: No erythema or exudates. NECK: No masses, no JVD. CHEST: No chest wall deformity. Sternum stable. Heart currently in place. LUNGS: Equal air entry with no significant crackles, wheeze, rhonchi or dullness. CVS: S1 and S2 normal with no audible murmur, regular rhythm. ABDOMEN: No hepatosplenomegaly, normal bowel sounds, no guarding or rigidity. SPINE: No scoliosis or deformity SKIN: No rashes CENTRAL NERVOUS SYSTEM: No focal deficits, tone is normal in all 4 extremities. EXTREMITIES: SCDs in place. There is no peripheral edema. No clubbing, no cyanosis. Peripheral pulses are intact. - Labs CBC & Chem 7: 03/06/23 08:52 03/06/23 08:52 Labs: Abnormal Lab Results - Last 24 Hours (Table) 03/05/23 03/05/23 03/06/23 Range/Units 16:30 20:13 06:00 WBC (3.8-10.6) k/uL RBC (3.80-5.40) m/uL Hgb (11.4-16.0) gm/dL Hct (34.0-46.0) % RDW (11.5-15.5) % Sodium (137-145) mmol/L Carbon Dioxide (22-30) mmol/L BUN (7-17) mg/dL Creatinine (0.52-1.04) mg/dL POC Glucose (mg/dL) 117 H 113 H 209 H (70-110) mg/dL AST (14-36) U/L ALT (4-34) U/L Total Protein (6.3-8.2) g/dL Albumin (3.5-5.0) g/dL 03/06/23 03/06/23 03/06/23 Range/Units 08:52 08:52 11:46 WBC 12.8 H (3.8-10.6) k/uL RBC 2.90 L (3.80-5.40) m/uL Hgb 8.2 L (11.4-16.0) gm/dL Hct 25.5 L (34.0-46.0) % RDW 15.8 H (11.5-15.5) % Sodium 134 L (137-145) mmol/L Carbon Dioxide 31 H (22-30) mmol/L BUN 23 H (7-17) mg/dL Creatinine 1.39 H (0.52-1.04) mg/dL POC Glucose (mg/dL) 114 H (70-110) mg/dL AST 72 H (14-36) U/L ALT 81 H (4-34) U/L Total Protein 5.3 L (6.3-8.2) g/dL Albumin 3.0 L (3.5-5.0) g/dL Microbiology - Last 24 Hours (Table) 03/03/23 22:49 Urine Culture - Preliminary Urine,Voided Enterobacter cloacae Assessment and Plan Assessment: Postop day #6 for a CABG x 3 vessel bypass graft yesterday with a NGUYỄN to the LAD, saphenous vein graft to the PDA, left radial artery to the OM. She also had a mitral valve repair with a #24 Physio II annuloplasty ring, left atrial appendage ligation. Small bilateral pleural effusions, and by basilar atelectasis, expected. Acute blood loss anemia, expected after CABG Chronic kidney disease stage III GFR of 47 Benign essential hypertension Chronic back pain Postoperative atrial fibrillation, expected Plan: The patient was seen and evaluated Chest x-ray, labs and medications reviewed Stable and on room air Continue to work with the incentive spirometer Cleared for discharge once cleared by CT services Plan is for subacute rehabilitation in [facility] Follow-up in our office in 1 week I have personally seen and examined the patient, performed the documentation and the assessment and plan as written. Number of minutes spent on the visit: 10.
--- NOTE | 2023-03-06 14:09 | P.PN ---
Subjective Progress Note Date: 03/06/23 Patient is evaluated today she is postoperative day #5 3 vessel coronary bypass. Patient remains in the intensive care unit. Has been up ambulating. Requiring 2 L of oxygen via nasal cannula and does report feeling short of breath when ambulating. Chest xray today showing cardiomegaly and trace bilateral pleural effusion with some mild pulmonary vascular congestion. Patient received a one- time dose of IV Lasix today. Indwelling catheter has been removed patient has had 2.3 L of urine output the last 24 hours. She required amiodarone infusion overnight which is currently off and patient is now on oral amiodarone and currently converted to normal sinus rhythm. Urine culture is showing gram-negative bacilli. 10.8, hemoglobin 7.7, sodium 131, potassium is 4.6, BUN 20, creatinine 1.15, blood glucose control to 130s. She has a mildly elevated LFTs. Patient is evaluated today on the stepdown unit post 3 vessel coronary artery bypass grafting. patient was moved out of the ICU yesterday. She continues to report lower back pain 04/21 which is improving down to a 3 with the lidocaine patch that has been added. Patient receiving oral tylenol for the surgical pain does have some pain to the chest wall. Otherwise patient has been weaned off oxygen and saturations have been around 94% and encouraged to continue with the IS. Chest xray today showing similar mild pulmonary vascular congestion. Similar trace pleural effusions with mild patchy bibasilar atelectasis versus patchy pulmonary edema/infiltrate. Losartan has been decreased to 12.5 daily. Patient has been started on oral levofloxacin by primary for the enterococcus found in the urine culture. Sodium level today is 134. Glucose has improved to 114 today after patient had increased in novolog and levemir. Patient has been cleared by primary service, cardiothoracic to go to rehab today. Review of Systems Constitutional: Denied any fatigue denied any fever. Cardio vascular: denied any chest pain, palpitations Gastrointestinal: denied any nausea, vomiting, diarrhea, passing gas, no BM yet. Pulmonary: Reports shortness of breath when up ambulating, no cough Neurologic denied any new focal deficits All inpatient medications were reviewed and appropriate changes in these medications as dictated in the interval history and assessment and plan. PHYSICAL EXAMINATION: GENERAL: The patient is alert and oriented x3, not in any acute distress. Well developed, well nourished. HEENT: Pupils are round and equally reacting to light. EOMI. No scleral icterus. No conjunctival pallor. Normocephalic, atraumatic. No pharyngeal erythema. No thyromegaly. CARDIOVASCULAR: S1 and S2 present. No murmurs, rubs, or gallops. PULMONARY: Chest is clear to auscultation, no wheezing or crackles. ABDOMEN: Soft, nontender, nondistended, normoactive bowel sounds. No palpable organomegaly. MUSCULOSKELETAL: No joint swelling or deformity. EXTREMITIES: No cyanosis, clubbing, or pedal edema. NEUROLOGICAL: Gross neurological examination did not reveal any focal deficits. SKIN: No rashes. Assessment and Plan Assessment Triple-vessel Coronary artery disease status post coronary artery bypass grafting . Paroxysmal atrial fibrillation, converted to normal sinus rhythm on oral amiodarone Bicytopenia with anemia and thrombocytopenia, stable and improving Acute kidney injury, improving Likely an asymptomatic bacteriuria with her culture showing gram-negative bacilli. Patient is not complaining of any urinary symptoms and she is not having any urinary retention. She has no fever and her leukocytosis is likely postoperative. Acute hypoxic respiratory failure post extubation Hypertension Hyperlipidemia Chronic kidney disease stage III Mitral valve prolapse Chronic back pain History of diverticulitis History of right internal carotid artery stenosis GI prophylaxis DVT prophylaxis as per primary Full Code Plan Continue same insulin regimen for discharge to rehab. Continue to encourage incentive spirometer Patient has been started on oral levofloxacin for discharge by primary service Recommend to follow up with lab work outpatient Patient pending discharge to subacute rehab today. Thank you kindly for this consultation. The impression and plan of care has been dictated by Kiki Salazar, Nurse Practitioner as directed. Dr. Jose MD I have performed a history and physical examination and medical decision making of this patient, discussed the same with the dictator, and agree with the dictators assessment and plan as written, documented as a scribe. Based on total visit time, I have performed more than 50% of this visit. Objective - Vital Signs Vital signs: Vital Signs Temp 98.8 F 03/06/23 12:00 Pulse 93 03/06/23 12:00 Resp 20 03/06/23 12:00 BP 134/62 03/06/23 12:00 Pulse Ox 94 L 03/06/23 12:00 FiO2 2 03/05/23 12:00 Intake & Output 03/05/23 03/06/23 03/06/23 18:59 06:59 18:59 Intake Total 650 1080 240 Output Total 1900 Balance -1250 1080 240 Weight 55.7 kg Intake: Oral 650 1080 240 Output: Urine 1900 Other: Voiding Method Bedside Commode Toilet # Voids 1 1 # Bowel Movements 1 ABP, PAP, CO, CI - Last Documented Arterial Blood Pressure 141/44 Pulmonary Artery Pressure 24/7 Cardiac Output 4.2 Cardiac Index 2.6 - Labs CBC & Chem 7: 03/06/23 08:52 03/06/23 08:52 Labs: Abnormal Lab Results - Last 24 Hours (Table) 03/05/23 03/05/23 03/06/23 Range/Units 16:30 20:13 06:00 WBC (3.8-10.6) k/uL RBC (3.80-5.40) m/uL Hgb (11.4-16.0) gm/dL Hct (34.0-46.0) % RDW (11.5-15.5) % Sodium (137-145) mmol/L Carbon Dioxide (22-30) mmol/L BUN (7-17) mg/dL Creatinine (0.52-1.04) mg/dL POC Glucose (mg/dL) 117 H 113 H 209 H (70-110) mg/dL AST (14-36) U/L ALT (4-34) U/L Total Protein (6.3-8.2) g/dL Albumin (3.5-5.0) g/dL 03/06/23 03/06/23 03/06/23 Range/Units 08:52 08:52 11:46 WBC 12.8 H (3.8-10.6) k/uL RBC 2.90 L (3.80-5.40) m/uL Hgb 8.2 L (11.4-16.0) gm/dL Hct 25.5 L (34.0-46.0) % RDW 15.8 H (11.5-15.5) % Sodium 134 L (137-145) mmol/L Carbon Dioxide 31 H (22-30) mmol/L BUN 23 H (7-17) mg/dL Creatinine 1.39 H (0.52-1.04) mg/dL POC Glucose (mg/dL) 114 H (70-110) mg/dL AST 72 H (14-36) U/L ALT 81 H (4-34) U/L Total Protein 5.3 L (6.3-8.2) g/dL Albumin 3.0 L (3.5-5.0) g/dL Microbiology - Last 24 Hours (Table) 03/03/23 22:49 Urine Culture - Preliminary Urine,Voided Enterobacter cloacae Assessment and Plan Time with Patient: Less than 30
[2023-03-06] MEDS ORDERED: INSULIN DETEMIR (LEVEMIR) 100 UNIT/ML SYR SQ SCH (21:00)
[2023-03-10] MEDS ORDERED: ERGOCALCIFEROL 1,250 MCG (50,000 IU) CAPSULE PO SCH (09:00)
== END 2023-03-06 14:05 | DRG 219 ==
LOC: 2ORMAIN 05:31 → 2SICU 12:47 → 3SCARD 03-05 17:43
PROVIDERS: ADMIT Thoracic Surgery (Cardiothoracic Vascular Surgery); ATTEND Thoracic Surgery (Cardiothoracic Vascular Surgery)
PROC: 02100A3 Bypass Coronary Artery, One Artery from Coronary Artery with Autologous Arterial Tissue, Open Approach (ICD-10-PCS; 2023-02-28)
PROC: 5A1221Z Performance of Cardiac Output, Continuous (ICD-10-PCS; 2023-02-28)
PROC: 02L70CK Occlusion of Left Atrial Appendage with Extraluminal Device, Open Approach (ICD-10-PCS; 2023-02-28)
PROC: B24BZZ4 Ultrasonography of Heart with Aorta, Transesophageal (ICD-10-PCS; 2023-02-28)
PROC: 02UG0JZ Supplement Mitral Valve with Synthetic Substitute, Open Approach (ICD-10-PCS; principal; 2023-02-28 08:00)
PROC: 03BC4ZZ Excision of Left Radial Artery, Percutaneous Endoscopic Approach (ICD-10-PCS; 2023-02-28 08:00)
PROC: 06BP4ZZ Excision of Right Saphenous Vein, Percutaneous Endoscopic Approach (ICD-10-PCS; 2023-02-28 08:00)
PROC: 02100ZC Bypass Coronary Artery, One Artery from Thoracic Artery, Open Approach (ICD-10-PCS; 2023-02-28 08:00)
PROC: 021009W Bypass Coronary Artery, One Artery from Aorta with Autologous Venous Tissue, Open Approach (ICD-10-PCS; 2023-02-28 08:00)
PROC: 30233N1 Transfusion of Nonautologous Red Blood Cells into Peripheral Vein, Percutaneous Approach (ICD-10-PCS; 2023-03-02)
DX: I25.10 Atherosclerotic heart disease of native coronary artery without angina pectoris (principal); J96.01 Acute respiratory failure with hypoxia; D62 Acute posthemorrhagic anemia; N39.0 Urinary tract infection, site not specified; Z16.24 Resistance to multiple antibiotics; N17.9 Acute kidney failure, unspecified; D69.6 Thrombocytopenia, unspecified; I25.82 Chronic total occlusion of coronary artery; I73.9 Peripheral vascular disease, unspecified; I12.9 Hypertensive chronic kidney disease with stage 1 through stage 4 chronic kidney disease, or unspecified chronic kidney disease; N18.30 Chronic kidney disease, stage 3 unspecified; I65.23 Occlusion and stenosis of bilateral carotid arteries; I08.1 Rheumatic disorders of both mitral and tricuspid valves; F17.210 Nicotine dependence, cigarettes, uncomplicated; G89.29 Other chronic pain; E78.5 Hyperlipidemia, unspecified; M54.50 Low back pain, unspecified; I48.0 Paroxysmal atrial fibrillation; B96.89 Other specified bacterial agents as the cause of diseases classified elsewhere; B96.5 Pseudomonas (aeruginosa) (mallei) (pseudomallei) as the cause of diseases classified elsewhere; M54.2 Cervicalgia; R82.71 Bacteriuria; R00.1 Bradycardia, unspecified; Z20.822 Contact with and (suspected) exposure to COVID-19; Z28.311 Partially vaccinated for COVID-19; Z88.5 Allergy status to narcotic agent; Z88.1 Allergy status to other antibiotic agents; Z79.82 Long term (current) use of aspirin; Z87.19 Personal history of other diseases of the digestive system; Z79.899 Other long term (current) drug therapy; Z82.49 Family history of ischemic heart disease and other diseases of the circulatory system
CPT/HCPCS: 71045; 71046; 80051; 80053; 80074; 81001; 82330; 82607; 82746; 82805; 83735; 85025; 85027; 85610; 85730; 86850; 86891; 86900; 86901; 86920; 87077; 87086; 87186; 87635; 94002; 94640; 94760

== ENCOUNTER → 2023-03-29 | Outpatient (CLI) | payer MEDICARE, OTHER ==
--- NOTE | 2023-03-29 15:57 | XR ---
EXAMINATION TYPE: XR chest 2V DATE OF EXAM: 03/29/2023 COMPARISON: 03/06/2023 INDICATION: Short of breath TECHNIQUE: Single frontal view of the chest is obtained. FINDINGS: The heart size is mildly prominent. The pulmonary vasculature is normal. Small to moderate left pleural effusion is present. Small right pleural effusion is present. There ar e worsening prior examination. Sternotomy wires are present from prior CABG and cardiac valve surgery. IMPRESSION: 1. Increasing small right and moderate left pleural effusions. 2. Cardiomegaly
[2023-03-29 20:52] LABS: Basophils # (A) 0.04 X 10*3/uL (0.00-0.10); Basophils % (A) 0.4 %; Eosinophils # (A) 0.48 X 10*3/uL (0.04-0.35); Eosinophils % (A) 4.8 %; HCT 29.2 % (37.2-46.3); HGB 8.6 g/dL (12.0-15.0); Immature Grans, Automated 0.6 %; Lymphocytes # (A) 1.29 X 10*3/uL (0.90-5.00); Lymphocytes % (A) 12.9 %; MCH 26.3 pg (27.0-32.0); MCHC 29.5 g/dL (32.0-37.0); MCV 89.3 fL (80.0-97.0); Mean Platelet Volume 11.3 fL (9.5-12.2); Monocytes # (A) 0.92 X 10*3/uL (0.20-1.00); Monocytes % (A) 9.2 %; NRBC Per 100 WBC 0 /100 WBCS (0.0-0.0); Neutrophils # (A) 7.22 X 10*3/uL (1.80-7.70); Neutrophils % (A) 72.1 %; Platelet Count 230 X 10*3/uL (140-440); RBC 3.27 X 10*6/uL (4.10-5.20); RDW 15.3 % (11.5-14.5); WBC 10.01 X 10*3/uL (4.50-10.00)
[2023-03-29 21:30] LABS: African American GFR (CKD) 51.2 (60.0-200.0); Albumin 3.6 g/dL (3.8-4.9); Albumin/Globulin Ratio 1.33 (1.60-3.17); Anion Gap 10.8 mmol/L (10.00-18.00); BUN/Creat Ratio 10.75 Ratio (12.00-20.00); Blood Urea Nitrogen 12.9 mg/dL (9.0-27.0); Calcium 9.1 mg/dL (8.7-10.3); Carbon Dioxide 27.2 mmol/L (20.0-27.5); Globulin 2.7 g/dL (1.6-3.3); Non-African American GFR(CKD) 44.2 (60.0-200.0); Potassium 4.4 mmol/L (3.5-5.5); Total Bilirubin 0.4 mg/dL (0.30-1.20); Total Protein 6.3 g/dL (6.2-8.2)
== END | disposition home or self-care (01) ==
LOC: RADXRMAIN 12:55
PROVIDERS: ATTEND Thoracic Surgery (Cardiothoracic Vascular Surgery)
DX: J90 Pleural effusion, not elsewhere classified (principal); I51.7 Cardiomegaly; I25.10 Atherosclerotic heart disease of native coronary artery without angina pectoris; I35.1 Nonrheumatic aortic (valve) insufficiency; R06.02 Shortness of breath
CPT/HCPCS: 71046; 80053; 84443; 85025

== ENCOUNTER → 2023-03-30 | Outpatient (CLI) | payer MEDICARE, OTHER ==
--- NOTE | 2023-03-30 14:59 | US ---
EXAMINATION TYPE: US chest DATE OF EXAM: 03/30/2023 COMPARISON: Chest x-ray from yesterday CLINICAL INDICATION: Female, 77 years old with history of R06.02 SHORTNESS OF BREATH; SOB open heart surgery x 1 month ago. TECHNIQUE: Targeted ultrasound of the posterior lower bilateral hemithoraces EXAM MEASUREMENTS: Right Pleural Effusion pocket size: 8 cm Right skin surface to fluid distance: 1.4 cm lung tissue visualized at 2.2 cm. Left Pleural Effusion pocket size: 6.5 cm Left skin surface to fluid distance: 1.5 cm lung tissue visualized at 2.9 cm. Right side marked for possible thoracentesis outside the dept. Left side marked for possible thoracentesis outside the dept. Pulmonologists are able to review the images in the patient?s EMR. Small bilateral pleural effusions seen on images saved correlate with x-ray from one day earlier. IMPRESSIONS: As above.
== END | disposition home or self-care (01) ==
LOC: RADUSWWP 14:24
PROVIDERS: ATTEND Thoracic Surgery (Cardiothoracic Vascular Surgery)
DX: J90 Pleural effusion, not elsewhere classified (principal); R06.02 Shortness of breath
CPT/HCPCS: 76604

== ENCOUNTER 2023-04-01 12:38 | Emergency (ER) | payer MEDICARE, OTHER ==
[2023-04-01] MEDS ORDERED: SODIUM CHLORIDE 0.9% 500 ML 500 ML IV STA (13:31)
[2023-04-01 14:00] LABS: Basophils % (A) 0 %; Eosinophils # (A) 0.4 k/uL (0-0.7); Eosinophils % (A) 5 %; HCT 26.6 % (34.0-46.0); HGB 8.5 gm/dL (11.4-16.0); Hypochromasia Moderate; Lymphocytes # (A) 1.1 k/uL (1.0-4.8); Lymphocytes % (A) 15 %; MCH 26.3 pg (25.0-35.0); Mean Platelet Volume 8.4; Monocytes # (A) 0.6 k/uL (0-1.0); Monocytes % (A) 7 %; Neutrophils # (A) 5.3 k/uL (1.3-7.7); Neutrophils % (A) 70 %; Platelet Count 218 k/uL (150-450); Poikilocytosis Slight; RBC 3.23 m/uL (3.80-5.40); RDW 15.3 % (11.5-15.5); WBC 7.5 k/uL (3.8-10.6)
[2023-04-01 14:02] LABS: Albumin 3.4 g/dL (3.5-5.0); Calcium 8.7 mg/dL (8.4-10.2); Potassium 4.1 mmol/L (3.5-5.1); Total Bilirubin 0.6 mg/dL (0.2-1.3); Total Protein 6.2 g/dL (6.3-8.2)
[2023-04-01 14:04] LABS: MCV 82.2 fL (80.0-100.0)
--- NOTE | 2023-04-01 14:04 | CT ---
EXAMINATION TYPE: CT abdomen pelvis wo con CT DLP: 473.5 mGycm, Automated exposure control for dose reduction was used. DATE OF EXAM: 04/01/2023 1:50 PM COMPARISON: CT abdomen pelvis most recent 06/05/2021, 04/10/2022 CLINICAL INDICATION:Female, 77 years old with history of pain; LLQ pain, hx diverticulitis. Recent op en heart sx TECHNIQUE: Axial CT of the abdomen and pelvis. Sagittal and coronal reformats were created on a [employer] workstation. Contrast used: None Oral contrast used: without Oral Contrast FINDINGS: LOWER CHEST: Small bilateral pleural effusions. The heart is enlarged for size with coronary artery c alcifications and post valvular repair changes the mitral valve. There is intralobular septal thicken ing. ABDOMEN LIVER: Unremarkable GALLBLADDER AND BILE DUCTS: Layering increased densities within the lumen consistent with gallstones are present. PANCREAS: Unremarkable. SPLEEN: Unremarkable. ADRENAL GLANDS: Left 27 mm adrenal adenoma. Residual glands unremarkable. KIDNEYS AND URETERS: Atrophic right kidney with multiple cortical probable cyst. No evidence of hydro nephrosis or renal calculus. The ureters are unremarkable. PELVIS BLADDER: Unremarkable REPRODUCTIVE: Endometrium is thickened measuring up to 2.5 cm. ABDOMEN & PELVIS STOMACH AND BOWEL: No evidence of bowel obstruction. PERITONEUM/RETROPERITONEUM: No evidence of pneumoperitoneum or free fluid. VASCULATURE: No evidence of aortic aneurysm. Infrarenal aortic aneurysm up to 2.8 cm previously 2.5 c m in 2020. Multiple tortuous vessels are seen in the left inguinal region and left anterior thigh. MUSCULOSKELETAL: No acute osseous abnormalities LYMPH NODES: No gross evidence for lymphadenopathy. SOFT TISSUE/ABDOMINAL WALL: Unremarkable IMPRESSION: 1. No evidence of acute left lower quadrant process definitively visualized. Scattered colonic diver ticula. 2. Endometrial thickening measuring up to 3.5 cm further evaluation with ultrasound is recommended. This is new from prior. 3. Cardiomegaly with bilateral pleural effusions correlate for congestive heart failure. 4. Infrarenal aortic aneurysm measuring up to 2.8 cm. 5. Cholelithiasis. 6. Left adrenal adenoma. 7. Atrophic right kidney removed 8. Tortuous left lower extremity proximal vasculature.
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
--- NOTE | 2023-04-01 15:11 | XR ---
EXAMINATION TYPE: XR chest 1V DATE OF EXAM: 04/01/2023 COMPARISON: Chest x-ray 3 days ago HISTORY: Chest pain. TECHNIQUE: Single AP portable frontal upright view of the chest is obtained. FINDINGS: Persistent cardiomegaly. Overlying sternal wires and mediastinal clips lung with left atr ial appendage clip are all redemonstrated along with cardiac valvular ring. Cardiomegaly with small b ilateral pleural effusions remains present and associated bibasilar opacity. Osseous structures are i ntact. IMPRESSION: Cardiomegaly with small left greater than right pleural effusions and associated bibasil ar opacity favoring compressive atelectasis. No significant change from most recent x-ray.
[2023-04-01 16:19] LABS: Appearance,Urine Cloudy (Clear); Bilirubin,Urine Negative (Negative); Blood,Urine Trace (Negative); Color,Urine Yellow; Glucose,Urine (UA) Negative (Negative); Ketones,Urine Negative (Negative); Leukocyte Esterase,Urine Large (Negative); Mucus,Urine Rare /hpf; Nitrite,Urine Negative (Negative); Protein,Urine Trace (Negative); RBC,Urine 8 /hpf (0-5); Specific Gravity,Urine 1.019 (1.001-1.035); Squamous Epithelial Cell,Urine 4 /hpf (0-4); Urobilinogen,Urine <2.0 mg/dL (<2.0); WBC,Urine 89 /hpf (0-5)
[2023-04-01] MEDS ORDERED: cefTRIAXone IN SWFI 1,000 MG/10 ML SYRINGE IVP STA (16:30)
[2023-04-01 17:33] VITALS: BP 152/68; PULSE 87; RESP 18; TEMP 98.6
== END 2023-04-01 16:40 | disposition home or self-care (01) ==
LOC: EC 12:38
DX: N26.1 Atrophy of kidney (terminal) (principal); D35.02 Benign neoplasm of left adrenal gland; I10 Essential (primary) hypertension; E78.5 Hyperlipidemia, unspecified; J90 Pleural effusion, not elsewhere classified; K80.20 Calculus of gallbladder without cholecystitis without obstruction; K57.30 Diverticulosis of large intestine without perforation or abscess without bleeding; Z79.02 Long term (current) use of antithrombotics/antiplatelets; Z79.82 Long term (current) use of aspirin; Z79.899 Other long term (current) drug therapy; Z82.49 Family history of ischemic heart disease and other diseases of the circulatory system; Z88.1 Allergy status to other antibiotic agents; Z88.5 Allergy status to narcotic agent; Z87.891 Personal history of nicotine dependence
CPT/HCPCS: 36415; 80053; 83605; 83690; 85025; 81001; 71045; 74176; 99284; 96374; J0696

== ENCOUNTER 2023-05-21 13:44 | Emergency (ER) | payer MEDICARE, OTHER ==
[2023-05-21 14:56] LABS: Anisocytosis Slight; Basophils % (A) 0 %; Eosinophils # (A) 0.3 k/uL (0-0.7); Eosinophils % (A) 3 %; HCT 29.5 % (34.0-46.0); HGB 9.5 gm/dL (11.4-16.0); Hypochromasia Moderate; Lymphocytes % (A) 10 %; MCH 25.2 pg (25.0-35.0); MCV 78.5 fL (80.0-100.0); Mean Platelet Volume 7.8; Microcytosis Slight; Monocytes # (A) 0.7 k/uL (0-1.0); Monocytes % (A) 7 %; Neutrophils # (A) 7.8 k/uL (1.3-7.7); Neutrophils % (A) 79 %; Platelet Count 233 k/uL (150-450); RBC 3.76 m/uL (3.80-5.40); RDW 17.5 % (11.5-15.5); WBC 9.9 k/uL (3.8-10.6)
[2023-05-21 15:08] LABS: ALT 21 U/L (4-34); AST 23 U/L (14-36); African American GFR (CKD) 54 (>60 ml/min/1.73 sqM); Albumin 3.5 g/dL (3.5-5.0); Alkaline Phosphatase 81 U/L (38-126); Anion Gap 8 mmol/L; Blood Urea Nitrogen 16 mg/dL (7-17); Calcium 8.9 mg/dL (8.4-10.2); Carbon Dioxide 24 mmol/L (22-30); Chloride 104 mmol/L (98-107); Glucose 108 mg/dL (74-99); Magnesium 1.9 mg/dL (1.6-2.3); Non-African American GFR(CKD) 46 (>60 ml/min/1.73 sqM); Potassium 4.3 mmol/L (3.5-5.1); Sodium 136 mmol/L (137-145); Total Bilirubin 0.5 mg/dL (0.2-1.3); Total Protein 6.5 g/dL (6.3-8.2)
[2023-05-21 15:19] LABS: Partial Thromboplastin Time 23.1 sec (22.0-30.0); Prothrombin Time 10.1 sec (9.0-12.0)
[2023-05-21 15:31] VITALS: RESP 18; TEMP 99
--- NOTE | 2023-05-21 15:40 | CT ---
EXAMINATION TYPE: CT abdomen pelvis w con CT DLP: 674.4 mGycm, Automated exposure control for dose reduction was used. DATE OF EXAM: 05/21/2023 3:25 PM COMPARISON: CT abdomen pelvis most recent from most recent 04/01/2023. CLINICAL INDICATION:Female, 77 years old with history of gi bleed; rectal and vaginal bleeding TECHNIQUE: Axial CT of the abdomen and pelvis. Sagittal and coronal reformats were created on a Patient Feed workstation. Contrast used:100 mL of Isovue 300 with IV Contrast, (none if empty) Oral contrast used: without Oral Contrast (none if empty) FINDINGS: LOWER CHEST: Trace bilateral pleural effusions. ABDOMEN LIVER: Unremarkable GALLBLADDER AND BILE DUCTS: Calcifications along the wall of the gallbladder. PANCREAS: Unremarkable. SPLEEN: Unremarkable. ADRENAL GLANDS: Left adrenal nodule as seen dating back to at least 2013 most compatible with on prio r studies with lipid rich adrenal adenoma. The right atrial glands unremarkable. KIDNEYS AND URETERS: No evidence of hydronephrosis or renal calculus. The ureters are unremarkable. Slightly asymmetrically decreased right renal size. Symmetric bilateral nephrograms. Inocente PELVIS BLADDER: Incompletely distended but grossly unremarkable. REPRODUCTIVE: Layering fluid air level within the uterus/endometrium. ABDOMEN & PELVIS STOMACH AND BOWEL: No evidence of bowel obstruction. Scattered colonic diverticula present. No gastro intestinal hemorrhage visualized. PERITONEUM/RETROPERITONEUM: No evidence of pneumoperitoneum or free fluid. VASCULATURE: Infrarenal fusiform dilation up to 2.7 cm stable from prior 04/10/2022. Moderate to sever e atherosclerosis of the arterial vasculature. MUSCULOSKELETAL: No acute osseous abnormalities. Moderate disc degeneration changes are present throu ghout the thoracolumbar spine. LYMPH NODES: No gross evidence for lymphadenopathy. SOFT TISSUE/ABDOMINAL WALL: Fat-containing umbilical hernia. IMPRESSION: 1. Endometrial gas/fluid level correlate with history of any treatment. Veins could represent infect ion versus other etiologies. Correlate with recent instrumentation. Direct visualization may be of be nefit. Gynecologic consultation recommended. 2. No evidence for gastrointestinal hemorrhage visualized. 3. Urinary bladder is relatively unremarkable however only partially distended. 4. Ectasia of the infrarenal abdominal aorta up to 2.7 cm. 5. Trace bilateral pleural effusions. 6. Gallbladder wall calcifications which could represent porcelain gallbladder which puts the patien t increased risk for gallbladder malignancy. 7. Colonic diverticulosis.
[2023-05-21 17:16] VITALS: BP 158/74; PULSE 80
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
== END 2023-05-21 17:25 | disposition home or self-care (01) ==
LOC: EC 13:44
DX: K57.30 Diverticulosis of large intestine without perforation or abscess without bleeding (principal); N93.9 Abnormal uterine and vaginal bleeding, unspecified; J90 Pleural effusion, not elsewhere classified; I10 Essential (primary) hypertension; E78.5 Hyperlipidemia, unspecified; Z79.82 Long term (current) use of aspirin; Z79.02 Long term (current) use of antithrombotics/antiplatelets; Z79.899 Other long term (current) drug therapy; Z87.891 Personal history of nicotine dependence; Z88.1 Allergy status to other antibiotic agents; Z88.5 Allergy status to narcotic agent
CPT/HCPCS: 36415; 74177; 80053; 83735; 84484; 85025; 85610; 85730; 86850; 86900; 86901; 93005; 99285

== ENCOUNTER → 2023-10-24 | Outpatient (CLI) | payer MEDICARE, OTHER ==
--- NOTE | 2023-10-24 19:06 | US ---
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 Indirect Doppler criteria was utilized. FINDINGS: EXAM MEASUREMENTS: RIGHT: Peak Systolic Velocity (PSV) cm/sec ----- Right CCA: 72.9 ----- Right ICA: 302.1 ----- Right ECA: 453.3 ICA/CCA ratio: 4.1 RIGHT: End Diastole cm/sec ----- Right CCA: 21.5 ----- Right ICA: 102.5 ----- Right ECA: 96.3 LEFT: Peak Systolic Velocity (PSV) cm/sec ----- Left CCA: 122.1 ----- Left ICA: 317.8 ----- Left ECA: 215.1 ICA/CCA ratio: 2.6 LEFT: End Diastole cm/sec ----- Left CCA: 30.8 ----- Left ICA: 78.6 ----- Left ECA: 13.0 VERTEBRALS (direction of flow): Right Vertebral: Antegrade Left Vertebral: Antegrade Rhythm: Normal FIELD PIPE LINES SUPERVISOR NOTES: Moderate to severe plaque bilateral bifurcations. Increased velocities bilateral E CA's and ICA's IMPRESSION: Atheromatous plaquing bilateral carotid bifurcations. There is marked elevation of the bilateral inte rnal carotid artery velocities compatible with severe stenosis greater than 70% at the bilateral inte rnal carotid arteries. Criteria for Assigning % of Stenosis / Diameter reduction (Estimation based on the indirect measurements of the internal carotid artery velocities (ICA PSV). 1. Normal (no stenosis)=ICA PSV < 125 cm/s: ratio < 2.0: ICA EDV<40 cm/s. 2. Less than 50% stenosis=ICA PSV < 125 cm/s: ratio < 2.0: ICA EDV<40 cm/s. 3. 50 to 69% stenosis=ICA PSV of 125 to 230 cm/s: ration 2.0 ? 4.0: ICA EDV 40-100 cm/s. 4. Greater than 70% stenosis to near occlusion= ICA PSV > 230 cm/s: ratio > 4.0: ICA EDV > 100 cm/s. 5. Near occlusion= ICA PSV velocities may be low or undetectable: variable ratio and ICA EDV. 6. Total occlusion=unable to detect flow.
== END | disposition home or self-care (01) ==
LOC: RADUSWWP 10:45
PROVIDERS: ATTEND Internal Medicine
DX: I65.23 Occlusion and stenosis of bilateral carotid arteries (principal); R42 Dizziness and giddiness
CPT/HCPCS: 93880

== ENCOUNTER 2023-10-26 09:12 | Emergency (ER) | payer MEDICARE, OTHER ==
[2023-10-26] MEDS ORDERED: dexAMETHasone 4 MG TAB PO STA (09:31)
[2023-10-26] MEDS ORDERED: ACETAMINOPHEN TAB 500 MG TAB PO STA (09:31)
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
[2023-10-26 09:43] VITALS: RESP 18
[2023-10-26] MEDS ORDERED: AMOXIC-POT CLAV 875-125MG 1 EACH TAB PO STA (11:11)
[2023-10-26 11:29] VITALS: BP 171/73; PULSE 90; TEMP 98.3
== END 2023-10-26 11:28 | disposition home or self-care (01) ==
LOC: EC 09:12
DX: U07.1 COVID-19 (principal); I10 Essential (primary) hypertension; E78.5 Hyperlipidemia, unspecified; Z79.899 Other long term (current) drug therapy; Z79.02 Long term (current) use of antithrombotics/antiplatelets; Z79.82 Long term (current) use of aspirin; Z88.1 Allergy status to other antibiotic agents; Z88.5 Allergy status to narcotic agent; Z95.1 Presence of aortocoronary bypass graft; Z87.891 Personal history of nicotine dependence
CPT/HCPCS: 87651; 87636; 99284; J8540

== ENCOUNTER 2023-11-24 22:09 | Emergency (ER) | payer MEDICARE, OTHER ==
[2023-11-24 22:37] VITALS: RESP 18; TEMP 98.4
[2023-11-25 01:19] LABS: Basophils % (A) 0 %; Eosinophils # (A) 0.2 k/uL (0-0.7); Eosinophils % (A) 2 %; HCT 35.3 % (34.0-46.0); HGB 11.7 gm/dL (11.4-16.0); Lymphocytes # (A) 1.1 k/uL (1.0-4.8); Lymphocytes % (A) 9 %; MCH 27.9 pg (25.0-35.0); MCHC 33.2 g/dL (31.0-37.0); Mean Platelet Volume 8.8; Monocytes # (A) 0.5 k/uL (0-1.0); Monocytes % (A) 4 %; Neutrophils % (A) 84 %; Platelet Count 168 k/uL (150-450); RBC 4.21 m/uL (3.80-5.40); RDW 15.8 % (11.5-15.5)
[2023-11-25 01:30] LABS: African American GFR (CKD) 53 (>60 ml/min/1.73 sqM); Anion Gap 14 mmol/L; Blood Urea Nitrogen 21 mg/dL (7-17); Calcium 9.3 mg/dL (8.4-10.2); Carbon Dioxide 22 mmol/L (22-30); Chloride 103 mmol/L (98-107); Glucose 114 mg/dL (74-99); Non-African American GFR(CKD) 46 (>60 ml/min/1.73 sqM); Potassium 4.4 mmol/L (3.5-5.1); Sodium 139 mmol/L (137-145)
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
[2023-11-25 02:06] VITALS: BP 127/63; PULSE 89
== END 2023-11-25 01:58 | disposition home or self-care (01) ==
LOC: EC 22:09
DX: I12.9 Hypertensive chronic kidney disease with stage 1 through stage 4 chronic kidney disease, or unspecified chronic kidney disease (principal); N18.30 Chronic kidney disease, stage 3 unspecified; E78.5 Hyperlipidemia, unspecified; Z79.02 Long term (current) use of antithrombotics/antiplatelets; Z79.82 Long term (current) use of aspirin; Z79.899 Other long term (current) drug therapy; Z88.5 Allergy status to narcotic agent; Z88.1 Allergy status to other antibiotic agents; Z87.891 Personal history of nicotine dependence; Z95.1 Presence of aortocoronary bypass graft
CPT/HCPCS: 36415; 80048; 85025; 99284

== ENCOUNTER 2023-11-30 11:32 | Day surgery (SDC) | payer MEDICARE, OTHER ==
[~2023-11-30 11:32] MED LIST changes: -ALBUMIN HUMAN 25% 50 ML IV ONE; -ALBUMIN HUMAN 5% 500 ML IVPB ONE; +ALPRAZolam 0.25 MG TAB PO PRN; +ALPRAZolam 0.5 MG TAB PO PRN; -ASPIRIN 325 MG TAB PO ONE; +ASPIRIN 325 MG TAB PO PRN; +ASPIRIN 81 MG PO PRN; -ATORVASTATIN 10 MG TAB PO ONE; -CALCIUM CHLORIDE 100 MG/ML 10 ML SYRINGE IV ONE; -CARDIOPLEGIC SOLN (K+ 16 MEQ/L 1,000 ML with SODIUM BICARB (1 MEQ/ML) 20 ML, LIDOCAINE ... PERFUSION ONE; -CHLORHEXIDINE GLUCONATE 15 ML CUP MUCOUS MEM ONE; -CLEVIDIPINE BUTYRATE 25 MG in EMPTY BAG 1 BAG IV ONE; +CLOPIDOGREL 75 MG TAB PO PRN; -DILTIAZEM 125 MG in SODIUM CHLORIDE 0.9% 100 ML IV ONE; -HEPARIN SODIUM 1,000 UN/ML (10ML VL) IV ONE; -HEPARIN SODIUM,PORCINE 5,000 UNIT in SODIUM CHLORIDE 0.9% 500 ML 500 ML IV ONE; -INSULIN REGULAR 100 UNIT in SODIUM CHLORIDE 0.9% 100 ML IV ONE; -LACTATED RINGERS 1,000 ML IV ONE; -MAGNESIUM SULFATE 16.24 MEQ in EMPTY SYRINGE 1 SYR IV ONE; -MANNITOL 25% 12.5 GM/50 ML VIAL IV ONE; -METOPROLOL TARTRATE 12.5 MG TAB PO ONE; -NITROGLYCERIN SL TABS 0.4 MG TAB SUBLINGUAL ONE; +NITROGLYCERIN SL TABS 0.4 MG TAB SUBLINGUAL PRN; -NITROGLYCERIN-D5W PMX 25 MG/250 ML BTL IV ONE; -NITROGLYCERIN-D5W PMX 50 MG in DEXTROSE/WATER 1 250ML.BAG IV ONE; -NOREPINEPHRINE 4 MG in SODIUM CHLORIDE 0.9% 250 ML IV ONE; -PAPAVERINE 360 MG in SODIUM CHLORIDE 0.9% 90 ML IV ONE; -PHENYLEPHRINE 10 MG/ML VIAL IV ONE; -PHENYLEPHRINE 40 MG in SODIUM CHLORIDE 0.9% 250 ML IV ONE; -PROTAMINE SULFATE 10 MG/ML 25 ML VIAL IV ONE; -PROTAMINE SULFATE 250 MG in EMPTY BAG 1 BAG IV ONE; -SODIUM BICARB 8.4% 50 ML SYR (1 MEQ/ML) IV ONE; -SODIUM CHLORIDE 0.9% 1,000 ML IV ONE; -TRANEXAMIC ACID 2,000 MG in SODIUM CHLORIDE 0.9% 80 ML IV ONE; -ceFAZolin 1,000 MG in SODIUM CHLORIDE 0.9% IRRIGATIO 1,000 ML IRRIGATION ONE; -propofoL 1,000 MG/100 ML VIAL IV ONE
[2023-11-30] MEDS: SODIUM CHLORIDE 0.9% 1,000 ML in EMPTY BAG 1 BAG IV ONE (12:14)
[2023-11-30] MEDS: LIDOCAINE 1% INJ 10MG/ML (30 ML VIAL-PF) SQ ONE (12:29)
[2023-11-30] MEDS: fentaNYL (PF) 50 MCG/1 ML VIAL IVP ONE (12:29)
[2023-11-30] MEDS: MIDAZOLAM 2 MG/2 ML VIAL IVP ONE (12:29)
[2023-11-30] MEDS: HEPARIN SODIUM 1,000 UN/ML (10ML VL) IV ONE (12:33)
[2023-11-30] MEDS: IOPAMIDOL-370 100ML BTL INJ ONE ×2 (13:09)
--- NOTE | 2023-11-30 13:22 | P.OP ---
Description of Procedure: DESCRIPTION OF PROCEDURE(S): PROCEDURES PERFORMED: Bilateral selective carotid angiography , ultrasound- guided arterial axis INDICATION: Lightheadedness, bilateral carotid stenosis by ultrasound CONSENT:I have discussed the risks, benefits and alternative therapies for the above-mentioned procedure and for both sedation/analgesia as well as necessary blood product administration, if indicated, as they pertain to this patient. The patient has indicated understanding and acceptance of the risks and procedures discussed. PROCEDURE: After the risks, benefits and alternatives of the above mentioned procedure explained in detail with the patient, informed consent was obtained. Patient was taken to the catheterization lab and prepped and draped in usual fashion. 1% lidocaine was used to anesthetize the right radial area. A 6- [place] sheath was placed in the right radial artery using modified Seldinger technique. Using a 5-[place] FR5 catheter right carotid angiogram was performed. Next using SIM2 catheter the left common carotid artery was engaged and selective angiography was performed. A TR band was placed and hemostasis achieved. The patient tolerated the procedure well. Patient was transported back to the post catheterization holding area in stable condition. Conscious Sedation: Patient was monitored under the direct supervision of vision of myself for conscious sedation using Versed and fentanyl for a total duration of 41 minutes ASCENDING AORTA: There is no significant aneurysm or stenosis. Right common carotid: 10-20% proximal stenosis Right internal carotid artery: 80% proximal stenosis at the level of the carotid bulb Left common carotid: 0% stenosis Left internal carotid artery: 40-50% stenosis at the level of a carotid bulb/proximal left internal carotid artery. Left external carotid artery has a 90% stenosis FINAL IMPRESSION: 1. Bilateral carotid artery stenosis with 80% right internal carotid artery stenosis, 40-50% left internal carotid artery stenosis PLAN: 1. Aggressive risk factor modification per most recent ACC/AHA guidelines. 2. Given history of bleeding and has been relatively asymptomatic may consider medical therapy of right internal carotid artery. There is not any significant bilateral disease and therefore likely not causing lightheadedness. Follow-up in office.
[2023-11-30 14:34] VITALS: RESP 16
[2023-11-30] MEDS: ACETAMINOPHEN TAB 325 MG TAB ONE (14:59)
[2023-11-30 16:54] VITALS: BP 142/67; PULSE 76
--- NOTE | 2023-12-06 11:51 | IR ---
EXAMINATION TYPE: IR angio carotid cerv BILAT Intraoperative/procedural fluoroscopic services were pr ovided. CLINICAL INDICATION:Female, 78 years old with history of HTN, 16.1MIN FLUORO TIME; , [facility] Total fluoroscopy time is 16.1 min. DAP: 2337.4 [id number] Please see the operative/procedural note for further details.
== END 2023-11-30 16:49 | disposition home or self-care (01) ==
LOC: CATHCVL 11:32
PROVIDERS: ATTEND Internal Medicine
DX: I65.23 Occlusion and stenosis of bilateral carotid arteries (principal); I25.10 Atherosclerotic heart disease of native coronary artery without angina pectoris; I10 Essential (primary) hypertension; I12.9 Hypertensive chronic kidney disease with stage 1 through stage 4 chronic kidney disease, or unspecified chronic kidney disease; N18.9 Chronic kidney disease, unspecified; E78.5 Hyperlipidemia, unspecified; I34.1 Nonrheumatic mitral (valve) prolapse; I48.91 Unspecified atrial fibrillation; Z88.1 Allergy status to other antibiotic agents; Z88.5 Allergy status to narcotic agent; Z88.6 Allergy status to analgesic agent; Z79.82 Long term (current) use of aspirin; Z79.899 Other long term (current) drug therapy
CPT/HCPCS: 76937; 36222 ×2; C1769 ×2; C1894; J2250; J2001; J1644; Q9967; J3010

== ENCOUNTER 2024-06-25 09:34 | Emergency (ER) | payer MEDICARE, OTHER ==
[2024-06-25] MEDS ORDERED: KETOROLAC 15 MG/ML 1 ML VIAL ONE (10:39)
[2024-06-25] MEDS ORDERED: SODIUM CHLORIDE 0.9% 1,000 ML BAG ONE (10:50)
[2024-06-25] MEDS ORDERED: AMOXIC-POT CLAV 875-125MG 1 EACH TAB ONE (19:16)
[2024-06-25] MEDS ORDERED: hydrALAZINE HCL 20 MG/ML 1 ML VIAL ONE (19:21)
--- NOTE | 2024-07-29 12:18 | CT ---
[id number] RAO SHELTON : 1945 EXAM: CT abdomen pelvis with IV contrast. DATE: 06/25/2024 18:40 INDICATION: LEFT LOWER QUAD. PAIN HX: DIVERTICULITIS COMPARISON: None, please note PACS downtime occurred during the radiologist interpretation of these i mages with limited priors/reports.. TECHNIQUE: CT abdomen pelvis with IV contrast., with axial imaging and sagittal and coronal reformats following the administration of 80 cc of Isovue-300 IV contrast material.. One or more CT dose reduction strate gies were utilized during this examination. Total DLP administered was 766.9 mGycm. FINDINGS: LOWER CHEST: Trace right pleural effusion with associated atelectasis. Postsurgical changes in the he art with metal density within the heart possibly within a axillary muscle. Mitral valve repair change s. ABDOMEN LIVER: Unremarkable GALLBLADDER AND BILE DUCTS: Gallstones present in an distended gallbladder. PANCREAS: Unremarkable. SPLEEN: Unremarkable. ADRENAL GLANDS: Indeterminate left adrenal 24 x 23 mm nodule. KIDNEYS AND URETERS: No evidence of hydronephrosis or renal calculus. The ureters are unremarkable. S imple appearing right renal cyst. PELVIS BLADDER: Unremarkable REPRODUCTIVE: Low-density area centrally within the uterus. Area measures roughly 30 x 20 7 L. Calcif ication also present. ABDOMEN & PELVIS STOMACH AND BOWEL: Colonic diverticula present with fat stranding changes around the left lower quadr ant diverticula. No perforation, abscess or organizing fluid collections. Stomach and duodenum are un remarkable. No evidence of bowel obstruction. PERITONEUM: No evidence of pneumoperitoneum or free fluid. VASCULATURE: Infrarenal abdominal aorta ectasia up to 27 mm. Atherosclerosis throughout the arterial vasculature. MUSCULOSKELETAL: Mild disc degeneration changes are present throughout the thoracolumbar spine. Scoli osis changes of the spine. LYMPH NODES: No gross evidence for lymphadenopathy SOFT TISSUE/ABDOMINAL WALL: Unremarkable IMPRESSION: 1. Uncomplicated left lower quadrant diverticulitis without evidence of perforation or abscess forma tion. 2. Indeterminate left adrenal 24 x 23 mm nodule. Consider adrenal mass protocol CT if not already pe rformed. 3. Low density area within the uterus, further evaluation with nonemergent pelvic ultrasound recomme nded if not recently performed. 4. Infrarenal abdominal aorta ectasia up to 26 mm. 5. Trace right pleural effusion with associated atelectasis. 6. Cholelithiasis. [facility], , 07/29/2024 12:16 PM
== END 2024-06-25 15:08 | disposition home or self-care (01) ==
LOC: EC 09:34
CPT/HCPCS: 74177; 96374; 96375; 99284

== ENCOUNTER → 2025-03-16 | Outpatient (CLI) | payer MEDICARE ==
[2025-03-16 10:59] LABS: African American GFR (CKD) 54 (>60 ml/min/1.73 sqM); Blood Urea Nitrogen 15 mg/dL (7-17); Non-African American GFR(CKD) 47 (>60 ml/min/1.73 sqM)
--- NOTE | 2025-03-16 12:47 | CT ---
EXAMINATION TYPE: CT abdomen pelvis w con CT DLP: 969 mGycm, Automated exposure control for dose reduction was used. DATE OF EXAM: 03/16/2025 12:11 PM COMPARISON: CT abdomen pelvis 07/29/2024, 05/21/2023, 04/01/2023 CLINICAL INDICATION:Female, 79 years old with history of N81.3 COMPLETE UTEROVAGINAL PROLAPSE; comple te uterovagnal prolapse TECHNIQUE: Standard CT of the abdomen and pelvis following the administration of 100 cc of Isovue 3 00 IV contrast material and oral contrast. Coronal and sagittal reformats were performed. FINDINGS: LOWER CHEST: Linear right lower lobe subsegmental atelectasis. Postsurgical changes in the heart with metal density within the heart possibly within a papillary muscle. Mitral valve repair changes. ABDOMEN ABDOMEN LIVER: Stable left hepatic lobe punctate hyperdense focus which is too small to characterize but like ly represents a cyst. GALLBLADDER AND BILE DUCTS: Cholelithiasis. No biliary ductal dilatation. PANCREAS: Unremarkable. SPLEEN: Unremarkable. ADRENAL GLANDS: Right adrenal gland is unremarkable. Stable left adrenal gland 2.2 cm lesion which is previously characterized as a benign lipid rich adenoma. KIDNEYS AND URETERS: No renal calculi identified. Similar right renal extrarenal pelvis.Atrophy of th e right kidney compared to the left. Prominent left extrarenal pelvis with mild hydronephrosis. No ob structing calculus identified. Contrast is demonstrated within both collecting systems and renal pelv ises on the delayed phase. Redemonstration of multiple right renal cysts with largest measuring up to 1.5 cm. These appear simple. No follow-up recommended. PELVIS BLADDER: Incompletely distended with cystocele demonstrated measuring up to 6.5 cm below the pubococc ygeal line. REPRODUCTIVE: Calcified fibroid within the uterine fundus measuring up to 8 mm. There is significant ureteral vaginal prolapse measuring approximately 8.3 cm below the pubococcygeal line. ABDOMEN & PELVIS STOMACH AND BOWEL: Small hiatal hernia, duodenum is unremarkable. Enteric contrast reaches the descen ding colon. Distal colonic diverticulosis without evidence for acute diverticulitis. The appendix is within normal limits. Approximately 2.9 cm a rectal prolapse. No evidence of bowel obstruction. PERITONEUM: No evidence of pneumoperitoneum or free fluid. VASCULATURE: Moderate atherosclerotic calcifications are present throughout the abdominal aorta and i ts branches. No evidence of aortic aneurysm. Ectasia of the mid abdominal aorta measuring up to 2.8 c m. MUSCULOSKELETAL: No acute osseous abnormalities. Moderate multilevel degenerative disc disease of the lower lumbar spine. Levoscoliotic curvature of the lumbar spine with apex at L3. LYMPH NODES: No evidence for lymphadenopathy. SOFT TISSUE/ABDOMINAL WALL: Unremarkable IMPRESSION: 1. Significant uterovaginal prolapse with cystocele and rectocele. 2. Mild left hydronephrosis without obstructing calculus. Similar atrophy of the right kidney greater than left. 3. Stable left adrenal gland 2.2 cm lesion previously characterized as a benign lipid rich adenoma. 4. Colonic diverticulosis without evidence for acute diverticulitis. 5. Cholelithiasis. [facility], , 03/16/2025 12:45 PM
== END | disposition home or self-care (01) ==
LOC: RADCTMAIN 10:22
PROVIDERS: ATTEND Obstetrics & Gynecology
DX: N81.3 Complete uterovaginal prolapse (principal); K80.20 Calculus of gallbladder without cholecystitis without obstruction; K57.30 Diverticulosis of large intestine without perforation or abscess without bleeding; N13.30 Unspecified hydronephrosis; E27.8 Other specified disorders of adrenal gland; D35.02 Benign neoplasm of left adrenal gland
CPT/HCPCS: 82565; 84520; 74177; 36415; Q9967

== ENCOUNTER 2025-04-28 08:47 | Emergency (ER) | payer MEDICARE ==
[2025-04-28 08:54] VITALS: RESP 18; TEMP 97.8
[2025-04-28] MEDS: SODIUM CHLORIDE 0.9% 500 ML 500 ML IV ONE (09:25)
[2025-04-28 09:41] LABS: Appearance,Urine Clear (Clear); Bilirubin,Urine Negative (Negative); Blood,Urine Negative (Negative); Color,Urine Colorless; Glucose,Urine (UA) Negative (Negative); Ketones,Urine Negative (Negative); Leukocyte Esterase,Urine Negative (Negative); Nitrite,Urine Negative (Negative); PH, Urine 6.5 (5.0-8.0); Protein,Urine Negative (Negative); Specific Gravity,Urine 1.005 (1.001-1.035); Urobilinogen,Urine <2.0 mg/dL (<2.0)
[2025-04-28 09:48] LABS: Basophils # (A) 0.03 10*3/uL (0.00-0.10); Basophils % (A) 0.3 %; Eosinophils % (A) 2.1 %; HCT 37.8 % (37.2-46.3); Lymphocytes # (A) 1.39 10*3/uL (0.90-5.00); Lymphocytes % (A) 14.9 %; MCH 27.1 pg (27.0-32.0); MCHC 31.7 g/dL (32.0-37.0); MCV 85.5 fL (80.0-97.0); Mean Platelet Volume 11.2 fL (9.5-12.2); Monocytes # (A) 0.98 10*3/uL (0.20-1.00); Monocytes % (A) 10.5 %; Neutrophils # (A) 6.67 10*3/uL (1.80-7.70); Neutrophils % (A) 71.6 %; Platelet Count 144 10*3/uL (140-440); RBC 4.42 10*6/uL (4.10-5.20); RDW 15.2 % (11.5-14.5); WBC 9.33 10*3/uL (4.50-10.00)
[2025-04-28 09:53] LABS: Partial Thromboplastin Time 22.6 sec (22.0-30.0); Prothrombin Time 10.6 sec (10.0-12.5)
[2025-04-28 10:02] LABS: ALT 21 U/L (4-34); AST 22 U/L (14-36); African American GFR (CKD) 56 (>60 ml/min/1.73 sqM); Albumin 3.7 g/dL (3.5-5.0); Alkaline Phosphatase 96 U/L (38-126); Amylase 56 U/L (30-110); Anion Gap 11 mmol/L; Blood Urea Nitrogen 18 mg/dL (7-17); Calcium 9.3 mg/dL (8.4-10.2); Carbon Dioxide 24 mmol/L (22-30); Chloride 106 mmol/L (98-107); Glucose 88 mg/dL (74-99); Lipase 156 U/L (23-300); Non-African American GFR(CKD) 48 (>60 ml/min/1.73 sqM); Potassium 4.2 mmol/L (3.5-5.1); Sodium 141 mmol/L (137-145); Total Bilirubin 0.8 mg/dL (0.2-1.3); Total Protein 6.3 g/dL (6.3-8.2)
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
[2025-04-28] MEDS: ACETAMINOPHEN TAB 500 MG TAB PO STA (10:40)
--- NOTE | 2025-04-28 11:04 | CT ---
EXAMINATION TYPE: CT abdomen pelvis w con DATE OF EXAM: 04/28/2025 10:40 AM COMPARISON: CT abdomen pelvis most recent from 03/16/2025 CLINICAL INDICATION: Female, 79 years old with history of abdominal pain. LLQ.; abd pain TECHNIQUE: Axial CT abdomen pelvis w con;Sagittal and coronal reformats were created on a separate w orkstation. Contrast used:80 mL of Isovue 300 with IV Contrast, (none if empty) Oral contrast used: without Oral Contrast (none if empty) CT DLP: 739.1 mGycm, Automated exposure control for dose reduction was used. FINDINGS: LOWER CHEST: Unremarkable ABDOMEN LIVER: Unremarkable GALLBLADDER AND BILE DUCTS: Layering increased densities within the lumen consistent with gallstones are present. PANCREAS: Unremarkable. SPLEEN: Unremarkable. ADRENAL GLANDS: Left adrenal nodule measuring 23 mm. KIDNEYS AND URETERS: No evidence of hydronephrosis or obstructing renal calculus. The ureters are unr emarkable. Right simple renal cysts no follow-up recommended. Extra renal pelves bilaterally. PELVIS BLADDER: No evidence for wall thickening or mass given limitations of exam. REPRODUCTIVE: The uterus is surgically absent. ABDOMEN & PELVIS STOMACH AND BOWEL: There are colonic diverticula present, one of which has adjacent fat stranding wade nges in the sigmoid colon. No organizing fluid collection or evidence of pneumoperitoneum. No evidenc e of bowel obstruction. The appendix is normal. PERITONEUM/RETROPERITONEUM: No evidence of pneumoperitoneum or free fluid. VASCULATURE: Severe atherosclerotic calcifications are present throughout the abdominal aorta and its branches. No evidence of aortic aneurysm. MUSCULOSKELETAL: Levoscoliosis apex L3 on the left. rNo acute osseous abnormalities. Severe disc dege neration changes are present throughout the thoracolumbar spine. Worse at L2-L5. LYMPH NODES: No gross evidence for lymphadenopathy. SOFT TISSUE/ABDOMINAL WALL: Unremarkable IMPRESSION: 1. Acute uncomplicated sigmoid diverticulitis. No organizing fluid collection or free air. 2. Cholelithiasis. 3. Simple appearing right renal cyst. No follow-up recommended. 4. Left adrenal nodule measuring 23 mm compatible with lipid rich adrenal adenoma on prior noncontra st exams. No follow up recommended. [facility], , 04/28/2025 11:02 AM
[2025-04-28 11:43] VITALS: BP 139/73; PULSE 76
[2025-04-28] MEDS: ONDANSETRON 4 MG ODT STARTER PACK 2 TAB BTL PO STA (11:47)
[2025-04-28] MEDS: AMOXIC-POT CLAV 875-125MG 1 EACH TAB PO STA (11:47)
== END 2025-04-28 11:57 | disposition home or self-care (01) ==
LOC: EC 08:47
DX: K57.32 Diverticulitis of large intestine without perforation or abscess without bleeding (principal); G89.29 Other chronic pain; I12.9 Hypertensive chronic kidney disease with stage 1 through stage 4 chronic kidney disease, or unspecified chronic kidney disease; N18.9 Chronic kidney disease, unspecified; Z87.891 Personal history of nicotine dependence; Z88.1 Allergy status to other antibiotic agents; Z88.5 Allergy status to narcotic agent
CPT/HCPCS: 36415; 80053; 82150; 83605; 83690; 85025; 85610; 85730; 81003; 74177; 99285; S0119; Q9967

== ENCOUNTER 2025-06-10 10:14 | Inpatient (IN) | payer MEDICARE ==
[2025-06-04 18:24] VITALS: BMI 24.5
[~2025-06-10 10:14] MED LIST changes: -ASPIRIN 325 MG TAB PO PRN; -CLOPIDOGREL 75 MG TAB PO PRN; +RX INFO: IV CONTRAST WAS GIVEN 1 EACH MISC MISCELLANE PRN
[2025-06-10] MEDS: SODIUM CHLORIDE 0.9% 1,000 ML in EMPTY BAG 1 BAG IV ONE (11:19)
[2025-06-10 11:32] LABS: Basophils # (A) 0.03 10*3/uL (0.00-0.10); Basophils % (A) 0.5 %; Eosinophils # (A) 0.22 10*3/uL (0.04-0.35); Eosinophils % (A) 3.9 %; HCT 35.7 % (37.2-46.3); HGB 11.4 g/dL (12.0-15.0); Lymphocytes # (A) 1.24 10*3/uL (0.90-5.00); Lymphocytes % (A) 22.2 %; MCH 27.3 pg (27.0-32.0); MCHC 31.9 g/dL (32.0-37.0); MCV 85.4 fL (80.0-97.0); Monocytes # (A) 0.56 10*3/uL (0.20-1.00); Monocytes % (A) 10.0 %; Neutrophils # (A) 3.50 10*3/uL (1.80-7.70); Neutrophils % (A) 62.7 %; Platelet Count 147 10*3/uL (140-440); RBC 4.18 10*6/uL (4.10-5.20); RDW 15.0 % (11.5-14.5); WBC 5.59 10*3/uL (4.50-10.00)
[2025-06-10] MEDS: IV FLUID CONTINUATION 1,000 ML IV ONE (11:38)
[2025-06-10 11:57] LABS: African American GFR (CKD) 53 (>60 ml/min/1.73 sqM); Anion Gap 8 mmol/L; Blood Urea Nitrogen 19 mg/dL (7-17); Calcium 9.6 mg/dL (8.4-10.2); Carbon Dioxide 28 mmol/L (22-30); Chloride 106 mmol/L (98-107); Glucose 99 mg/dL (74-99); Non-African American GFR(CKD) 46 (>60 ml/min/1.73 sqM); Potassium 4.7 mmol/L (3.5-5.1); Sodium 142 mmol/L (137-145)
[2025-06-10] MEDS: LIDOCAINE 1% INJ 10MG/ML (20 ML MDV) SQ ONE (12:41)
[2025-06-10] MEDS: HEPARIN SODIUM 1,000 UN/ML (10ML VL) IVP ONE ×3 (12:48→13:33)
[2025-06-10] MEDS: HEPARIN SODIUM,PORCINE 10,000 UNIT in SODIUM CHLORIDE 0.9% 1,000 ML IRRIGATION ONE (12:49)
[2025-06-10] MEDS: IOPAMIDOL-370 100ML BTL INJ ONE (13:28)
--- NOTE | 2025-06-10 13:58 | IR ---
EXAMINATION TYPE: IR stent intravas non coronary DATE OF EXAM: 06/10/2025 1:48 PM COMPARISON: Pre Operative Images if available both CT/MRI or plain film CLINICAL INDICATION: Female, 79 years old with history of right carotid stenosis, 11.8min fluoro, 11. 2Gycm2; TECHNIQUE: IR stent intravas non coronary, multiple fluoroscopic images provided for procedure. DAP: mGym2 Gycm2 uGym2 cGycm2 or equivalent. FINDINGS: right carotid stenosis, 11.8min fluoro, 11.2Gycm2 IMPRESSION: 1. No evidence for intraoperative complication. 2. Please see the operative/procedural note for further details. [facility], , 06/10/2025 1:56 PM
[2025-06-10] MEDS ORDERED: ATROPINE SULFATE 0.1 MG/ML 10ML SYRINGE IV PRN (14:03)
[2025-06-10] MEDS ORDERED: MAG HYDROX/AL HYDROX/SIMETH 30 ML CUP PO PRN (14:03)
--- NOTE | 2025-06-10 14:08 | P.PCN ---
Description of Procedure: DESCRIPTION OF PROCEDURE(S): PROCEDURES PERFORMED: Selective right carotid angiography, right internal carotid artery stent with a 6.0 -8.0 x 30mm XAct carotid stent, post dilated with a 5.0mm balloon INDICATION: Asymptomatic severe right internal carotid artery stenosis CONSENT:I have discussed the risks, benefits and alternative therapies for the above-mentioned procedure and for both sedation/analgesia as well as necessary blood product administration, if indicated, as they pertain to this patient. The patient has indicated understanding and acceptance of the risks and procedures discussed. Risks and benefits of CEA, TCAR and transfemoral carotid stenting discussed with patient and through shared decision making, patient wishes to proceed. PROCEDURE: After the risks, benefits and alternatives of the above mentioned procedure explained in detail with the patient, informed consent was obtained. Patient was taken to the catheterization lab and prepped and draped in usual fashion. 1% lidocaine was used to anesthetize the right femoral area. A 6- [place] sheath was placed in the left femoral artery using modified Seldinger technique. Next using VTK catheter the proximal innominate was engaged and selective angiography was performed. Angiography showed severe disease which was somewhat eccentric with 90% right internal carotid artery stenosis best seen on the lateral views. The decision was made to perform carotid stenting. Heparin was given. A 0.035 glide advantage was placed in the right external carotid artery and over the wire a destination sheath was advanced. Next in the Emboshield filter was placed in the petrous portion of the right internal carotid artery. Predilation was performed with a 4.0 x 20 mm balloon. Next a 6 x 8 x 30 mm Xact carotid stent was placed from the right common into the right internal carotid artery. The stent was postdilated with a 5.0 mm balloon. Final angiograms were performed. Preintervention there was 90% stenosis with unimpeded flow and postintervention there was less than 10% stenosis with unimpeded flow and no dissection. The filter was retrieved. A left femoral angiogram was performed and anatomoy was suitable for closure. A 6Fr Angioseal was placed with hemostasis achieved. The patient tolerated the procedure well. Patient was transported back to the post catheterization holding area in stable condition. Conscious Sedation: Patient was monitored under the direct supervision of vision of myself for conscious sedation using Versed and fentanyl for a total duration of 58 minutes Right common carotid: No significant stenosis Right internal carotid artery: 90% eccentric proximal stenosis FINAL IMPRESSION: 1. 90% right internal carotid artery stenosis status post 6.0 -8.0 x 30mm XAct carotid stent placement PLAN: 1. Aggressive risk factor modification per most recent ACC/AHA guidelines. 2. Discussed recommendations for tobacco cessation. Gave patient information on [employer] quit line and also discussed in detail recommendations for tobacco cessation. 3. Continue aspirin and Plavix for a minimum of 3 months 4. Goal LDL less than 70
[2025-06-10] MEDS: EZETIMIBE 10 MG TAB PO SCH (20:59)
[2025-06-10] MEDS: MECLIZINE 25 MG TAB PO SCH (20:59)
[2025-06-10] MEDS: ATORVASTATIN 40 MG TAB PO SCH (20:59)
[2025-06-10] MEDS: VIT A,C & E-LUTEIN-MINERALS 1 EACH TAB PO SCH (23:33)
[2025-06-10] MEDS: ACETAMINOPHEN TAB 500 MG TAB PO PRN (23:33)
[2025-06-11] MEDS: SODIUM CHLORIDE 0.9% 1,000 ML IV SCH (04:47)
[2025-06-11 08:07] LABS: Basophils # (A) 0.03 10*3/uL (0.00-0.10); Basophils % (A) 0.5 %; Eosinophils # (A) 0.16 10*3/uL (0.04-0.35); Eosinophils % (A) 2.8 %; HCT 31.0 % (37.2-46.3); Lymphocytes # (A) 1.23 10*3/uL (0.90-5.00); Lymphocytes % (A) 21.7 %; MCH 27.7 pg (27.0-32.0); MCHC 31.9 g/dL (32.0-37.0); MCV 86.6 fL (80.0-97.0); Monocytes # (A) 0.63 10*3/uL (0.20-1.00); Monocytes % (A) 11.1 %; Neutrophils # (A) 3.60 10*3/uL (1.80-7.70); Neutrophils % (A) 63.4 %; Platelet Count 123 10*3/uL (140-440); RBC 3.58 10*6/uL (4.10-5.20); RDW 15.1 % (11.5-14.5); WBC 5.68 10*3/uL (4.50-10.00)
[2025-06-11 08:12] LABS: HGB 9.9 g/dL (12.0-15.0)
[2025-06-11] MEDS: CYANOCOBALAMIN 500 MCG TAB PO SCH (08:18)
[2025-06-11] MEDS: LORATADINE 10 MG TAB PO SCH (08:18)
[2025-06-11] MEDS: FOLIC ACID 1 MG TAB PO SCH (08:18)
[2025-06-11] MEDS: CLOPIDOGREL 75 MG TAB PO SCH (08:18)
[2025-06-11] MEDS: ASPIRIN 81 MG PO SCH (08:18)
[2025-06-11 08:22] LABS: African American GFR (CKD) 55 (>60 ml/min/1.73 sqM); Anion Gap 9 mmol/L; Blood Urea Nitrogen 21 mg/dL (7-17); Calcium 9.2 mg/dL (8.4-10.2); Carbon Dioxide 26 mmol/L (22-30); Chloride 105 mmol/L (98-107); Glucose 94 mg/dL (74-99); Non-African American GFR(CKD) 47 (>60 ml/min/1.73 sqM); Potassium 4.4 mmol/L (3.5-5.1); Sodium 140 mmol/L (137-145)
[2025-06-11 08:25] VITALS: RESP 17
[2025-06-11 12:16] VITALS: BP 149/71; PULSE 88; TEMP 98.3
--- NOTE | 2025-06-11 23:14 | P.DS ---
Providers Date of admission: 06/10/25 10:14 Attending physician: Josh Lin DO Primary care physician: Lola Nieto [facility] Course: Patient is a pleasant 79 year old female who presented for elective right ICA stent. She has asymptomatic severe R ICA stenosis. She underwent stenting from a left femoral access site and BP had decresed from 170's to 120-130's and therefore was monitored overnight and no other significant hemodynic issues. She will be discharged home on aspirin and Plavix and BP meds will be held until followup in 1 week. Plan - Discharge Summary Discharge Rx Participant: No New Discharge Prescriptions: New Mag Hydrox/Al Hydrox/Simeth [Maalox] 30 ml PO Q4HR PRN ml PRN Reason: Heartburn Nitroglycerin Sl Tabs [Nitrostat] 0.4 mg SUBLINGUAL Q5M PRN tab PRN Reason: Chest Pain Continue Atorvastatin Calcium [Lipitor] 40 mg PO HS Aspirin EC [Ecotrin Low Dose] 81 mg PO QAM Folic Acid 800 mcg PO QAM Ergocalciferol [Vitamin D2 (1250 Mcg = 24836 Iu)] 1,250 mcg PO WEEKLY Cyanocobalamin [Vitamin B-12] 1,000 mcg PO DAILY@0800 Vit C/E/Zn/Coppr/Lutein/Zeaxan [Preservision Areds 2 Softgel] 1 cap PO BID Fexofenadine HCl [Elva Allergy] 180 mg PO QAM Ezetimibe [Zetia] 10 mg PO HS Clopidogrel [Plavix] 75 mg PO QAM Meclizine HCl [Antivert] 25 mg PO HS Discontinued Losartan [Cozaar] 50 mg PO QAM atenoloL [Tenormin] 25 mg PO HS Losartan Potassium 25 mg PO HS atenoloL 50 mg PO QAM Discharge Medication List Aspirin EC [Ecotrin Low Dose] 81 mg PO QAM 06/05/21 [History] Atorvastatin Calcium [Lipitor] 40 mg PO HS 06/05/21 [History] Cyanocobalamin [Vitamin B-12] 1,000 mcg PO DAILY@0800 04/01/23 [History] Folic Acid 800 mcg PO QAM 04/01/23 [History] Fexofenadine HCl [Elva Allergy] 180 mg PO QAM 11/26/23 [History] Vit C/E/Zn/Coppr/Lutein/Zeaxan [Preservision Areds 2 Softgel] 1 cap PO BID 11/26/23 [History] Clopidogrel [Plavix] 75 mg PO QAM 06/04/25 [History] Ergocalciferol [Vitamin D2 (1250 Mcg = 28214 Iu)] 1,250 mcg PO WEEKLY 06/04/25 [History] Ezetimibe [Zetia] 10 mg PO HS 06/04/25 [History] Meclizine HCl [Antivert] 25 mg PO HS 06/04/25 [History] Mag Hydrox/Al Hydrox/Simeth [Maalox] 30 ml PO Q4HR PRN ml 06/11/25 [Rx] Nitroglycerin Sl Tabs [Nitrostat] 0.4 mg SUBLINGUAL Q5M PRN tab 06/11/25 [Rx] Follow up Appointment(s)/Referral(s): Josh Lin DO [STAFF PHYSICIAN] - 06/18/25 10:00 am (FOLLOW UP APPOINTMENT WILL BE WITH DESIRE [facility]ERMAN) Patient Instructions/Handouts: *Surgery [facility] - After Heart Catheterization - Wet Machine Cutter Instructions, Carotid Endarterectomy (DC) Activity/Diet/Wound Care/Special Instructions: you may take a shower, do not take a bath or submerge yourself in water for 1 week apply gentle pressure when laughing, straining to have a bowel movement or coughing do not lift anything heavier than 10 pounds for 1 week avoid stairs as much as possible and avoid repeatedly bending at the waist any signs or symptoms of a stroke; facial asymmetry, slurred speech, dizziness report to the ER immediately if the systolic (top number) of your blood pressure is below 100 and you feel dizzy or light headed call cardiology associates Discharge Disposition: HOME SELF-CARE
[2025-06-17] MEDS ORDERED: ERGOCALCIFEROL 1,250 MCG (50,000 IU) CAPSULE PO SCH (09:00)
== END 2025-06-11 12:08 | disposition home or self-care (01) | DRG 35 ==
LOC: 2ORMAIN 10:14 → 3SCARD 14:54
PROVIDERS: ADMIT Internal Medicine; ATTEND Internal Medicine
PROC: 037K3DZ Dilation of Right Internal Carotid Artery with Intraluminal Device, Percutaneous Approach (ICD-10-PCS; principal; 2025-06-10 12:00)
DX: I65.21 Occlusion and stenosis of right carotid artery (principal); K57.92 Diverticulitis of intestine, part unspecified, without perforation or abscess without bleeding; I12.9 Hypertensive chronic kidney disease with stage 1 through stage 4 chronic kidney disease, or unspecified chronic kidney disease; I34.1 Nonrheumatic mitral (valve) prolapse; N18.9 Chronic kidney disease, unspecified; Z95.1 Presence of aortocoronary bypass graft; I34.0 Nonrheumatic mitral (valve) insufficiency; F17.200 Nicotine dependence, unspecified, uncomplicated; I10 Essential (primary) hypertension; E78.5 Hyperlipidemia, unspecified; I25.10 Atherosclerotic heart disease of native coronary artery without angina pectoris; Z86.16 Personal history of COVID-19; Z79.899 Other long term (current) drug therapy; Z88.5 Allergy status to narcotic agent; Z88.2 Allergy status to sulfonamides
CPT/HCPCS: 37215; 80048; 85025

== ENCOUNTER 2025-06-11 15:33 | Emergency (ER) | payer MEDICARE ==
[2025-06-11 15:37] VITALS: RESP 16
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
[2025-06-11 17:24] LABS: Basophils # (A) 0.02 10*3/uL (0.00-0.10); Basophils % (A) 0.3 %; Eosinophils # (A) 0.15 10*3/uL (0.04-0.35); Eosinophils % (A) 2.5 %; HCT 32.9 % (37.2-46.3); HGB 10.8 g/dL (12.0-15.0); Lymphocytes # (A) 0.97 10*3/uL (0.90-5.00); Lymphocytes % (A) 16.4 %; MCH 27.8 pg (27.0-32.0); MCHC 32.8 g/dL (32.0-37.0); MCV 84.6 fL (80.0-97.0); Monocytes # (A) 0.56 10*3/uL (0.20-1.00); Monocytes % (A) 9.4 %; Neutrophils # (A) 4.20 10*3/uL (1.80-7.70); Neutrophils % (A) 70.9 %; Platelet Count 140 10*3/uL (140-440); RBC 3.89 10*6/uL (4.10-5.20); RDW 14.9 % (11.5-14.5); WBC 5.93 10*3/uL (4.50-10.00)
[2025-06-11 17:35] LABS: ALT 22 U/L (4-34); AST 31 U/L (14-36); African American GFR (CKD) 59 (>60 ml/min/1.73 sqM); Albumin 4.2 g/dL (3.5-5.0); Alkaline Phosphatase 97 U/L (38-126); Anion Gap 11 mmol/L; Blood Urea Nitrogen 20 mg/dL (7-17); Calcium 9.7 mg/dL (8.4-10.2); Carbon Dioxide 23 mmol/L (22-30); Chloride 104 mmol/L (98-107); Glucose 100 mg/dL (74-99); Non-African American GFR(CKD) 51 (>60 ml/min/1.73 sqM); Potassium 4.1 mmol/L (3.5-5.1); Sodium 138 mmol/L (137-145); Total Protein 6.7 g/dL (6.3-8.2)
[2025-06-11 17:47] LABS: INR 0.9 (<1.2); Partial Thromboplastin Time 21.4 sec (22.0-30.0); Prothrombin Time 10.4 sec (10.0-12.5)
[2025-06-11 18:47] VITALS: BP 133/70; PULSE 102; TEMP 97.8
== END 2025-06-11 18:47 | disposition home or self-care (01) ==
LOC: EC 15:33
DX: N81.4 Uterovaginal prolapse, unspecified (principal); N93.9 Abnormal uterine and vaginal bleeding, unspecified; Z87.891 Personal history of nicotine dependence; Z88.1 Allergy status to other antibiotic agents; Z88.5 Allergy status to narcotic agent
CPT/HCPCS: 36415; 80053; 85025; 85610; 85730; 99284